=== PATIENT | female | born 1960 | race Caucasian/White ===

== ENCOUNTER → 2017-02-01 | Outpatient (CLI) | payer BC ==
[~2017-02-01] MED LIST: LEVO100T PO; OXYC-57 PO
--- NOTE | 2017-02-01 07:44 | DIAGNOSTIC IMAGING REPORT ---
ABDOMEN LIMITED (US) HISTORY: 56 years-old Female acute right upper quadrant abdominal pain COMPARISON: None available TECHNIQUE: Multiple real-time sonographic images of the abdominal right upper quadrant were obtained assessing grayscale appearance and color flow. FINDINGS: Image pancreas is unremarkable with majority of this structure could by bowel gas. There is mild intrahepatic biliary ductal dilation secondary to stones within the common bile duct, largest which measures up to 1.2 x 0.8 cm. Common bile duct is dilated just proximal to the stones measuring up to 11 mm transversely. Additionally, sludge and gall stones are seen within a distended gallbladder lumen with gallbladder stones measuring up to 2.7 cm. There is trace pericholecystic fluid without associated significant gallbladder wall thickening. Sonographic Lieberman sign was reported as negative. Incidentally, there is a small echogenic lesion of the right hepatic lobe measuring up to 0.5 cm which is nonspecific and may reflect a hemangioma without internal vascularity identified. The imaged right kidney is unremarkable without hydronephrosis. IMPRESSION: 1. Cholelithiasis with choledocholithiasis, intrahepatic and extrahepatic biliary ductal dilation with the common bile duct measuring up to 11 mm transversely. There is trace pericholecystic fluid with gallbladder distention, however no significant gallbladder wall thickening and the sonographic Lieberman sign was reported as negative. Correlate clinically to exclude developing acute cholecystitis. 2. 0.5 cm echogenic lesion of the right hepatic lobe incidentally noted which is nonspecific and may reflect a hemangioma. The above report was generated using voice recognition software. It may contain grammatical, syntax or spelling errors. Electronically signed by: Isidoro Curry M.D. 02/01/2017 7:43 AM Dictated Date/Time: 02/01/2017 7:31 AM
== END | disposition home or self-care (01) ==
LOC: C.ULTR 06:27
PROVIDERS: ATTEND Family Medicine
DX: R10.11 Right upper quadrant pain (principal)

== ENCOUNTER 2017-02-03 09:55 | Observation (INO) | payer BC ==
[2017-02-03] VITALS (9 sets, daily range): BP systolic 117–144; BP diastolic 64–84; PULSE 51–85; TEMP 34.6–36.5; O2SAT 96–100; Ht 157.5 cm; Wt 75.5 kg
[~2017-02-03] VITALS: Ht 157.5 cm; Wt 75.5 kg
[~2017-02-03 09:55] MED LIST changes: +LACTATED RINGER'S 1000ML 1,000 ML IV ONE; -OXYC-57 PO
[2017-02-03 11:33] LABS: BASO % 0.2 %; BASO ABS # 0.01 K/uL (0-0.2); EOS % 2.4 %; HEMATOCRIT 41.4 % (37-47); IG% 0.2 %; LYMPH % 29.7 %; LYMPH ABS # 1.64 K/uL (1.2-3.4); MEAN CELL VOLUME 90.8 fL (80-100); MEAN CORPUSCULAR HEMOGLOBIN 31.1 pg (25-34); MEAN PLATELET VOLUME 13.4 fL (7.4-10.4); MONO % 11.4 %; NEUT % 56.1 %; PLATELET COUNT 158 K/uL (130-400); RED BLOOD COUNT 4.56 M/uL (4.2-5.4); WHITE BLOOD COUNT 5.53 K/uL (4.8-10.8)
[2017-02-03 11:35] LABS: COMPLETE YES; MEAN CORPUSCULAR HGB CONC 34.3 g/dl (32-36)
[2017-02-03 11:44] LABS: PROTHROMBIN TIME (PATIENT) 10.7 SECONDS (9.0-12.0)
[2017-02-03 11:55] LABS: BUN/CREATININE RATIO 13.7 (10-20); CALCIUM 9.4 mg/dl (8.5-10.1); CREATININE 0.65 mg/dl (0.60-1.20); POTASSIUM 4.2 mmol/L (3.5-5.1)
--- NOTE | 2017-02-03 12:11 | History & Physical Bridge Note ---
H&P Re-Evaluation Bridge Note: I have examined the patient, reviewed the History & Physical and in the interval since the performance of the History & Physical I have noted the following changes of clinical significance: No changes noted
--- NOTE | 2017-02-03 12:44 | Endo History and Physical ---
History & Physical Date of Service: Feb 03, 2017. Chief Complaint: Abdominal pain Referring Physician: History of Present Illness Patient with intermittent right-sided abdominal pain over the past 4-6 weeks found to have choledocholithiasis on a recent ultrasound. This was associated with a significant Elavation of her liver associated enzymes. She presents today for ERCP to have gallstone extraction in addition to cholecystectomy. Past Surgical History Hx Abdominal Surgery: Yes (C-SECTIONS X2) Hx Post-Op Nausea and Vomiting: Yes Social History Smoking Status: Former Smoker Hx Substance Use: No Hx Alcohol Use: No Allergies Coded Allergies: Methimazole (Verified Allergy, Mild, RASH, 02/03/17) Metronidazole (Verified Allergy, Mild, FACIAL BURNING, 02/03/17) Current Medications Reported Home Medications Medications Dose Route/Sig Max Daily Dose Days Date Category Synthroid (Levothyroxine Sodium) 100 Mcg Tab 100 Mcg PO DAILY 05/03/16 Reported Vital Signs Weight (Kilograms): 75.50 Height (Feet): 5 Height (Inches): 2 Date Time Temp Pulse Resp B/P (MAP) Pulse Ox O2 Delivery O2 Flow Rate FiO2 02/03/17 11:17 36.5 67 18 117/64 (81) 97 Room Air 02/03/17 10:59 18 117/64 (81) 97 Room Air Physical Exam General Appearance: no apparent distress Respiratory/Chest: Auscultation: breath sounds normal Cardiovascular: Heart Auscultation: RRR Abdomen: Inspection & Palpation: soft, RUQ tenderness Assessment and Plan Patient to have ERCP and cholecystectomy this afternoon for complications of choledocholithiasis. We have discussed the risks and benefits of ERCP to include bleeding, infection, perforation, pancreatitis and potentially failed cannulation. Plan ERCP today Cholecystectomy with Dr. Barger
[2017-02-03] MEDS ORDERED: INDOMETHACIN 50 MG SUPP PR ONE ×2 (12:45→13:03)
[2017-02-03] MEDS ORDERED: PROPOFOL IV EMULSION 10 MG/ML 20 ML VIAL IV ONE (12:53)
[2017-02-03] MEDS ORDERED: ONDANSETRON INJ 2 MG/ML 2 ML VIAL ONE ×2 (12:53→17:17)
[2017-02-03] MEDS ORDERED: NEOSTIGMINE METHYLSULFATE 5 MG/5 ML SYR ONE (12:53)
[2017-02-03] MEDS ORDERED: LIDOCAINE HCL 2% 2 ML VIAL (20MG/ML) ONE (12:53)
[2017-02-03] MEDS ORDERED: SUCCINYLCHOLINE CHLORIDE 20 MG/ML 10 ML VIAL IV ONE (12:53)
[2017-02-03] MEDS ORDERED: DEXAMETHASONE SOD INJ 4 MG/ML VIAL ONE ×2 (12:53→12:54)
[2017-02-03] MEDS ORDERED: PHENYLEPHRINE HCL INJ 10 MG/ML VIAL ONE (12:53)
[2017-02-03] MEDS ORDERED: ROCURONIUM BROMIDE 10 MG/ML 5 ML VIAL IV ONE (12:53)
[2017-02-03] MEDS ORDERED: GLYCOPYRROLATE INJ 0.2 MG/ML VIAL ONE (12:53)
[2017-02-03] MEDS ORDERED: MIDAZOLAM HCL 1 MG/ML 2ML VIAL ONE (12:53)
[2017-02-03] MEDS ORDERED: EpHEDrine SULFATE INJ 50 MG/ML AMP ONE (12:53)
[2017-02-03] MEDS ORDERED: FENTANYL CITRATE INJ 50 MCG/1 ML 2 ML VIAL ONE ×4 (12:54→16:36)
[2017-02-03] MEDS ORDERED: CISATRACURIUM BESYLATE IV SOLN 2 MG/ML 10 ML VIAL ONE (12:55)
[2017-02-03] MEDS ORDERED: BUPIVACAINE 0.5 % 5 MG/1 ML MPF 30ML VIAL ONE (13:02)
[2017-02-03] MEDS ORDERED: SODIUM CHLORIDE 0.9% PF 50 ML VIAL ONE (13:02)
[2017-02-03] MEDS ORDERED: CEFOXITIN IV 2,000 MG in DEXTROSE 5% 50ML 50 ML IV SCH (13:45)
[2017-02-03] MEDS ORDERED: PROMETHAZINE HCL INJ 12.5 MG in SODIUM CHLORIDE 0.9% 50ML 50 ML IV PRN (14:45)
[2017-02-03] MEDS ORDERED: NALOXONE HCL 0.4 MG/1 ML VIAL/CARP IV PRN (14:45)
[2017-02-03] MEDS ORDERED: FENTANYL CITRATE INJ 50 MCG/1 ML 2 ML VIAL IV PRN (14:45)
[2017-02-03] MEDS ORDERED: FLUMAZENIL 0.1 MG/1 ML 10 ML VIAL IV PRN (14:45)
[2017-02-03] MEDS ORDERED: LABETALOL HCL IV 5 MG/ML 20ML IV PRN (14:45)
[2017-02-03] MEDS ORDERED: ONDANSETRON INJ 2 MG/ML 2 ML VIAL IV PRN ×2 (14:45→17:00)
[2017-02-03] MEDS ORDERED: ATROPINE SULFATE 0.1 MG/ML 5ML SYR IV PRN (14:45)
[2017-02-03] MEDS ORDERED: EpHEDrine SULFATE INJ 50 MG/ML AMP IV PRN (14:45)
--- NOTE | 2017-02-03 15:49 | DIAGNOSTIC IMAGING REPORT ---
ERCP BILIARY DUCTAL CLINICAL HISTORY: EXPLORE DUCTS COMPARISON STUDY: Right upper quadrant ultrasound February 01, 2017. FLUOROSCOPY TIME: 6 minutes and 24 seconds. FINDINGS: 27 fluoroscopic images of the right upper quadrant were obtained during ERCP. Initial images demonstrate cannulation of the common bile duct. Images demonstrate biliary ductal dilatation with a large filling defect consistent with a common bile duct calculus. Subsequent images demonstrate balloon sweep through the common bile duct. [address] are in place. IMPRESSION: Fluoroscopic images from ERCP demonstrating choledocholithiasis and placement of 2 common bile duct stents. Electronically signed by: Addi Gaspar M.D. 02/03/2017 3:47 PM Dictated Date/Time: 02/03/2017 3:45 PM
--- NOTE | 2017-02-03 16:59 | [facility] Post Operative Brief Note ---
Immediate Operative Summary Operative Date Feb 03, 2017. Pre-Operative Diagnosis Cholelithiasis and Choledocholithiasis Post-Operative Diagnosis same as pre-operative Procedure(s) Performed Endoscopic Retrograde Cholangiopancreatography and Laparoscopic Cholecystectomy Surgeon Dr. Guy Gonzales and Dr. Usman Barger Slps Surgeon(s) Matthew Lincoln PA-C for Laparoscopic Cholecystectomy Estimated Blood Loss 10ml for lap darrick Findings acute on chronic cholecystitis, dilated cystic duct, significant inflammation. Window of safety obtained, cystic duct stapled with 35mm endoscopic stapler with vascular load. cystic artery doubly clipped and divided. Gallbladder contracted with large stone. good hemostasis. Specimens A: Gallbladder and Contents Drains None Anesthesia GETA Complication(s) None Disposition Recovery Room / PACU
[2017-02-03] MEDS ORDERED: KETOROLAC TROMETHAMINE 30 MG/ML VIAL IV. PRN (17:00)
[2017-02-03] MEDS ORDERED: MoRPHine SULFATE 4 MG/ML 1 ML CARP\\VIAL IV PRN (17:00)
--- NOTE | 2017-02-03 17:06 | [facility] Operative Report ---
Operative Report Operative Date Feb 03, 2017. Pre-Operative Diagnosis Cholelithiasis and Choledocholithiasis Post-Operative Diagnosis Cholelithiasis with choledocholithiasis Procedure(s) Performed Acute on chronic cholecystitis with cholelithiasis and choledocholithiasis Surgeon Dr. Usman Barger Agricultural Sciences Professor Surgeon(s) Matthew Lincoln PA-C for Laparoscopic Cholecystectomy Estimated Blood Loss 10ml for lap darrick Findings ERCP performed by Gastroenterology. acute on chronic cholecystitis, dilated cystic duct, significant inflammation. Window of safety obtained, cystic duct stapled with 35mm endoscopic stapler with vascular load. cystic artery doubly clipped and divided. Gallbladder contracted with large stone. good hemostasis. Specimens A: Gallbladder and Contents Drains None Anesthesia GETA Complication(s) None Disposition Recovery Room / PACU Indications 56-year-old female with recent history of abdominal pain that had resolved but ultrasound and labs showed cholelithiasis with choledocholithiasis and mild cholecystitis. After discussion with Gastroenterology plan was made for an ERCP performed by Gastroenterology, followed by a laparoscopic cholecystectomy with possible intraoperative cholangiogram by myself. The risks of the procedure were discussed, all questions were answered, the patient agreed to proceed with surgery as planned. Description of Procedure The patient was properly identified, consented, and taken to the operating room where she was placed in the supine position. General endotracheal anesthesia was induced. SCDs and a safety belt were placed. Preoperative antibiotics were administered. An ERCP was performed by Dr. Gonzales of Gastroenterology, please see his report for further details. After completion of the ERCP, the patient's abdomen was prepped and draped in the standard sterile fashion. A surgical timeout was performed and all parties were in agreement that this was the correct patient and procedure to be performed and we continued as planned. A curvilinear, infraumbilical incision was made with electrocautery and deepened down to the fascia with blunt dissection. The base of the umbilicus was grasped with a Delon and elevated towards the ceiling. An incision was made in the midline fascia with a knife and entry into the peritoneum was confirmed. Stay suture of 0 Vicryl was placed and a Gregory trocar was inserted. The abdomen was insufflated with carbon dioxide which the patient tolerated without incident. The laparoscope was inserted and no damage from initial trocar placement was noted, no gross abnormalities were noted within the 4 quadrants of the abdomen. 5 mm ports were then placed in the subxiphoid position in the midline and 2 in the right subcostal position. The patient was placed in reverse Trendelenburg position and rotated towards the left. The dome of the gallbladder was retracted towards the left upper quadrant and the infundibulum was retracted toward the right lower quadrant revealing Calot' s triangle. Peritoneal attachments were taken down with electrocautery and blunt dissection. There is a significant amount of inflammation around the gallbladder. This was consistent with acute on chronic cholecystitis. The cystic duct was dilated. The cystic duct and artery were circumferentially dissected. A window of safety was obtained showing the cystic duct entering the gallbladder with no aberrant structures noted. Attempts were made to clip the cystic duct with 5 millimeter clip prior authorization nurse which were unsuccessful. We then upsized the subxiphoid port and attempted 11 millimeter clip prior authorization nurse which was also unsuccessful. We then used 35 millimeter endoscopic stapler with a vascular load to divide the cystic duct. The cystic artery was then doubly clipped and divided. The gallbladder was then lifted off the gallbladder fossa with blunt dissection and electrocautery. The gallbladder was very contracted and there was a very large firm stone within the gallbladder. The gallbladder was placed in an Endo Catch bag and removed through the umbilical port site. The right upper quadrant was irrigated and hemostasis was found to be good. 5 mm trochars were removed under direct visualization and the abdomen was allowed to collapse. The subxiphoid port fascia was closed with an 0 Vicryl suture. The umbilical port site fascia was closed with 0 Vicryl suture. The wound was irrigated, and the skin of all ports was closed with 4-0 Monocryl subcuticular sutures. Dermabond was placed over the wounds. The patient was extubated in the operating room and taken to the PACU where she recovered without apparent incident. All sponge, instrument and needle counts were correct at the conclusion of the procedure. The patient tolerated the procedure well. I attest to the content of the Intraoperative Record and any orders documented therein. Any exceptions are noted below.
[2017-02-03] MEDS ORDERED: KETOROLAC TROMETHAMINE 30 MG/ML VIAL ONE (17:17)
--- NOTE | 2017-02-03 18:35 | Anesthesiology Progress Note ---
Anesthesia Post Op Note Date & Time Feb 03, 2017 at 18:35 Vital Signs Pain Intensity: 0.0 Vital Signs Past 12 Hours Date Time Temp Pulse Resp B/P (MAP) Pulse Ox O2 Delivery O2 Flow Rate FiO2 02/03/17 18:17 36.4 57 20 142/83 97 Room Air 02/03/17 18:15 57 20 142/83 (102) 96 Room Air 02/03/17 18:05 71 17 100 02/03/17 18:05 71 17 02/03/17 18:01 134/67 02/03/17 18:00 64 9 02/03/17 18:00 63 9 98 02/03/17 17:56 132/66 02/03/17 17:55 65 10 98 02/03/17 17:55 65 10 02/03/17 17:51 130/66 02/03/17 17:50 66 8 02/03/17 17:50 66 8 97 02/03/17 17:46 128/71 02/03/17 17:45 68 12 97 02/03/17 17:45 68 12 02/03/17 17:44 36.9 02/03/17 17:41 130/60 02/03/17 17:40 53 14 99 02/03/17 17:40 54 14 02/03/17 17:36 128/64 02/03/17 17:35 60 17 02/03/17 17:35 58 17 100 02/03/17 17:31 140/65 02/03/17 17:30 Nasal Cannula 3 02/03/17 17:30 68 14 100 02/03/17 17:30 68 14 02/03/17 17:26 138/65 02/03/17 17:25 68 13 99 02/03/17 17:25 68 13 02/03/17 17:21 131/74 02/03/17 17:20 70 14 99 02/03/17 17:20 70 14 02/03/17 17:16 145/76 02/03/17 17:15 74 14 02/03/17 17:15 74 14 100 02/03/17 17:13 143/74 02/03/17 17:10 36.2 78 14 143/74 100 Mask 10 02/03/17 11:17 36.5 67 18 117/64 (81) 97 Room Air 02/03/17 10:59 18 117/64 (81) 97 Room Air Notes Mental Status: alert / awake / arousable, participated in evaluation Pt Amnestic to Procedure: Yes Nausea / Vomiting: adequately controlled Pain: adequately controlled Airway Patency, RR, SpO2: stable & adequate BP & HR: stable & adequate Hydration State: stable & adequate Anesthetic Complications: no major complications apparent
--- NOTE | 2017-02-03 18:38 | [facility] Post Operative Brief Note ---
Immediate Operative Summary Operative Date Feb 03, 2017. Pre-Operative Diagnosis Cholelithiasis and Choledocholithiasis Post-Operative Diagnosis same as pre-operative Procedure(s) Performed Endoscopic Retrograde Cholangiopancreatograpy Surgeon Dr.M Kelley Commercial Lending Assistant Surgeon(s) None Estimated Blood Loss 0 Findings dilated CBD papillary stenosis numerous cbd stones and a large amount of sludge Specimens None for ERCP Drains 2 biliary stents (internal) Anesthesia general Complication(s) None Disposition Recovery Room / PACU
[2017-02-03] MEDS: LACTATED RINGER'S 1000ML 1,000 ML IV SCH ×2 (20:44→23:47)
[2017-02-03] MEDS ORDERED: IV FLUIDS COMPLETED PRN (20:45)
--- NOTE | 2017-02-04 00:14 | GI REPORT ---
Procedure Date: 02/03/2017 1:04 PM Procedure: ERCP Indications: Abdominal pain of suspected biliary origin, Bile duct stone on Ultrasound, Abnormal liver function test Medicines: General Anesthesia, Indocin 100 mg MA Complications: No immediate complications. Estimated blood loss: Minimal. Estimated Blood Loss: Estimated blood loss was minimal. Procedure: Pre-Anesthesia Assessment: - Prior to the procedure, a History and Physical was performed, and patient medications, allergies and sensitivities were reviewed. The patient's tolerance of previous anesthesia was reviewed. - The risks and benefits of the procedure and the sedation options and risks were discussed with the patient. All questions were answered and informed consent was obtained. - Patient identification and proposed procedure were verified prior to the procedure by the physician, the nurse and the sheep rancher. The procedure was verified in the procedure room. - Pre-procedure physical examination revealed no contraindications to sedation. - ASA Grade Assessment: II - A patient with mild systemic disease. - After reviewing the risks and benefits, the patient was deemed in satisfactory condition to undergo the procedure. - The anesthesia plan was to use general anesthesia. - Immediately prior to administration of medications, the patient was re-assessed for adequacy to receive sedatives. - The heart rate, respiratory rate, oxygen saturations, blood pressure, adequacy of pulmonary ventilation, and response to care were monitored throughout the procedure. - The physical status of the patient was re-assessed after the procedure. After obtaining informed consent, the scope was passed under direct vision. Throughout the procedure, the patient's blood pressure, pulse, and oxygen saturations were monitored continuously. The Scope was introduced through the mouth, and advanced to the duodenum and used to inject contrast into the bile duct. The ERCP was accomplished without difficulty. The patient tolerated the procedure well. Findings: The quantitative research analyst film was normal. The esophagus was successfully intubated under direct vision without detailed examination of the pharynx, larynx, and associated structures, and upper GI tract. The upper GI tract was grossly normal. The major papilla was edematous. The bile duct was deeply cannulated with the short-nosed traction sphincterotome (Omni 35) and 0.035 in Acrobat guidewire during the second cannulation attempt. Contrast was injected. I personally interpreted the bile duct images. Contrast extended to the hepatic ducts. The biliary orifice was stenotic. This appeared benign. The main bile duct was diffusely dilated. The largest diameter was 13 mm. The main bile duct contained filling defect(s) thought to be a stone and sludge. Biliary sphincterotomy was made with a monofilament short-tip traction sphincterotome using ERBE electrocautery. There was no post-sphincterotomy bleeding. Common bile duct was successfully dilated with a 10 mm balloon dilator held inflated for 5 minutes. To discover objects, the biliary tree was swept with a 15 mm balloon starting at the middle third of the main bile duct. A large amount of sludge was swept from the duct. Many darkly pigmented and white pigmente stones were removed. Many stones remained. The lower third of the main bile duct was successfully dilated with a 12 mm balloon and a 13.5 mm balloon dilator. The biliary tree was swept with a 15 mm balloon starting at the bifurcation. Sludge was swept from the duct. Many stones were removed. A few stones remained, including a large stone in the middle CBD. One 7 Fr by 7 cm and a second 7Fr by 5 cm biliary stents with a full external pigtail and a full internal pigtail were placed into the common bile duct. Bile flowed through the stents. The stents were in good position. The total fluoroscopy exposure time was 6 minutes and 20 seconds. The endoscope was withdrawn from the patient. Impression: - The major papilla appeared edematous. - Biliary papillary stenosis, benign. - The entire main bile duct was dilated. - A sphincterotomy was performed. - Common bile duct was successfully dilated to 13.5 mm - Choledocholithiasis was found. Partial removal was accomplished with biliary sphincterotomy; a stent was inserted. Recommendation: - Avoid aspirin and nonsteroidal anti-inflammatory medicines today. - Clear liquid diet today. - Repeat ERCP in 4 to 6 weeks to remove stent and remaining stones. - Cholecystectomy as planned. Guy Gonzales D.O. Guy Gonzales, 02/03/2017 3:02:18 PM This report has been signed electronically. Note Initiated On: 02/03/2017 1:04 PM I attest to the content of the Intraoperative Record and orders documented therein, exceptions below
[2017-02-04 04:02] VITALS: BP 114/82; PULSE 64; TEMP 36.5; O2SAT 97
[2017-02-04] MEDS: LACTATED RINGER'S 1000ML 1,000 ML IV SCH ×2 (05:48→12:57)
[2017-02-04] MEDS ORDERED: LEVOTHYROXINE 100 MCG TAB PO SCH (06:00)
[2017-02-04 07:07] LABS: BASO % 0.1 %; BASO ABS # 0.01 K/uL (0-0.2); COMPLETE YES; EOS % 0.1 %; HEMATOCRIT 36.6 % (37-47); IG% 0.2 %; LYMPH % 9.6 %; MEAN CORPUSCULAR HEMOGLOBIN 30.4 pg (25-34); MEAN CORPUSCULAR HGB CONC 33.1 g/dl (32-36); MONO % 11.8 %; NEUT % 78.2 %; PLATELET COUNT 163 K/uL (130-400); RED BLOOD COUNT 3.98 M/uL (4.2-5.4); WHITE BLOOD COUNT 12.44 K/uL (4.8-10.8)
[2017-02-04 07:09] VITALS: BP 108/67; PULSE 62; TEMP 36.9; O2SAT 98
[2017-02-04 07:32] LABS: CALCIUM 8.9 mg/dl (8.5-10.1); CREATININE 0.69 mg/dl (0.60-1.20); POTASSIUM 4.4 mmol/L (3.5-5.1)
[2017-02-04 07:35] LABS: ALB/GLOB RATIO 0.9 (0.9-2)
--- NOTE | 2017-02-04 08:40 | Anesthesiology Progress Note ---
Anesthesia Post Op Note Date & Time Feb 04, 2017 at 08:39 Vital Signs Pain Intensity: 0.0 Vital Signs Past 12 Hours Date Time Temp Pulse Resp B/P (MAP) Pulse Ox O2 Delivery O2 Flow Rate FiO2 02/04/17 07:09 36.9 62 19 108/67 (81) 98 Room Air 02/04/17 04:02 36.5 64 16 114/82 (93) 97 Room Air 02/03/17 23:10 36.4 85 16 137/84 (101) 98 Room Air Notes Mental Status: alert / awake / arousable, participated in evaluation Pt Amnestic to Procedure: Yes Nausea / Vomiting: adequately controlled Pain: adequately controlled Airway Patency, RR, SpO2: stable & adequate BP & HR: stable & adequate Hydration State: stable & adequate Anesthetic Complications: no major complications apparent
[2017-02-04] MEDS ORDERED: OXYC-57 PO ×2 (09:24)
--- NOTE | 2017-02-04 09:27 | Discharge Instructions ---
Discharge Instructions Date of Service Feb 04, 2017. Visit Reason for Visit: Calculus Of Bile Duct Discharge Discharge Diagnosis / Problem: laparoscopic cholecystectomy, ERCP Discharge Goals Goal(s): Decrease discomfort Activity Recommendations Activity Limitations: as noted below Lifting Limitations: no more than 10 pounds Shower/Bathe: no limitations Driving or Machine Use: resume 3 days after discharge Anesthesia . Post Anesthesia Instructions: If you have had General Anesthesia or IV Sedation: * Do not drive today. * Resume driving when surgeon permits. * Do not make important decisions or sign legal documents today. * Call surgeon for: 1. Temperature elevations greater than 101 degrees F. 2. Uncontrollable pain. 3. Excessive bleeding. 4. Persistent nausea and vomiting. 5. Medication intolerance (nausea, vomiting or rash). * For nausea and vomiting use only clear liquids such as: tea, soda, bouillon until nausea subsides, then gradually increase diet as tolerated. * If you have any concerns or questions, call your surgeon's office. If physician is unavailable and it is an emergency, call 911 or go to the nearest emergency room. . Instructions / Follow-Up Instructions / Follow-Up Dr. Barger next week as planned, call [phone] Gonzales as instructed or call to schedule Diet Recommendations Recommended Home Diet: special diet (low fat diet for a few days) Procedures Procedures Performed: Endoscopic Retrograde Cholangiopancreatograpy Laparoscopic cholecystectomy Pending Studies Studies pending at discharge: yes List of pending studies: Pathology Medical Emergencies . Who to Call and When: Medical Emergencies: If at any time you feel your situation is an emergency, please call 911 immediately. . Non-Emergent Contact Non-Emergency issues call your: Surgeon Call Non-Emergent contact if: you have a fever, temperature is above 101.5, your pain is not controlled, wound has increased redness, you have any medication questions . . "Provider Documentation" section prepared by Matthew Lincoln. .
[2017-02-04] MEDS ORDERED: OXYCODONE/ACETAMINOPHEN 5-325 TAB PO PRN (09:30)
--- NOTE | 2017-02-04 09:40 | Surgery Progress Note ---
Surgery Progress Note Date of Service Feb 04, 2017. Subjective Post OP Day: 1 56 year old female POD#1 ERCP by GI and laparoscopic cholecystectomy for chronic cholecystitis and choledocholithiasis. Overall doing well, minimal pain , tolerated liquids. Ambulating, making urine. Objective Vital Signs: Date Time Temp Pulse Resp B/P (MAP) Pulse Ox O2 Delivery O2 Flow Rate FiO2 02/04/17 07:09 36.9 62 19 108/67 (81) 98 Room Air 02/04/17 04:02 36.5 64 16 114/82 (93) 97 Room Air 02/03/17 23:10 36.4 85 16 137/84 (101) 98 Room Air 02/03/17 20:30 Room Air 02/03/17 20:15 34.6 59 18 124/73 (90) 100 Room Air 02/03/17 19:15 34.7 53 16 132/80 (97) 96 Room Air 02/03/17 18:51 34.8 02/03/17 18:45 51 20 144/84 (104) 97 Room Air 02/03/17 18:17 36.4 57 20 142/83 97 Room Air 02/03/17 18:15 57 20 142/83 (102) 96 Room Air 02/03/17 18:05 71 17 100 02/03/17 18:05 71 17 02/03/17 18:01 134/67 02/03/17 18:00 64 9 02/03/17 18:00 63 9 98 02/03/17 17:56 132/66 02/03/17 17:55 65 10 98 02/03/17 17:55 65 10 02/03/17 17:51 130/66 02/03/17 17:50 66 8 02/03/17 17:50 66 8 97 02/03/17 17:46 128/71 02/03/17 17:45 68 12 97 02/03/17 17:45 68 12 02/03/17 17:44 36.9 02/03/17 17:41 130/60 02/03/17 17:40 53 14 99 02/03/17 17:40 54 14 02/03/17 17:36 128/64 02/03/17 17:35 60 17 02/03/17 17:35 58 17 100 02/03/17 17:31 140/65 02/03/17 17:30 Nasal Cannula 3 02/03/17 17:30 68 14 100 02/03/17 17:30 68 14 02/03/17 17:26 138/65 02/03/17 17:25 68 13 99 02/03/17 17:25 68 13 02/03/17 17:21 131/74 02/03/17 17:20 70 14 99 02/03/17 17:20 70 14 02/03/17 17:16 145/76 02/03/17 17:15 74 14 02/03/17 17:15 74 14 100 02/03/17 17:13 143/74 02/03/17 17:10 36.2 78 14 143/74 100 Mask 10 02/03/17 11:17 36.5 67 18 117/64 (81) 97 Room Air 02/03/17 10:59 18 117/64 (81) 97 Room Air General Appearance: WD/WN, no apparent distress Head: normocephalic, atraumatic Neck: supple, no adenopathy, thyroid normal, no JVD, no carotid bruits, trachea midline Respiratory/Chest: chest non-tender, lungs clear, normal breath sounds, no respiratory distress, no accessory muscle use Cardiovascular: regular rate, rhythm, no edema, no gallop, no JVD, no murmur Abdomen: normal bowel sounds, non tender, non distended, soft, no organomegaly , no pulsatile mass Incision(s): clean, dry, intact, no erythema, no drainage Extremities: normal range of motion, non-tender, normal inspection, no pedal edema, no calf tenderness, normal capillary refill, pelvis stable Laboratory Results: Results Past 24 Hours Test 02/03/17 11:06 02/04/17 06:39 Range/Units White Blood Count 5.53 12.44 4.8-10.8 K/uL Red Blood Count 4.56 3.98 4.2-5.4 M/uL Hemoglobin 14.2 12.1 12.0-16.0 g/dL Hematocrit 41.4 36.6 37-47 % Mean Corpuscular Volume 90.8 92.0 80-100 fL Mean Corpuscular Hemoglobin 31.1 30.4 25-34 pg Mean Corpuscular Hemoglobin Concent 34.3 33.1 32-36 g/dl Platelet Count 158 163 130-400 K/uL Mean Platelet Volume 13.4 14.0 7.4-10.4 fL Neutrophils (%) (Auto) 56.1 78.2 % Lymphocytes (%) (Auto) 29.7 9.6 % Monocytes (%) (Auto) 11.4 11.8 % Eosinophils (%) (Auto) 2.4 0.1 % Basophils (%) (Auto) 0.2 0.1 % Neutrophils # (Auto) 3.11 9.73 1.4-6.5 K/uL Lymphocytes # (Auto) 1.64 1.20 1.2-3.4 K/uL Monocytes # (Auto) 0.63 1.47 0.11-0.59 K/uL Eosinophils # (Auto) 0.13 0.01 0-0.5 K/uL Basophils # (Auto) 0.01 0.01 0-0.2 K/uL RDW Standard Deviation 48.0 48.4 36.4-46.3 fL RDW Coefficient of Variation 14.4 14.3 11.5-14.5 % Immature Granulocyte % (Auto) 0.2 0.2 % Immature Granulocyte # (Auto) 0.01 0.02 0.00-0.02 K/uL Prothrombin Time 10.7 9.0-12.0 SECONDS Prothromb Time International Ratio 1.0 0.9-1.1 Sodium Level 141 137 136-145 mmol/L Potassium Level 4.2 4.4 3.5-5.1 mmol/L Chloride Level 105 104 98-107 mmol/L Carbon Dioxide Level 26 24 21-32 mmol/L Anion Gap 10.0 9.0 3-11 mmol/L Blood Urea Nitrogen 9 8 7-18 mg/dl Creatinine 0.65 0.69 0.60-1.20 mg/dl Est Creatinine Clear Calc Drug Dose 90.9 85.6 ml/min Estimated GFR () 114.2 112.0 Estimated GFR (Non- 98.6 96.6 BUN/Creatinine Ratio 13.7 12.0 10-20 Random Glucose 72 93 70-99 mg/dl Calcium Level 9.4 8.9 8.5-10.1 mg/dl Total Bilirubin 0.6 0.5 0.2-1 mg/dl Aspartate Amino Transf (AST/SGOT) 82 79 15-37 U/L Alanine Aminotransferase (ALT/SGPT) 383 313 12-78 U/L Alkaline Phosphatase 230 189 45-117 U/L Total Protein 7.3 6.1 6.4-8.2 gm/dl Albumin 3.6 2.9 3.4-5.0 gm/dl Globulin 3.7 3.2 2.5-4.0 gm/dl Albumin/Globulin Ratio 1.0 0.9 0.9-2 Direct Bilirubin 0.2 0-0.2 mg/dl Lipase 320 73-393 U/L Assessment & Plan POD#1 ERCP and lap darrick, doing well, LFT's normalizing, tolerated liquids. P: advance to regular diet discharge if tolerates follow up in 1-2 weeks in clinic return precautions given wound care instructions and activity limitations reviewed percocet rx prn pain motrin and colace as needed Yayo Barger, DO
[2017-02-04 11:16] VITALS: BP 113/69; PULSE 62; TEMP 36.5; O2SAT 99
[2017-02-04 13:33] VITALS: BP 113/69; PULSE 62; TEMP 36.5; O2SAT 99
--- NOTE | 2017-02-07 11:53 | DISCHARGE SUMMARY ---
PRIMARY DISCHARGE DIAGNOSES: 1. Cholelithiasis. 2. Acute and chronic cholecystitis. 3. Choledocholithiasis. PROCEDURE PERFORMED: Laparoscopic cholecystectomy by Dr. Barger following ERCP with stenting by Dr. Gonzales. HOSPITAL COURSE: The patient is a 56-year-old female with several weeks of abdominal pain, found to have choledocholithiasis on an outpatient ultrasound. She was admitted through same day and taken to the operating room for ERCP followed by laparoscopic cholecystectomy. She had multiple common bile duct stones and a large amount of sludge. A stent was placed. The procedures were well tolerated. She was transferred to the surgical floor for overnight observation. On postoperative day 1, she was doing well. She was able to tolerate diet and oral analgesics. Her abdomen was soft. Incisions were clean and dry. Her LFTs were slightly improved and her lipase remained normal. She was stable for discharge. DISCHARGE INSTRUCTIONS: Discharge home. Follow up with Dr. Barger in 1 week. Should follow up with Dr. Gonzales for repeat ERCP and stent removal. DISCHARGE MEDICATIONS: Percocet 1-2 tablets every 4 hours as needed and resume Synthroid 100 mcg daily.
== END 2017-02-04 14:20 | disposition home or self-care (01) ==
LOC: C.ACU 09:55 → C.MSW 17:00 → ENRESERV 17:50
PROVIDERS: ADMIT Surgery; ATTEND Surgery
DX: K80.64 Calculus of gallbladder and bile duct with chronic cholecystitis without obstruction (principal); R10.11 Right upper quadrant pain; Z87.891 Personal history of nicotine dependence; E07.9 Disorder of thyroid, unspecified

== ENCOUNTER 2017-04-08 07:25 | Inpatient (IN) | payer BC ==
[~2017-04-08] VITALS: Ht 154.9 cm; Wt 69.4 kg
[2017-04-08] VITALS (10 sets, daily range): BP systolic 110–136; BP diastolic 62–93; PULSE 59–88; TEMP 36.6–37.7; O2SAT 95–100; Ht 154.9 cm; Wt 69.4 kg
[~2017-04-08 07:25] MED LIST changes: -LACTATED RINGER'S 1000ML 1,000 ML IV ONE; +LACTATED RINGER'S 1000ML 1,000 ML IV SCH; -LEVO100T PO
[2017-04-08] MEDS ORDERED: LACTATED RINGER'S 1000ML 1,000 ML IV SCH ×2 (08:15→09:15)
[2017-04-08] MEDS ORDERED: CIPROFLOXACIN 400MG / 200ML D5W ONE (08:43)
--- NOTE | 2017-04-08 08:54 | Endo History and Physical ---
History & Physical Date of Service: Apr 08, 2017. Chief Complaint: History of common bile duct stones presenting for stent removal Referring Physician: History of Present Illness The patient has a history of right-sided abdominal discomfort and was found to have gallstones within her gallbladder, bile duct. She underwent ERCP with cholecystectomy approximately 8 weeks ago without complication. She presents today for stent removal and repeat cholangiogram. Past Medical History Hysterectomy C section cholecystectomy Past Surgical History Hx Cardiac Surgery: No Hx Abdominal Surgery: Yes (C-SECTIONS X2; LAP CHOLEY WITH ERCP; HYSTERECTOMY) Hx Post-Op Nausea and Vomiting: Yes Hx Cancer Surgery: No Hx Thoracic Surgery: No Hx Orthopedic: No Hx Urinary Tract Surgery: No Social History Smoking Status: Former Smoker Hx Substance Use: No Hx Alcohol Use: No Allergies Coded Allergies: Methimazole (Verified Allergy, Mild, RASH, 04/08/17) Metronidazole (Verified Allergy, Mild, FACIAL BURNING, 04/08/17) Nickel (Verified Allergy, Unknown, CHEAP JEWELRY, RASH/HIVES, 04/08/17) Current Medications Reported Home Medications Medications Dose Route/Sig Max Daily Dose Days Date Category Imitrex (Sumatriptan Succinate) 25 Mg Tab 25 Mg PO PRN 04/08/17 Reported Synthroid (Levothyroxine Sodium) 100 Mcg Tab 100 Mcg PO QAM 05/03/16 Reported Vital Signs Weight (Kilograms): 69.40 Height (Feet): 5 Height (Inches): 1 Date Time Temp Pulse Resp B/P (MAP) Pulse Ox O2 Delivery O2 Flow Rate FiO2 04/08/17 07:52 36.7 64 18 112/64 (80) 97 Room Air Physical Exam General Appearance: no apparent distress Respiratory/Chest: Auscultation: breath sounds normal Cardiovascular: Heart Auscultation: RRR Abdomen: Inspection & Palpation: soft Assessment and Plan Patient with a history of common bile duct stones status post ERCP with stent placement. We are planning to do a repeat ERCP today for stent removal and repeat cholangiogram. We have discussed the risks to include bleeding, infection, perforation and pancreatitis.
[2017-04-08] MEDS ORDERED: MIDAZOLAM HCL 1 MG/ML 2ML VIAL ONE (08:57)
[2017-04-08] MEDS ORDERED: LIDOCAINE HCL 2% 2 ML VIAL (20MG/ML) ONE (08:57)
[2017-04-08] MEDS ORDERED: FENTANYL CITRATE INJ 50 MCG/1 ML 2 ML VIAL ONE (08:57)
[2017-04-08] MEDS ORDERED: DEXAMETHASONE SOD INJ 4 MG/ML VIAL ONE (09:00)
[2017-04-08] MEDS ORDERED: ONDANSETRON INJ 2 MG/ML 2 ML VIAL ONE (09:00)
[2017-04-08] MEDS ORDERED: INDOMETHACIN 50 MG SUPP PR SCH (09:00)
[2017-04-08] MEDS ORDERED: PROPOFOL IV EMULSION 10 MG/ML 20 ML VIAL IV ONE ×3 (09:00→10:34)
[2017-04-08] MEDS ORDERED: FENTANYL CITRATE INJ 50 MCG/1 ML 2 ML VIAL IV PRN (09:15)
[2017-04-08] MEDS ORDERED: ATROPINE SULFATE 0.1 MG/ML 5ML SYR IV PRN (09:15)
[2017-04-08] MEDS ORDERED: PROMETHAZINE HCL INJ 12.5 MG in SODIUM CHLORIDE 0.9% 50ML 50 ML IV PRN (09:15)
[2017-04-08] MEDS ORDERED: ONDANSETRON INJ 2 MG/ML 2 ML VIAL IV PRN ×3 (09:15→14:15)
[2017-04-08] MEDS ORDERED: KETOROLAC TROMETHAMINE 30 MG/ML VIAL IV. PRN (09:15)
[2017-04-08] MEDS ORDERED: LARYING-O-JET KIT (LTA) ONE ×2 (09:33)
--- NOTE | 2017-04-08 11:00 | DIAGNOSTIC IMAGING REPORT ---
ERCP BILIARY DUCTAL CLINICAL HISTORY: EXPLORE DUCTS. Gallstones. COMPARISON STUDY: ERCP 02/03/2017. FLUOROSCOPY TIME: 7 minutes and 28 seconds. 21 images submitted. FINDINGS: There is an endoscope at the second portion of the duodenum. There are 2 indwelling common bile duct stents. These were removed. A balloon sweep was performed for the choledocholithiasis. IMPRESSION: Fluoroscopic images for ERCP demonstrating choledocholithiasis and removal of the common bile duct stents. Electronically signed by: Flash Avila M.D. 04/08/2017 10:59 AM Dictated Date/Time: 04/08/2017 10:57 AM
--- NOTE | 2017-04-08 11:03 | [facility] Post Operative Brief Note ---
Immediate Operative Summary Operative Date Apr 08, 2017. Pre-Operative Diagnosis Gall Stones Post-Operative Diagnosis Gall Stones Procedure(s) Performed Endoscopic Retrograde Cholangiopancreatogram Surgeon Dr. April Gonzales Sweat Band Sewer Surgeon(s) none Estimated Blood Loss 5mL Findings Large common bile duct stone Specimens none per surgeon Drains None Anesthesia General Complication(s) None Disposition Recovery Room / PACU
--- NOTE | 2017-04-08 11:15 | GI REPORT ---
Procedure Date: 04/08/2017 9:08 AM Procedure: ERCP Indications: Suspected bile duct stone(s), Follow-up of bile duct stone(s), Stent removal Medicines: General Anesthesia, Cipro 400 mg IV, Indocin 100 mg OR Complications: No immediate complications. Estimated blood loss: Minimal. Estimated Blood Loss: Estimated blood loss was minimal. Procedure: Pre-Anesthesia Assessment: - Prior to the procedure, a History and Physical was performed, and patient medications, allergies and sensitivities were reviewed. The patient's tolerance of previous anesthesia was reviewed. - The risks and benefits of the procedure and the sedation options and risks were discussed with the patient. All questions were answered and informed consent was obtained. - Patient identification and proposed procedure were verified prior to the procedure by the physician, the nurse and the cooking teacher. The procedure was verified in the procedure room. - Pre-procedure physical examination revealed no contraindications to sedation. - ASA Grade Assessment: II - A patient with mild systemic disease. - After reviewing the risks and benefits, the patient was deemed in satisfactory condition to undergo the procedure. - The anesthesia plan was to use general anesthesia. - Immediately prior to administration of medications, the patient was re-assessed for adequacy to receive sedatives. - The heart rate, respiratory rate, oxygen saturations, blood pressure, adequacy of pulmonary ventilation, and response to care were monitored throughout the procedure. - The physical status of the patient was re-assessed after the procedure. After obtaining informed consent, the scope was passed under direct vision. Throughout the procedure, the patient's blood pressure, pulse, and oxygen saturations were monitored continuously. The Scope was introduced through the mouth, and advanced to the duodenum and used to inject contrast into the bile duct. The patient tolerated the procedure well. The ERCP was technically difficult and complex due to a large stone. Successful completion of the procedure was aided by performing the maneuvers documented (below) in this report. Findings: A legal archivist film of the abdomen was obtained. Surgical clips, consistent with previous cholecystectomy, were seen in the area of the right upper quadrant of the abdomen. Two stents ending in the main bile duct were seen. Two biliary stents originating in the biliary tree were emerging from the major papilla. The stents were visibly patent. A biliary sphincterotomy had been performed. The sphincterotomy appeared open. Two stents were removed from the biliary tree using a snare. The stents were found to be patent. The bile duct was deeply cannulated with the short-nosed traction sphincterotome (Omni 35) and 0.035 in Acrobat guidewire. Contrast was injected. I personally interpreted the bile duct images. Contrast extended to the hepatic ducts. The main bile duct was diffusely dilated. The largest diameter was 15 mm. The middle third of the main bile duct contained filling defect(s) thought to be a stone. The largest stone was size of the duct (15 mm). The lower third of the main bile duct was successfully dilated with 12-13.5-15 mm x 5.5 cm CRE balloon (to a maximum balloon size of 15 mm held inflated for 3 minutes) dilator. To discover objects, the biliary tree was swept with a 15 mm balloon starting at the distal duct and working up to the bifurcation over several sweeps. Many smal= pale pigmented stones were removed. One very large hard pale pigmented stone was removed after much difficulty. No stones remained on occlusion cholangiogram. The large gallstone was removed from the GI tract with a Jamison retrival net with the ERCP scope. The endoscope was withdrawn from the patient. Impression: - Two stents were removed from the biliary tree. - Prior biliary endoscopic sphincterotomy appeared open. - A filling defect consistent with a stone was seen on the cholangiogram. - The lower third of the main bile duct was successfully dilated to 15 mm. - Choledocholithiasis was found. Complete removal was accomplished by balloon extraction. Recommendation: - Avoid aspirin and nonsteroidal anti-inflammatory medicines for 1 week. - Discharge patient to home (ambulatory). - Clear liquid diet today. - Return to my office PRN. Guy Gonzales D.O. Guy Gonzales DO 04/08/2017 11:14:45 AM This report has been signed electronically. Note Initiated On: 04/08/2017 9:08 AM I attest to the content of the Intraoperative Record and orders documented therein, exceptions below
--- NOTE | 2017-04-08 11:16 | Discharge Instructions ---
Endoscopy Patient Instructions Date / Procedure(s) Performed Apr 08, 2017. ERCP Allergy Information Coded Allergies: Methimazole (Verified Allergy, Mild, RASH, 04/08/17) Metronidazole (Verified Allergy, Mild, FACIAL BURNING, 04/08/17) Nickel (Verified Allergy, Unknown, CHEAP JEWELRY, RASH/HIVES, 04/08/17) Discharge Date / Findings Apr 08, 2017. Dilated common bile duct Multiple large gallstones removed today Medication Instructions Reported Home Medications Medications Dose Route/Sig Max Daily Dose Days Date Category Imitrex (Sumatriptan Succinate) 25 Mg Tab 25 Mg PO PRN 04/08/17 Reported Synthroid (Levothyroxine Sodium) 100 Mcg Tab 100 Mcg PO QAM 05/03/16 Reported Provider Instructions Activity Restrictions - No exercising or heavy lifting for 24 hours. - Do not drink alcohol the day of the procedure. - Do not drive a car or operate machinery until the day after the procedure. - Do not make any important decisions or sign important papers in 24 hours after the procedure. Following Day: - Return to full activity which may include returning to work/school. Diet Clear liquid diet today Regular diet on 04/09/17 Treatment For Common After Affects For mild abdominal pain, bloating, or excessive gas: - Rest - Eat lightly - Lie on right side Follow-Up Information Follow-up with Dr. Gonzales as needed Anesthesia Information What You Should Know You have had a procedure that required some medicine to reduce anxiety and discomfort. This treatment is called moderate sedation. After receiving the treatment, you may be sleepy, but you will be able to breathe on your own. The effects of the treatment may last for several hours. Follow these instructions along with Activity/Diet recommendations noted above: * Do NOT do anything where dizziness or clumsiness would be dangerous. * Rest quietly at home today, then you can be up and about tomorrow. * Have a responsible person stay with you the rest of today. * You may have had an I.V. today. If so, you may take the dressing off later today. Recommendations Call your doctor if: * Trouble breathing * Continuous vomiting for more than 24 hours * Temperature above 101 degrees * Severe abdominal pain or bloating * Pain not relieved by pain medicine ordered * There is increased drainage or redness from any incision * A large amount of rectal bleeding greater than 2-3 tablespoons. (If you had a polyp/s removed or have hemorrhoids, a small amount of blood - from the rectum is to be expected.) * You have any unanswered questions or concerns. IN THE EVENT OF A SERIOUS EMERGENCY, GO TO THE NEAREST EMERGENCY ROOM Your discharge instructions were prepared by provider Guy Gonzales. Patient Instructions Signature Page Priyanka Bowen Patient (or Guardian) Signature/Date: I have read and understand the instructions given to me by my caregivers. Caregiver/RN/Doctor Signature/Date: The above-named patient and/or guardian has received patient instructions on this date. + Original Patient Signature Page (only) stays with chart. Please make copy for patient.
--- NOTE | 2017-04-08 11:38 | Anesthesiology Progress Note ---
Anesthesia Post Op Note Date & Time Apr 08, 2017 at 11:38 Vital Signs Pain Intensity: 0 Vital Signs Past 12 Hours Date Time Temp Pulse Resp B/P (MAP) Pulse Ox O2 Delivery O2 Flow Rate FiO2 04/08/17 11:30 91 16 149/83 100 Room Air 04/08/17 11:20 91 16 153/85 100 Oxymask 10 04/08/17 11:10 36.2 95 16 148/91 100 Oxymask 10 04/08/17 07:52 36.7 64 18 112/64 (80) 97 Room Air Notes Mental Status: alert / awake / arousable, participated in evaluation Pt Amnestic to Procedure: Yes Nausea / Vomiting: adequately controlled Pain: adequately controlled Airway Patency, RR, SpO2: stable & adequate BP & HR: stable & adequate Hydration State: stable & adequate Anesthetic Complications: no major complications apparent
[2017-04-08] MEDS ORDERED: NURSING VERBAL MED ORDER ONE ×2 (13:00→18:15)
[2017-04-08] MEDS ORDERED: FENTANYL CITRATE INJ 50 MCG/1 ML 2 ML VIAL IV ONE (13:00)
--- NOTE | 2017-04-08 13:03 | Progress Note ---
Progress Note Date of Service Apr 08, 2017. Progress Note The patient underwent ERCP today initially she noted feeling very well. Just prior to discharge she started having some discomfort radiating towards her back. She denies having any vomiting but does note having significant amount of nausea. Physical exam No distress Abdomen tender without peritoneal rebound tenderness Impression: Patient with post ERCP discomfort. Of note this was a difficult procedure as she had a very large stone within her common bile duct. Given this we will have the patient admitted overnight for observation and IV hydration. Plan Cipro 400 mg twice daily IV hydration with LR at 150 mL/h May have ice chips and sips of water Abdominal x-ray ordered for today.
--- NOTE | 2017-04-08 13:46 | DIAGNOSTIC IMAGING REPORT ---
[facility]UB CLINICAL HISTORY: Epigastric pain status post ERCP COMPARISON STUDY: No previous studies for comparison. FINDINGS: There is no pathologic bowel dilatation. There are surgical clips within the right upper quadrant consistent with a prior cholecystectomy. The study was performed in a supine fashion, and therefore cannot be utilized to exclude free intraperitoneal air. IMPRESSION: No evidence of pathologic bowel dilatation Electronically signed by: Sae Lopez M.D. 04/08/2017 1:45 PM Dictated Date/Time: 04/08/2017 1:44 PM
--- NOTE | 2017-04-08 14:11 | History and Physical ---
History & Physical Date & Time of Service: Apr 08, 2017 at 14:10 Chief Complaint: Bile Duct Stone Primary Care Physician: Catherine Ortiz C.R.NTariq History of Present Illness Source: patient Ms. Bowen is a 56 y/o female with PMHx of ITP, Hypothyroidism, and Migraines who is S/P ERCP with abdominal pain and emesis. Patient underwent ERCP with stent placement with following laparoscopic cholecystectomy in January without complication. She underwent ERCP today with stent removal and repeat cholangiogram. She was found to have retention stones and underwent removal. Patient initially felt fine but prior to discharge developed abdominal pain and emesis. Currently pain is down to 4/10 and nausea/vomiting has stopped. Past Medical/Surgical History PMH: Hypothyroidism ITP Migraine headaches PSH: Lap Serena x 2 Hysterectomy Family History Heart Disease Hypertension Social History Smoking Status: Former Smoker Smokeless Tobacco Use: No Alcohol Use: none Drug Use: none Occupational Status: employed Multi-Drug Resistant Organisms History of MDRO: No Allergies Coded Allergies: Methimazole (Verified Allergy, Mild, RASH, 04/08/17) Metronidazole (Verified Allergy, Mild, FACIAL BURNING, 04/08/17) Nickel (Verified Allergy, Unknown, CHEAP JEWELRY, RASH/HIVES, 04/08/17) Home Medications Scheduled Levothyroxine Sodium (Synthroid), 100 MCG PO QAM Sumatriptan Succinate (Imitrex), 25 MG PO PRN Review of Systems Constitutional: No fever, No chills ENT: No nasal symptoms, No sore throat, No trouble swallowing Respiratory: No cough, No shortness of breath Cardiovascular: No chest pain, No palpitations Abdomen: + pain (RUQ), No nausea, No vomiting, No diarrhea, No constipation, No GI bleeding Musculoskeletal: No swelling, No calf pain Genitourinary - Female: No dysuria Hematologic / Lymphatic: No abnormal bleeding/bruising, No clotting problems Integumentary: No rash Physical Exam Vital Signs Date Time Temp Pulse Resp B/P (MAP) Pulse Ox O2 Delivery O2 Flow Rate FiO2 04/08/17 11:45 36.2 78 16 146/82 100 Room Air 04/08/17 11:40 78 16 156/77 100 Room Air 04/08/17 11:30 91 16 149/83 100 Room Air 04/08/17 11:20 91 16 153/85 100 Oxymask 10 04/08/17 11:10 36.2 95 16 148/91 100 Oxymask 10 04/08/17 07:52 36.7 64 18 112/64 (80) 97 Room Air General Appearance: WD/WN, no apparent distress Head: normocephalic, atraumatic Eyes: sclerae normal ENT: hearing grossly normal Neck: supple, no JVD, trachea midline Respiratory/Chest: lungs clear, normal breath sounds, no respiratory distress, no accessory muscle use Cardiovascular: regular rate, rhythm, no gallop, no murmur Abdomen/GI: normal bowel sounds, soft, + tenderness (tenderness to palpation of RUQ; no tenderness of LUQ; no guarding or rigidity or signs of acute abdomen) Extremities/Musculoskelatal: no calf tenderness, no pedal edema Neurologic/Psych: alert, oriented x 3 Skin: normal color, warm/dry Diagnostics Diagnostic Radiology KUB FINDINGS: There is no pathologic bowel dilatation. There are surgical clips within the right upper quadrant consistent with a prior cholecystectomy. The study was performed in a supine fashion, and therefore cannot be utilized to exclude free intraperitoneal air. IMPRESSION: No evidence of pathologic bowel dilatation Impression Assessment and Plan Ms. Bowen is a 56 y/o female with PMHx of ITP, Hypothyroidism, and Migraines who is S/P ERCP with abdominal pain and emesis. Abdominal Pain S/P ERCP with Stent Removal and Stone Extraction: - Ciprofloxacin 400 mg IV BID - LR at 150 mL/hr - Clear liquid diet - Dilaudid PRN - GI following - discussed with Dr. Gonzales - to do above plan and will re- evaluate in AM Hypothyroidism: - Synthroid 100 mcg daily ITP: STABLE - Previously followed with Heme/Onc - no issues x multiple years - No petechiae/purpura DVT Prophylaxis: SCD/Ambulation Disposition: - Monitor patient overnight - if absence of abdominal pain and tolerating diet can be D/C'd home with outpatient follow-up. Level of Care Med/Surg Resuscitation Status FULL RESUSCITATION VTE Prophylaxis VTE Risk Assessment Done? Y/N: Yes Risk Level: Low Given or contraindicated: SCD's Social Service Consult None Apply Reviewed: Pt Seen/Exam by Me History Physician Assistant Professor Of Religion Supervision Note: I interviewed and examined the patient. Discussed with EFRAIN Suero and agree with findings and plan as documented in the note. Any exceptions or clarifications are listed here: Pt admitted for overnight observation for post-ERCP epigastric and RUQ abd pain. Had a very large gallstone removed from CBD as per my d/w Dr. Gonzales, the performing Endoscopist. Pt also with post-ERCP N/V. Vitals reviewed NAD, sitting in bed RRR no mgr CTAB no wcr Abd +BS, soft, +TTP epigastric region and RUQ area without guarding or rebound Ext no edema 56 yo female with h/o migraines, ITP, gallstones, here with post-ERCP abd pain, N/V. continue IVFs, clear liquids diet and adv as tolerated in the AM -pain meds prn, check CMP and CBC in AM -Cipro for proph DVT Proph-SCDs Documented By: Karen Mccann
[2017-04-08] MEDS ORDERED: IV FLUIDS COMPLETED PRN (14:15)
[2017-04-08] MEDS ORDERED: MAGNESIUM HYDROXIDE SUSP 30 ML UDC PO PRN (14:15)
[2017-04-08] MEDS ORDERED: ALUMINUM/MAGNESIUM/SIMETH (MAALOX MAX) 30 ML UDC PO PRN (14:15)
[2017-04-08] MEDS ORDERED: POLYETHYLENE (MIRALAX) 17 GM PACK PO PRN (14:15)
[2017-04-08] MEDS: LACTATED RINGER'S 1000ML 1,000 ML IV SCH ×3 (14:32→18:00)
[2017-04-08] MEDS: CIPROFLOXACIN / D5W 400 MG in PREMIXED IN D5W 200 ML IV SCH (20:52)
[2017-04-08] MEDS: HYDROmorphone INJ 1 MG/ML SYR IV PRN (22:31)
[2017-04-09] MEDS: LACTATED RINGER'S 1000ML 1,000 ML IV SCH ×4 (01:06→20:52)
[2017-04-09 03:39] VITALS: BP 115/77; PULSE 54; TEMP 36.9; O2SAT 95
[2017-04-09] MEDS ORDERED: CIPROFLOXACIN 400MG / 200ML D5W IV ONE (06:00)
[2017-04-09] MEDS: LEVOTHYROXINE 100 MCG TAB PO SCH (06:17)
[2017-04-09 07:54] LABS: BUN/CREATININE RATIO 6.8 (10-20); CALCIUM 8.7 mg/dl (8.5-10.1); CREATININE 0.63 mg/dl (0.60-1.20); POTASSIUM 3.8 mmol/L (3.5-5.1)
[2017-04-09 07:56] VITALS: BP 123/78; PULSE 65; TEMP 36.5; O2SAT 99
[2017-04-09] MEDS ORDERED: ACETAMINOPHEN 325 MG TAB PO PRN (08:30)
[2017-04-09 08:49] LABS: HEMATOCRIT 35.5 % (37-47); MEAN CORPUSCULAR HEMOGLOBIN 29.8 pg (25-34); MEAN CORPUSCULAR HGB CONC 32.4 g/dl (32-36); MEAN PLATELET VOLUME 14.4 fL (7.4-10.4); PLATELET COUNT 121 K/uL (130-400); RED BLOOD COUNT 3.86 M/uL (4.2-5.4)
[2017-04-09 08:50] LABS: BASO % 0.1 %; BASO ABS # 0.01 K/uL (0-0.2); COMPLETE YES; EOS % 0.4 %; IG% 0.2 %; LYMPH % 10.7 %; LYMPH ABS # 1.44 K/uL (1.2-3.4); MONO % 10.8 %; NEUT % 77.8 %; PLT ESTIMATE DECREASED
[2017-04-09] MEDS: CIPROFLOXACIN / D5W 400 MG in PREMIXED IN D5W 200 ML IV SCH (09:33)
--- NOTE | 2017-04-09 09:43 | Gastroenterology Progress Note ---
Progress Note Date of Service: Apr 09, 2017 Subjective Pt evaluation today including: conversation w/ patient, physical exam The patient notes that she had worsening pain beginning around 4 AM this morning. She notes having right-sided discomfort radiating towards her back. There is presently no nausea or vomiting or fevers noted overnight. She underwent an ERCP yesterday which was complicated due to the presence of a very large common bile duct stone. This was removed after much manipulation and the need for a significant dilation of her distal common bile duct to extract gallstone. Review of Systems Respiratory: No cough, No wheezing, No dyspnea at rest Cardiac: No chest pain, No edema, No palpitations Abdomen: + see HPI, No nausea, No diarrhea, No constipation Medications Current Inpatient Medications Medications (Trade) Dose Ordered Sig/Shawn Route Start Time Stop Time Status Last Admin Dose Admin Lactated Ringer's 1,000 ml @ 150 mls/hr Q6H40M IV 04/08/17 13:15 05/08/17 13:14 04/09/17 07:41 150 MLS/HR Hydromorphone HCl (Dilaudid Inj) 1 mg Q2HWA PRN IV 04/08/17 13:15 04/22/17 13:14 04/08/17 22:31 1 MG Ciprofloxacin/ Dextrose 400 mg/ Prmx 200 ml @ 100 mls/hr Q12 IV 04/08/17 21:00 04/09/17 20:59 04/09/17 09:33 100 MLS/HR Levothyroxine Sodium (Synthroid Tab) 100 mcg DAILYBB PO 04/09/17 06:00 05/09/17 05:59 04/09/17 06:17 100 MCG Miscellaneous Information (Order Awaiting Action) 1 ea QS N/A 04/08/17 16:00 05/08/17 15:59 Al Hydrox/Mg Hydrox/Simethicone (Maalox Max Susp) 15 ml Q4H PRN PO 04/08/17 14:15 05/08/17 14:14 Magnesium Hydroxide (Milk Of Magnesia Susp) 30 ml Q6H PRN PO 04/08/17 14:15 05/08/17 14:14 Polyethylene (Miralax Powder Packet) 17 gm DAILY PRN PO 04/08/17 14:15 05/08/17 14:14 Ondansetron HCl (Zofran Inj) 4 mg Q6H PRN IV 04/08/17 14:15 05/08/17 14:14 04/08/17 23:32 4 MG Miscellaneous (Iv Fluids Completed) 1 ea PRN PRN N/A 04/08/17 14:15 04/08/18 14:14 Acetaminophen (Tylenol Tab) 650 mg Q4H PRN PO 04/09/17 08:30 05/09/17 08:29 04/09/17 08:46 650 MG Ioversol (Optiray 320) 100 ml UD PRN IV 04/09/17 09:45 04/13/17 09:44 UNV Objective Vital Signs Date Time Temp Pulse Resp B/P (MAP) Pulse Ox O2 Delivery O2 Flow Rate FiO2 04/09/17 07:56 36.5 65 18 123/78 (93) 99 Room Air 04/09/17 07:50 Room Air 04/09/17 03:39 36.9 54 16 115/77 (90) 95 Room Air 04/08/17 23:20 Room Air 04/08/17 23:00 36.9 59 16 117/93 (101) 95 Room Air 04/08/17 19:37 36.9 62 16 126/76 (93) 97 Room Air 04/08/17 15:44 37.3 83 16 110/62 Room Air 82 04/08/17 15:07 37.3 82 16 110/62 (78) 97 Room Air 04/08/17 14:23 37.0 88 19 125/76 (92) 96 Room Air 04/08/17 13:50 36.6 83 16 128/72 99 Nasal Cannula 2 04/08/17 12:55 37.7 79 20 136/67 100 Room Air 04/08/17 12:25 84 20 129/79 100 Room Air 04/08/17 11:55 37.4 81 20 136/76 99 Room Air 04/08/17 11:45 36.2 78 16 146/82 100 Room Air 04/08/17 11:40 78 16 156/77 100 Room Air 04/08/17 11:30 91 16 149/83 100 Room Air 04/08/17 11:20 91 16 153/85 100 Oxymask 10 04/08/17 11:10 36.2 95 16 148/91 100 Oxymask 10 Physical Exam Eyes: PERRL Neck: supple Respiratory/Chest: lungs clear Cardiovascular: regular rate, rhythm Abdomen: + tenderness (mild tenderness worse in the right upper quadrant region ) Neurologic/Psych: oriented x 3 Skin: no jaundice Laboratory Results Last 24 Hours Test 04/09/17 06:43 04/09/17 09:24 White Blood Count 13.40 K/uL Red Blood Count 3.86 M/uL Hemoglobin 11.5 g/dL Hematocrit 35.5 % Mean Corpuscular Volume 92.0 fL Mean Corpuscular Hemoglobin 29.8 pg Mean Corpuscular Hemoglobin Concent 32.4 g/dl Platelet Count 121 K/uL Mean Platelet Volume 14.4 fL Neutrophils (%) (Auto) 77.8 % Lymphocytes (%) (Auto) 10.7 % Monocytes (%) (Auto) 10.8 % Eosinophils (%) (Auto) 0.4 % Basophils (%) (Auto) 0.1 % Neutrophils # (Auto) 10.41 K/uL Lymphocytes # (Auto) 1.44 K/uL Monocytes # (Auto) 1.45 K/uL Eosinophils # (Auto) 0.06 K/uL Basophils # (Auto) 0.01 K/uL RDW Standard Deviation 49.7 fL RDW Coefficient of Variation 14.8 % Immature Granulocyte % (Auto) 0.2 % Immature Granulocyte # (Auto) 0.03 K/uL Platelet Estimate DECREASED Sodium Level 141 mmol/L Potassium Level 3.8 mmol/L Chloride Level 106 mmol/L Carbon Dioxide Level 30 mmol/L Anion Gap 6.0 mmol/L Blood Urea Nitrogen 4 mg/dl Creatinine 0.63 mg/dl Est Creatinine Clear Calc Drug Dose 87.7 ml/min Estimated GFR () 115.4 Estimated GFR (Non- 99.6 BUN/Creatinine Ratio 6.8 Random Glucose 102 mg/dl Calcium Level 8.7 mg/dl Total Bilirubin 0.4 mg/dl Aspartate Amino Transf (AST/SGOT) 30 U/L Alanine Aminotransferase (ALT/SGPT) 40 U/L Alkaline Phosphatase 86 U/L Total Protein 5.9 gm/dl Albumin 2.9 gm/dl Globulin 3.0 gm/dl Albumin/Globulin Ratio 1.0 Hepatitis C Antibody Screen NEG Assessment and Plan Patient status post ERCP for removal of a very large common bile duct stone. Given her discomfort I would like to pursue further imaging with a CT of the abdomen and hiatus scan. I would like to evaluate for evidence of a retroperitoneal perforation and evidence of a bile leak. Recommendations CT of abdomen ordered HIDA Scan ordered Nothing by mouth Continue with ciprofloxacin Nothing by mouth Continue with LR at 150 mL per hour
[2017-04-09] MEDS ORDERED: OPTIRAY 320 IV PRN (09:45)
[2017-04-09 10:06] LABS: AMYLASE 13 U/L (25-115)
--- NOTE | 2017-04-09 10:21 | DIAGNOSTIC IMAGING REPORT ---
ABD WITH IV CONTRAST ONLY (CT) CLINICAL HISTORY: Post ERCP. Choledocholithiasis. Acute cholecystitis. TECHNIQUE: Transaxial acquisition with multi axial reformatted images COMPARISON STUDY: ERCP dated 04/08/2017 FINDINGS: Mild bibasilar atelectatic change. Minimal basilar pleural reactive change. Evidence for air within distended intrahepatic biliary ducts. Several surgical clips presumably from prior cholecystectomy. Distal common bile duct potentially contains a small amount of debris or blood. Definite calcifications within the biliary ductal system cannot be confirmed. There is suggestion potentially a trace amount of edematous change of the pancreatic head/uncinate process. Trace amount of peripancreatic infiltrative change may also be present. There is no significant dilatation of the pancreatic duct. Liver shows a high density nodule peripheral aspect right inferior hepatic lobe. This suggestive of a hemangioma. A peripheral hypodensity seen right hepatic lobe image 23 and potentially suggests a nonneoplastic cystic and or subhepatic capsular seroma. This measures approximate 5 x 10 mm. There is unremarkable vascular flow within the portal and hepatic venous structures. Spleen is uniform. Adrenal glands are normal. Kidneys negative for hydronephrosis. There is a small left renal cyst. There is no significant retroperitoneal or abdominal adenopathy. Bowel pattern overall is considered nonobstructive. IMPRESSION: 1. Prior cholecystectomy. 2. Small amount of edematous change in the gallbladder bed most likely postoperative. 3. Biliary ductal distention with biliary ductal air on a post procedural bases. 4. Potential debris within the distal common bile duct duct possibly secondary to residual sludge and/or debris from prior ERCP studies. 5. Clinical trace findings of early pancreatitis involving the pancreatic head and uncinate process. 6. Hepatic hemangioma with a potential very small subcapsular seroma. 7. Bibasilar atelectatic change The above report was generated using voice recognition software. It may contain grammatical, syntax or spelling errors. Electronically signed by: Brayan Ayala M.D. 04/09/2017 10:20 AM Dictated Date/Time: 04/09/2017 10:05 AM
--- NOTE | 2017-04-09 11:04 | Progress Note ---
Progress Note Date of Service Apr 09, 2017. Progress Note CT reviewed this morning. There appears to be a subcapsular hematoma in the region of the right hepatic lobe. This was most likely a result of an ERCP wire during the examination. There is a question about debris within the distal common bile duct. I wonder if the radiologist may be seen air as the patient did have a very large duct, a large sphincterotomy and require dilation of the distal duct. At this point it does not appear that she's acting obstructed. The patient and I did discuss the CT findings and plan as outlined below. Recommendations Continue with IV hydration Continue with antibiotic coverage Hida scan pending If hida scan is negative would then continue with conservative management for hepatic hematoma If hida scan shows evidence of a leak we would proceed with ERCP for stent placement
--- NOTE | 2017-04-09 12:39 | Hospitalist Progress Note ---
Hospitalist Progress Note Date of Service Apr 09, 2017. (Alvina Suero PA-C) Subjective Pt evaluation today including: conversation w/ patient, physical exam, chart review, lab review, review of studies, review of inpatient medication list Patient seen and evaluated. Continues to have RUQ abdominal pain and intermittent nausea without vomiting. She did not tolerate Dilaudid and feels that may have increased her nausea. Only requesting Tylenol at this time and will await to see its effects. CT revealed possible ductal air vs hepatic hemangioma. Constitutional: No fever, No chills Cardiovascular: No chest pain Abdomen: + pain (RUQ), + nausea, No vomiting, No diarrhea, No constipation Musculoskeletal: No swelling, No calf pain Female : No dysuria Heme: No abnormal bleeding/bruising (Alvina Suero PA-C) Medications Current Inpatient Medications Medications (Trade) Dose Ordered Sig/Shawn Route Start Time Stop Time Status Last Admin Dose Admin Lactated Ringer's 1,000 ml @ 150 mls/hr Q6H40M IV 04/08/17 13:15 05/08/17 13:14 04/09/17 07:41 150 MLS/HR Hydromorphone HCl (Dilaudid Inj) 1 mg Q2HWA PRN IV 04/08/17 13:15 04/22/17 13:14 04/08/17 22:31 1 MG Ciprofloxacin/ Dextrose 400 mg/ Prmx 200 ml @ 100 mls/hr Q12 IV 04/08/17 21:00 04/09/17 20:59 04/09/17 09:33 100 MLS/HR Levothyroxine Sodium (Synthroid Tab) 100 mcg DAILYBB PO 04/09/17 06:00 05/09/17 05:59 04/09/17 06:17 100 MCG Miscellaneous Information (Order Awaiting Action) 1 ea QS N/A 04/08/17 16:00 05/08/17 15:59 Al Hydrox/Mg Hydrox/Simethicone (Maalox Max Susp) 15 ml Q4H PRN PO 04/08/17 14:15 05/08/17 14:14 Magnesium Hydroxide (Milk Of Magnesia Susp) 30 ml Q6H PRN PO 04/08/17 14:15 05/08/17 14:14 Polyethylene (Miralax Powder Packet) 17 gm DAILY PRN PO 04/08/17 14:15 05/08/17 14:14 Ondansetron HCl (Zofran Inj) 4 mg Q6H PRN IV 04/08/17 14:15 05/08/17 14:14 04/08/17 23:32 4 MG Miscellaneous (Iv Fluids Completed) 1 ea PRN PRN N/A 04/08/17 14:15 04/08/18 14:14 Acetaminophen (Tylenol Tab) 650 mg Q4H PRN PO 04/09/17 08:30 05/09/17 08:29 04/09/17 08:46 650 MG Ioversol (Optiray 320) 100 ml UD PRN IV 04/09/17 09:45 04/13/17 09:44 (Alvina Suero, EFRAIN-C) Objective Vital Signs Date Time Temp Pulse Resp B/P (MAP) Pulse Ox O2 Delivery O2 Flow Rate FiO2 04/09/17 07:56 36.5 65 18 123/78 (93) 99 Room Air 04/09/17 07:50 Room Air 04/09/17 03:39 36.9 54 16 115/77 (90) 95 Room Air 04/08/17 23:20 Room Air 04/08/17 23:00 36.9 59 16 117/93 (101) 95 Room Air 04/08/17 19:37 36.9 62 16 126/76 (93) 97 Room Air 04/08/17 15:44 37.3 83 16 110/62 Room Air 82 04/08/17 15:07 37.3 82 16 110/62 (78) 97 Room Air 04/08/17 14:23 37.0 88 19 125/76 (92) 96 Room Air 04/08/17 13:50 36.6 83 16 128/72 99 Nasal Cannula 2 04/08/17 12:55 37.7 79 20 136/67 100 Room Air 04/08/17 12:25 84 20 129/79 100 Room Air (Alvina Suero PA-C) Physical Exam General Appearance: WD/WN, no apparent distress Eyes: sclerae normal ENT: hearing grossly normal Neck: supple, no JVD, trachea midline Respiratory/Chest: lungs clear, normal breath sounds, no respiratory distress, no accessory muscle use Cardiovascular: regular rate, rhythm, no gallop, no murmur Abdomen: normal bowel sounds, soft, + tenderness (RUQ with minimal palpation; no acute abdomen) Extremities: no pedal edema, no calf tenderness Neurologic/Psychiatric: alert, oriented x 3 (Alvina Suero PA-C) Laboratory Results Last 24 Hours Test 04/09/17 06:43 White Blood Count 13.40 K/uL Red Blood Count 3.86 M/uL Hemoglobin 11.5 g/dL Hematocrit 35.5 % Mean Corpuscular Volume 92.0 fL Mean Corpuscular Hemoglobin 29.8 pg Mean Corpuscular Hemoglobin Concent 32.4 g/dl Platelet Count 121 K/uL Mean Platelet Volume 14.4 fL Neutrophils (%) (Auto) 77.8 % Lymphocytes (%) (Auto) 10.7 % Monocytes (%) (Auto) 10.8 % Eosinophils (%) (Auto) 0.4 % Basophils (%) (Auto) 0.1 % Neutrophils # (Auto) 10.41 K/uL Lymphocytes # (Auto) 1.44 K/uL Monocytes # (Auto) 1.45 K/uL Eosinophils # (Auto) 0.06 K/uL Basophils # (Auto) 0.01 K/uL RDW Standard Deviation 49.7 fL RDW Coefficient of Variation 14.8 % Immature Granulocyte % (Auto) 0.2 % Immature Granulocyte # (Auto) 0.03 K/uL Platelet Estimate DECREASED Sodium Level 141 mmol/L Potassium Level 3.8 mmol/L Chloride Level 106 mmol/L Carbon Dioxide Level 30 mmol/L Anion Gap 6.0 mmol/L Blood Urea Nitrogen 4 mg/dl Creatinine 0.63 mg/dl Est Creatinine Clear Calc Drug Dose 87.7 ml/min Estimated GFR () 115.4 Estimated GFR (Non- 99.6 BUN/Creatinine Ratio 6.8 Random Glucose 102 mg/dl Calcium Level 8.7 mg/dl Total Bilirubin 0.4 mg/dl Aspartate Amino Transf (AST/SGOT) 30 U/L Alanine Aminotransferase (ALT/SGPT) 40 U/L Alkaline Phosphatase 86 U/L Total Protein 5.9 gm/dl Albumin 2.9 gm/dl Globulin 3.0 gm/dl Albumin/Globulin Ratio 1.0 Amylase Level 13 U/L Lipase 139 U/L Hepatitis C Antibody Screen NEG (Alvina Suero PA-C) Assessment and Plan Ms. Bowen is a 56 y/o female with PMHx of ITP, Hypothyroidism, and Migraines who is S/P ERCP with abdominal pain and emesis. Abdominal Pain S/P ERCP with Stent Removal and Stone Extraction: - CT reveals possible ductal air, debris, and possible hepatic hemangioma - Ciprofloxacin 400 mg IV BID - LR at 150 mL/hr - Clear liquid diet - Dilaudid PRN and Tylenol IV - patient would like to avoid narcotics - GI following - HIDA ordered to evaluate for leak Hypothyroidism: - Synthroid 100 mcg daily ITP: STABLE - Previously followed with Heme/Onc - no issues x multiple years - No petechiae/purpura DVT Prophylaxis: SCD/Ambulation Disposition: - Await clinical response and HIDA - no home needs anticipated Continued [facility] stay due to: inadequate po fluid intake, inadequate oral pain control Discharge planning: home (Alvina Suero PA-C) PA Physician Supervision Note: I interviewed and examined the patient. Discussed with Alvina Suero PAC and agree with findings and plan as documented in the note. Any exceptions or clarifications are listed here: None Patient is still with abdominal pain particularly epigastric right upper quadrant worsened with taking oral intake, gastroneurologist concern for bile leak and is scheduled a nuclear HIDA scan Vital signs are stable Abdomen she is normal active bowel sounds with is markedly tender in epigastrium right upper quadrant and there is no organomegaly or rebound tenderness Her labs are reviewed and do not support this being a bile leak Continue to follow gastroenterology's recommendations pain control and hydration given she is nothing by mouth Documented By: Mele Strange (Mele Strange M.D.)
[2017-04-09] MEDS: ACETAMINOPHEN IV 100 ML IV PRN ×2 (13:30→21:34)
[2017-04-09 15:25] VITALS: BP 123/73; PULSE 64; TEMP 36.7; O2SAT 94
--- NOTE | 2017-04-09 15:29 | DIAGNOSTIC IMAGING REPORT ---
HEPATOBILIARY HIDA IMAGING HISTORY: Postoperative pain eval for bile leak COMPARISON: None. TECHNIQUE: Immediately following the intravenous administration of 5.4 mCi Tc-99m Choletec, dynamic anterior abdominal imaging was performed. FINDINGS: Uniform hepatic tracer accumulation is shown. Trace amount of isotope extending to the region of the gallbladder fossa. Bulk of isotope passes to the small bowel. There is partial reflux of isotope to the stomach. IMPRESSION: 1. Trace amount of isotope passing inferior to the right hepatic lobe to the region of the gallbladder fossa. 2. This potentially represents a very minute bile leak. 3. The majority of the isotope passes from the common bile duct to the small bowel without obstructive change. The above report was generated using voice recognition software. It may contain grammatical, syntax or spelling errors. Electronically signed by: Brayan Ayala M.D. 04/09/2017 3:28 PM Dictated Date/Time: 04/09/2017 3:24 PM
[2017-04-10] VITALS (10 sets, daily range): BP systolic 104–140; BP diastolic 66–96; PULSE 58–74; TEMP 36.4–36.9; O2SAT 91–97
[2017-04-10] MEDS: LACTATED RINGER'S 1000ML 1,000 ML IV SCH ×4 (03:05→23:52)
[2017-04-10] MEDS: LEVOTHYROXINE 100 MCG TAB PO SCH (05:48)
[2017-04-10] MEDS ORDERED: NURSING VERBAL MED ORDER ONE (06:00)
[2017-04-10] MEDS: HYDROmorphone INJ 1 MG/ML SYR IV PRN (06:08)
[2017-04-10] MEDS ORDERED: HYDROmorphone INJ 0.5 MG/0.5 ML SYR IV PRN (06:15)
[2017-04-10 07:31] LABS: BUN/CREATININE RATIO 4.1 (10-20); CALCIUM 8.1 mg/dl (8.5-10.1); CREATININE 0.59 mg/dl (0.60-1.20); POTASSIUM 3.3 mmol/L (3.5-5.1)
[2017-04-10 07:34] LABS: ALB/GLOB RATIO 0.9 (0.9-2)
[2017-04-10 07:41] LABS: HEMATOCRIT 35.1 % (37-47); MEAN CELL VOLUME 92.6 fL (80-100); MEAN CORPUSCULAR HEMOGLOBIN 29.6 pg (25-34); MEAN CORPUSCULAR HGB CONC 31.9 g/dl (32-36); MEAN PLATELET VOLUME 13.9 fL (7.4-10.4); PLATELET COUNT 116 K/uL (130-400); PLT ESTIMATE DECREASED; RED BLOOD COUNT 3.79 M/uL (4.2-5.4); WHITE BLOOD COUNT 6.78 K/uL (4.8-10.8)
[2017-04-10] MEDS ORDERED: LIDOCAINE HCL 2% 2 ML VIAL (20MG/ML) ONE (08:33)
[2017-04-10] MEDS ORDERED: PROPOFOL IV EMULSION 10 MG/ML 20 ML VIAL IV ONE (08:33)
[2017-04-10] MEDS ORDERED: ONDANSETRON INJ 2 MG/ML 2 ML VIAL ONE (08:33)
[2017-04-10] MEDS ORDERED: FENTANYL CITRATE INJ 50 MCG/1 ML 2 ML VIAL ONE (08:34)
[2017-04-10] MEDS ORDERED: SUCCINYLCHOLINE CHLORIDE 20 MG/ML 10 ML VIAL IV ONE (08:38)
--- NOTE | 2017-04-10 08:46 | History & Physical Bridge Note ---
H&P Re-Evaluation Bridge Note: I have examined the patient, reviewed the History & Physical and in the interval since the performance of the History & Physical I have noted the following changes of clinical significance: No changes noted. The patient underwent a very difficult ERCP several days ago for removal of an exceptionally large common bile duct stone. After the procedure she did well but then began to have abdominal discomfort. Hida scan from yesterday seems to indicate a bile leak. I wonder if this represents a postcholecystectomy leak that was being treated with the stents that had been in place prior to her cholecystectomy. We are pursuing an ERCP today for stent insertion. We have discussed the risks to include bleeding, infection, perforation, pancreatitis, pain and need for follow-up studies.
[2017-04-10] MEDS ORDERED: INDOMETHACIN 50 MG SUPP PR ONE (09:00)
[2017-04-10] MEDS ORDERED: ROCURONIUM BROMIDE 10 MG/ML 5 ML VIAL IV ONE (09:31)
[2017-04-10] MEDS ORDERED: ATROPINE SULFATE 0.1 MG/ML 5ML SYR IV PRN (09:45)
[2017-04-10] MEDS ORDERED: ONDANSETRON INJ 2 MG/ML 2 ML VIAL IV PRN (09:45)
[2017-04-10] MEDS ORDERED: FENTANYL CITRATE INJ 50 MCG/1 ML 2 ML VIAL IV PRN (09:45)
[2017-04-10] MEDS ORDERED: EpHEDrine SULFATE INJ 50 MG/ML AMP IV PRN (09:45)
--- NOTE | 2017-04-10 09:47 | [facility] Post Operative Brief Note ---
Immediate Operative Summary Operative Date Apr 10, 2017. Pre-Operative Diagnosis Bile Leak Post-Operative Diagnosis Suspected bile leak Procedure(s) Performed Endoscopic Retrograde Cholangiopancreatography with Placement of Biliary Stents Surgeon Dr. Gonzales Job Coach/Job Developer Surgeon(s) None Estimated Blood Loss 0 ml Findings suspected bile leak dilated CBD Specimens None per Surgeon Drains 2 biliary stents placed Anesthesia general Complication(s) None Disposition Recovery Room / PACU
--- NOTE | 2017-04-10 09:52 | GI REPORT ---
Procedure Date: 04/10/2017 9:08 AM Procedure: ERCP Indications: Abdominal pain of suspected biliary origin, Suspected bile leak Medicines: General Anesthesia Complications: No immediate complications. Estimated blood loss: Minimal. Estimated Blood Loss: Estimated blood loss was minimal. Procedure: Pre-Anesthesia Assessment: - Prior to the procedure, a History and Physical was performed, and patient medications, allergies and sensitivities were reviewed. The patient's tolerance of previous anesthesia was reviewed. - The risks and benefits of the procedure and the sedation options and risks were discussed with the patient. All questions were answered and informed consent was obtained. - Patient identification and proposed procedure were verified prior to the procedure by the physician, the nurse and the network control supervisor. The procedure was verified in the procedure room. - Pre-procedure physical examination revealed no contraindications to sedation. - ASA Grade Assessment: II - A patient with mild systemic disease. - After reviewing the risks and benefits, the patient was deemed in satisfactory condition to undergo the procedure. - The anesthesia plan was to use general anesthesia. - Immediately prior to administration of medications, the patient was re-assessed for adequacy to receive sedatives. - The heart rate, respiratory rate, oxygen saturations, blood pressure, adequacy of pulmonary ventilation, and response to care were monitored throughout the procedure. - The physical status of the patient was re-assessed after the procedure. After obtaining informed consent, the scope was passed under direct vision. Throughout the procedure, the patient's blood pressure, pulse, and oxygen saturations were monitored continuously. The Scope was introduced through the mouth, and advanced to the duodenum and used to inject contrast into the bile duct. The ERCP was accomplished without difficulty. The patient tolerated the procedure well. Findings: A deliverer food film of the abdomen was obtained. Surgical clips, consistent with previous cholecystectomy, were seen in the area of the right upper quadrant of the abdomen. The esophagus was successfully intubated under direct vision without detailed examination of the pharynx, larynx, and associated structures, and upper GI tract. The upper GI tract was grossly normal. A biliary sphincterotomy had been performed. The sphincterotomy appeared open. The bile duct was deeply cannulated with the short-nosed traction sphincterotome (Omni 35) and 0.035 in Acrobat guidewire. Contrast was injected. I personally interpreted the bile duct images. Contrast extended to the entire biliary tree. The main bile duct was diffusely dilated. The largest diameter was 15 mm. A cholecystectomy had been performed, I was not able to demonstrate a bile leak on todays exam. To discover objects, the biliary tree was swept with a 15 mm balloon starting at the bifurcation. A small amount of sludge was swept from the duct. Due to the suspected bile leak on a recent HIDA, two 7 Fr by 7 cm biliary stents with a full external pigtail and a full internal pigtail were placed 6.5 cm into the common bile duct. Bile flowed through the stents. The stents were in good position. The total fluoroscopy exposure time was 57 seconds. The endoscope was withdrawn from the patient. Impression: - Prior biliary endoscopic sphincterotomy appeared open. - The entire main bile duct was dilated. - The patient has had a cholecystectomy. - The biliary tree was swept and sludge was found. - Two biliary stents were placed into the common bile duct for a suspected biliary leak. Recommendation: - Avoid aspirin and nonsteroidal anti-inflammatory medicines for 5 days. - Clear liquid diet today. - Observe patient's clinical course following today's ERCP with therapeutic intervention. - Return to endoscopist for stent removal at ERCP in 6 weeks. Guy Gonzales D.O. Guy Gonzales, 04/10/2017 9:52:31 AM This report has been signed electronically. Note Initiated On: 04/10/2017 9:08 AM I attest to the content of the Intraoperative Record and orders documented therein, exceptions below
--- NOTE | 2017-04-10 10:06 | DIAGNOSTIC IMAGING REPORT ---
ERCP BILIARY DUCTAL CLINICAL HISTORY: ERCPERCP COMPARISON STUDY: 1020 12/20/2016 FLUOROSCOPY TIME: 57 seconds. FINDINGS: Initial retrograde opacification of the biliary ductal system suggests a right hepatic duct which potentially demonstrates peripheral extravasation is seen image 5. This may explain the biliary scan findings suggesting extravasation of isotope inferior to the right hepatic lobe. This is followed by placement of a common bile duct stent. A second common bile duct stent was also position. There is no significant reflux to the pancreatic duct. There is additional accumulation of contrast in the subhepatic space on image 7. IMPRESSION: 1. Successful placement of 2 common bile duct stents. 2. Focal extravasation from a peripheral right hepatic lobe duct laterally with a small amount of contrast accumulation in the subhepatic and gallbladder fossa space. The above report was generated using voice recognition software. It may contain grammatical, syntax or spelling errors. Electronically signed by: Brayan Ayala M.D. 04/10/2017 10:05 AM Dictated Date/Time: 04/10/2017 10:02 AM
--- NOTE | 2017-04-10 10:29 | Anesthesiology Progress Note ---
Anesthesia Post Op Note Date & Time Apr 10, 2017 at 10:29 Vital Signs Pain Intensity: 0 Vital Signs Past 12 Hours Date Time Temp Pulse Resp B/P (MAP) Pulse Ox O2 Delivery O2 Flow Rate FiO2 04/10/17 10:15 36.9 66 12 125/86 96 Nasal Cannula 1 04/10/17 10:05 67 14 142/88 97 Room Air 04/10/17 09:55 76 14 145/98 100 Oxymask 10 04/10/17 09:47 36.8 92 16 141/97 100 Oxymask 10 04/10/17 07:35 36.9 68 16 135/84 (101) 93 Room Air 04/10/17 07:30 Room Air 04/10/17 00:13 36.9 64 16 104/66 (79) 91 Room Air 04/10/17 00:00 Room Air Notes Mental Status: alert / awake / arousable, participated in evaluation Pt Amnestic to Procedure: Yes Nausea / Vomiting: adequately controlled Pain: adequately controlled Airway Patency, RR, SpO2: stable & adequate BP & HR: stable & adequate Hydration State: stable & adequate Anesthetic Complications: no major complications apparent
--- NOTE | 2017-04-10 12:10 | Hospitalist Progress Note ---
Hospitalist Progress Note Date of Service Apr 10, 2017. (Alvina Suero PA-C) Subjective Pt evaluation today including: conversation w/ patient, physical exam, chart review, lab review, review of studies, review of inpatient medication list Patient seen and evaluated. ZACHARYA suggested minute bile leak and is S/P ERCP with stents x 2. Reporting abdominal pain is much improved. No nausea. Verbalizes no other complaints. Constitutional: No fever, No chills Respiratory: No shortness of breath Cardiovascular: No chest pain, No palpitations Abdomen: + pain (RUQ), No nausea, No vomiting, No diarrhea, No constipation Female : No dysuria Heme: No abnormal bleeding/bruising (Alvina Suero PA-C) Medications Current Inpatient Medications Medications (Trade) Dose Ordered Sig/Shawn Route Start Time Stop Time Status Last Admin Dose Admin Lactated Ringer's 1,000 ml @ 150 mls/hr Q6H40M IV 04/08/17 13:15 05/08/17 13:14 04/10/17 11:43 150 MLS/HR Hydromorphone HCl (Dilaudid Inj) 1 mg Q2HWA PRN IV 04/08/17 13:15 04/22/17 13:14 04/10/17 06:08 0.5 MG Levothyroxine Sodium (Synthroid Tab) 100 mcg DAILYBB PO 04/09/17 06:00 05/09/17 05:59 04/09/17 06:17 100 MCG Miscellaneous Information (Order Awaiting Action) 1 ea QS N/A 04/08/17 16:00 05/08/17 15:59 Al Hydrox/Mg Hydrox/Simethicone (Maalox Max Susp) 15 ml Q4H PRN PO 04/08/17 14:15 05/08/17 14:14 Magnesium Hydroxide (Milk Of Magnesia Susp) 30 ml Q6H PRN PO 04/08/17 14:15 05/08/17 14:14 Polyethylene (Miralax Powder Packet) 17 gm DAILY PRN PO 04/08/17 14:15 05/08/17 14:14 Ondansetron HCl (Zofran Inj) 4 mg Q6H PRN IV 04/08/17 14:15 05/08/17 14:14 04/08/17 23:32 4 MG Miscellaneous (Iv Fluids Completed) 1 ea PRN PRN N/A 04/08/17 14:15 04/08/18 14:14 Acetaminophen (Tylenol Tab) 650 mg Q4H PRN PO 04/09/17 08:30 05/09/17 08:29 04/09/17 08:46 650 MG Ioversol (Optiray 320) 100 ml UD PRN IV 04/09/17 09:45 04/13/17 09:44 Acetaminophen 100 ml @ 400 mls/hr Q8H PRN IV 04/09/17 12:30 05/09/17 12:29 04/09/17 21:34 400 MLS/HR Hydromorphone HCl (Dilaudid Inj) 0.5 mg Q2H PRN IV 04/10/17 06:15 04/24/17 06:14 Fentanyl Citrate (Fentanyl Inj) 50 mcg Q5M PRN IV 04/10/17 09:45 04/10/17 14:45 Ondansetron HCl (Zofran Inj) 4 mg ONE PRN IV 04/10/17 09:45 04/10/17 14:45 Ephedrine Sulfate (EpHEDrine SULFATE INJ) 5 mg Q5M PRN IV 04/10/17 09:45 04/10/17 14:45 Atropine Sulfate (Atropine Sulfate 0.1MG/Ml Inj) 0.5 mg Q1M PRN IV 04/10/17 09:45 04/10/17 14:45 (Alvina Suero, IZABELA) Objective Vital Signs Date Time Temp Pulse Resp B/P (MAP) Pulse Ox O2 Delivery O2 Flow Rate FiO2 04/10/17 11:15 36.4 59 16 117/83 (94) 96 Nasal Cannula 2.0 04/10/17 10:43 36.8 64 18 140/83 (102) 95 Nasal Cannula 2.0 04/10/17 10:25 61 15 134/77 97 Nasal Cannula 1 04/10/17 10:15 36.9 66 12 125/86 96 Nasal Cannula 1 04/10/17 10:05 67 14 142/88 97 Room Air 04/10/17 09:55 76 14 145/98 100 Oxymask 10 04/10/17 09:47 36.8 92 16 141/97 100 Oxymask 10 04/10/17 07:35 36.9 68 16 135/84 (101) 93 Room Air 04/10/17 07:30 Room Air 04/10/17 00:13 36.9 64 16 104/66 (79) 91 Room Air 04/10/17 00:00 Room Air 04/09/17 16:00 Room Air 04/09/17 15:25 36.7 64 18 123/73 (90) 94 (Alvina Suero PA-C) Physical Exam General Appearance: WD/WN, no apparent distress Respiratory/Chest: lungs clear, normal breath sounds, no respiratory distress, no accessory muscle use Cardiovascular: regular rate, rhythm, no gallop, no murmur Abdomen: normal bowel sounds, soft, + tenderness (mild tenderness in RUQ) Neurologic/Psychiatric: alert Skin: normal color, warm/dry, no rash (Alvina Suero PA-C) Laboratory Results Last 24 Hours Test 04/10/17 06:45 White Blood Count 6.78 K/uL Red Blood Count 3.79 M/uL Hemoglobin 11.2 g/dL Hematocrit 35.1 % Mean Corpuscular Volume 92.6 fL Mean Corpuscular Hemoglobin 29.6 pg Mean Corpuscular Hemoglobin Concent 31.9 g/dl RDW Standard Deviation 50.7 fL RDW Coefficient of Variation 14.9 % Platelet Count 116 K/uL Mean Platelet Volume 13.9 fL Platelet Estimate DECREASED Sodium Level 146 mmol/L Potassium Level 3.3 mmol/L Chloride Level 110 mmol/L Carbon Dioxide Level 29 mmol/L Anion Gap 7.0 mmol/L Blood Urea Nitrogen 2 mg/dl Creatinine 0.59 mg/dl Est Creatinine Clear Calc Drug Dose 93.7 ml/min Estimated GFR () 117.9 Estimated GFR (Non- 101.7 BUN/Creatinine Ratio 4.1 Random Glucose 90 mg/dl Calcium Level 8.1 mg/dl Total Bilirubin 0.4 mg/dl Aspartate Amino Transf (AST/SGOT) 31 U/L Alanine Aminotransferase (ALT/SGPT) 46 U/L Alkaline Phosphatase 77 U/L Total Protein 5.4 gm/dl Albumin 2.6 gm/dl Globulin 2.8 gm/dl Albumin/Globulin Ratio 0.9 (Alvina Suero PA-C) Assessment and Plan Ms. Bowen is a 56 y/o female with PMHx of ITP, Hypothyroidism, and Migraines who is S/P ERCP with abdominal pain and emesis. Post-Procedure Bile Leak S/P Stent x 2 on 04/10: - Patient admitted initially after ERCP with stent removal and stone extraction and sustained minute bile leak and had repeat ERCP with stent placement x 2 - LR at 150 mL/hr - Clear liquid diet - Dilaudid PRN and Tylenol IV PRN - CMP in AM - GI following - appreciate further intervention Hypothyroidism: - Synthroid 100 mcg daily ITP: STABLE - Previously followed with Heme/Onc - no issues x multiple years - No petechiae/purpura - repeat CBC in AM - platelets remain low but stable DVT Prophylaxis: SCD/Ambulation Disposition: - Pending diet tolerance and pain control - D/C in AM Continued [facility] stay due to: multiple IV medications needed Discharge planning: home (Alvina Suero, PA-C) PA Physician Supervision Note: I interviewed and examined the patient. Discussed with Alvina Suero PAC and agree with findings and plan as documented in the note. Any exceptions or clarifications are listed here: None Patient feels improved after going to endoscopy and having 2, bile duct stents placed. There was some suggestion HIDA scan of possibly a very small bile duct leak. Patient stable her diet will be advanced per GI medicine recommendations. Vital signs are stable, her abdomen is soft is mildly uncomfortable much less so than yesterday Patient with small bowel likely after ERCP removal of stenting with restenting plan we'll be conservative care therapy supportive care and if tolerating advancing diet without laboratory or clinical decompensation may anticipate the patient be discharged in next few days Documented By: Mele Strange (Mele Strange M.D.)
[2017-04-10] MEDS: ACETAMINOPHEN IV 100 ML IV PRN (23:52)
[2017-04-11] MEDS: LEVOTHYROXINE 100 MCG TAB PO SCH (06:00)
[2017-04-11 06:51] LABS: BUN/CREATININE RATIO 4.3 (10-20); CALCIUM 8.7 mg/dl (8.5-10.1); CREATININE 0.53 mg/dl (0.60-1.20); POTASSIUM 3.4 mmol/L (3.5-5.1)
[2017-04-11 06:53] LABS: ALB/GLOB RATIO 0.8 (0.9-2)
[2017-04-11 06:55] VITALS: BP 126/85; PULSE 69; TEMP 36.4; O2SAT 96
[2017-04-11 06:56] LABS: HEMATOCRIT 32.7 % (37-47); MEAN CELL VOLUME 92.9 fL (80-100); MEAN CORPUSCULAR HEMOGLOBIN 30.4 pg (25-34); MEAN CORPUSCULAR HGB CONC 32.7 g/dl (32-36); MEAN PLATELET VOLUME 14.6 fL (7.4-10.4); PLATELET COUNT 103 K/uL (130-400); RED BLOOD COUNT 3.52 M/uL (4.2-5.4)
[2017-04-11 06:57] LABS: PLT ESTIMATE DECREASED
--- NOTE | 2017-04-11 07:40 | Anesthesiology Progress Note ---
Anesthesia Post Op Note Date & Time Apr 11, 2017 at 07:38 Vital Signs Pain Intensity: 6.0 Vital Signs Past 12 Hours Date Time Temp Pulse Resp B/P (MAP) Pulse Ox O2 Delivery O2 Flow Rate FiO2 04/11/17 06:55 36.4 69 16 126/85 (99) 96 Room Air 04/10/17 23:59 Room Air 04/10/17 22:54 36.6 70 16 118/79 (92) 93 Room Air 04/10/17 19:59 Room Air Notes Mental Status: alert / awake / arousable, participated in evaluation Pt Amnestic to Procedure: Yes Nausea / Vomiting: adequately controlled Pain: adequately controlled Airway Patency, RR, SpO2: stable & adequate BP & HR: stable & adequate Hydration State: stable & adequate Anesthetic Complications: no major complications apparent
[2017-04-11] MEDS ORDERED: POTASSIUM CHLORIDE 20 MEQ TABCR PO SCH (09:00)
--- NOTE | 2017-04-11 09:31 | Gastroenterology Progress Note ---
Progress Note Date of Service: Apr 11, 2017 Subjective Pt evaluation today including: conversation w/ patient, physical exam, chart review, lab review Pt seen and evaluated, chart reviewed. Pt had outpatient ERCP on Tuesday with large CBD stone, pt developed post procedure discomfort, HIDA with evidence of bile leak. Pt had repeat ERCP yesterday, with placement of two stents. Pt tells me this morning, she is still having some right sided discomfort, but notes that it is improved from yesterday. No nausea or vomiting. Had clears this AM. Had a BM yesterday, no black/bloody stools. No fever, chills, CP, SOB. Review of Systems Constitutional: No fever, No chills Respiratory: No cough Cardiac: No chest pain Abdomen: + pain (RUQ, constant, dull), No nausea, No vomiting, No diarrhea, No constipation Medications Current Inpatient Medications Medications (Trade) Dose Ordered Sig/Shawn Route Start Time Stop Time Status Last Admin Dose Admin Lactated Ringer's 1,000 ml @ 150 mls/hr Q6H40M IV 04/08/17 13:15 05/08/17 13:14 04/10/17 23:52 150 MLS/HR Hydromorphone HCl (Dilaudid Inj) 1 mg Q2HWA PRN IV 04/08/17 13:15 04/22/17 13:14 04/10/17 06:08 0.5 MG Levothyroxine Sodium (Synthroid Tab) 100 mcg DAILYBB PO 04/09/17 06:00 05/09/17 05:59 04/11/17 06:00 100 MCG Miscellaneous Information (Order Awaiting Action) 1 ea QS N/A 04/08/17 16:00 05/08/17 15:59 Al Hydrox/Mg Hydrox/Simethicone (Maalox Max Susp) 15 ml Q4H PRN PO 04/08/17 14:15 05/08/17 14:14 Magnesium Hydroxide (Milk Of Magnesia Susp) 30 ml Q6H PRN PO 04/08/17 14:15 05/08/17 14:14 Polyethylene (Miralax Powder Packet) 17 gm DAILY PRN PO 04/08/17 14:15 05/08/17 14:14 Ondansetron HCl (Zofran Inj) 4 mg Q6H PRN IV 04/08/17 14:15 05/08/17 14:14 04/08/17 23:32 4 MG Miscellaneous (Iv Fluids Completed) 1 ea PRN PRN N/A 04/08/17 14:15 04/08/18 14:14 Acetaminophen (Tylenol Tab) 650 mg Q4H PRN PO 04/09/17 08:30 05/09/17 08:29 04/09/17 08:46 650 MG Ioversol (Optiray 320) 100 ml UD PRN IV 04/09/17 09:45 04/13/17 09:44 Acetaminophen 100 ml @ 400 mls/hr Q8H PRN IV 04/09/17 12:30 05/09/17 12:29 04/10/17 23:52 400 MLS/HR Hydromorphone HCl (Dilaudid Inj) 0.5 mg Q2H PRN IV 04/10/17 06:15 04/24/17 06:14 Potassium Chloride (Klor-Con Tab) 20 meq BID PO 04/11/17 09:00 04/12/17 09:01 04/11/17 08:26 20 MEQ Objective Vital Signs Date Time Temp Pulse Resp B/P (MAP) Pulse Ox O2 Delivery O2 Flow Rate FiO2 04/11/17 07:30 Room Air 04/11/17 06:55 36.4 69 16 126/85 (99) 96 Room Air 04/10/17 23:59 Room Air 04/10/17 22:54 36.6 70 16 118/79 (92) 93 Room Air 04/10/17 19:59 Room Air 04/10/17 18:59 36.7 69 18 131/81 (98) 96 Room Air 04/10/17 15:37 36.4 67 18 119/96 (104) 95 Room Air 04/10/17 13:44 36.7 74 16 130/72 (91) 96 Room Air 04/10/17 12:45 36.4 65 16 111/73 (86) 97 Nasal Cannula 2.0 04/10/17 12:00 58 20 123/79 (94) 94 04/10/17 11:15 36.4 59 16 117/83 (94) 96 Nasal Cannula 2.0 04/10/17 10:43 36.8 64 18 140/83 (102) 95 Nasal Cannula 2.0 04/10/17 10:25 61 15 134/77 97 Nasal Cannula 1 04/10/17 10:15 36.9 66 12 125/86 96 Nasal Cannula 1 04/10/17 10:05 67 14 142/88 97 Room Air 04/10/17 09:55 76 14 145/98 100 Oxymask 10 04/10/17 09:47 36.8 92 16 141/97 100 Oxymask 10 Physical Exam General Appearance: no apparent distress Eyes: PERRL ENT: hearing grossly normal Neck: supple Respiratory/Chest: lungs clear, normal breath sounds Cardiovascular: regular rate, rhythm, no edema Abdomen: normal bowel sounds, soft, no organomegaly, + tenderness (RUQ with palpation) Neurologic/Psych: alert, normal mood/affect, oriented x 3 Skin: normal color Laboratory Results Last 24 Hours Test 04/11/17 05:47 White Blood Count 4.90 K/uL Red Blood Count 3.52 M/uL Hemoglobin 10.7 g/dL Hematocrit 32.7 % Mean Corpuscular Volume 92.9 fL Mean Corpuscular Hemoglobin 30.4 pg Mean Corpuscular Hemoglobin Concent 32.7 g/dl RDW Standard Deviation 50.7 fL RDW Coefficient of Variation 14.9 % Platelet Count 103 K/uL Mean Platelet Volume 14.6 fL Platelet Estimate DECREASED Sodium Level 146 mmol/L Potassium Level 3.4 mmol/L Chloride Level 110 mmol/L Carbon Dioxide Level 31 mmol/L Anion Gap 5.0 mmol/L Blood Urea Nitrogen 2 mg/dl Creatinine 0.53 mg/dl Est Creatinine Clear Calc Drug Dose 104.3 ml/min Estimated GFR () 122.2 Estimated GFR (Non- 105.4 BUN/Creatinine Ratio 4.3 Random Glucose 84 mg/dl Calcium Level 8.7 mg/dl Total Bilirubin 0.3 mg/dl Aspartate Amino Transf (AST/SGOT) 35 U/L Alanine Aminotransferase (ALT/SGPT) 54 U/L Alkaline Phosphatase 81 U/L Total Protein 5.0 gm/dl Albumin 2.3 gm/dl Globulin 2.7 gm/dl Albumin/Globulin Ratio 0.8 Assessment and Plan Ms. Barbosa is a 56 year old female with laparoscopic cholecystectomy/ERCP in January who had a repeat ERCP on Tuesday for a CBD stone, pt developed abdominal pain post procedure, HIDA scan with a bile leak, ERCP yesterday with placement of two stents. Pt still reports RUQ pain, slightly relieved but present and constant. No N/V. HIDA scan No NSAIDs x 5 days Outpatient ERCP for stent removal in 6 weeks GI to follow, further recommendations pending results of HIDA I performed a history and physical examination of the patient, including specifically on physical exam - soft nontender abdomen, and my impression and plan are as below I have discussed the patient's management with Lorena. Please refer to the physician diagnostic assistant's note for the documented findings and plan of care. Her pain is not typical biliary pain and seem like musculoskeletal. Doubt biliary leak and anyway she is stented. Will get HIDA scan to confirm as previously planned and if negative she can follow up for repeat ERCP with stent removal in 6 weeks.
[2017-04-11] MEDS: LACTATED RINGER'S 1000ML 1,000 ML IV SCH ×2 (09:32→12:40)
[2017-04-11 12:12] VITALS: BP 138/89; PULSE 70; TEMP 36.5; O2SAT 95
--- NOTE | 2017-04-11 14:15 | Hospitalist Progress Note ---
Hospitalist Progress Note Date of Service Apr 11, 2017. (Alvina Suero, NIKOC) Subjective Pt evaluation today including: conversation w/ patient, physical exam, chart review, lab review, review of studies, review of inpatient medication list Patient seen and evaluated. No acute events overnight. Continues to have RUQ tenderness but states much improved from prior to ERCP. She states when she stays still she does not have pain but does have pain with movement or deep inspiration. Tolerating diet without N/V. Due for another HIDA today. States she had a BM yesterday and continues to pass gas. Constitutional: No fever, No chills Cardiovascular: No chest pain, No palpitations Abdomen: + pain (RUQ), No nausea, No vomiting, No diarrhea, No constipation , No GI bleeding Female : No dysuria Heme: No abnormal bleeding/bruising (Alvina Suero, NIKOC) Medications Current Inpatient Medications Medications (Trade) Dose Ordered Sig/Shawn Route Start Time Stop Time Status Last Admin Dose Admin Lactated Ringer's 1,000 ml @ 150 mls/hr Q6H40M IV 04/08/17 13:15 05/08/17 13:14 04/11/17 09:32 150 MLS/HR Hydromorphone HCl (Dilaudid Inj) 1 mg Q2HWA PRN IV 04/08/17 13:15 04/22/17 13:14 04/10/17 06:08 0.5 MG Levothyroxine Sodium (Synthroid Tab) 100 mcg DAILYBB PO 04/09/17 06:00 05/09/17 05:59 04/11/17 06:00 100 MCG Miscellaneous Information (Order Awaiting Action) 1 ea QS N/A 04/08/17 16:00 05/08/17 15:59 Al Hydrox/Mg Hydrox/Simethicone (Maalox Max Susp) 15 ml Q4H PRN PO 04/08/17 14:15 05/08/17 14:14 Magnesium Hydroxide (Milk Of Magnesia Susp) 30 ml Q6H PRN PO 04/08/17 14:15 05/08/17 14:14 Polyethylene (Miralax Powder Packet) 17 gm DAILY PRN PO 04/08/17 14:15 05/08/17 14:14 Ondansetron HCl (Zofran Inj) 4 mg Q6H PRN IV 04/08/17 14:15 05/08/17 14:14 04/08/17 23:32 4 MG Miscellaneous (Iv Fluids Completed) 1 ea PRN PRN N/A 04/08/17 14:15 04/08/18 14:14 Acetaminophen (Tylenol Tab) 650 mg Q4H PRN PO 04/09/17 08:30 05/09/17 08:29 04/09/17 08:46 650 MG Ioversol (Optiray 320) 100 ml UD PRN IV 04/09/17 09:45 04/13/17 09:44 Acetaminophen 100 ml @ 400 mls/hr Q8H PRN IV 04/09/17 12:30 05/09/17 12:29 04/10/17 23:52 400 MLS/HR Hydromorphone HCl (Dilaudid Inj) 0.5 mg Q2H PRN IV 04/10/17 06:15 04/24/17 06:14 Potassium Chloride (Klor-Con Tab) 20 meq BID PO 04/11/17 09:00 04/12/17 09:01 04/11/17 08:26 20 MEQ (Alvina Suero PA-C) Objective Vital Signs Date Time Temp Pulse Resp B/P (MAP) Pulse Ox O2 Delivery O2 Flow Rate FiO2 04/11/17 12:12 36.5 70 16 138/89 (105) 95 Room Air 04/11/17 07:30 Room Air 04/11/17 06:55 36.4 69 16 126/85 (99) 96 Room Air 04/10/17 23:59 Room Air 04/10/17 22:54 36.6 70 16 118/79 (92) 93 Room Air 04/10/17 19:59 Room Air 04/10/17 18:59 36.7 69 18 131/81 (98) 96 Room Air 04/10/17 15:37 36.4 67 18 119/96 (104) 95 Room Air (Alvina Suero PA-C) Physical Exam General Appearance: WD/WN, no apparent distress Eyes: sclerae normal Respiratory/Chest: lungs clear, normal breath sounds, no respiratory distress, no accessory muscle use Cardiovascular: regular rate, rhythm, no gallop, no murmur Abdomen: normal bowel sounds, soft, + tenderness (tenderness with intermediate to deep palpation; no acute abdomen, no rigidity, no guarding) Extremities: no pedal edema Skin: normal color, warm/dry, no rash (Alvina Suero, IZABELA) Laboratory Results Last 24 Hours Test 04/11/17 05:47 White Blood Count 4.90 K/uL Red Blood Count 3.52 M/uL Hemoglobin 10.7 g/dL Hematocrit 32.7 % Mean Corpuscular Volume 92.9 fL Mean Corpuscular Hemoglobin 30.4 pg Mean Corpuscular Hemoglobin Concent 32.7 g/dl RDW Standard Deviation 50.7 fL RDW Coefficient of Variation 14.9 % Platelet Count 103 K/uL Mean Platelet Volume 14.6 fL Platelet Estimate DECREASED Sodium Level 146 mmol/L Potassium Level 3.4 mmol/L Chloride Level 110 mmol/L Carbon Dioxide Level 31 mmol/L Anion Gap 5.0 mmol/L Blood Urea Nitrogen 2 mg/dl Creatinine 0.53 mg/dl Est Creatinine Clear Calc Drug Dose 104.3 ml/min Estimated GFR () 122.2 Estimated GFR (Non- 105.4 BUN/Creatinine Ratio 4.3 Random Glucose 84 mg/dl Calcium Level 8.7 mg/dl Total Bilirubin 0.3 mg/dl Aspartate Amino Transf (AST/SGOT) 35 U/L Alanine Aminotransferase (ALT/SGPT) 54 U/L Alkaline Phosphatase 81 U/L Total Protein 5.0 gm/dl Albumin 2.3 gm/dl Globulin 2.7 gm/dl Albumin/Globulin Ratio 0.8 (Alvina Suero PA-C) Assessment and Plan Ms. Bowen is a 56 y/o female with PMHx of ITP, Hypothyroidism, and Migraines who is S/P ERCP with abdominal pain and emesis. Post-Procedure Bile Leak S/P Stent x 2 on 04/10: - Patient admitted initially after ERCP with stent removal and stone extraction and sustained minute bile leak and had repeat ERCP with stent placement x 2 - LR at 150 mL/hr - Clear liquid diet - Dilaudid PRN and Tylenol IV PRN - CMP in AM - GI following - plan for repeat HIDA today Hypothyroidism: - Synthroid 100 mcg daily ITP: STABLE - Previously followed with Heme/Onc - no issues x multiple years - No petechiae/purpura - repeat CBC in AM - platelets remain low but stable DVT Prophylaxis: SCD/Ambulation Disposition: - Await HIDA scan - would like to advance diet to regular after and monitor tolerance - D/C later today vs next day or so pending above Continued [facility] stay due to: multiple IV medications needed Discharge planning: home (Alvina Suero, PALoC) Reviewed: Pt Seen/Exam by Me (Karen Mccann MD) History See Discharge Summary on same date of service (Karen Mccann MD)
--- NOTE | 2017-04-11 14:34 | Discharge Instructions ---
Discharge Instructions Date of Service Apr 11, 2017. Admission Reason for Admission: Bile Duct Stone Discharge Discharge Diagnosis / Problem: Bile Duct Stone with Small Bile Leak Discharge Goals Goal(s): Decrease discomfort, Improve function, Increase independence Activity Recommendations Activity Limitations: as noted below Lifting Limitations: gradually increase as tolerated Exercise/Sports Limitations: gradually increase as tolerated . Instructions / Follow-Up Instructions / Follow-Up Bile Leak after ERCP with Repeat ERCP and Stent Placement on 04/10: - You may consume a regular diet as tolerated. - A prescription was sent to [facility] for an antibiotic to finish over the next 7 days. Take as prescribed. - You may use Tylenol as needed for pain. Follow the dosing recommendations on the bottle - No NSAIDS (Ibuprofen, Advil, Motrin, Aspirin) for 5 days - Follow-up with GI -- Plan for repeat ERCP in 6 weeks for stent removal Reasons to Return: - Please come to the hospital if you develop worsening chest pain or unable to hold food/fluid down. - Please return if you develop a fever or chills. Current Hospital Diet Patient's current hospital diet: Full Liquid Diet Discharge Diet Recommended Diet: Regular Diet Procedures Procedures Performed: Endoscopic Retrograde Cholangiopancreatography with Placement of Biliary Stents Pending Studies Studies pending at discharge: no Medical Emergencies . Who to Call and When: Medical Emergencies: If at any time you feel your situation is an emergency, please call 911 immediately. . Non-Emergent Contact Non-Emergency issues call your: Primary Care Provider Call Non-Emergent contact if: you have a fever, your pain is concerning you, you have any medication questions . . "Provider Documentation" section prepared by Alvina Suero. . VTE Core Measure Inpt VTE Proph given/why not?: SCD's
[2017-04-11 14:52] VITALS: BP 163/94; PULSE 77; TEMP 36.9; O2SAT 97
[2017-04-11 14:54] VITALS: BP 146/88
--- NOTE | 2017-04-11 16:15 | DIAGNOSTIC IMAGING REPORT ---
HEPATOBILIARY HIDA IMAGING HISTORY: Mildly bile leak s/p ERCP w/ abd pain COMPARISON: ERCP 04/10/2017. Biliary scan 04/09/2017. TECHNIQUE: Immediately following the intravenous administration of 9.6 mCi Tc-99m Choletec, dynamic anterior abdominal imaging was performed. FINDINGS: Uniform hepatic tracer accumulation is shown. Prompt intrahepatic biliary excretion is seen. The common bile duct, and small bowel are all visualized by 10 minutes. This appearance represents the normal sequence of biliary excretion. Partial reflux noted to the stomach IMPRESSION: No evidence for acetabular extravasation on the current study. No evidence for obstruction. Partial isotope reflux to the stomach. The above report was generated using voice recognition software. It may contain grammatical, syntax or spelling errors. Electronically signed by: Brayan Ayala M.D. 04/11/2017 4:14 PM Dictated Date/Time: 04/11/2017 4:11 PM
[2017-04-11] MEDS ORDERED: CPR500 PO (16:19)
[2017-04-11 16:59] VITALS: BP 146/88; PULSE 77; TEMP 36.9; O2SAT 97
--- NOTE | 2017-04-12 12:50 | Discharge Summary ---
Discharge Summary Date of Service Apr 12, 2017. (Alvina Suero PA-C) Discharge Summary Admission Date: Apr 09, 2017 at 14:52 Discharge Date: Apr 11, 2017 Discharge Disposition: Home Principal Diagnosis: Post-ERCP Bile Leak Problems/Secondary Diagnoses: PMH: Hypothyroidism ITP Migraine Headaches PSH: Lap Serena x 2 Hysterectomy Procedures: ERCP - Two stents were removed from the biliary tree. - Prior biliary endoscopic sphincterotomy appeared open. - A filling defect consistent with a stone was seen on the cholangiogram. - The lower third of the main bile duct was successfully dilated to 15 mm. - Choledocholithiasis was found. Complete removal was accomplished by balloon extraction. HEPATOBILIARY HIDA IMAGING FINDINGS: Uniform hepatic tracer accumulation is shown. Trace amount of isotope extending to the region of the gallbladder fossa. Bulk of isotope passes to the small bowel. There is partial reflux of isotope to the stomach. IMPRESSION: 1. Trace amount of isotope passing inferior to the right hepatic lobe to the region of the gallbladder fossa. 2. This potentially represents a very minute bile leak. 3. The majority of the isotope passes from the common bile duct to the small bowel without obstructive change. ABD WITH IV CONTRAST ONLY (CT) FINDINGS: Mild bibasilar atelectatic change. Minimal basilar pleural reactive change. Evidence for air within distended intrahepatic biliary ducts. Several surgical clips presumably from prior cholecystectomy. Distal common bile duct potentially contains a small amount of debris or blood. Definite calcifications within the biliary ductal system cannot be confirmed. There is suggestion potentially a trace amount of edematous change of the pancreatic head/uncinate process. Trace amount of peripancreatic infiltrative change may also be present. There is no significant dilatation of the pancreatic duct. Liver shows a high density nodule peripheral aspect right inferior hepatic lobe. This suggestive of a hemangioma. A peripheral hypodensity seen right hepatic lobe image 23 and potentially suggests a nonneoplastic cystic and or subhepatic capsular seroma. This measures approximate 5 x 10 mm. There is unremarkable vascular flow within the portal and hepatic venous structures. Spleen is uniform. Adrenal glands are normal. Kidneys negative for hydronephrosis. There is a small left renal cyst. There is no significant retroperitoneal or abdominal adenopathy. Bowel pattern overall is considered nonobstructive. IMPRESSION: 1. Prior cholecystectomy. 2. Small amount of edematous change in the gallbladder bed most likely postoperative. 3. Biliary ductal distention with biliary ductal air on a post procedural bases. 4. Potential debris within the distal common bile duct duct possibly secondary to residual sludge and/or debris from prior ERCP studies. 5. Clinical trace findings of early pancreatitis involving the pancreatic head and uncinate process. 6. Hepatic hemangioma with a potential very small subcapsular seroma. 7. Bibasilar atelectatic change ERCP - Prior biliary endoscopic sphincterotomy appeared open. - The entire main bile duct was dilated. - The patient has had a cholecystectomy. - The biliary tree was swept and sludge was found. - Two biliary stents were placed into the common bile duct for a suspected biliary leak. HEPATOBILIARY HIDA IMAGING FINDINGS: Uniform hepatic tracer accumulation is shown. Prompt intrahepatic biliary excretion is seen. The common bile duct, and small bowel are all visualized by 10 minutes. This appearance represents the normal sequence of biliary excretion. Partial reflux noted to the stomach IMPRESSION: No evidence for acetabular extravasation on the current study. No evidence for obstruction. Partial isotope reflux to the stomach. Consultations: 1. Gastroenterology (Alvina Suero PA-C) Medication Reconciliation New Medications: Ciprofloxacin (Ciprofloxacin HCl) 500 Mg Tab 500 MG PO BID for 7 Days, #14 TABS Continued Medications: Levothyroxine Sodium (Synthroid) 100 Mcg Tab 100 MCG PO QAM, TAB Sumatriptan Succinate (Imitrex) 25 Mg Tab 25 MG PO PRN, TAB Discharge Exam Review of Systems: Constitutional: No fever, No chills Respiratory: No shortness of breath Cardiovascular: No chest pain Abdomen: + pain (with movement), No nausea, No vomiting, No diarrhea, No constipation, No GI bleeding Musculoskeletal: No swelling, No calf pain Genitourinary - Female: No dysuria Hematologic / Lymphatic: No abnormal bleeding/bruising Physical Exam: General Appearance: WD/WN, no apparent distress ENT: hearing grossly normal Neck: supple, no JVD, trachea midline Respiratory/Chest: lungs clear, normal breath sounds, no respiratory distress, no accessory muscle use Cardiovascular: regular rate, rhythm, no gallop, no murmur Abdomen / GI: normal bowel sounds, non tender, soft Extremities: no calf tenderness, no pedal edema Neurologic/Psychiatric: alert, oriented x 3 Skin: normal color, warm/dry (Alvina Suero PA-C) Hospital Course ADMISSION: Ms. Bowen is a 56 y/o female with PMHx of ITP, Hypothyroidism, and Migraines who is S/P ERCP with abdominal pain and emesis. Patient underwent ERCP with stent placement with following laparoscopic cholecystectomy in January without complication. She underwent ERCP today with stent removal and repeat cholangiogram. She was found to have retention stones and underwent removal. Patient initially felt fine but prior to discharge developed abdominal pain and emesis. Currently pain is down to 4/10 and nausea/vomiting has stopped. HOSPITAL COURSE: Ms. Bowen was admitted due to abdominal pain and vomiting after ERCP with HIDA scan revealing a post-procedural bile leak. On initial ERCP she had the original stents removed and bile duct stone extraction. She underwent repeat ERCP with stents x 2 placed. Abdominal pain improved and she is tolerating a regular diet. She was discharged with Ciprofloxacin 500 mg BID x 7 days. She was instructed to follow-up with GI in 6 weeks for repeat ERCP and stent removal. Total Time Spent: Greater than 30 minutes This includes examination of the patient, discharge planning, medication reconciliation, and communication with other providers. (Alvina Suero, IZABELA) Discharge Instructions Please refer to the electronic Patient Visit Report (Discharge Instructions) for additional information. (Alvina Suero PA-C) Additional Copies To Catherine Ortiz, C.R.N.P. Reviewed: Pt Seen/Exam by Me (Karen Mccann MD) History Physician Site Project Manager Supervision Note: I interviewed and examined the patient. Discussed with EFRAIN Suero and agree with findings and plan as documented in the note. Any exceptions or clarifications are listed here: Pt admitted for post-ERCP epigastric and RUQ abd pain, N/V. Had a very large gallstone removed from CBD the day of admission. SHe ended up having bile leak and had stents placed. Had resolution of symptoms, repoeat HIDA scan was negative, and discharged to home on Cipro bid x 7 days. Vitals reviewed NAD, sitting in bed RRR no mgr CTAB no wcr Abd +BS, soft, no TTP Ext no edema 56 yo female with h/o migraines, ITP, gallstones, here with post-ERCP abd pain, N/V, found to have bile leak requiring stent placement -CIpro bid x 7 days\f/u GI for stent removal as directed Documented By: Karen Mccann (Karen Mccann MD)
[2017-04-14] MEDS ORDERED: LEVO100T PO (07:34)
[2017-04-14] MEDS ORDERED: SUMA25TA12 PO (07:51)
[2017-04-16] MEDS ORDERED: LSN5 PO (07:03)
[2017-04-16] MEDS ORDERED: ASPEC81 PO (07:03)
[2017-04-16] MEDS ORDERED: LPR25 PO (07:03)
[2017-04-16] MEDS ORDERED: LPT40 PO (07:03)
== END 2017-04-11 17:43 | disposition home or self-care (01) | DRG 394 ==
LOC: C.ACU 07:25 → INTOOBSV 14:16 → C.MSN 14:16 → OBSVTOIN 04-09 14:52
PROVIDERS: ADMIT Internal Medicine Gastroenterology; ATTEND Family Medicine
PROC: 0FC98ZZ Extirpation of Matter from Common Bile Duct, Via Natural or Artificial Opening Endoscopic (ICD-10-PCS; 2017-04-08)
PROC: 0FPB8DZ Removal of Intraluminal Device from Hepatobiliary Duct, Via Natural or Artificial Opening Endoscopic (ICD-10-PCS; 2017-04-08)
PROC: BF11YZZ Fluoroscopy of Biliary and Pancreatic Ducts using Other Contrast (ICD-10-PCS; 2017-04-08)
PROC: 0FHB8DZ Insertion of Intraluminal Device into Hepatobiliary Duct, Via Natural or Artificial Opening Endoscopic (ICD-10-PCS; principal; 2017-04-10 07:30)
DX: K91.89 Other postprocedural complications and disorders of digestive system (principal); D69.3 Immune thrombocytopenic purpura; K80.50 Calculus of bile duct without cholangitis or cholecystitis without obstruction; E03.9 Hypothyroidism, unspecified; Z87.891 Personal history of nicotine dependence; R11.2 Nausea with vomiting, unspecified; G43.909 Migraine, unspecified, not intractable, without status migrainosus

== ENCOUNTER 2017-04-28 11:17 | Inpatient (IN) | payer BC ==
[~2017-04-28] VITALS: Ht 154.9 cm; Wt 73.9 kg
[~2017-04-28 11:17] MED LIST changes: +ASPEC81 PO; +CPR500 PO; -LACTATED RINGER'S 1000ML 1,000 ML IV SCH; +LEVO100T PO; +LPR25 PO; +LPT40 PO; +LSN5 PO; +SUMA25TA12 PO
[2017-04-28] MEDS ORDERED: MoRPHine SULFATE 10 MG/ML CARP/VIAL IV STA ×2 (12:04→12:57)
[2017-04-28] MEDS ORDERED: ONDANSETRON INJ 2 MG/ML 2 ML VIAL IV STA (12:04)
[2017-04-28] MEDS ORDERED: MoRPHine SULFATE 2 MG/ML CARP ONE ×2 (12:08→13:28)
[2017-04-28] MEDS ORDERED: MoRPHine SULFATE 4 MG/ML 1 ML CARP\\VIAL ONE ×2 (12:08→13:28)
[2017-04-28 12:12] LABS: BASO % 0.2 %; BASO ABS # 0.03 K/uL (0-0.2); COMPLETE YES; EOS % 0.7 %; HEMATOCRIT 46.3 % (37-47); IG% 0.3 %; LYMPH % 9.2 %; LYMPH ABS # 1.32 K/uL (1.2-3.4); MEAN CELL VOLUME 92.2 fL (80-100); MEAN CORPUSCULAR HEMOGLOBIN 29.9 pg (25-34); MEAN CORPUSCULAR HGB CONC 32.4 g/dl (32-36); MEAN PLATELET VOLUME 14.6 fL (7.4-10.4); MONO % 6.9 %; NEUT % 82.7 %; PLATELET COUNT 214 K/uL (130-400); RED BLOOD COUNT 5.02 M/uL (4.2-5.4); WHITE BLOOD COUNT 14.41 K/uL (4.8-10.8)
[2017-04-28] MEDS ORDERED: LACTATED RINGER'S 1000ML 1,000 ML IV ONE (12:15)
[2017-04-28 12:22] LABS: BUN/CREATININE RATIO 24.6 (10-20); CALCIUM 9.4 mg/dl (8.5-10.1); CREATININE 0.85 mg/dl (0.60-1.20); POTASSIUM 3.6 mmol/L (3.5-5.1)
[2017-04-28 12:24] LABS: MANUAL MICROSCOPIC REQUIRED? NO; REVIEW REQ? NO; URINE APPEARANCE CLEAR (CLEAR); URINE BILIRUBIN NEG (NEG); URINE COLOR YELLOW; URINE NITRITE NEG (NEG); URINE SPECIFIC GRAVITY 1.019 (1.000-1.030); UROBILINOGEN NEG (NEG); ZZUR CULT IF INDIC CLEAN CATCH NO
[2017-04-28] MEDS ORDERED: PIPERACILLIN/TAZOBACTAM 4.5 GM/100ML D5W IV STA (13:19)
--- NOTE | 2017-04-28 13:38 | DIAGNOSTIC IMAGING REPORT ---
BILIARY ULTRASOUND CLINICAL HISTORY: History of ERCP and stent placement. Epigastric pain. COMPARISON STUDY: February 07, 2017 FINDINGS: The gallbladder surgically absent. The common bile duct measures 11 mm. There is a stent within the common bile duct. No focal hepatic masses are visualized. There is suspected pneumobilia. The visualized portions of the pancreas appear normal. There is no right-sided hydronephrosis. IMPRESSION: 1. Pneumobilia 2. Surgically absent gallbladder 3. 11 mm common bile duct. A biliary stent was visualized. Electronically signed by: Sae Lopez M.D. 04/28/2017 1:37 PM Dictated Date/Time: 04/28/2017 1:28 PM
[2017-04-28] MEDS ORDERED: ATOR-24 PO (13:50)
--- NOTE | 2017-04-28 14:01 | History and Physical ---
History & Physical Date & Time of Service: Apr 28, 2017 at 13:58 Chief Complaint: Epigastric Pain, V, Sent By Dr. Gonzales-Gi Primary Care Physician: No Doctor, Assigned History of Present Illness Ms. Bowen presents today for abdominal pain and vomiting starting at 2030 last night while at work. Up until that point she had felt well, able to eat without difficulty. In March she had an ERCP with stent which resulted in a bile leak and on 04/15 she had and episode of Takotsubo's. She currently complains of epigastric pain that is tolerable following multiple doses of morphine. She denies every having chest pain or shortness of breath since symptoms started yesterday. Hx hypothyroidism, ITP, Takotsubo, cholecystectomy, bile leak following ERCP and stent, and migraines. Family History Heart Disease Hypertension Social History Smoking Status: Former Smoker (quit 27 years ago) Smokeless Tobacco Use: No Alcohol Use: none Drug Use: none Marital Status: single Housing status: lives alone Occupational Status: employed Multi-Drug Resistant Organisms History of MDRO: No Allergies Coded Allergies: Methimazole (Verified Allergy, Mild, RASH, 04/28/17) Metronidazole (Verified Allergy, Mild, FACIAL BURNING, 04/28/17) Nickel (Verified Allergy, Unknown, CHEAP JEWELRY, RASH/HIVES, 04/28/17) Home Medications Scheduled Aspirin (Aspirin EC Low Dose), 81 MG PO QAM Atorvastatin (Lipitor), 40 MG PO QPM Levothyroxine Sodium (Synthroid), 100 MCG PO QAM Lisinopril (Lisinopril), 5 MG PO QAM Metoprolol Tartrate (Lopressor), 12.5 MG PO BID Scheduled PRN Sumatriptan Succinate (Imitrex), 25 MG PO UD PRN for Migraine Review of Systems Constitutional: No fever, No chills Respiratory: No shortness of breath Cardiovascular: No chest pain Abdomen: + pain, + nausea, + vomiting, No diarrhea, No constipation Genitourinary - Female: No dysuria Physical Exam Vital Signs Date Time Temp Pulse Resp B/P (MAP) Pulse Ox O2 Delivery O2 Flow Rate FiO2 04/28/17 13:37 62 16 125/70 94 Room Air 04/28/17 11:21 36.5 69 16 151/84 99 Room Air General: no distress Eyes: normal inspection, PERLL Respiratory: chest non tender, clear to auscultation, normal breath sounds, no respiratory distress, no accessory muscle use Cardiac: regular rate and rhythm, no rub or gallop, no murmur, no edema, no jvd GI/: active bowel sounds, very tender epigastric area, soft, non distended Extremities: normal range of motion, normal strength, non tender Neuro/Psych: alert and oriented x 3, normal mood and affect Skin: normal color, dry Diagnostics Laboratory Results Results Past 24 Hours Test 04/28/17 11:31 04/28/17 12:12 Range/Units White Blood Count 14.41 4.8-10.8 K/uL Red Blood Count 5.02 4.2-5.4 M/uL Hemoglobin 15.0 12.0-16.0 g/dL Hematocrit 46.3 37-47 % Mean Corpuscular Volume 92.2 80-100 fL Mean Corpuscular Hemoglobin 29.9 25-34 pg Mean Corpuscular Hemoglobin Concent 32.4 32-36 g/dl Platelet Count 214 130-400 K/uL Mean Platelet Volume 14.6 7.4-10.4 fL Neutrophils (%) (Auto) 82.7 % Lymphocytes (%) (Auto) 9.2 % Monocytes (%) (Auto) 6.9 % Eosinophils (%) (Auto) 0.7 % Basophils (%) (Auto) 0.2 % Neutrophils # (Auto) 11.92 1.4-6.5 K/uL Lymphocytes # (Auto) 1.32 1.2-3.4 K/uL Monocytes # (Auto) 1.00 0.11-0.59 K/uL Eosinophils # (Auto) 0.10 0-0.5 K/uL Basophils # (Auto) 0.03 0-0.2 K/uL RDW Standard Deviation 49.5 36.4-46.3 fL RDW Coefficient of Variation 14.8 11.5-14.5 % Immature Granulocyte % (Auto) 0.3 % Immature Granulocyte # (Auto) 0.04 0.00-0.02 K/uL Sodium Level 138 136-145 mmol/L Potassium Level 3.6 3.5-5.1 mmol/L Chloride Level 104 98-107 mmol/L Carbon Dioxide Level 24 21-32 mmol/L Anion Gap 10.0 3-11 mmol/L Blood Urea Nitrogen 21 7-18 mg/dl Creatinine 0.85 0.60-1.20 mg/dl Est Creatinine Clear Calc Drug Dose 65.5 ml/min Estimated GFR () 88.2 Estimated GFR (Non- 76.1 BUN/Creatinine Ratio 24.6 10-20 Random Glucose 137 70-99 mg/dl Calcium Level 9.4 8.5-10.1 mg/dl Total Bilirubin 0.6 0.2-1 mg/dl Aspartate Amino Transf (AST/SGOT) 16 15-37 U/L Alanine Aminotransferase (ALT/SGPT) 26 12-78 U/L Alkaline Phosphatase 120 45-117 U/L Troponin I < 0.015 0-0.045 ng/ml Total Protein 8.1 6.4-8.2 gm/dl Albumin 4.0 3.4-5.0 gm/dl Globulin 4.1 2.5-4.0 gm/dl Albumin/Globulin Ratio 1.0 0.9-2 Amylase Level 901 25-115 U/L Lipase 55584 73-393 U/L Urine Color YELLOW Urine Appearance CLEAR CLEAR Urine pH 5.0 4.5-7.5 Urine Specific [place] 1.019 1.000-1.030 Urine Protein NEG NEG Urine Glucose (UA) NEG NEG Urine Ketones TRACE NEG Urine Occult Blood NEG NEG Urine Nitrite NEG NEG Urine Bilirubin NEG NEG Urine Urobilinogen NEG NEG Urine Leukocyte Esterase NEG NEG Diagnostic Radiology BILIARY ULTRASOUND CLINICAL HISTORY: History of ERCP and stent placement. Epigastric pain. COMPARISON STUDY: February 07, 2017 FINDINGS: The gallbladder surgically absent. The common bile duct measures 11 mm. There is a stent within the common bile duct. No focal hepatic masses are visualized. There is suspected pneumobilia. The visualized portions of the pancreas appear normal. There is no right-sided hydronephrosis. IMPRESSION: 1. Pneumobilia 2. Surgically absent gallbladder 3. 11 mm common bile duct. A biliary stent was visualized Impression Assessment and Plan Ms. Bowen presents today for abdominal pain and vomiting starting at 2030 last night while at work. Up until that point she had felt well, able to eat without difficulty. In March she had an ERCP with stent which resulted in a bile leak and on 04/15 she had and episode of Takotsubo's. She currently complains of epigastric pain that is tolerable following multiple doses of morphine. She denies every having chest pain or shortness of breath since symptoms started yesterday. Hx hypothyroidism, ITP, Takotsubo, cholecystectomy, bile leak following ERCP and stent, and migraines. 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 Discussed with Zamzam Conley NP and agree with findings and plan as documented in the note. 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 Despite her recent cardiac event she's had no decrease in her systolic function to be concern for volume overload however we'll watch her closely. Further evaluation of her biliary stent will be based upon GI medicine's recommendation Documented By: Mele Strange Advanced Directives Existing Advance Directive: No Existing Living Will: No Existing Power of Paving Bed Maker: No Existing Health Care Proxy: No Resuscitation Status FULL RESUSCITATION VTE Prophylaxis VTE Risk Assessment Done? Y/N: Yes Risk Level: Moderate
--- NOTE | 2017-04-28 14:16 | EMERGENCY ROOM VISIT NOTE ---
ED Visit Note First contact with patient: 11:57 Chief Complaint: I'm having epigastric pain. History of Present Illness: Ms. Bowen is a 56 year-old white female who ambulates into the ED complaining of epigastric abdominal pain. Historically patient reports March 2017 ERCP with a large stone removed and then a bile leak requiring stent placement. Scheduled have stents removed in 2 days. Patient reports a acute onset of epigastric abdominal pain that started approximately 4 hours ago. Since that time the pain has been constant. The pain is currently described as sharp. She rates the discomfort 9/10 The pain is radiating into the thoracic back. The pain worsens with palpation and deep inspiration and is improved by sitting to reclined. She has not taken any medications for her discomfort prior to arrival at the hospital. Associated with the pain there has been nauseated with one episode of vomiting. Patient denies fevers, chills, sweats, skin eruptions, skin color changes, upper respiratory tract symptoms, shortness of breath, chest pain, diarrhea, constipation, rectal bleeding, black/tarry stools, urinary symptoms, hematuria, vaginal bleeding, vaginal discharge, back pain. Review of Systems: As noted above in history of present illness. All body systems were reviewed and found to be negative as noted above. Past Medical History: As previously noted and Graves' disease, cardiomegaly, non -ST elevated [place], ITP, gestational diabetes, status post section 2, hysterectomy, tonsillectomy, adenoidectomy and left breast lumpectomy. Current Medications: Medications Dose Route/Sig Max Daily Dose Days Date Category Lipitor (Atorvastatin Calcium) 40 Mg Tab 40 Mg PO QPM 04/28/17 Reported Aspirin EC Low Dose (Aspirin) 81 Mg Ectab 81 Mg PO QAM 04/16/17 Rx Lopressor (Metoprolol Tartrate) 25 Mg Tab 12.5 Mg PO BID 04/16/17 Rx Lisinopril 5 Mg Tab 5 Mg PO QAM 04/16/17 Rx Imitrex (Sumatriptan Succinate) 25 Mg Tab 25 Mg PO UD PRN 04/08/17 Reported Synthroid (Levothyroxine Sodium) 100 Mcg Tab 100 Mcg PO QAM 05/03/16 Reported Allergies to Medications: Methimazole, metronidazole. Social History: Patient is currently employed; she feels safe in her home environment; Physical Examination: Vital Signs: Date Time Temp Pulse Resp B/P (MAP) Pulse Ox O2 Delivery O2 Flow Rate FiO2 04/28/17 13:37 62 16 125/70 94 Room Air 04/28/17 11:21 36.5 69 16 151/84 99 Room Air GENERAL: 56-year-old female in moderate distress due to pain, nontoxic-appearing , afebrile and hemodynamically stable. NEUROLOGICAL: Awake, alert and oriented to person, place and time. Answering questions appropriately and following commands. Normal gait. Good hand eye coordination. SKIN: Warm, dry and pink. No soft tissue eruptions or trauma noted. HEENT: Atraumatic and normocephalic. PERRLA. Sclera white and conjunctiva pink. Oral cavity moist and pink. Pharynx is nonerythematous or edematous. Speech normal. No lymphadenopathy. Trachea midline. No jugular venous distention. BACK: No tenderness over the bony spine. No CVA tenderness. THORAX: Lungs sounds are clear to auscultation and equal bilaterally with symmetrical chest wall. No wheezing, rales or rhonchi. No crepitus, tenderness , subcutaneous air or deformities noted. HEART: Regular rate and rhythm. No gallops, rubs or murmurs are appreciated. ABDOMEN: Mild distention of the epigastric area, soft with moderate to severe tenderness in the epigastrium with guarding. Positive bowel sounds in all quadrants. No guarding, rigidity or organomegaly. EXTREMITIES: Moves all extremities well on command and with purpose. All distal neurovascular statuses are intact and equal bilaterally. ED Course: Patient is assessed as noted above. Laboratory Testing: Test 04/28/17 11:31 04/28/17 12:12 Range/Units White Blood Count 14.41 4.8-10.8 K/uL Red Blood Count 5.02 4.2-5.4 M/uL Hemoglobin 15.0 12.0-16.0 g/dL Hematocrit 46.3 37-47 % Mean Corpuscular Volume 92.2 80-100 fL Mean Corpuscular Hemoglobin 29.9 25-34 pg Mean Corpuscular Hemoglobin Concent 32.4 32-36 g/dl Platelet Count 214 130-400 K/uL Mean Platelet Volume 14.6 7.4-10.4 fL Neutrophils (%) (Auto) 82.7 % Lymphocytes (%) (Auto) 9.2 % Monocytes (%) (Auto) 6.9 % Eosinophils (%) (Auto) 0.7 % Basophils (%) (Auto) 0.2 % Neutrophils # (Auto) 11.92 1.4-6.5 K/uL Lymphocytes # (Auto) 1.32 1.2-3.4 K/uL Monocytes # (Auto) 1.00 0.11-0.59 K/uL Eosinophils # (Auto) 0.10 0-0.5 K/uL Basophils # (Auto) 0.03 0-0.2 K/uL RDW Standard Deviation 49.5 36.4-46.3 fL RDW Coefficient of Variation 14.8 11.5-14.5 % Immature Granulocyte % (Auto) 0.3 % Immature Granulocyte # (Auto) 0.04 0.00-0.02 K/uL Sodium Level 138 136-145 mmol/L Potassium Level 3.6 3.5-5.1 mmol/L Chloride Level 104 98-107 mmol/L Carbon Dioxide Level 24 21-32 mmol/L Anion Gap 10.0 3-11 mmol/L Blood Urea Nitrogen 21 7-18 mg/dl Creatinine 0.85 0.60-1.20 mg/dl Est Creatinine Clear Calc Drug Dose 65.5 ml/min Estimated GFR () 88.2 Estimated GFR (Non- 76.1 BUN/Creatinine Ratio 24.6 10-20 Random Glucose 137 70-99 mg/dl Calcium Level 9.4 8.5-10.1 mg/dl Total Bilirubin 0.6 0.2-1 mg/dl Aspartate Amino Transf (AST/SGOT) 16 15-37 U/L Alanine Aminotransferase (ALT/SGPT) 26 12-78 U/L Alkaline Phosphatase 120 45-117 U/L Troponin I < 0.015 0-0.045 ng/ml Total Protein 8.1 6.4-8.2 gm/dl Albumin 4.0 3.4-5.0 gm/dl Globulin 4.1 2.5-4.0 gm/dl Albumin/Globulin Ratio 1.0 0.9-2 Amylase Level 901 25-115 U/L Lipase 78673 73-393 U/L Urine Color YELLOW Urine Appearance CLEAR CLEAR Urine pH 5.0 4.5-7.5 Urine Specific [place] 1.019 1.000-1.030 Urine Protein NEG NEG Urine Glucose (UA) NEG NEG Urine Ketones TRACE NEG Urine Occult Blood NEG NEG Urine Nitrite NEG NEG Urine Bilirubin NEG NEG Urine Urobilinogen NEG NEG Urine Leukocyte Esterase NEG NEG Gallbladder Ultrasound: Was reviewed by myself and read by the radiologist and shows FINDINGS: The gallbladder surgically absent. The common bile duct measures 11 mm. There is a stent within the common bile duct. No focal hepatic masses are visualized. There is suspected pneumobilia. The visualized portions of the pancreas appear normal. There is no right-sided hydronephrosis. IMPRESSION: 1. Pneumobilia 2. Surgically absent gallbladder 3. 11 mm common bile duct. A biliary stent was visualized. Patient was hydrated with lactated Ringer and received a total of 12 mg of morphine IV for pain and 4 mg of Zofran IV. Patient was given 4.5 g of Zosyn IV for antibiotic coverage. Patient was reassessed multiple times during her stay in the emergency department. Patient's case was reviewed with Dr. Orozco; we agreed on diagnostic approach, treatment, disposition and plan. Patient's case was consulted with [facility], case management and Dr. Strange, hospitalist. Patient was educated about today's findings. Clinical Impression: Acute pancreatitis Decision-Making: Initially in my differential diagnosis I considered hepatitis, pancreatitis, postsurgical infection/abscess, GERD, bowel obstruction, acute coronary syndrome and other causes. Disposition and Plan: Patient be brought in the hospital for observation/ admission by the [facility] hospitalist; please see their note for final disposition and plan,
[2017-04-28] MEDS ORDERED: MoRPHine SULFATE 2 MG/ML CARP IV PRN (14:45)
[2017-04-28] MEDS ORDERED: SUMATRIPTAN SUCCINATE 25 MG TAB PO PRN (14:45)
--- NOTE | 2017-04-28 14:51 | Gastrointestinal Consultation ---
Gastrointestinal Consultation Date of Consultation: Apr 28, 2017 Consulting Physician: Dr. Delmar Corbett Reason for Consultation: Pancreatitis History of Present Illness Patient is a 56 year old female with a hx of cholecystectomy and subsequent ERCP for retained stones this past March, followed by a bile leak and subsequent biliary stenting. She was scheduled to have a repeat ERCP with stent removal tomorrow, but recently had a NSTEMI, so the procedure was moved to 05/20. She presents to the ED today after sudden onset LUQ/epigastric pain starting at 8:30am this morning, radiating to the back, with associated n/v. Labs show a mildly elevated WBC of 14,000 and a lipase over 54,000. RUQ ultrasound shows a CBD of 11mm with stent in place and a normal visualized pancreas. She does not drink ETOH. Triglycerides tested earlier this month were normal at 126. She has recently been started on Atorvastatin and Lisinopril. Past Medical/Surgical History Medical Problems: (1) Vertigo Status: Acute Past Medical History: Grave's disease, ITP, NSTEMI Family History Heart Disease Hypertension Social History Smoking Status: Former Smoker (quit 27 years ago) Alcohol Use: none Drug Use: none Marital Status: single Housing Status: lives with family Occupation Status: employed Allergies Coded Allergies: Methimazole (Verified Allergy, Mild, RASH, 04/28/17) Metronidazole (Verified Allergy, Mild, FACIAL BURNING, 04/28/17) Nickel (Verified Allergy, Unknown, CHEAP JEWELRY, RASH/HIVES, 04/28/17) Current Medications Home Meds and Scripts Medications Dose Route/Sig Max Daily Dose Days Date Category Lipitor (Atorvastatin Calcium) 40 Mg Tab 40 Mg PO QPM 04/28/17 Reported Aspirin EC Low Dose (Aspirin) 81 Mg Ectab 81 Mg PO QAM 04/16/17 Rx Lopressor (Metoprolol Tartrate) 25 Mg Tab 12.5 Mg PO BID 04/16/17 Rx Lisinopril 5 Mg Tab 5 Mg PO QAM 04/16/17 Rx Imitrex (Sumatriptan Succinate) 25 Mg Tab 25 Mg PO UD PRN 04/08/17 Reported Synthroid (Levothyroxine Sodium) 100 Mcg Tab 100 Mcg PO QAM 05/03/16 Reported Review of Systems Constitutional: No fever, No chills, No weight loss Eyes: No worsening of vision, No eye pain ENT: No hearing loss Respiratory: No cough, No wheezing, No shortness of breath Cardiac: No chest pain Abdomen: + see HPI Musculoskeletal: No joint pain Female : No dysuria Neuro: No problem reported Psych: No problem reported Heme: No problem reported Endo: No excessive thirst, No excessive urination Skin: No rash, No itch, No new/changing skin lesions Physical Exam Date Time Temp Pulse Resp B/P (MAP) Pulse Ox O2 Delivery O2 Flow Rate FiO2 04/28/17 13:37 62 16 125/70 94 Room Air 04/28/17 11:21 36.5 69 16 151/84 99 Room Air General Appearance: no apparent distress Eyes: normal inspection ENT: hearing grossly normal Neck: supple Respiratory/Chest: lungs clear, normal breath sounds, no respiratory distress, no accessory muscle use Cardiovascular: regular rate, rhythm, no edema Abdomen: normal bowel sounds, soft, no organomegaly, + tenderness (epigastric/ LUQ) Extremities: no pedal edema Neurologic/Psych: alert, normal mood/affect Skin: normal color, no jaundice, warm/dry, no rash Laboratory Results Last 24 Hours Test 04/28/17 11:31 04/28/17 12:12 White Blood Count 14.41 K/uL Red Blood Count 5.02 M/uL Hemoglobin 15.0 g/dL Hematocrit 46.3 % Mean Corpuscular Volume 92.2 fL Mean Corpuscular Hemoglobin 29.9 pg Mean Corpuscular Hemoglobin Concent 32.4 g/dl Platelet Count 214 K/uL Mean Platelet Volume 14.6 fL Neutrophils (%) (Auto) 82.7 % Lymphocytes (%) (Auto) 9.2 % Monocytes (%) (Auto) 6.9 % Eosinophils (%) (Auto) 0.7 % Basophils (%) (Auto) 0.2 % Neutrophils # (Auto) 11.92 K/uL Lymphocytes # (Auto) 1.32 K/uL Monocytes # (Auto) 1.00 K/uL Eosinophils # (Auto) 0.10 K/uL Basophils # (Auto) 0.03 K/uL RDW Standard Deviation 49.5 fL RDW Coefficient of Variation 14.8 % Immature Granulocyte % (Auto) 0.3 % Immature Granulocyte # (Auto) 0.04 K/uL Sodium Level 138 mmol/L Potassium Level 3.6 mmol/L Chloride Level 104 mmol/L Carbon Dioxide Level 24 mmol/L Anion Gap 10.0 mmol/L Blood Urea Nitrogen 21 mg/dl Creatinine 0.85 mg/dl Est Creatinine Clear Calc Drug Dose 65.5 ml/min Estimated GFR () 88.2 Estimated GFR (Non- 76.1 BUN/Creatinine Ratio 24.6 Random Glucose 137 mg/dl Calcium Level 9.4 mg/dl Total Bilirubin 0.6 mg/dl Aspartate Amino Transf (AST/SGOT) 16 U/L Alanine Aminotransferase (ALT/SGPT) 26 U/L Alkaline Phosphatase 120 U/L Troponin I < 0.015 ng/ml Total Protein 8.1 gm/dl Albumin 4.0 gm/dl Globulin 4.1 gm/dl Albumin/Globulin Ratio 1.0 Amylase Level 901 U/L Lipase 24497 U/L Urine Color YELLOW Urine Appearance CLEAR Urine pH 5.0 Urine Specific [place] 1.019 Urine Protein NEG Urine Glucose (UA) NEG Urine Ketones TRACE Urine Occult Blood NEG Urine Nitrite NEG Urine Bilirubin NEG Urine Urobilinogen NEG Urine Leukocyte Esterase NEG RUQ US IMPRESSION: 1. Pneumobilia 2. Surgically absent gallbladder 3. 11 mm common bile duct. A biliary stent was visualized. Impression Patient is a 56 year old female admitted with abdominal pain and labs concerning for pancreatitis. Plan She has a hx of choledocholithiasis and a bile leak and is s/p ERCP with biliary stent placement - to have stent removed soon. Recent NSTEMI with subsequent addition of new medications including Lisinopril and Atorvastatin, which both may be implicated in pancreatitis. Recommend changing these meds as appropriate. Would recommend aggressive IV hydration with LR bolus followed by 1L at 250cc/hr then further at discretion of hospitalist team. NPO. Will obtain a CT scan a/p for further evaluation of the pancreas. Follow labs/vitals. I performed a history and physical examination of the patient. I have discussed the patient's case, impression and plan with Danica Fernandes PA-C on . Her note reflects my findings and plan. Patient with acute pancreatitis, possibly from medications. NPO and aggressive hydration with LR. Follow electrolytes closely. Delmar Corbett MD
[2017-04-28] MEDS ORDERED: LORAZEPAM 0.5 MG TAB PO PRN (15:00)
[2017-04-28] MEDS ORDERED: PIPERACILL/TAZOBAC CONSULT ACTIVE PRN (15:15)
[2017-04-28] MEDS: ONDANSETRON INJ 2 MG/ML 2 ML VIAL IV PRN ×2 (16:17→22:23)
[2017-04-28 16:34] LABS: INR 1.1 (0.9-1.1); PROTHROMBIN TIME (PATIENT) 11.3 SECONDS (9.0-12.0)
[2017-04-28 16:52] VITALS: BP 116/74; PULSE 64; TEMP 36.4; O2SAT 95; Ht 154.9 cm; Wt 73.9 kg
[2017-04-28] MEDS: LACTATED RINGER'S 1000ML 1,000 ML IV SCH (17:06)
[2017-04-28] MEDS ORDERED: OPTIRAY 320 IV PRN (17:45)
--- NOTE | 2017-04-28 18:28 | DIAGNOSTIC IMAGING REPORT ---
ABDOMEN AND PELVIS CT WITH IV AND ORAL CONTRAST CT DOSE: 364.75 mGy.cm HISTORY: Acute generalized abdominal pain. abdominal pain with elevated Lipase TECHNIQUE: Multiaxial CT images of the abdomen and pelvis were performed following the use of intravenous and oral contrast. A dose lowering technique was utilized adhering to the principles of ALARA. COMPARISON STUDY: Ultrasound of the right upper quadrant same day, CT 04/09/2017. FINDINGS: Mild dependent bibasilar atelectasis. No pneumoperitoneum or pneumatosis identified. Imaged inferior cardiac chambers are unremarkable. The previously noted peripheral hyperattenuation of the right hepatic lobe is not appreciated on today's study and may have reflected transient hepatic attenuation difference. Moderate intrahepatic biliary ductal dilation is redemonstrated with associated pneumobilia. This appears unchanged from comparison study. Prior cholecystectomy. Mild stranding within the gallbladder fossa is likely postoperative without focal collection identified. Mild dilation of the common bile duct is again seen measuring up to 1.2 cm transversely. There is a stent within the distal common bile duct and duodenum which is new from comparison CT 04/09/2017. Moderate interstitial and peripancreatic edema has progressed from comparison CT. Mild free fluid is seen within the lesser sac extending into the mid mesentery and tracking along the pericolic gutters. Trace perihepatic and perisplenic ascites also noted. No focal peripancreatic fluid collections or evidence of pancreatic necrosis. Splenic vein is patent. Spleen, and adrenal glands are unremarkable. Probable cyst of the inferior pole left kidney measures 10 mm. Kidneys and ureters are unremarkable otherwise. Urinary bladder is within normal limits. Prior hysterectomy. There is an ovoid circumscribed fluid attenuating structure involving the vaginal cuff measuring 1.6 x 2.2 cm on image 351 of series 3. The abdominal aorta is normal in course and caliber with mild atherosclerotic plaquing. No bulky adenopathy identified. There is no bowel obstruction. Mild wall thickening of the duodenum, likely reactive from pancreatitis. Mild to moderate diverticulosis of the left hemicolon. There is wall thickening with nondistention involving the ascending, transverse and descending colon. The appendix appears normal. Soft tissues are unremarkable. The bones appear intact. Degenerative changes of the spine are noted. IMPRESSION: 1. Findings compatible with worsening acute uncomplicated pancreatitis with progressive interstitial, peripancreatic and mid mesenteric edema with small volume intra-abdominal and intrapelvic ascites. No focal peripancreatic collections or evidence of pancreatic necrosis. 2. Stent of the distal common bile duct and duodenum is present with persistent generally unchanged moderate intrahepatic and extrahepatic biliary ductal dilation. Associated pneumobilia is also unchanged suggesting prior sphincterotomy. Prior cholecystectomy. 3. Wall thickening involving the majority of the colon may be secondary to nondistention or mild colitis. 4. Mild to moderate colonic diverticulosis without diverticulitis. 5. Normal appendix. 6. The previously noted peripheral hyperattenuation of the right hepatic lobe is not appreciated on today's study and may have been secondary to transient hepatic attenuation difference. Electronically signed by: Isidoro Curry M.D. 04/28/2017 6:27 PM Dictated Date/Time: 04/28/2017 6:13 PM
[2017-04-28] MEDS: PIPERACILL/TAZOBAC IV 3.375 GM in DEXTROSE 5% 100ML 100 ML IV SCH (19:12)
[2017-04-28 19:44] VITALS: BP 148/86; PULSE 64; TEMP 36.2; O2SAT 100
[2017-04-28 20:00] VITALS: O2SAT 99
[2017-04-28] MEDS: MoRPHine SULFATE 4 MG/ML 1 ML CARP\\VIAL IV PRN (20:18)
[2017-04-28] MEDS: METOPROLOL TARTRATE 25 MG TAB PO SCH (20:19)
[2017-04-28] MEDS: ENOXAPARIN 40 MG/0.4 ML SYR SC SCH (20:20)
[2017-04-28 23:47] VITALS: BP 157/81; PULSE 62; TEMP 36.5; O2SAT 98
[2017-04-29] VITALS (12 sets, daily range): BP systolic 104–156; BP diastolic 66–84; PULSE 69–117; TEMP 36.3–38.1; O2SAT 90–99
[2017-04-29] MEDS: HYDROmorphone INJ 0.5 MG/0.5 ML SYR IV PRN ×3 (00:57→19:53)
[2017-04-29] MEDS: LACTATED RINGER'S 1000ML 1,000 ML IV SCH ×4 (00:57→18:02)
[2017-04-29] MEDS: PIPERACILL/TAZOBAC IV 3.375 GM in DEXTROSE 5% 100ML 100 ML IV SCH ×3 (02:25→18:12)
[2017-04-29] MEDS ORDERED: PROMETHAZINE HCL INJ 12.5 MG in SODIUM CHLORIDE 0.9% 50ML 50 ML IV PRN (02:30)
[2017-04-29] MEDS: NITROGLYCERIN 0.4 MG SL PER TAB CHARGE SL PRN ×2 (04:00→04:20)
[2017-04-29] MEDS ORDERED: NITROGLYCERIN 0.4 MG SL PER TAB CHARGE ONE (04:04)
[2017-04-29] MEDS: MoRPHine SULFATE 4 MG/ML 1 ML CARP\\VIAL IV PRN ×2 (04:31→11:52)
[2017-04-29 04:44] LABS: BASO % 0.1 %; BASO ABS # 0.01 K/uL (0-0.2); COMPLETE YES; HEMATOCRIT 39.9 % (37-47); IG% 0.1 %; LYMPH % 6.2 %; LYMPH ABS # 0.84 K/uL (1.2-3.4); MEAN CELL VOLUME 91.9 fL (80-100); MEAN CORPUSCULAR HEMOGLOBIN 30.6 pg (25-34); MEAN CORPUSCULAR HGB CONC 33.3 g/dl (32-36); MONO % 11.1 %; NEUT % 82.5 %; PLATELET COUNT 175 K/uL (130-400); RED BLOOD COUNT 4.34 M/uL (4.2-5.4); WHITE BLOOD COUNT 13.54 K/uL (4.8-10.8)
[2017-04-29 05:03] LABS: ALKALINE PHOSPHATASE 84 U/L (45-117); ALT/SGPT 19 U/L (12-78); AST/SGOT 11 U/L (15-37); BLOOD UREA NITROGEN 11 mg/dl (7-18); BUN/CREATININE RATIO 18.3 (10-20); CALCIUM 8.6 mg/dl (8.5-10.1); CARBON DIOXIDE 26 mmol/L (21-32); CHLORIDE 105 mmol/L (98-107); CREATININE 0.61 mg/dl (0.60-1.20); GLUCOSE 134 mg/dl (70-99); POTASSIUM 3.9 mmol/L (3.5-5.1); SODIUM 139 mmol/L (136-145)
[2017-04-29] MEDS ORDERED: GI COCKTAIL PO STA (05:08)
[2017-04-29] MEDS ORDERED: ALUMINUM/MAGNESIUM SUSP 18 ML, LIDOCAINE HCL 2% VISCOUS SOLN 6 ML, BARCODE IDENTIFIER 1 EA PO STA ×2 (05:16)
[2017-04-29] MEDS: LEVOTHYROXINE 100 MCG TAB PO SCH (06:00)
[2017-04-29] MEDS: FAMOTIDINE IV INJ 20 MG in SYRINGE 3 ML IV SCH ×2 (08:33→19:52)
[2017-04-29] MEDS ORDERED: LISINOPRIL 5 MG TAB PO SCH (09:00)
[2017-04-29] MEDS ORDERED: FAMOTIDINE IV INJ 20 MG in DEXTROSE 5% 100ML 100 ML IV SCH (09:00)
[2017-04-29] MEDS: METOPROLOL TARTRATE 25 MG TAB PO SCH ×2 (09:00→19:52)
[2017-04-29] MEDS: ASPIRIN 81 MG ECTAB PO SCH (09:00)
--- NOTE | 2017-04-29 10:20 | Clinical Documentation Query ---
ERICA Bryant : CLINICAL DOCUMENTATION QUERY Patient is a 56 year old female admitted for evaluation and treatment of acute pancreatitis. GI urban design consultant notes patient to have "recently had a NSTEMI", in the context of delayed biliary stent removal. Review of EMR demonstrates this NSTEMI to have occurred on an admission from April 15-2016. As appropriate, please explicitly document the associated date of the NSTEMI as this is necessary to capture the severity of illness and associated risk of mortality associated with this diagnosis. In your clinical opinion, did your patient experience: ( x ) NSTEMI, April 15 2017 ( ) Not Agree ( ) Other explanation of clinical findings (Please Explain) ( ) Unable to determine (Please Define) ( ) Need to Discuss The medical record reflects the following clinical findings, treatment, and risk factors. Clinical Indicators: As above Treatment: Treated at that time, ongoing Lopressor, Lisinopril, ASA, statin Risk Factors: Age, CAD Please clarify and document your clinical opinion in the progress notes and discharge summary. Terms such as "probable", "suspected", "likely", "questionable", "possible", or "still to be ruled out" are acceptable. IF IN AGREEMENT, YOU MUST DOCUMENT ABOVE DIAGNOSTIC STATEMENT IN DAILY PROGRESS NOTES AND DISCHARGE SUMMARY. This document is not part of the patient's record. Thank You, Joseph Bajwa RN [phone]
--- NOTE | 2017-04-29 11:19 | Gastroenterology Progress Note ---
Progress Note Date of Service: Apr 29, 2017 Subjective Pt evaluation today including: conversation w/ patient, physical exam, chart review, lab review, review of studies, review of inpatient medication list 56 year old female admitted with pancreatitis. She states that she had a very rough night last night with abdominal pain, n/v. She rates her pain right now at a 6/10. Labs today show a decreasing lipase and normal LFTs. CT scan yesterday showed: IMPRESSION: 1. Findings compatible with worsening acute uncomplicated pancreatitis with progressive interstitial, peripancreatic and mid mesenteric edema with small volume intra-abdominal and intrapelvic ascites. No focal peripancreatic collections or evidence of pancreatic necrosis. 2. Stent of the distal common bile duct and duodenum is present with persistent generally unchanged moderate intrahepatic and extrahepatic biliary ductal dilation. Associated pneumobilia is also unchanged suggesting prior sphincterotomy. Prior cholecystectomy. 3. Wall thickening involving the majority of the colon may be secondary to nondistention or mild colitis. 4. Mild to moderate colonic diverticulosis without diverticulitis. 5. Normal appendix. 6. The previously noted peripheral hyperattenuation of the right hepatic lobe is not appreciated on today's study and may have been secondary to transient hepatic attenuation difference. Review of Systems Constitutional: No fever, No chills Eyes: No worsening of vision, No eye pain ENT: No hearing loss Respiratory: No cough, No wheezing, No shortness of breath Cardiac: No chest pain Abdomen: + see HPI Musculoskeletal: No joint pain, No muscle pain Female : No dysuria, No urinary frequency, No hematuria Neuro: No problem reported Psych: No problem reported Heme: No abnormal bleeding/bruising Endo: No excessive thirst, No excessive urination Skin: No rash, No itch, No new/changing skin lesions Medications Current Inpatient Medications Medications (Trade) Dose Ordered Sig/Shawn Route Start Time Stop Time Status Last Admin Dose Admin Enoxaparin Sodium (Lovenox Inj) 40 mg QPM SC 04/28/17 21:00 05/28/17 20:59 04/28/17 20:20 40 MG Acetaminophen (Tylenol Tab) 650 mg Q4H PRN PO 04/28/17 14:45 05/28/17 14:44 Ondansetron HCl (Zofran Inj) 4 mg Q6H PRN IV 04/28/17 14:45 05/28/17 14:44 04/28/17 22:23 4 MG Aspirin (Ecotrin Tab) 81 mg QAM PO 04/29/17 09:00 05/29/17 08:59 Levothyroxine Sodium (Synthroid Tab) 100 mcg DAILYBB PO 04/29/17 06:00 05/29/17 06:59 Lisinopril (Zestril Tab) 5 mg QAM PO 04/29/17 09:00 05/29/17 08:59 Metoprolol Tartrate (Lopressor Tab) 12.5 mg BID PO 04/28/17 21:00 05/28/17 20:59 04/28/17 20:19 12.5 MG Sumatriptan Succinate (Imitrex Tab) 25 mg DAILY PRN PO 04/28/17 14:45 05/28/17 14:44 Hydromorphone HCl (Dilaudid Inj) 0.5 mg Q4H PRN IV 04/28/17 14:45 05/12/17 14:44 04/29/17 07:32 0.5 MG Morphine Sulfate (MoRPHine SULFATE INJ) 2 mg Q4H PRN IV 04/28/17 14:45 05/12/17 14:44 04/28/17 16:18 2 MG Morphine Sulfate (MoRPHine SULFATE INJ) 4 mg Q4H PRN IV 04/28/17 14:45 05/12/17 14:44 04/29/17 04:31 4 MG Lorazepam (Ativan Tab) 0.5 mg Q4H PRN PO 04/28/17 15:00 05/28/17 14:59 Piperacillin Sod/ Tazobactam Sod 3.375 gm/Dextrose 115 ml @ 28.75 mls/ hr Q8H IV 04/28/17 18:00 05/08/17 17:59 04/29/17 10:10 28.75 MLS/HR Piperacillin Sod/ Tazobactam Sod (Consult) 1 ea UD PRN N/A 04/28/17 15:15 05/28/17 15:14 Lactated Ringer's 1,000 ml @ 100 mls/hr Q10H IV 04/29/17 08:00 05/29/17 07:59 04/29/17 07:35 100 MLS/HR Ioversol (Optiray 320) 100 ml UD PRN IV 04/28/17 17:45 05/02/17 17:44 Promethazine HCl 12.5 mg/Sodium Chloride 50.5 ml @ 204 mls/hr Q6H PRN IV 04/29/17 02:30 05/29/17 02:29 04/29/17 03:07 204 MLS/HR Nitroglycerin (Nitrostat Tab) 0.4 mg PRN PRN SL 04/29/17 04:15 05/29/17 04:14 04/29/17 04:20 0.4 MG Famotidine 20 mg/ Syringe 5 ml @ 2.5 mls/min Q12H IV 04/29/17 08:00 05/29/17 07:59 04/29/17 08:33 2.5 MLS/MIN Objective Vital Signs Date Time Temp Pulse Resp B/P (MAP) Pulse Ox O2 Delivery O2 Flow Rate FiO2 04/29/17 08:00 Nasal Cannula 2.0 04/29/17 07:59 36.6 69 16 156/83 (107) 94 Room Air 04/29/17 05:01 82 16 134/73 (93) 96 Nasal Cannula 2.0 04/29/17 04:30 82 147/74 (98) 97 Nasal Cannula 2.0 04/29/17 04:00 98 Nasal Cannula 2.0 04/29/17 04:00 83 136/74 (94) 98 Nasal Cannula 2.0 04/29/17 03:40 36.8 79 18 143/80 (101) 96 Room Air 04/29/17 00:01 99 Room Air 04/28/17 23:47 36.5 62 32 157/81 (106) 98 Room Air 04/28/17 20:00 99 Room Air 04/28/17 19:44 36.2 64 18 148/86 (106) 100 Room Air 04/28/17 16:52 36.4 64 22 116/74 95 Room Air 04/28/17 16:21 75 16 134/76 94 Room Air 04/28/17 13:37 62 16 125/70 94 Room Air 04/28/17 11:21 36.5 69 16 151/84 99 Room Air Physical Exam General Appearance: no apparent distress Eyes: normal inspection ENT: hearing grossly normal Neck: supple Respiratory/Chest: lungs clear, normal breath sounds, no respiratory distress, no accessory muscle use Cardiovascular: regular rate, rhythm, no edema Abdomen: soft, + abnormal bowel sounds (decreased), + tenderness (LUQ/ epigastric) Extremities: no pedal edema Neurologic/Psych: alert, normal mood/affect Skin: normal color, no jaundice, warm/dry, no rash Laboratory Results Last 24 Hours Test 04/28/17 11:31 04/28/17 12:12 04/28/17 16:07 04/29/17 04:25 White Blood Count 14.41 K/uL 13.54 K/uL Red Blood Count 5.02 M/uL 4.34 M/uL Hemoglobin 15.0 g/dL 13.3 g/dL Hematocrit 46.3 % 39.9 % Mean Corpuscular Volume 92.2 fL 91.9 fL Mean Corpuscular Hemoglobin 29.9 pg 30.6 pg Mean Corpuscular Hemoglobin Concent 32.4 g/dl 33.3 g/dl Platelet Count 214 K/uL 175 K/uL Mean Platelet Volume 14.6 fL Neutrophils (%) (Auto) 82.7 % 82.5 % Lymphocytes (%) (Auto) 9.2 % 6.2 % Monocytes (%) (Auto) 6.9 % 11.1 % Eosinophils (%) (Auto) 0.7 % 0.0 % Basophils (%) (Auto) 0.2 % 0.1 % Neutrophils # (Auto) 11.92 K/uL 11.17 K/uL Lymphocytes # (Auto) 1.32 K/uL 0.84 K/uL Monocytes # (Auto) 1.00 K/uL 1.50 K/uL Eosinophils # (Auto) 0.10 K/uL 0.00 K/uL Basophils # (Auto) 0.03 K/uL 0.01 K/uL RDW Standard Deviation 49.5 fL RDW Coefficient of Variation 14.8 % Immature Granulocyte % (Auto) 0.3 % 0.1 % Immature Granulocyte # (Auto) 0.04 K/uL 0.02 K/uL Sodium Level 138 mmol/L 139 mmol/L Potassium Level 3.6 mmol/L 3.9 mmol/L Chloride Level 104 mmol/L 105 mmol/L Carbon Dioxide Level 24 mmol/L 26 mmol/L Anion Gap 10.0 mmol/L 8.0 mmol/L Blood Urea Nitrogen 21 mg/dl 11 mg/dl Creatinine 0.85 mg/dl 0.61 mg/dl Est Creatinine Clear Calc Drug Dose 65.5 ml/min 90.1 ml/min Estimated GFR () 88.2 116.6 Estimated GFR (Non- 76.1 100.6 BUN/Creatinine Ratio 24.6 18.3 Random Glucose 137 mg/dl 134 mg/dl Calcium Level 9.4 mg/dl 8.6 mg/dl Total Bilirubin 0.6 mg/dl 0.5 mg/dl Aspartate Amino Transf (AST/SGOT) 16 U/L 11 U/L Alanine Aminotransferase (ALT/SGPT) 26 U/L 19 U/L Alkaline Phosphatase 120 U/L 84 U/L Troponin I < 0.015 ng/ml < 0.015 ng/ml Total Protein 8.1 gm/dl 6.4 gm/dl Albumin 4.0 gm/dl 3.2 gm/dl Globulin 4.1 gm/dl 3.2 gm/dl Albumin/Globulin Ratio 1.0 1.0 Amylase Level 901 U/L Lipase 13886 U/L 64369 U/L Urine Color YELLOW Urine Appearance CLEAR Urine pH 5.0 Urine Specific [place] 1.019 Urine Protein NEG Urine Glucose (UA) NEG Urine Ketones TRACE Urine Occult Blood NEG Urine Nitrite NEG Urine Bilirubin NEG Urine Urobilinogen NEG Urine Leukocyte Esterase NEG Prothrombin Time 11.3 SECONDS Prothromb Time International Ratio 1.1 Activated Partial Thromboplast Time 26.1 SECONDS Partial Thromboplastin Ratio 1.0 Assessment and Plan 56 year old female admitted with pancreatitis, likely secondary to medication ( lisinopril/atorvastatin) Keep NPO. Continue aggressive IV hydration, anti-emetics and pain control. LFTs are normal. Continue with plan for ERCP with stent removal in May as planned. I performed a history and physical examination of the patient. I have discussed the patient's case, impression and plan with Danica Fernandes PA-C. Her note reflects my findings and plan. Patient doing better but appears dry on physical exam. I and Os reviewed and we recommend another liter Ringers run wide open than back to maintenance. Patient can have sips with medications only. I would stop the Atorvastatin and lisinopril which have been linked to some cases of acute pancreatitis. Delmar Corbett MD
[2017-04-29] MEDS: ONDANSETRON INJ 2 MG/ML 2 ML VIAL IV PRN ×2 (11:51→19:52)
[2017-04-29] MEDS ORDERED: LACTATED RINGER'S 1000ML 1,000 ML IV SCH (12:45)
[2017-04-29] MEDS: ACETAMINOPHEN 325 MG TAB PO PRN (19:53)
[2017-04-29] MEDS: ENOXAPARIN 40 MG/0.4 ML SYR SC SCH (19:53)
--- NOTE | 2017-04-29 21:32 | Progress Note ---
Subjective Date of Service: Apr 29, 2017. Subjective Pt evaluation today including: conversation w/ patient, physical exam, lab review, conversation w/ database reporting consultant, review of inpatient medication list Pain: still with epigastric pain, not as severe PO Intake: NPO Voiding: no voiding problems patient with no appetite, still with nausea and pain, no flatus or BM reviewed labs, lipase down to 17k, LFT normal appreciate GI note, recommend stopping Lipitor and Lisinopril Problem List Medical Problems: (1) Vertigo Status: Acute Review of Systems Constitutional: + weakness, + fatigue, No see HPI, No fever, No chills, No sweats, No weight loss, No problem reported Abdomen: + pain, + nausea, + constipation, + problem reported (no appetite) All Other Systems: Reviewed and Negative Medications Current Inpatient Medications Medications (Trade) Dose Ordered Sig/Shawn Route Start Time Stop Time Status Last Admin Dose Admin Enoxaparin Sodium (Lovenox Inj) 40 mg QPM SC 04/28/17 21:00 05/28/17 20:59 04/29/17 19:53 40 MG Acetaminophen (Tylenol Tab) 650 mg Q4H PRN PO 04/28/17 14:45 05/28/17 14:44 04/29/17 19:53 650 MG Ondansetron HCl (Zofran Inj) 4 mg Q6H PRN IV 04/28/17 14:45 05/28/17 14:44 04/29/17 19:52 4 MG Aspirin (Ecotrin Tab) 81 mg QAM PO 04/29/17 09:00 05/29/17 08:59 Levothyroxine Sodium (Synthroid Tab) 100 mcg DAILYBB PO 04/29/17 06:00 05/29/17 06:59 Lisinopril (Zestril Tab) 5 mg QAM PO 04/29/17 09:00 05/29/17 08:59 Metoprolol Tartrate (Lopressor Tab) 12.5 mg BID PO 04/28/17 21:00 05/28/17 20:59 04/29/17 19:52 12.5 MG Sumatriptan Succinate (Imitrex Tab) 25 mg DAILY PRN PO 04/28/17 14:45 05/28/17 14:44 Hydromorphone HCl (Dilaudid Inj) 0.5 mg Q4H PRN IV 04/28/17 14:45 05/12/17 14:44 04/29/17 19:53 0.5 MG Morphine Sulfate (MoRPHine SULFATE INJ) 2 mg Q4H PRN IV 04/28/17 14:45 05/12/17 14:44 04/28/17 16:18 2 MG Morphine Sulfate (MoRPHine SULFATE INJ) 4 mg Q4H PRN IV 04/28/17 14:45 05/12/17 14:44 04/29/17 11:52 4 MG Lorazepam (Ativan Tab) 0.5 mg Q4H PRN PO 04/28/17 15:00 05/28/17 14:59 Piperacillin Sod/ Tazobactam Sod 3.375 gm/Dextrose 115 ml @ 28.75 mls/ hr Q8H IV 04/28/17 18:00 05/08/17 17:59 04/29/17 18:12 28.75 MLS/HR Piperacillin Sod/ Tazobactam Sod (Consult) 1 ea UD PRN N/A 04/28/17 15:15 05/28/17 15:14 Lactated Ringer's 1,000 ml @ 100 mls/hr Q10H IV 04/29/17 08:00 05/29/17 07:59 04/29/17 18:02 100 MLS/HR Ioversol (Optiray 320) 100 ml UD PRN IV 04/28/17 17:45 05/02/17 17:44 Promethazine HCl 12.5 mg/Sodium Chloride 50.5 ml @ 204 mls/hr Q6H PRN IV 04/29/17 02:30 05/29/17 02:29 04/29/17 03:07 204 MLS/HR Nitroglycerin (Nitrostat Tab) 0.4 mg PRN PRN SL 04/29/17 04:15 05/29/17 04:14 04/29/17 04:20 0.4 MG Famotidine 20 mg/ Syringe 5 ml @ 2.5 mls/min Q12H IV 04/29/17 08:00 05/29/17 07:59 04/29/17 19:52 2.5 MLS/MIN Objective Vital Signs Date Time Temp Pulse Resp B/P (MAP) Pulse Ox O2 Delivery O2 Flow Rate FiO2 04/29/17 19:38 38.1 117 18 149/74 (99) 90 Room Air 04/29/17 16:00 Nasal Cannula 2.0 04/29/17 15:39 37.0 87 16 143/84 (103) 91 Room Air 04/29/17 12:00 Room Air 04/29/17 11:53 36.6 78 16 144/84 (104) 97 Nasal Cannula 2.0 04/29/17 08:00 Nasal Cannula 2.0 04/29/17 07:59 36.6 69 16 156/83 (107) 94 Room Air 04/29/17 05:01 82 16 134/73 (93) 96 Nasal Cannula 2.0 04/29/17 04:30 82 147/74 (98) 97 Nasal Cannula 2.0 04/29/17 04:00 98 Nasal Cannula 2.0 04/29/17 04:00 83 136/74 (94) 98 Nasal Cannula 2.0 04/29/17 03:40 36.8 79 18 143/80 (101) 96 Room Air 04/29/17 00:01 99 Room Air 04/28/17 23:47 36.5 62 32 157/81 (106) 98 Room Air Physical Exam General Appearance: WD/WN, no apparent distress Eyes: normal inspection, EOMI, sclerae normal ENT: normal ENT inspection, hearing grossly normal, pharynx normal Neck: supple, no adenopathy, no JVD, trachea midline Respiratory/Chest: chest non-tender, lungs clear, normal breath sounds, no respiratory distress, no accessory muscle use Cardiovascular: regular rate, rhythm, no edema, no gallop, no JVD, no murmur Abdomen: normal bowel sounds, soft, no organomegaly, + tenderness (epigastric, no rebound) Extremities: normal range of motion, non-tender, normal inspection, no pedal edema, no calf tenderness, pelvis stable Neurologic/Psychiatric: material assembler II-XII nml as tested, no motor/sensory deficits, alert, normal mood/affect, oriented x 3 Skin: normal color, warm/dry, no rash Laboratory Results Last 24 Hours Test 04/29/17 04:25 White Blood Count 13.54 K/uL Red Blood Count 4.34 M/uL Hemoglobin 13.3 g/dL Hematocrit 39.9 % Mean Corpuscular Volume 91.9 fL Mean Corpuscular Hemoglobin 30.6 pg Mean Corpuscular Hemoglobin Concent 33.3 g/dl Platelet Count 175 K/uL Neutrophils (%) (Auto) 82.5 % Lymphocytes (%) (Auto) 6.2 % Monocytes (%) (Auto) 11.1 % Eosinophils (%) (Auto) 0.0 % Basophils (%) (Auto) 0.1 % Neutrophils # (Auto) 11.17 K/uL Lymphocytes # (Auto) 0.84 K/uL Monocytes # (Auto) 1.50 K/uL Eosinophils # (Auto) 0.00 K/uL Basophils # (Auto) 0.01 K/uL Immature Granulocyte % (Auto) 0.1 % Immature Granulocyte # (Auto) 0.02 K/uL Sodium Level 139 mmol/L Potassium Level 3.9 mmol/L Chloride Level 105 mmol/L Carbon Dioxide Level 26 mmol/L Anion Gap 8.0 mmol/L Blood Urea Nitrogen 11 mg/dl Creatinine 0.61 mg/dl Est Creatinine Clear Calc Drug Dose 90.1 ml/min Estimated GFR () 116.6 Estimated GFR (Non- 100.6 BUN/Creatinine Ratio 18.3 Random Glucose 134 mg/dl Calcium Level 8.6 mg/dl Total Bilirubin 0.5 mg/dl Aspartate Amino Transf (AST/SGOT) 11 U/L Alanine Aminotransferase (ALT/SGPT) 19 U/L Alkaline Phosphatase 84 U/L Troponin I < 0.015 ng/ml Total Protein 6.4 gm/dl Albumin 3.2 gm/dl Globulin 3.2 gm/dl Albumin/Globulin Ratio 1.0 Lipase 05449 U/L Assessment and Plan Ms. Bowen presents today for abdominal pain and vomiting starting at 2030 last night while at work. Up until that point she had felt well, able to eat without difficulty. In March she had an ERCP with stent which resulted in a bile leak and on 04/15 she had and episode of Takotsubo's. She currently complains of epigastric pain that is tolerable following multiple doses of morphine. She denies every having chest pain or shortness of breath since symptoms started yesterday. Hx hypothyroidism, ITP, Takotsubo, cholecystectomy, bile leak following ERCP and stent, and migraines. Acute Pancreatitis - patient still with pain and nausea but less intense, no appetite - lipase trending down to 17k - low UO, so given a bolus of LR and then continue at 250cc/hr - keep NPO until she has an appetite - stop Zosyn, no indication currently for antibiotics - stop Lipitor and Lisinopril as these could be etiology of pancreatitis Recent bile leak s/p cholecystectomy and ERCP - continue to plan to remove stent in May Recent NSTEMI on April 15 2017 - no chest pain, no EKG changes - will stop Lipitor due to pancreatitis, and patient did not have severe coronary disease on heart cath Hx Takotsubo - continue, metoprolol - hold lisinopril since it could be etiology of pancreatitis Hypothyroid - continue levothyroxine Hx Migraine - prn sumatriptan DVT prophylaxis - SCDs, enoxaparin Full code keep on tele, repeat labs tomorrow, advance diet once she develops and appetite and pain is decreased
[2017-04-30] VITALS (9 sets, daily range): BP systolic 121–149; BP diastolic 73–85; PULSE 76–100; TEMP 36.9–37.9; O2SAT 90–97
[2017-04-30 06:01] LABS: MEAN CORPUSCULAR HGB CONC 32.6 g/dl (32-36)
[2017-04-30] MEDS: LACTATED RINGER'S 1000ML 1,000 ML IV SCH ×2 (06:18→14:44)
[2017-04-30] MEDS: LEVOTHYROXINE 100 MCG TAB PO SCH (06:18)
[2017-04-30] MEDS: HYDROmorphone INJ 0.5 MG/0.5 ML SYR IV PRN ×2 (06:20→16:09)
[2017-04-30 06:58] LABS: BUN/CREATININE RATIO 11.4 (10-20); CALCIUM 8.5 mg/dl (8.5-10.1); CREATININE 0.53 mg/dl (0.60-1.20); MAGNESIUM 1.6 mg/dl (1.8-2.4); POTASSIUM 3.6 mmol/L (3.5-5.1)
[2017-04-30 07:03] LABS: HEMATOCRIT 38.6 % (37-47); MEAN CELL VOLUME 91.9 fL (80-100); WHITE BLOOD COUNT 16.74 K/uL (4.8-10.8)
[2017-04-30 07:47] LABS: BASO % 0.2 %; BASO ABS # 0.03 K/uL (0-0.2); COMPLETE YES; EOS % 0.1 %; IG% 0.5 %; LYMPH % 6.3 %; LYMPH ABS # 1.05 K/uL (1.2-3.4); MONO % 11.8 %; NEUT % 81.1 %; PLATELET COUNT 148 K/uL (130-400); PLT ESTIMATE NORMAL
[2017-04-30] MEDS: ASPIRIN 81 MG ECTAB PO SCH (09:17)
[2017-04-30] MEDS: FAMOTIDINE IV INJ 20 MG in SYRINGE 3 ML IV SCH ×2 (09:26→19:26)
[2017-04-30] MEDS: MAGNESIUM SULFATE 1GM / D5W 1 GM in PREMIXED IN D5W 100 ML IV SCH ×2 (09:28→10:42)
[2017-04-30] MEDS: METOPROLOL TARTRATE 25 MG TAB PO SCH ×2 (09:31→19:26)
--- NOTE | 2017-04-30 10:39 | Gastroenterology Progress Note ---
Progress Note Date of Service: Apr 30, 2017 Subjective Pt evaluation today including: conversation w/ patient, physical exam, chart review, lab review, review of studies, review of inpatient medication list Pain is better today but still present. Nausea even wiht sip of water with her meds. No vomiting. Pain medication helping more than yesterday. No fevers. WBC remains elevated. Lipase down to 4700 today. Review of Systems 12 systems reviewed and negative except as noted Medications Current Inpatient Medications Medications (Trade) Dose Ordered Sig/Shawn Route Start Time Stop Time Status Last Admin Dose Admin Enoxaparin Sodium (Lovenox Inj) 40 mg QPM SC 04/28/17 21:00 05/28/17 20:59 04/29/17 19:53 40 MG Acetaminophen (Tylenol Tab) 650 mg Q4H PRN PO 04/28/17 14:45 05/28/17 14:44 04/29/17 19:53 650 MG Ondansetron HCl (Zofran Inj) 4 mg Q6H PRN IV 04/28/17 14:45 05/28/17 14:44 04/29/17 19:52 4 MG Aspirin (Ecotrin Tab) 81 mg QAM PO 04/29/17 09:00 05/29/17 08:59 04/30/17 09:17 81 MG Levothyroxine Sodium (Synthroid Tab) 100 mcg DAILYBB PO 04/29/17 06:00 05/29/17 06:59 04/30/17 06:18 100 MCG Metoprolol Tartrate (Lopressor Tab) 12.5 mg BID PO 04/28/17 21:00 05/28/17 20:59 04/30/17 09:31 12.5 MG Sumatriptan Succinate (Imitrex Tab) 25 mg DAILY PRN PO 04/28/17 14:45 05/28/17 14:44 Hydromorphone HCl (Dilaudid Inj) 0.5 mg Q4H PRN IV 04/28/17 14:45 05/12/17 14:44 04/30/17 06:20 0.5 MG Morphine Sulfate (MoRPHine SULFATE INJ) 2 mg Q4H PRN IV 04/28/17 14:45 05/12/17 14:44 04/28/17 16:18 2 MG Morphine Sulfate (MoRPHine SULFATE INJ) 4 mg Q4H PRN IV 04/28/17 14:45 05/12/17 14:44 04/29/17 11:52 4 MG Lorazepam (Ativan Tab) 0.5 mg Q4H PRN PO 04/28/17 15:00 05/28/17 14:59 Lactated Ringer's 1,000 ml @ 100 mls/hr Q10H IV 04/29/17 08:00 05/29/17 07:59 04/30/17 06:18 100 MLS/HR Ioversol (Optiray 320) 100 ml UD PRN IV 04/28/17 17:45 05/02/17 17:44 Promethazine HCl 12.5 mg/Sodium Chloride 50.5 ml @ 204 mls/hr Q6H PRN IV 04/29/17 02:30 05/29/17 02:29 04/29/17 03:07 204 MLS/HR Nitroglycerin (Nitrostat Tab) 0.4 mg PRN PRN SL 04/29/17 04:15 05/29/17 04:14 04/29/17 04:20 0.4 MG Famotidine 20 mg/ Syringe 5 ml @ 2.5 mls/min Q12H IV 04/29/17 08:00 05/29/17 07:59 04/30/17 09:26 2.5 MLS/MIN Magnesium Sulfate 1 gm/Prmx 100 ml @ 100 mls/hr TODAY@0930,1030 IV 04/30/17 09:30 04/30/17 11:29 04/30/17 09:28 100 MLS/HR Objective Vital Signs Date Time Temp Pulse Resp B/P (MAP) Pulse Ox O2 Delivery O2 Flow Rate FiO2 04/30/17 07:59 37.2 100 18 121/73 (89) 90 Room Air 04/30/17 04:05 91 Room Air 04/30/17 03:45 37.1 87 16 130/80 (97) 91 Room Air 04/30/17 00:10 94 Room Air 04/29/17 23:00 36.5 79 16 104/66 (79) 94 Room Air 04/29/17 20:00 90 Room Air 04/29/17 19:38 38.1 117 18 149/74 (99) 90 Room Air 11/17/17 16:00 Nasal Cannula 2.0 04/29/17 15:39 37.0 87 16 143/84 (103) 91 Room Air 04/29/17 12:00 Room Air 04/29/17 11:53 36.6 78 16 144/84 (104) 97 Nasal Cannula 2.0 Physical Exam General Appearance: WD/WN, no apparent distress Eyes: normal inspection, PERRL ENT: normal ENT inspection, hearing grossly normal, pharynx normal Neck: supple, no adenopathy, no JVD Respiratory/Chest: chest non-tender, lungs clear, normal breath sounds, no respiratory distress Cardiovascular: regular rate, rhythm, no murmur Abdomen: normal bowel sounds, soft, + tenderness (mild tenderness on palpation) Extremities: normal range of motion, non-tender, no pedal edema 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, no motor/sensory deficits, alert, normal mood/affect, oriented x 3 Skin: normal color, no jaundice, warm/dry, no rash Laboratory Results Last 24 Hours Test 04/30/17 05:36 White Blood Count 16.74 K/uL Red Blood Count 4.20 M/uL Hemoglobin 12.6 g/dL Hematocrit 38.6 % Mean Corpuscular Volume 91.9 fL Mean Corpuscular Hemoglobin 30.0 pg Mean Corpuscular Hemoglobin Concent 32.6 g/dl Platelet Count 148 K/uL Neutrophils (%) (Auto) 81.1 % Lymphocytes (%) (Auto) 6.3 % Monocytes (%) (Auto) 11.8 % Eosinophils (%) (Auto) 0.1 % Basophils (%) (Auto) 0.2 % Neutrophils # (Auto) 13.59 K/uL Lymphocytes # (Auto) 1.05 K/uL Monocytes # (Auto) 1.97 K/uL Eosinophils # (Auto) 0.02 K/uL Basophils # (Auto) 0.03 K/uL RDW Standard Deviation 50.9 fL RDW Coefficient of Variation 15.1 % Immature Granulocyte % (Auto) 0.5 % Immature Granulocyte # (Auto) 0.08 K/uL Platelet Estimate NORMAL Red Blood Cell Morphology Unremarkable Sodium Level 139 mmol/L Potassium Level 3.6 mmol/L Chloride Level 103 mmol/L Carbon Dioxide Level 28 mmol/L Anion Gap 8.0 mmol/L Blood Urea Nitrogen 6 mg/dl Creatinine 0.53 mg/dl Est Creatinine Clear Calc Drug Dose 104.9 ml/min Estimated GFR () 122.2 Estimated GFR (Non- 105.4 BUN/Creatinine Ratio 11.4 Random Glucose 80 mg/dl Calcium Level 8.5 mg/dl Magnesium Level 1.6 mg/dl Total Bilirubin 0.9 mg/dl Direct Bilirubin 0.2 mg/dl Aspartate Amino Transf (AST/SGOT) 12 U/L Alanine Aminotransferase (ALT/SGPT) 13 U/L Alkaline Phosphatase 73 U/L Total Protein 5.9 gm/dl Albumin 2.6 gm/dl Lipase 4702 U/L Assessment and Plan 56 yo female with acute pancreatitis thought to be related to medications (Abimael- I vs statin) slowly improving with supportive measures. She had an ERCP 04/[address] Due to be removed 05/20. - Continue with aggressive IVF hydration. - Please replete magnesium. - PRN analgesia, antiemetics. - NPO again today. - Follow daily LFTs and lipase, CBC - If WBC continues to increase, would repeat CT of the abd/pelvis tomorrow.
--- NOTE | 2017-04-30 15:11 | Progress Note ---
Subjective Date of Service: Apr 30, 2017. Subjective Pt evaluation today including: conversation w/ patient, physical exam, lab review, conversation w/ information security consultant, review of inpatient medication list Pain: less pain today PO Intake: NPO Voiding: no voiding problems patient feeling a little better, no nausea today tried sips of water with her medication and caused pain reviewed labs, lipase going down, BUN down to 6 which is good prognostic sign WBC up to 16 from [address] Chacon keep NPO today Problem List Medical Problems: (1) Vertigo Status: Acute Review of Systems Constitutional: + weakness, + fatigue Abdomen: + pain All Other Systems: Reviewed and Negative Medications Current Inpatient Medications Medications (Trade) Dose Ordered Sig/Shawn Route Start Time Stop Time Status Last Admin Dose Admin Enoxaparin Sodium (Lovenox Inj) 40 mg QPM SC 04/28/17 21:00 05/28/17 20:59 04/29/17 19:53 40 MG Acetaminophen (Tylenol Tab) 650 mg Q4H PRN PO 04/28/17 14:45 05/28/17 14:44 04/29/17 19:53 650 MG Ondansetron HCl (Zofran Inj) 4 mg Q6H PRN IV 04/28/17 14:45 05/28/17 14:44 04/29/17 19:52 4 MG Aspirin (Ecotrin Tab) 81 mg QAM PO 04/29/17 09:00 05/29/17 08:59 04/30/17 09:17 81 MG Levothyroxine Sodium (Synthroid Tab) 100 mcg DAILYBB PO 04/29/17 06:00 05/29/17 06:59 04/30/17 06:18 100 MCG Metoprolol Tartrate (Lopressor Tab) 12.5 mg BID PO 04/28/17 21:00 05/28/17 20:59 04/30/17 09:31 12.5 MG Sumatriptan Succinate (Imitrex Tab) 25 mg DAILY PRN PO 04/28/17 14:45 05/28/17 14:44 Hydromorphone HCl (Dilaudid Inj) 0.5 mg Q4H PRN IV 04/28/17 14:45 05/12/17 14:44 04/30/17 06:20 0.5 MG Morphine Sulfate (MoRPHine SULFATE INJ) 2 mg Q4H PRN IV 04/28/17 14:45 05/12/17 14:44 04/28/17 16:18 2 MG Morphine Sulfate (MoRPHine SULFATE INJ) 4 mg Q4H PRN IV 04/28/17 14:45 05/12/17 14:44 04/29/17 11:52 4 MG Lorazepam (Ativan Tab) 0.5 mg Q4H PRN PO 04/28/17 15:00 05/28/17 14:59 Lactated Ringer's 1,000 ml @ 100 mls/hr Q10H IV 04/29/17 08:00 05/29/17 07:59 04/30/17 14:44 100 MLS/HR Ioversol (Optiray 320) 100 ml UD PRN IV 04/28/17 17:45 05/02/17 17:44 Promethazine HCl 12.5 mg/Sodium Chloride 50.5 ml @ 204 mls/hr Q6H PRN IV 04/29/17 02:30 05/29/17 02:29 04/29/17 03:07 204 MLS/HR Nitroglycerin (Nitrostat Tab) 0.4 mg PRN PRN SL 04/29/17 04:15 05/29/17 04:14 04/29/17 04:20 0.4 MG Famotidine 20 mg/ Syringe 5 ml @ 2.5 mls/min Q12H IV 04/29/17 08:00 05/29/17 07:59 04/30/17 09:26 2.5 MLS/MIN Objective Vital Signs Date Time Temp Pulse Resp B/P (MAP) Pulse Ox O2 Delivery O2 Flow Rate FiO2 04/30/17 12:00 Room Air 04/30/17 11:33 37.1 87 18 129/78 (95) 91 Room Air 04/30/17 08:00 Room Air 04/30/17 07:59 37.2 100 18 121/73 (89) 90 Room Air 04/30/17 04:05 91 Room Air 04/30/17 03:45 37.1 87 16 130/80 (97) 91 Room Air 04/30/17 00:10 94 Room Air 04/29/17 23:00 36.5 79 16 104/66 (79) 94 Room Air 11/17/17 20:00 90 Room Air 04/29/17 19:38 38.1 117 18 149/74 (99) 90 Room Air 04/29/17 16:00 Nasal Cannula 2.0 04/29/17 15:39 37.0 87 16 143/84 (103) 91 Room Air Physical Exam General Appearance: WD/WN, no apparent distress Eyes: normal inspection, EOMI, sclerae normal ENT: normal ENT inspection, hearing grossly normal, pharynx normal Neck: supple, no adenopathy, no JVD, trachea midline Respiratory/Chest: chest non-tender, lungs clear, normal breath sounds, no respiratory distress, no accessory muscle use Cardiovascular: regular rate, rhythm, no edema, no gallop, no JVD, no murmur Abdomen: normal bowel sounds, soft, no organomegaly, + tenderness (epigastric) Extremities: normal range of motion, non-tender, normal inspection, no pedal edema, no calf tenderness, pelvis stable Neurologic/Psychiatric: 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, no motor/sensory deficits, alert, normal mood/affect, oriented x 3 Laboratory Results Last 24 Hours Test 04/30/17 05:36 White Blood Count 16.74 K/uL Red Blood Count 4.20 M/uL Hemoglobin 12.6 g/dL Hematocrit 38.6 % Mean Corpuscular Volume 91.9 fL Mean Corpuscular Hemoglobin 30.0 pg Mean Corpuscular Hemoglobin Concent 32.6 g/dl Platelet Count 148 K/uL Neutrophils (%) (Auto) 81.1 % Lymphocytes (%) (Auto) 6.3 % Monocytes (%) (Auto) 11.8 % Eosinophils (%) (Auto) 0.1 % Basophils (%) (Auto) 0.2 % Neutrophils # (Auto) 13.59 K/uL Lymphocytes # (Auto) 1.05 K/uL Monocytes # (Auto) 1.97 K/uL Eosinophils # (Auto) 0.02 K/uL Basophils # (Auto) 0.03 K/uL RDW Standard Deviation 50.9 fL RDW Coefficient of Variation 15.1 % Immature Granulocyte % (Auto) 0.5 % Immature Granulocyte # (Auto) 0.08 K/uL Platelet Estimate NORMAL Red Blood Cell Morphology Unremarkable Sodium Level 139 mmol/L Potassium Level 3.6 mmol/L Chloride Level 103 mmol/L Carbon Dioxide Level 28 mmol/L Anion Gap 8.0 mmol/L Blood Urea Nitrogen 6 mg/dl Creatinine 0.53 mg/dl Est Creatinine Clear Calc Drug Dose 104.9 ml/min Estimated GFR () 122.2 Estimated GFR (Non- 105.4 BUN/Creatinine Ratio 11.4 Random Glucose 80 mg/dl Calcium Level 8.5 mg/dl Magnesium Level 1.6 mg/dl Total Bilirubin 0.9 mg/dl Direct Bilirubin 0.2 mg/dl Aspartate Amino Transf (AST/SGOT) 12 U/L Alanine Aminotransferase (ALT/SGPT) 13 U/L Alkaline Phosphatase 73 U/L Total Protein 5.9 gm/dl Albumin 2.6 gm/dl Lipase 4702 U/L Assessment and Plan Ms. Bowen presents today for abdominal pain and vomiting starting at 2030 last night while at work. Up until that point she had felt well, able to eat without difficulty. In March she had an ERCP with stent which resulted in a bile leak and on 04/15 she had and episode of Takotsubo's. She currently complains of epigastric pain that is tolerable following multiple doses of morphine. She denies every having chest pain or shortness of breath since symptoms started yesterday. Hx hypothyroidism, ITP, Takotsubo, cholecystectomy, bile leak following ERCP and stent, and migraines. Acute Pancreatitis - minimal pain today, no nausea, still no appetite - lipase trending down to 4K - continue fluids at 100cc/hr - keep NPO until she has an appetite - stop Zosyn, no indication currently for antibiotics - BUN trending down which is good prognosis at 48 hours - WBC going up to 16k, GI recommends CT abdomen/pelvis tomorrow if WBC continues to go up - holding Lipitor and Lisinopril as potential cause of pancreatitis Recent bile leak s/p cholecystectomy and ERCP - continue to plan to remove stent in May Recent NSTEMI on April 15 2017 - no chest pain, no EKG changes - will stop Lipitor due to pancreatitis, and patient did not have severe coronary disease on heart cath Hx Takotsubo - continue, metoprolol - hold lisinopril since it could be etiology of pancreatitis - lungs clear and breathing well on fluids, continue to monitor Hypothyroid - continue levothyroxine Hx Migraine - prn sumatriptan DVT prophylaxis - SCDs, enoxaparin Full code keep on tele, repeat labs tomorrow, advance diet once she develops and appetite and pain is decreased
[2017-04-30] MEDS: ACETAMINOPHEN 325 MG TAB PO PRN (19:23)
[2017-04-30] MEDS: ENOXAPARIN 40 MG/0.4 ML SYR SC SCH (19:27)
[2017-05-01] VITALS (8 sets, daily range): BP systolic 115–135; BP diastolic 71–80; PULSE 78–90; TEMP 36.8–37.8; O2SAT 92–98
[2017-05-01] MEDS: LACTATED RINGER'S 1000ML 1,000 ML IV SCH ×2 (02:08→10:24)
[2017-05-01] MEDS: HYDROmorphone INJ 0.5 MG/0.5 ML SYR IV PRN ×5 (02:08→23:33)
[2017-05-01] MEDS: LEVOTHYROXINE 100 MCG TAB PO SCH (05:32)
[2017-05-01 06:19] LABS: MEAN CORPUSCULAR HGB CONC 32.7 g/dl (32-36)
[2017-05-01 06:28] LABS: HEMATOCRIT 34.6 % (37-47); MEAN CELL VOLUME 92.8 fL (80-100); MEAN CORPUSCULAR HEMOGLOBIN 30.3 pg (25-34); RED BLOOD COUNT 3.73 M/uL (4.2-5.4); WHITE BLOOD COUNT 15.35 K/uL (4.8-10.8)
[2017-05-01 07:01] LABS: BUN/CREATININE RATIO 15.3 (10-20); CREATININE 0.41 mg/dl (0.60-1.20); POTASSIUM 3.7 mmol/L (3.5-5.1)
[2017-05-01] MEDS: METOPROLOL TARTRATE 25 MG TAB PO SCH ×2 (07:20→20:18)
[2017-05-01] MEDS: ASPIRIN 81 MG ECTAB PO SCH (07:20)
[2017-05-01] MEDS: FAMOTIDINE IV INJ 20 MG in SYRINGE 3 ML IV SCH ×2 (07:22→20:16)
[2017-05-01 07:26] LABS: BASO % 0.1 %; BASO ABS # 0.01 K/uL (0-0.2); COMPLETE YES; IG% 0.4 %; LYMPH % 8.3 %; LYMPH ABS # 1.28 K/uL (1.2-3.4); MONO % 10.2 %; PLATELET COUNT 116 K/uL (130-400); PLT ESTIMATE DECREASED
[2017-05-01] MEDS ORDERED: GLUCOSE 40% GEL 15 GM TUBE ONE (10:20)
[2017-05-01] MEDS ORDERED: OPTIRAY 320 IV PRN (10:30)
--- NOTE | 2017-05-01 10:34 | Progress Note ---
Subjective Date of Service: May 01, 2017. Subjective Pt evaluation today including: conversation w/ patient, physical exam, lab review, conversation w/ design consultant, review of inpatient medication list Pain: more epigastric pain today PO Intake: NPO Voiding: no voiding problems more pain today despite lipase trending down temperatures have been running high less nauseated today sugars low, was given glucose PO per protocol and more pain reviewed labs, WBC 15k, lipase 700's, BUN 6 patient reports orange, concentrated urine fluid sequestration is documented as [address] A/P with patient due to low grade temp, increased pain add dextrose to fluids Problem List Medical Problems: (1) Vertigo Status: Acute Review of Systems Constitutional: + fever, + sweats, + weakness, + fatigue Abdomen: + pain, + nausea, + problem reported (obstipation and constipation) All Other Systems: Reviewed and Negative Medications Current Inpatient Medications Medications (Trade) Dose Ordered Sig/Shawn Route Start Time Stop Time Status Last Admin Dose Admin Enoxaparin Sodium (Lovenox Inj) 40 mg QPM SC 04/28/17 21:00 05/28/17 20:59 04/30/17 19:27 40 MG Acetaminophen (Tylenol Tab) 650 mg Q4H PRN PO 04/28/17 14:45 05/28/17 14:44 04/30/17 19:23 650 MG Ondansetron HCl (Zofran Inj) 4 mg Q6H PRN IV 04/28/17 14:45 05/28/17 14:44 04/29/17 19:52 4 MG Aspirin (Ecotrin Tab) 81 mg QAM PO 04/29/17 09:00 05/29/17 08:59 05/01/17 07:20 81 MG Levothyroxine Sodium (Synthroid Tab) 100 mcg DAILYBB PO 04/29/17 06:00 05/29/17 06:59 05/01/17 05:32 100 MCG Metoprolol Tartrate (Lopressor Tab) 12.5 mg BID PO 04/28/17 21:00 05/28/17 20:59 05/01/17 07:20 12.5 MG Sumatriptan Succinate (Imitrex Tab) 25 mg DAILY PRN PO 04/28/17 14:45 05/28/17 14:44 Hydromorphone HCl (Dilaudid Inj) 0.5 mg Q4H PRN IV 04/28/17 14:45 05/12/17 14:44 05/01/17 07:19 0.5 MG Morphine Sulfate (MoRPHine SULFATE INJ) 2 mg Q4H PRN IV 04/28/17 14:45 05/12/17 14:44 04/28/17 16:18 2 MG Morphine Sulfate (MoRPHine SULFATE INJ) 4 mg Q4H PRN IV 04/28/17 14:45 05/12/17 14:44 04/29/17 11:52 4 MG Lorazepam (Ativan Tab) 0.5 mg Q4H PRN PO 04/28/17 15:00 05/28/17 14:59 Lactated Ringer's 1,000 ml @ 100 mls/hr Q10H IV 04/29/17 08:00 05/29/17 07:59 05/01/17 10:24 100 MLS/HR Ioversol (Optiray 320) 100 ml UD PRN IV 04/28/17 17:45 05/02/17 17:44 Promethazine HCl 12.5 mg/Sodium Chloride 50.5 ml @ 204 mls/hr Q6H PRN IV 04/29/17 02:30 05/29/17 02:29 04/29/17 03:07 204 MLS/HR Nitroglycerin (Nitrostat Tab) 0.4 mg PRN PRN SL 04/29/17 04:15 05/29/17 04:14 04/29/17 04:20 0.4 MG Famotidine 20 mg/ Syringe 5 ml @ 2.5 mls/min Q12H IV 04/29/17 08:00 05/29/17 07:59 05/01/17 07:22 2.5 MLS/MIN Objective Vital Signs Date Time Temp Pulse Resp B/P (MAP) Pulse Ox O2 Delivery O2 Flow Rate FiO2 05/01/17 08:09 37.1 87 18 115/73 (87) 93 Nasal Cannula 2.0 05/01/17 04:00 Room Air 05/01/17 03:37 37.4 82 20 118/72 (87) 97 Nasal Cannula 2.0 05/01/17 00:01 Room Air 04/30/17 23:25 36.9 76 21 129/76 (93) 97 Room Air 04/30/17 20:00 Room Air 04/30/17 19:17 37.9 95 18 149/85 (106) 95 Nasal Cannula 2.0 04/30/17 16:10 37.6 96 18 125/74 (91) 92 Nasal Cannula 2.0 04/30/17 16:00 92 Room Air 04/30/17 12:00 Room Air 04/30/17 11:33 37.1 87 18 129/78 (95) 91 Room Air Physical Exam General Appearance: WD/WN, no apparent distress Neck: supple, no adenopathy, no JVD, trachea midline Respiratory/Chest: chest non-tender, lungs clear, normal breath sounds, no respiratory distress, no accessory muscle use Cardiovascular: regular rate, rhythm, no edema, no gallop, no JVD, no murmur Abdomen: soft, no organomegaly, + abnormal bowel sounds (hypoactive), + tenderness (epigastric, no rigidity) Extremities: normal range of motion, non-tender, normal inspection, no pedal edema, no calf tenderness, pelvis stable 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, no motor/sensory deficits, alert, normal mood/affect, oriented x 3 Skin: normal color, warm/dry, no rash Laboratory Results Last 24 Hours Test 05/01/17 05:33 White Blood Count 15.35 K/uL Red Blood Count 3.73 M/uL Hemoglobin 11.3 g/dL Hematocrit 34.6 % Mean Corpuscular Volume 92.8 fL Mean Corpuscular Hemoglobin 30.3 pg Mean Corpuscular Hemoglobin Concent 32.7 g/dl Platelet Count 116 K/uL Neutrophils (%) (Auto) 80.0 % Lymphocytes (%) (Auto) 8.3 % Monocytes (%) (Auto) 10.2 % Eosinophils (%) (Auto) 1.0 % Basophils (%) (Auto) 0.1 % Neutrophils # (Auto) 12.27 K/uL Lymphocytes # (Auto) 1.28 K/uL Monocytes # (Auto) 1.57 K/uL Eosinophils # (Auto) 0.16 K/uL Basophils # (Auto) 0.01 K/uL RDW Standard Deviation 52.0 fL RDW Coefficient of Variation 15.3 % Immature Granulocyte % (Auto) 0.4 % Immature Granulocyte # (Auto) 0.06 K/uL Platelet Estimate DECREASED Sodium Level 138 mmol/L Potassium Level 3.7 mmol/L Chloride Level 103 mmol/L Carbon Dioxide Level 30 mmol/L Anion Gap 5.0 mmol/L Blood Urea Nitrogen 6 mg/dl Creatinine 0.41 mg/dl Est Creatinine Clear Calc Drug Dose 138.1 ml/min Estimated GFR () 132.9 Estimated GFR (Non- 114.7 BUN/Creatinine Ratio 15.3 Random Glucose 60 mg/dl Calcium Level 8.0 mg/dl Magnesium Level 2.0 mg/dl Total Bilirubin 0.8 mg/dl Direct Bilirubin 0.2 mg/dl Aspartate Amino Transf (AST/SGOT) 12 U/L Alanine Aminotransferase (ALT/SGPT) 12 U/L Alkaline Phosphatase 71 U/L Total Protein 5.6 gm/dl Albumin 2.2 gm/dl Lipase 719 U/L Assessment and Plan Ms. Bowen presents for abdominal pain and vomiting starting at 2030 last night while at work. Up until that point she had felt well, able to eat without difficulty. In March she had an ERCP with stent which resulted in a bile leak and on 04/15 she had and episode of Takotsubo's. She currently complains of epigastric pain that is tolerable following multiple doses of morphine. She denies every having chest pain or shortness of breath since symptoms started yesterday. Hx hypothyroidism, ITP, Takotsubo, cholecystectomy, bile leak following ERCP and stent, and migraines. Acute Pancreatitis - increased pain today, epigastric and LUQ, WBC still high at 15k, low grade temperatures will check CT abd/pelvis with IV contrast to assess pain was initially on Zosyn but stopped since there was no clear bacterial infection - lipase trending down to 700's - increased fluids to 150cc/hr, urine is orange and concentrated - continue NPO today, add dextrose to fluids - holding Lipitor and Lisinopril as potential cause of pancreatitis Hypoglycemia: due to no PO intake add D5 to fluids and monitor Recent bile leak s/p cholecystectomy and ERCP - continue to plan to remove stent in May Recent NSTEMI on April 15 2017 - no chest pain, no EKG changes - will stop Lipitor due to pancreatitis, and patient did not have severe coronary disease on heart cath Hx Takotsubo - continue, metoprolol - hold lisinopril since it could be etiology of pancreatitis - lungs clear and breathing well on fluids, continue to monitor Hypothyroid - continue levothyroxine Hx Migraine - prn sumatriptan DVT prophylaxis - SCDs, enoxaparin Full code urgent CT abd/pelvis, will follow up results and need to discuss the case with GI
[2017-05-01] MEDS ORDERED: DEXTROSE 50% 50 ML SYR ONE (10:42)
[2017-05-01] MEDS: D5NSS + 20MEQ KCL 1,000 ML IV SCH ×3 (11:42→23:33)
--- NOTE | 2017-05-01 11:44 | DIAGNOSTIC IMAGING REPORT ---
CT ABD/PELVIS IV CONTRAST ONLY CLINICAL HISTORY: Pancreatitis. Worsening abdominal pain. COMPARISON STUDY: 04/28/2017 TECHNIQUE: Following the IV administration of 94 mL of Optiray-320, CT scan of the abdomen and pelvis was performed from the lung bases to the proximal femurs. Images are reviewed in the axial, sagittal, and coronal planes. IV contrast was administered without complication. A dose lowering technique was utilized adhering to the principles of ALARA. CT DOSE: 459.61 mGy.cm FINDINGS: Lower chest: Since the prior study, the patient has developed bilateral pleural effusions with bilateral dependent airspace opacities likely atelectatic. Liver: No focal hepatic masses are visualized. There is pneumobilia. There is an indwelling double-pigtail biliary enteric stent. Gallbladder: Surgically absent Spleen: Normal in size and attenuation. Pancreas: There is increasing diffuse pancreatic edema consistent with pancreatitis. There is no evidence of pancreatic necrosis. There is mild peripancreatic fluid. Adrenal glands: Unremarkable. Kidneys: There is a stable 12 mm left renal cyst. Bowel: There are no transition zones indicate bowel obstruction. There is borderline sigmoid wall thickening. The appendix appears normal. There is no acute diverticulitis. Peritoneum: There is increasing low volume ascites. Vasculature: The abdominal aorta is normal in course and caliber. Adenopathy: None. Pelvic viscera: The uterus appears surgically absent Skeletal structures: No destructive osseous lesions are seen. IMPRESSION: 1. Increasing diffuse pancreatic edema consistent with progressive acute pancreatitis 2. Pneumobilia and indwelling biliary enteric stent 3. Interval development of bilateral pleural effusions and bibasal airspace opacities likely atelectatic 4. Increasing low volume ascites Electronically signed by: Sae Lopez M.D. 05/01/2017 11:43 AM Dictated Date/Time: 05/01/2017 11:38 AM
[2017-05-01 13:21] LABS: URINE APPEARANCE CLEAR (CLEAR); URINE BILIRUBIN NEG (NEG); URINE COLOR YELLOW; URINE NITRITE NEG (NEG); URINE PH 8.5 (4.5-7.5); URINE SPECIFIC GRAVITY > 1.045 (1.000-1.030); UROBILINOGEN NEG (NEG)
[2017-05-01 13:22] LABS: MANUAL MICROSCOPIC REQUIRED? NO; REVIEW REQ? NO; SULFASALICYLIC ACID NEG (NEG)
--- NOTE | 2017-05-01 15:27 | Gastroenterology Progress Note ---
Progress Note Date of Service: May 01, 2017 Subjective Pt evaluation today including: conversation w/ patient, physical exam, chart review, lab review, review of studies, review of inpatient medication list More epigastric and generalized abd pain. remains NPO. No nausea or vomiting. No BM. Low grade fever. persistent elevation of WBC. CT repeated this Am and showed progression of acute pancreatitis but no evidence of necrosis. Review of Systems 12 systems reviewed and negative except as noted Medications Current Inpatient Medications Medications (Trade) Dose Ordered Sig/Shawn Route Start Time Stop Time Status Last Admin Dose Admin Enoxaparin Sodium (Lovenox Inj) 40 mg QPM SC 04/28/17 21:00 05/28/17 20:59 04/30/17 19:27 40 MG Acetaminophen (Tylenol Tab) 650 mg Q4H PRN PO 04/28/17 14:45 05/28/17 14:44 04/30/17 19:23 650 MG Ondansetron HCl (Zofran Inj) 4 mg Q6H PRN IV 04/28/17 14:45 05/28/17 14:44 04/29/17 19:52 4 MG Aspirin (Ecotrin Tab) 81 mg QAM PO 04/29/17 09:00 05/29/17 08:59 05/01/17 07:20 81 MG Levothyroxine Sodium (Synthroid Tab) 100 mcg DAILYBB PO 04/29/17 06:00 05/29/17 06:59 05/01/17 05:32 100 MCG Metoprolol Tartrate (Lopressor Tab) 12.5 mg BID PO 04/28/17 21:00 05/28/17 20:59 05/01/17 07:20 12.5 MG Sumatriptan Succinate (Imitrex Tab) 25 mg DAILY PRN PO 04/28/17 14:45 05/28/17 14:44 Hydromorphone HCl (Dilaudid Inj) 0.5 mg Q4H PRN IV 04/28/17 14:45 05/12/17 14:44 05/01/17 13:41 0.5 MG Morphine Sulfate (MoRPHine SULFATE INJ) 2 mg Q4H PRN IV 04/28/17 14:45 05/12/17 14:44 04/28/17 16:18 2 MG Morphine Sulfate (MoRPHine SULFATE INJ) 4 mg Q4H PRN IV 04/28/17 14:45 05/12/17 14:44 04/29/17 11:52 4 MG Lorazepam (Ativan Tab) 0.5 mg Q4H PRN PO 04/28/17 15:00 05/28/17 14:59 Ioversol (Optiray 320) 100 ml UD PRN IV 04/28/17 17:45 05/02/17 17:44 Promethazine HCl 12.5 mg/Sodium Chloride 50.5 ml @ 204 mls/hr Q6H PRN IV 04/29/17 02:30 05/29/17 02:29 04/29/17 03:07 204 MLS/HR Nitroglycerin (Nitrostat Tab) 0.4 mg PRN PRN SL 04/29/17 04:15 05/29/17 04:14 04/29/17 04:20 0.4 MG Famotidine 20 mg/ Syringe 5 ml @ 2.5 mls/min Q12H IV 04/29/17 08:00 05/29/17 07:59 05/01/17 07:22 2.5 MLS/MIN Potassium Chloride/Dextrose/ Sod Cl 1,000 ml @ 150 mls/hr Q6H40M IV 05/01/17 10:30 05/31/17 10:29 05/01/17 11:42 150 MLS/HR Ioversol (Optiray 320) 125 ml UD PRN IV 05/01/17 10:30 05/05/17 10:29 Objective Vital Signs Date Time Temp Pulse Resp B/P (MAP) Pulse Ox O2 Delivery O2 Flow Rate FiO2 05/01/17 12:00 Room Air 05/01/17 11:18 37.0 82 16 126/78 (94) 98 Nasal Cannula 2.0 05/01/17 08:09 37.1 87 18 115/73 (87) 93 Nasal Cannula 2.0 05/01/17 08:00 Room Air 05/01/17 04:00 Room Air 05/01/17 03:37 37.4 82 20 118/72 (87) 97 Nasal Cannula 2.0 05/01/17 00:01 Room Air 04/30/17 23:25 36.9 76 21 129/76 (93) 97 Room Air 04/30/17 20:00 Room Air 04/30/17 19:17 37.9 95 18 149/85 (106) 95 Nasal Cannula 2.0 04/30/17 16:10 37.6 96 18 125/74 (91) 92 Nasal Cannula 2.0 04/30/17 16:00 92 Room Air Physical Exam General Appearance: WD/WN, no apparent distress Eyes: normal inspection, PERRL ENT: normal ENT inspection, hearing grossly normal, pharynx normal Neck: supple, no adenopathy, no JVD Respiratory/Chest: lungs clear, normal breath sounds, no respiratory distress Cardiovascular: regular rate, rhythm, no murmur Abdomen: normal bowel sounds, soft, + tenderness (mild) Extremities: normal range of motion, non-tender, no pedal edema Neurologic/Psych: repairer pump II-XII nml as tested, no motor/sensory deficits, alert, normal mood/affect, oriented x 3 Skin: normal color, no jaundice, warm/dry, no rash Laboratory Results Last 24 Hours Test 05/01/17 05:33 05/01/17 11:59 05/01/17 12:55 White Blood Count 15.35 K/uL Red Blood Count 3.73 M/uL Hemoglobin 11.3 g/dL Hematocrit 34.6 % Mean Corpuscular Volume 92.8 fL Mean Corpuscular Hemoglobin 30.3 pg Mean Corpuscular Hemoglobin Concent 32.7 g/dl Platelet Count 116 K/uL Neutrophils (%) (Auto) 80.0 % Lymphocytes (%) (Auto) 8.3 % Monocytes (%) (Auto) 10.2 % Eosinophils (%) (Auto) 1.0 % Basophils (%) (Auto) 0.1 % Neutrophils # (Auto) 12.27 K/uL Lymphocytes # (Auto) 1.28 K/uL Monocytes # (Auto) 1.57 K/uL Eosinophils # (Auto) 0.16 K/uL Basophils # (Auto) 0.01 K/uL RDW Standard Deviation 52.0 fL RDW Coefficient of Variation 15.3 % Immature Granulocyte % (Auto) 0.4 % Immature Granulocyte # (Auto) 0.06 K/uL Platelet Estimate DECREASED Sodium Level 138 mmol/L Potassium Level 3.7 mmol/L Chloride Level 103 mmol/L Carbon Dioxide Level 30 mmol/L Anion Gap 5.0 mmol/L Blood Urea Nitrogen 6 mg/dl Creatinine 0.41 mg/dl Est Creatinine Clear Calc Drug Dose 138.1 ml/min Estimated GFR () 132.9 Estimated GFR (Non- 114.7 BUN/Creatinine Ratio 15.3 Random Glucose 60 mg/dl Calcium Level 8.0 mg/dl Magnesium Level 2.0 mg/dl Total Bilirubin 0.8 mg/dl Direct Bilirubin 0.2 mg/dl Aspartate Amino Transf (AST/SGOT) 12 U/L Alanine Aminotransferase (ALT/SGPT) 12 U/L Alkaline Phosphatase 71 U/L Total Protein 5.6 gm/dl Albumin 2.2 gm/dl Lipase 719 U/L Bedside Glucose 113 mg/dl Urine Color YELLOW Urine Appearance CLEAR Urine pH 8.5 Urine Specific [place] > 1.045 Urine Protein NEG Urine Glucose (UA) TRACE Urine Ketones 2+ Urine Occult Blood NEG Urine Nitrite NEG Urine Bilirubin NEG Urine Urobilinogen NEG Urine Leukocyte Esterase NEG Urine WBC (Auto) 1-5 /hpf Urine RBC (Auto) 0-4 /hpf Urine Hyaline Casts (Auto) 0 /lpf Urine Epithelial Cells (Auto) 5-10 /lpf Urine Bacteria (Auto) NEG Assessment and Plan 56 yo female with acute pancreatitis thought to be related to medications (Abimael- I vs statin). Low grade fever last evening, more pain this AM. Urine spec gravity high, persistent leukocytosis. IVF increased this AM. CT repeated and without evidence of necrosis. She had darrick and bile leak and subsequent ERCP 04/[address] Due to be removed 05/20. - Continue with aggressive IVF hydration. Increase to 200ml/hr - Maintain NPO. - PRN analgesia, antiemetics. - Follow daily LFTs and lipase, CBC
[2017-05-01] MEDS: ENOXAPARIN 40 MG/0.4 ML SYR SC SCH (20:17)
[2017-05-02 04:10] VITALS: BP 126/63; PULSE 78; TEMP 36.6; O2SAT 97
[2017-05-02] MEDS: HYDROmorphone INJ 0.5 MG/0.5 ML SYR IV PRN ×5 (04:13→22:04)
[2017-05-02] MEDS: D5NSS + 20MEQ KCL 1,000 ML IV SCH ×3 (06:18→20:54)
[2017-05-02] MEDS: LEVOTHYROXINE 100 MCG TAB PO SCH (06:18)
[2017-05-02 08:00] VITALS: O2SAT 97
[2017-05-02 08:31] VITALS: BP 129/80; PULSE 87; TEMP 37; O2SAT 99
[2017-05-02] MEDS: METOPROLOL TARTRATE 25 MG TAB PO SCH ×2 (08:49→20:55)
[2017-05-02] MEDS: ASPIRIN 81 MG ECTAB PO SCH (08:49)
[2017-05-02] MEDS: FAMOTIDINE IV INJ 20 MG in SYRINGE 3 ML IV SCH ×2 (08:49→20:54)
--- NOTE | 2017-05-02 09:49 | Gastroenterology Progress Note ---
Progress Note Date of Service: May 02, 2017 Subjective Pt evaluation today including: conversation w/ patient, physical exam, chart review, lab review, review of studies, review of inpatient medication list Ms. Bowen is 56 yr old female with Grave's Disease S/P radiation on thyroid replacement who experienced cholecystitis, Lap cholecystectomy ERCP 3 (large stone, then bile leak). A CBD stent remains in place with plans for ERCP for removal on 05/20. Next, she experienced a NonSTEMI on Apr 14 and was started on lisinipril and atorvastatin. She was admitted on the for upper abd pain. CT and elevated lipase consistent with acute pancreatitis, though 2nd to new meds. Over the weekend, only sips of water po. Still upper abdomen pain, worse at night. CT yesterday with "worsened" peripancreatic fluid/edema but no cysts or evidence of necrosis. This morning she is awake, alert, oriented, sitting up in bed. She reports a level 10 pain on arrival and now a level 7-8 and is worse at night. She has a constant ache with intermittent sharp pains radiating up to her left shoulder. Labs yesterday with normal Cr, WBC 15, lipase improved to 719 (down from 54k). LFTs have been normal. No nausea/vomiting since last Tuesday. Review of Systems Constitutional: + fever (to 37.8) Eyes: No see HPI, No worsening of vision, No eye pain, No redness, No discharge , No diplopia, No problem reported ENT: No see HPI, No hearing loss, No unusual epistaxis, No nasal symptoms, No sore throat, No tinnitus, No dental problems, No trouble swallowing, No pain on swallowing, No problem reported Cardiac: + chest pain ( quick sharp left chest/shoulder pains) Abdomen: + pain, + problem reported (passed one diarrhea stool yesterday), No nausea, No vomiting, No diarrhea, No constipation Female : No dysuria Neuro: No memory loss Psych: No depression symptoms Heme: No abnormal bleeding/bruising Endo: No fatigue Skin: No rash Medications Current Inpatient Medications Medications (Trade) Dose Ordered Sig/Shawn Route Start Time Stop Time Status Last Admin Dose Admin Enoxaparin Sodium (Lovenox Inj) 40 mg QPM SC 04/28/17 21:00 05/28/17 20:59 05/01/17 20:17 40 MG Acetaminophen (Tylenol Tab) 650 mg Q4H PRN PO 04/28/17 14:45 05/28/17 14:44 04/30/17 19:23 650 MG Ondansetron HCl (Zofran Inj) 4 mg Q6H PRN IV 04/28/17 14:45 05/28/17 14:44 04/29/17 19:52 4 MG Aspirin (Ecotrin Tab) 81 mg QAM PO 04/29/17 09:00 05/29/17 08:59 05/02/17 08:49 81 MG Levothyroxine Sodium (Synthroid Tab) 100 mcg DAILYBB PO 04/29/17 06:00 05/29/17 06:59 05/02/17 06:18 100 MCG Metoprolol Tartrate (Lopressor Tab) 12.5 mg BID PO 04/28/17 21:00 05/28/17 20:59 05/02/17 08:49 12.5 MG Sumatriptan Succinate (Imitrex Tab) 25 mg DAILY PRN PO 04/28/17 14:45 05/28/17 14:44 Hydromorphone HCl (Dilaudid Inj) 0.5 mg Q4H PRN IV 04/28/17 14:45 05/12/17 14:44 05/02/17 08:49 0.5 MG Morphine Sulfate (MoRPHine SULFATE INJ) 2 mg Q4H PRN IV 04/28/17 14:45 05/12/17 14:44 04/28/17 16:18 2 MG Morphine Sulfate (MoRPHine SULFATE INJ) 4 mg Q4H PRN IV 04/28/17 14:45 05/12/17 14:44 04/29/17 11:52 4 MG Lorazepam (Ativan Tab) 0.5 mg Q4H PRN PO 04/28/17 15:00 05/28/17 14:59 Ioversol (Optiray 320) 100 ml UD PRN IV 04/28/17 17:45 05/02/17 17:44 Promethazine HCl 12.5 mg/Sodium Chloride 50.5 ml @ 204 mls/hr Q6H PRN IV 04/29/17 02:30 05/29/17 02:29 04/29/17 03:07 204 MLS/HR Nitroglycerin (Nitrostat Tab) 0.4 mg PRN PRN SL 04/29/17 04:15 05/29/17 04:14 04/29/17 04:20 0.4 MG Famotidine 20 mg/ Syringe 5 ml @ 2.5 mls/min Q12H IV 04/29/17 08:00 05/29/17 07:59 05/02/17 08:49 2.5 MLS/MIN Potassium Chloride/Dextrose/ Sod Cl 1,000 ml @ 150 mls/hr Q6H40M IV 05/01/17 10:30 05/31/17 10:29 05/02/17 06:18 150 MLS/HR Ioversol (Optiray 320) 125 ml UD PRN IV 05/01/17 10:30 05/05/17 10:29 Objective Vital Signs Date Time Temp Pulse Resp B/P (MAP) Pulse Ox O2 Delivery O2 Flow Rate FiO2 05/02/17 04:10 36.6 78 18 126/63 (84) 97 Nasal Cannula 2.0 05/02/17 04:00 Room Air 05/01/17 23:59 Room Air 05/01/17 23:00 36.8 78 18 135/80 (98) 97 Room Air 05/01/17 20:16 37.8 88 18 117/71 (86) 92 05/01/17 20:00 93 Room Air 05/01/17 16:00 93 Room Air 05/01/17 15:33 37.6 90 18 132/78 (96) 93 Nasal Cannula 3.0 05/01/17 12:00 Room Air 05/01/17 11:18 37.0 82 16 126/78 (94) 98 Nasal Cannula 2.0 Physical Exam General Appearance: no apparent distress Neck: no JVD Respiratory/Chest: lungs clear Cardiovascular: regular rate, rhythm, no murmur Abdomen: soft, + pertinent finding (moderate tenderness across the upper abdomen, soft, BS present) Extremities: non-tender, no pedal edema Neurologic/Psych: alert, normal mood/affect, oriented x 3 Skin: no jaundice Laboratory Results Last 24 Hours Test 05/01/17 10:40 05/01/17 11:59 05/01/17 12:55 05/01/17 18:46 Bedside Glucose 61 mg/dl 113 mg/dl 131 mg/dl Urine Color YELLOW Urine Appearance CLEAR Urine pH 8.5 Urine Specific [place] > 1.045 Urine Protein NEG Urine Glucose (UA) TRACE Urine Ketones 2+ Urine Occult Blood NEG Urine Nitrite NEG Urine Bilirubin NEG Urine Urobilinogen NEG Urine Leukocyte Esterase NEG Urine WBC (Auto) 1-5 /hpf Urine RBC (Auto) 0-4 /hpf Urine Hyaline Casts (Auto) 0 /lpf Urine Epithelial Cells (Auto) 5-10 /lpf Urine Bacteria (Auto) NEG Test 05/01/17 23:51 05/02/17 06:00 Bedside Glucose 132 mg/dl 140 mg/dl Assessment and Plan Ms. Bowen is a 56 yr old with an initial episode of acute pancreatitis, possibly secondary to new start of an TYLOR inhibitor. Though CT states the pancreatitis was worse on 05/01 vs. 04/28, she appears well, kidney function is normal and WBC is moderately elevated but stable Plan: 1. Consider beginning clear liquids po. 2. Enc ambulation and deep breathing to prevent pneumonia. 3. Recommend checking labs again tomorrow morning with CBC, CMP, lipase. 4. No indication for antibiotics. 5. Will continue to follow I performed a history and physical examination of the patient. I have discussed the patient's case, impression and plan with KAMLESH South on 05/02/2017. Her note reflects my findings and plan. Doing well. Had abdominal pain episode from oral glucose load but no complaints today. Delmar Corbett MD
[2017-05-02 12:16] VITALS: BP 124/69; PULSE 88; TEMP 36.8; O2SAT 98
--- NOTE | 2017-05-02 13:00 | Progress Note ---
Subjective Date of Service: May 02, 2017. Subjective Pt evaluation today including: conversation w/ patient, physical exam, chart review, lab review, review of studies, conversation w/ business sales consultant, review of inpatient medication list Report generally feeling better, however still required pain medicine's for the control of abdominal pain,, deny nausea vomiting, denied fever and chill Problem List Medical Problems: (1) Vertigo Status: Acute Review of Systems Constitutional: No fever, No chills, No sweats, No weight loss, No weakness, No fatigue, No problem reported Eyes: No worsening of vision, No eye pain, No redness, No discharge, No diplopia ENT: No hearing loss, No unusual epistaxis, No nasal symptoms, No sore throat, No tinnitus, No dental problems, No trouble swallowing Respiratory: No cough, No sputum, No wheezing, No shortness of breath, No dyspnea on exertion, No dyspnea at rest, No hemoptysis Cardiac: No chest pain, No orthopnea, No PND, No edema, No claudication, No palpitations Abdomen: + see HPI, No nausea, No vomiting, No diarrhea, No constipation Musculoskeletal: No joint pain, No muscle pain, No swelling, No calf pain Female : No dysuria, No urinary frequency, No hematuria, No incontinence, No abnormal vaginal bleeding, No vaginal discharge Neurologic: No memory loss, No paralysis, No weakness, No numbness/tingling, No vertigo, No balance problems Psychiatric: No depression symptoms, No anhedonism, No anxiety, No insomnia, No substance abuse Heme: No abnormal bleeding/bruising, No clotting problems, No swollen lymph nodes, No night sweats Endo: No fatigue, No excessive thirst, No excessive urination Skin: No rash, No itch, No new/changing skin lesions, No color change, No bleeding Objective Vital Signs Date Time Temp Pulse Resp B/P (MAP) Pulse Ox O2 Delivery O2 Flow Rate FiO2 05/02/17 12:16 36.8 88 18 124/69 (87) 98 05/02/17 08:31 37.0 87 20 129/80 (96) 99 Nasal Cannula 2.0 05/02/17 08:00 97 Nasal Cannula 2.0 05/02/17 04:10 36.6 78 18 126/63 (84) 97 Nasal Cannula 2.0 05/02/17 04:00 Room Air 05/01/17 23:59 Room Air 05/01/17 23:00 36.8 78 18 135/80 (98) 97 Room Air 05/01/17 20:16 37.8 88 18 117/71 (86) 92 05/01/17 20:00 93 Room Air 05/01/17 16:00 93 Room Air 05/01/17 15:33 37.6 90 18 132/78 (96) 93 Nasal Cannula 3.0 Physical Exam General Appearance: WD/WN, no apparent distress Eyes: normal inspection, PERRL, EOMI, sclerae normal ENT: normal ENT inspection, hearing grossly normal, pharynx normal, + pertinent finding (lips is dry) Neck: supple, no adenopathy, thyroid normal, no JVD, no carotid bruits, trachea midline Respiratory/Chest: chest non-tender, lungs clear, normal breath sounds, no respiratory distress, no accessory muscle use Cardiovascular: regular rate, rhythm, no edema, no gallop, no JVD, no murmur Abdomen: normal bowel sounds, soft, no organomegaly, no pulsatile mass, + pertinent finding (mild tenderness, no rebound) Extremities: normal range of motion, non-tender, normal inspection, no pedal edema, no calf tenderness, normal capillary refill, pelvis stable Neurologic/Psychiatric: director of labor relations II-XII nml as tested, no motor/sensory deficits, alert, normal mood/affect, oriented x 3 Skin: normal color, warm/dry, no rash Lymphatic: no adenopathy Laboratory Results Last 24 Hours Test 05/01/17 12:55 05/01/17 18:46 05/01/17 23:51 05/02/17 06:00 Urine Color YELLOW Urine Appearance CLEAR Urine pH 8.5 Urine Specific [place] > 1.045 Urine Protein NEG Urine Glucose (UA) TRACE Urine Ketones 2+ Urine Occult Blood NEG Urine Nitrite NEG Urine Bilirubin NEG Urine Urobilinogen NEG Urine Leukocyte Esterase NEG Urine WBC (Auto) 1-5 /hpf Urine RBC (Auto) 0-4 /hpf Urine Hyaline Casts (Auto) 0 /lpf Urine Epithelial Cells (Auto) 5-10 /lpf Urine Bacteria (Auto) NEG Bedside Glucose 131 mg/dl 132 mg/dl 140 mg/dl Test 05/02/17 11:49 Bedside Glucose 147 mg/dl Assessment and Plan 56-year-old white female admitted on 04/28/2017 because of severe pancreatitis possible from recent medicine related Per report, prior to the admission she developed abdominal pain and vomiting She has history of ERCP with stent which resulted in a bile leak in March 2017 and on 04/15 she had and episode of Takotsubo, And started TYLOR inhibitor and statin afternoon his medical condition Acute Pancreatitis: stable and improving Lipase continue trends down, GI okay to start clear liquid diet, continue to hold Lipitor and Lisinopril as potential cause of pancreatitis Recent bile leak s/p cholecystectomy and ERCP, continue to plan to remove stent in May with GI Recent NSTEMI on April 15 2017, stable, stop Lipitor due to pancreatitis, and patient did not have severe coronary disease on heart cath continue, metoprolol, hold lisinopril since it could be etiology of pancreatitis Hypothyroid Hx Migraine The above condition stable PNA quit diet, transfer to med/surg, increase activity, discussed with GI about the discharge plan DVT prophylaxis - SCDs, enoxaparin Full code Continued [facility] stay due to: multiple IV medications needed Discharge planning: home
[2017-05-02 14:19] VITALS: BP 124/69; PULSE 88; TEMP 36.8; O2SAT 98
[2017-05-02 14:30] VITALS: BP 121/76; PULSE 83; TEMP 36.7; O2SAT 96
[2017-05-02] MEDS: ENOXAPARIN 40 MG/0.4 ML SYR SC SCH (20:56)
[2017-05-03 00:22] VITALS: BP 108/69; PULSE 84; TEMP 37.1; O2SAT 94
[2017-05-03] MEDS: HYDROmorphone INJ 0.5 MG/0.5 ML SYR IV PRN ×2 (02:48→08:38)
[2017-05-03] MEDS: D5NSS + 20MEQ KCL 1,000 ML IV SCH ×3 (03:13→18:36)
[2017-05-03] MEDS: LEVOTHYROXINE 100 MCG TAB PO SCH (06:04)
[2017-05-03 07:04] VITALS: BP 122/79; PULSE 80; TEMP 36.4; O2SAT 97
[2017-05-03] MEDS: ASPIRIN 81 MG ECTAB PO SCH (07:54)
[2017-05-03] MEDS: FAMOTIDINE IV INJ 20 MG in SYRINGE 3 ML IV SCH ×2 (07:54→21:21)
[2017-05-03] MEDS: METOPROLOL TARTRATE 25 MG TAB PO SCH ×2 (07:54→21:17)
[2017-05-03 08:00] VITALS: O2SAT 97
[2017-05-03 08:38] LABS: BUN/CREATININE RATIO 3.3 (10-20); CREATININE 0.48 mg/dl (0.60-1.20); POTASSIUM 3.8 mmol/L (3.5-5.1)
--- NOTE | 2017-05-03 11:44 | Gastroenterology Progress Note ---
Progress Note Date of Service: May 03, 2017 Subjective Pt evaluation today including: conversation w/ patient, physical exam, chart review, lab review, review of studies, review of inpatient medication list 56 year old female admitted with pancreatitis. She is feeling somewhat better today but does continue with mild upper abdominal pain and nausea. Continues on clear liquids, but unable to take much po without pain medications. Labs continue to show improvement - Lipase now normalized. Review of Systems Constitutional: No fever, No chills Eyes: No worsening of vision, No eye pain ENT: No hearing loss Respiratory: No cough, No shortness of breath Cardiac: No chest pain Abdomen: + see HPI Musculoskeletal: No joint pain Female : No dysuria, No urinary frequency Neuro: No problem reported Psych: No problem reported Heme: No abnormal bleeding/bruising Endo: No excessive thirst, No excessive urination Skin: No rash, No itch, No new/changing skin lesions Medications Current Inpatient Medications Medications (Trade) Dose Ordered Sig/Shawn Route Start Time Stop Time Status Last Admin Dose Admin Enoxaparin Sodium (Lovenox Inj) 40 mg QPM SC 04/28/17 21:00 05/28/17 20:59 05/02/17 20:56 40 MG Acetaminophen (Tylenol Tab) 650 mg Q4H PRN PO 04/28/17 14:45 05/28/17 14:44 04/30/17 19:23 650 MG Ondansetron HCl (Zofran Inj) 4 mg Q6H PRN IV 04/28/17 14:45 05/28/17 14:44 04/29/17 19:52 4 MG Aspirin (Ecotrin Tab) 81 mg QAM PO 04/29/17 09:00 05/29/17 08:59 05/03/17 07:54 81 MG Levothyroxine Sodium (Synthroid Tab) 100 mcg DAILYBB PO 04/29/17 06:00 05/29/17 06:59 05/03/17 06:04 100 MCG Metoprolol Tartrate (Lopressor Tab) 12.5 mg BID PO 04/28/17 21:00 05/28/17 20:59 05/03/17 07:54 12.5 MG Sumatriptan Succinate (Imitrex Tab) 25 mg DAILY PRN PO 04/28/17 14:45 05/28/17 14:44 Hydromorphone HCl (Dilaudid Inj) 0.5 mg Q4H PRN IV 04/28/17 14:45 05/12/17 14:44 05/03/17 08:38 0.5 MG Morphine Sulfate (MoRPHine SULFATE INJ) 2 mg Q4H PRN IV 04/28/17 14:45 05/12/17 14:44 04/28/17 16:18 2 MG Morphine Sulfate (MoRPHine SULFATE INJ) 4 mg Q4H PRN IV 04/28/17 14:45 05/12/17 14:44 04/29/17 11:52 4 MG Lorazepam (Ativan Tab) 0.5 mg Q4H PRN PO 04/28/17 15:00 05/28/17 14:59 Promethazine HCl 12.5 mg/Sodium Chloride 50.5 ml @ 204 mls/hr Q6H PRN IV 04/29/17 02:30 05/29/17 02:29 04/29/17 03:07 204 MLS/HR Nitroglycerin (Nitrostat Tab) 0.4 mg PRN PRN SL 04/29/17 04:15 05/29/17 04:14 04/29/17 04:20 0.4 MG Famotidine 20 mg/ Syringe 5 ml @ 2.5 mls/min Q12H IV 04/29/17 08:00 05/29/17 07:59 05/03/17 07:54 2.5 MLS/MIN Potassium Chloride/Dextrose/ Sod Cl 1,000 ml @ 150 mls/hr Q6H40M IV 05/01/17 10:30 05/31/17 10:29 05/03/17 09:09 150 MLS/HR Ioversol (Optiray 320) 125 ml UD PRN IV 05/01/17 10:30 05/05/17 10:29 Objective Vital Signs Date Time Temp Pulse Resp B/P (MAP) Pulse Ox O2 Delivery O2 Flow Rate FiO2 05/03/17 08:00 97 Room Air 05/03/17 07:04 36.4 80 18 122/79 (93) 97 05/03/17 00:22 37.1 84 18 108/69 (82) 94 Room Air 05/03/17 00:00 Room Air 05/02/17 16:00 Room Air 05/02/17 14:30 36.7 83 18 121/76 (91) 96 Room Air 05/02/17 14:19 36.8 88 18 98 05/02/17 12:16 36.8 88 18 124/69 (87) 98 05/02/17 12:00 Room Air Physical Exam General Appearance: no apparent distress Eyes: normal inspection ENT: hearing grossly normal Neck: supple Respiratory/Chest: lungs clear, normal breath sounds, no respiratory distress, no accessory muscle use Cardiovascular: regular rate, rhythm, no edema Abdomen: normal bowel sounds, soft, no organomegaly, + tenderness (mild upper abdominal tenderness) Extremities: no pedal edema Neurologic/Psych: alert Skin: normal color, no jaundice, warm/dry, no rash Laboratory Results Last 24 Hours Test 05/02/17 11:49 05/02/17 16:32 05/03/17 00:19 05/03/17 06:05 Bedside Glucose 147 mg/dl 153 mg/dl 143 mg/dl 137 mg/dl Test 05/03/17 07:40 Sodium Level 138 mmol/L Potassium Level 3.8 mmol/L Chloride Level 106 mmol/L Carbon Dioxide Level 25 mmol/L Anion Gap 7.0 mmol/L Blood Urea Nitrogen 2 mg/dl Creatinine 0.48 mg/dl Est Creatinine Clear Calc Drug Dose 118.9 ml/min Estimated GFR () 126.2 Estimated GFR (Non- 108.9 BUN/Creatinine Ratio 3.3 Random Glucose 130 mg/dl Calcium Level 8.0 mg/dl Magnesium Level 2.0 mg/dl Total Bilirubin 0.5 mg/dl Direct Bilirubin 0.1 mg/dl Aspartate Amino Transf (AST/SGOT) 30 U/L Alanine Aminotransferase (ALT/SGPT) 29 U/L Alkaline Phosphatase 80 U/L Total Protein 5.4 gm/dl Albumin 2.0 gm/dl Lipase 303 U/L Assessment and Plan 56 year old female admitted with pancreatitis, likely secondary to medication ( lisinopril/atorvastatin) Continue clear liquids for today as she continues to have significant pain with po intake. Lipase has normalized and she does seem to be clinically improving. Consider trying low fat/low residue diet tomorrow. ERCP with stent removal planned in early May. I performed a history and physical examination of the patient. I have discussed the patient's case, impression and plan with Danica Clinard, PA-C. Her note reflects my findings and plan. Patient has post prandial pain with regular diet. Unclear if this is from chronic symptoms or related to this bout of pancreatitis. Keep on liquids until symptoms improve. Delmar Corbett MD
--- NOTE | 2017-05-03 14:16 | Progress Note ---
Subjective Date of Service: May 03, 2017. Subjective Pt evaluation today including: conversation w/ patient, physical exam, chart review, lab review, review of studies, review of inpatient medication list Tolerating clear liquid, but sometimes feeling more pain after eating, which required IV Dilaudid, otherwise doing okay, Problem List Medical Problems: (1) Vertigo Status: Acute Review of Systems Constitutional: No fever, No chills, No sweats, No weight loss, No weakness, No fatigue, No problem reported Eyes: No worsening of vision, No eye pain, No redness, No discharge, No diplopia ENT: No hearing loss, No unusual epistaxis, No nasal symptoms, No sore throat, No tinnitus, No dental problems, No trouble swallowing Respiratory: No cough, No sputum, No wheezing, No shortness of breath, No dyspnea on exertion, No dyspnea at rest, No hemoptysis Cardiac: No chest pain, No orthopnea, No PND, No edema, No claudication, No palpitations Abdomen: + pain, No nausea, No vomiting, No diarrhea, No constipation Musculoskeletal: No joint pain, No muscle pain, No swelling, No calf pain Female : No dysuria, No urinary frequency, No hematuria, No incontinence, No abnormal vaginal bleeding, No vaginal discharge Neurologic: No memory loss, No paralysis, No weakness, No numbness/tingling, No vertigo, No balance problems Psychiatric: No depression symptoms, No anhedonism, No anxiety, No insomnia, No substance abuse Heme: No abnormal bleeding/bruising, No clotting problems, No swollen lymph nodes, No night sweats Endo: No fatigue, No excessive thirst, No excessive urination Skin: No rash, No itch, No new/changing skin lesions, No color change, No bleeding Objective Vital Signs Date Time Temp Pulse Resp B/P (MAP) Pulse Ox O2 Delivery O2 Flow Rate FiO2 05/03/17 08:00 97 Room Air 05/03/17 07:04 36.4 80 18 122/79 (93) 97 05/03/17 00:22 37.1 84 18 108/69 (82) 94 Room Air 05/03/17 00:00 Room Air 05/02/17 16:00 Room Air 05/02/17 14:30 36.7 83 18 121/76 (91) 96 Room Air 05/02/17 14:19 36.8 88 18 98 Physical Exam General Appearance: WD/WN, no apparent distress Eyes: normal inspection, PERRL, EOMI, sclerae normal ENT: normal ENT inspection, hearing grossly normal, pharynx normal Neck: supple, no adenopathy, thyroid normal, no JVD, no carotid bruits, trachea midline Respiratory/Chest: chest non-tender, normal breath sounds, no respiratory distress, no accessory muscle use, + decreased breath sounds Cardiovascular: regular rate, rhythm, no edema, no gallop, no JVD, no murmur Abdomen: normal bowel sounds, soft, no organomegaly, no pulsatile mass, + tenderness (mild) Extremities: normal range of motion, non-tender, normal inspection, no pedal edema, no calf tenderness, normal capillary refill, pelvis stable Neurologic/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, no motor/sensory deficits, alert, normal mood/affect, oriented x 3 Skin: normal color, warm/dry, no rash Lymphatic: no adenopathy Laboratory Results Last 24 Hours Test 05/02/17 16:32 05/03/17 00:19 05/03/17 06:05 05/03/17 07:40 Bedside Glucose 153 mg/dl 143 mg/dl 137 mg/dl Sodium Level 138 mmol/L Potassium Level 3.8 mmol/L Chloride Level 106 mmol/L Carbon Dioxide Level 25 mmol/L Anion Gap 7.0 mmol/L Blood Urea Nitrogen 2 mg/dl Creatinine 0.48 mg/dl Est Creatinine Clear Calc Drug Dose 118.9 ml/min Estimated GFR () 126.2 Estimated GFR (Non- 108.9 BUN/Creatinine Ratio 3.3 Random Glucose 130 mg/dl Calcium Level 8.0 mg/dl Magnesium Level 2.0 mg/dl Total Bilirubin 0.5 mg/dl Direct Bilirubin 0.1 mg/dl Aspartate Amino Transf (AST/SGOT) 30 U/L Alanine Aminotransferase (ALT/SGPT) 29 U/L Alkaline Phosphatase 80 U/L Total Protein 5.4 gm/dl Albumin 2.0 gm/dl Lipase 303 U/L Test 05/03/17 11:28 Bedside Glucose 124 mg/dl Assessment and Plan 56-year-old white female admitted on 04/28/2017 because of severe pancreatitis possible from recent medicine related Per report, prior to the admission she developed abdominal pain and vomiting She has history of ERCP with stent which resulted in a bile leak in March 2017 and on 04/15 she had and episode of Takotsubo, And started TYLOR inhibitor and statin afternoon his medical condition Acute Pancreatitis: stable and continue improving Lipase normalized, continue clear liquid diet, med advised to low-fat diet if continue improving continue to hold Lipitor and Lisinopril as potential cause of pancreatitis Discuss with patient about pain management, she agreed to switch Dilaudid IV to oral, and preparing to go home Recent bile leak s/p cholecystectomy and ERCP, continue to plan to remove stent in May with GI Recent NSTEMI on April 15 2017, stable, stop Lipitor due to pancreatitis, and patient did not have severe coronary disease on heart cath continue, metoprolol, hold lisinopril since it could be etiology of pancreatitis Hypothyroid Hx Migraine The above condition stable Possible discharge in day 1 or 2 DVT prophylaxis - SCDs, enoxaparin Full code Continued [facility] stay due to: multiple IV medications needed Discharge planning: home
[2017-05-03] MEDS: HYDROmorphone HCL 2 MG TAB PO PRN ×2 (14:24→22:49)
[2017-05-03 14:47] VITALS: BP 146/79; PULSE 84; TEMP 36.4; O2SAT 95
[2017-05-03 21:14] VITALS: BP 143/82; PULSE 83
[2017-05-03] MEDS: ENOXAPARIN 40 MG/0.4 ML SYR SC SCH (21:18)
[2017-05-03 23:54] VITALS: BP 129/80; PULSE 84; TEMP 36.7; O2SAT 96
[2017-05-04] MEDS: D5NSS + 20MEQ KCL 1,000 ML IV SCH (05:26)
[2017-05-04] MEDS: LEVOTHYROXINE 100 MCG TAB PO SCH (05:26)
[2017-05-04 05:50] LABS: HEMATOCRIT 32.2 % (37-47); MEAN CELL VOLUME 92.5 fL (80-100); MEAN CORPUSCULAR HEMOGLOBIN 29.6 pg (25-34); MEAN PLATELET VOLUME 13.9 fL (7.4-10.4); PLATELET COUNT 156 K/uL (130-400); RED BLOOD COUNT 3.48 M/uL (4.2-5.4); WHITE BLOOD COUNT 11.39 K/uL (4.8-10.8)
[2017-05-04 06:25] LABS: CREATININE 0.56 mg/dl (0.60-1.20); MAGNESIUM 1.9 mg/dl (1.8-2.4)
[2017-05-04 07:44] VITALS: BP 146/80; PULSE 77; TEMP 36.4; O2SAT 98
[2017-05-04 08:00] VITALS: O2SAT 98
[2017-05-04] MEDS ORDERED: FAMOTIDINE 20 MG TAB PO SCH (08:00)
[2017-05-04] MEDS: ASPIRIN 81 MG ECTAB PO SCH (08:37)
[2017-05-04] MEDS: METOPROLOL TARTRATE 25 MG TAB PO SCH ×2 (08:37→20:03)
--- NOTE | 2017-05-04 09:58 | Progress Note ---
Subjective Date of Service: May 04, 2017. Subjective Pt evaluation today including: conversation w/ patient, physical exam, chart review, lab review, review of studies, conversation w/ air quality consultant, review of inpatient medication list Report has left abdomen pain radiation to left shoulder occasionally, it Happened 2-3 time a day, sometimes and nighttime , lasting about an most 10 second, denied chest pain Has been tolerate clear liquid diet, has been trying to use pain medicine as less as possible Problem List Medical Problems: (1) Vertigo Status: Acute Review of Systems Constitutional: No fever, No chills, No sweats, No weight loss, No weakness, No fatigue, No problem reported Eyes: No worsening of vision, No eye pain, No redness, No discharge, No diplopia ENT: No hearing loss, No unusual epistaxis, No nasal symptoms, No sore throat, No tinnitus, No dental problems, No trouble swallowing Respiratory: No cough, No sputum, No wheezing, No shortness of breath, No dyspnea on exertion, No dyspnea at rest, No hemoptysis Cardiac: No chest pain, No orthopnea, No PND, No edema, No claudication, No palpitations Abdomen: + pain, No nausea, No vomiting, No diarrhea, No constipation Musculoskeletal: No joint pain, No muscle pain, No swelling, No calf pain Female : No dysuria, No urinary frequency, No hematuria, No incontinence, No abnormal vaginal bleeding, No vaginal discharge Neurologic: No memory loss, No paralysis, No weakness, No numbness/tingling, No vertigo, No balance problems Psychiatric: No depression symptoms, No anhedonism, No anxiety, No insomnia, No substance abuse Heme: No abnormal bleeding/bruising, No clotting problems, No swollen lymph nodes, No night sweats Endo: No fatigue, No excessive thirst, No excessive urination Skin: No rash, No itch, No new/changing skin lesions, No color change, No bleeding Objective Vital Signs Date Time Temp Pulse Resp B/P (MAP) Pulse Ox O2 Delivery O2 Flow Rate FiO2 05/04/17 08:00 98 Room Air 05/04/17 07:44 36.4 77 18 146/80 (102) 98 Room Air 05/04/17 02:30 Room Air 05/03/17 23:54 36.7 84 18 129/80 (96) 96 Room Air 05/03/17 21:14 83 143/82 (102) 05/03/17 16:00 Room Air 05/03/17 14:47 36.4 84 18 146/79 (101) 95 Room Air Physical Exam General Appearance: WD/WN, no apparent distress Eyes: normal inspection, PERRL, EOMI, sclerae normal ENT: normal ENT inspection, hearing grossly normal, pharynx normal Neck: supple, no adenopathy, thyroid normal, no JVD, no carotid bruits, trachea midline Respiratory/Chest: chest non-tender, normal breath sounds, no respiratory distress, no accessory muscle use, + decreased breath sounds Cardiovascular: regular rate, rhythm, no edema, no gallop, no JVD, no murmur Abdomen: normal bowel sounds, soft, no organomegaly, no pulsatile mass, + tenderness (mild deep tender) Extremities: normal range of motion, non-tender, normal inspection, no pedal edema, no calf tenderness, normal capillary refill, pelvis stable 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, no motor/sensory deficits, alert, normal mood/affect, oriented x 3 Skin: normal color, warm/dry, no rash Lymphatic: no adenopathy Laboratory Results Last 24 Hours Test 05/03/17 11:28 05/04/17 05:23 Bedside Glucose 124 mg/dl White Blood Count 11.39 K/uL Red Blood Count 3.48 M/uL Hemoglobin 10.3 g/dL Hematocrit 32.2 % Mean Corpuscular Volume 92.5 fL Mean Corpuscular Hemoglobin 29.6 pg Mean Corpuscular Hemoglobin Concent 32.0 g/dl RDW Standard Deviation 51.4 fL RDW Coefficient of Variation 15.1 % Platelet Count 156 K/uL Mean Platelet Volume 13.9 fL Sodium Level 140 mmol/L Potassium Level 4.0 mmol/L Chloride Level 107 mmol/L Carbon Dioxide Level 24 mmol/L Anion Gap 9.0 mmol/L Blood Urea Nitrogen 2 mg/dl Creatinine 0.56 mg/dl Est Creatinine Clear Calc Drug Dose 101.9 ml/min Estimated GFR () 120.0 Estimated GFR (Non- 103.5 BUN/Creatinine Ratio 3.0 Random Glucose 147 mg/dl Calcium Level 8.0 mg/dl Magnesium Level 1.9 mg/dl Total Bilirubin 0.4 mg/dl Direct Bilirubin 0.1 mg/dl Aspartate Amino Transf (AST/SGOT) 35 U/L Alanine Aminotransferase (ALT/SGPT) 47 U/L Alkaline Phosphatase 89 U/L Total Protein 5.7 gm/dl Albumin 2.0 gm/dl Assessment and Plan 56-year-old white female admitted on 04/28/2017 because of severe pancreatitis possible from recent medicine related Per report, prior to the admission she developed abdominal pain and vomiting She has history of ERCP with stent which resulted in a bile leak in March 2017 and on 04/15 she had and episode of Takotsubo, And started TYLOR inhibitor and statin afternoon his medical condition Acute Pancreatitis: Significant improving Lipase normalized, continue clear liquid diet, will advised to low-fat diet if continue improving Recommend plenty fluid intake, discontinue IV fluid continue to hold Lipitor and Lisinopril as potential cause of pancreatitis Discuss with patient about pain management, she agreed to switch Dilaudid IV to oral, and preparing to go home Recent bile leak s/p cholecystectomy and ERCP, continue to plan to remove stent in May with GI Left abdominal pain radiation to left shoulder, Lasting 10 seconds I do not believe it is cardiac pain However , has recent NSTEMI on April 15 2017, I advised her to report to MD or billing customer service representative if has more persistent or severe pain, and advised to follow up with cardiology about this Hypothyroid Hx Migraine The above condition stable Increase activity, plenty oral intake, advance diet, planning discharge tomorrow DVT prophylaxis - SCDs, enoxaparin Full code Continued [facility] stay due to: home environment unsafe for pt Discharge planning: home
--- NOTE | 2017-05-04 10:06 | Gastroenterology Progress Note ---
Progress Note Date of Service: May 04, 2017 Subjective Pt evaluation today including: conversation w/ patient, physical exam, chart review, lab review, review of studies, review of inpatient medication list 56 year old female admitted with pancreatitis. She continues to slowly improve, however she reports an ongoing burning epigastric pain and an episode of very sharp LUQ abdominal pain, radiating up into the shoulder overnight, with sweats. The pain has been intermittent since then, lasting only a few seconds to a minute at a time. She denies any significant nausea and has had no emesis. She is tolerating clears. Review of Systems Constitutional: No fever, No chills Eyes: No worsening of vision, No eye pain ENT: No hearing loss Respiratory: No cough, No shortness of breath Cardiac: No chest pain Abdomen: + see HPI Musculoskeletal: No joint pain Female : No dysuria, No urinary frequency Neuro: No problem reported Psych: No problem reported Heme: No abnormal bleeding/bruising Endo: No excessive thirst, No excessive urination Skin: No rash, No itch Medications Current Inpatient Medications Medications (Trade) Dose Ordered Sig/Shawn Route Start Time Stop Time Status Last Admin Dose Admin Enoxaparin Sodium (Lovenox Inj) 40 mg QPM SC 04/28/17 21:00 05/28/17 20:59 05/03/17 21:18 40 MG Acetaminophen (Tylenol Tab) 650 mg Q4H PRN PO 04/28/17 14:45 05/28/17 14:44 04/30/17 19:23 650 MG Ondansetron HCl (Zofran Inj) 4 mg Q6H PRN IV 04/28/17 14:45 05/28/17 14:44 04/29/17 19:52 4 MG Aspirin (Ecotrin Tab) 81 mg QAM PO 04/29/17 09:00 05/29/17 08:59 05/04/17 08:37 81 MG Levothyroxine Sodium (Synthroid Tab) 100 mcg DAILYBB PO 04/29/17 06:00 05/29/17 06:59 05/04/17 05:26 100 MCG Metoprolol Tartrate (Lopressor Tab) 12.5 mg BID PO 04/28/17 21:00 05/28/17 20:59 05/04/17 08:37 12.5 MG Sumatriptan Succinate (Imitrex Tab) 25 mg DAILY PRN PO 04/28/17 14:45 05/28/17 14:44 Morphine Sulfate (MoRPHine SULFATE INJ) 2 mg Q4H PRN IV 04/28/17 14:45 05/12/17 14:44 04/28/17 16:18 2 MG Morphine Sulfate (MoRPHine SULFATE INJ) 4 mg Q4H PRN IV 04/28/17 14:45 05/12/17 14:44 04/29/17 11:52 4 MG Lorazepam (Ativan Tab) 0.5 mg Q4H PRN PO 04/28/17 15:00 05/28/17 14:59 Promethazine HCl 12.5 mg/Sodium Chloride 50.5 ml @ 204 mls/hr Q6H PRN IV 04/29/17 02:30 05/29/17 02:29 04/29/17 03:07 204 MLS/HR Nitroglycerin (Nitrostat Tab) 0.4 mg PRN PRN SL 04/29/17 04:15 05/29/17 04:14 04/29/17 04:20 0.4 MG Ioversol (Optiray 320) 125 ml UD PRN IV 05/01/17 10:30 05/05/17 10:29 Hydromorphone HCl (Dilaudid Tab) 2 mg Q4 PRN PO 05/03/17 14:15 05/17/17 14:14 05/03/17 22:49 2 MG Famotidine (Pepcid Tab) 20 mg BID PO 05/04/17 08:00 06/03/17 07:59 05/04/17 08:37 20 MG Objective Vital Signs Date Time Temp Pulse Resp B/P (MAP) Pulse Ox O2 Delivery O2 Flow Rate FiO2 05/04/17 08:00 98 Room Air 05/04/17 07:44 36.4 77 18 146/80 (102) 98 Room Air 05/04/17 02:30 Room Air 05/03/17 23:54 36.7 84 18 129/80 (96) 96 Room Air 05/03/17 21:14 83 143/82 (102) 05/03/17 16:00 Room Air 05/03/17 14:47 36.4 84 18 146/79 (101) 95 Room Air Physical Exam General Appearance: no apparent distress Eyes: normal inspection ENT: hearing grossly normal Neck: supple Respiratory/Chest: lungs clear, normal breath sounds, no respiratory distress Cardiovascular: regular rate, rhythm, no edema Abdomen: normal bowel sounds, + tenderness (LUQ) Extremities: no pedal edema Neurologic/Psych: alert Skin: normal color, no jaundice, warm/dry Laboratory Results Last 24 Hours Test 05/03/17 11:28 05/04/17 05:23 Bedside Glucose 124 mg/dl White Blood Count 11.39 K/uL Red Blood Count 3.48 M/uL Hemoglobin 10.3 g/dL Hematocrit 32.2 % Mean Corpuscular Volume 92.5 fL Mean Corpuscular Hemoglobin 29.6 pg Mean Corpuscular Hemoglobin Concent 32.0 g/dl RDW Standard Deviation 51.4 fL RDW Coefficient of Variation 15.1 % Platelet Count 156 K/uL Mean Platelet Volume 13.9 fL Sodium Level 140 mmol/L Potassium Level 4.0 mmol/L Chloride Level 107 mmol/L Carbon Dioxide Level 24 mmol/L Anion Gap 9.0 mmol/L Blood Urea Nitrogen 2 mg/dl Creatinine 0.56 mg/dl Est Creatinine Clear Calc Drug Dose 101.9 ml/min Estimated GFR () 120.0 Estimated GFR (Non- 103.5 BUN/Creatinine Ratio 3.0 Random Glucose 147 mg/dl Calcium Level 8.0 mg/dl Magnesium Level 1.9 mg/dl Total Bilirubin 0.4 mg/dl Direct Bilirubin 0.1 mg/dl Aspartate Amino Transf (AST/SGOT) 35 U/L Alanine Aminotransferase (ALT/SGPT) 47 U/L Alkaline Phosphatase 89 U/L Total Protein 5.7 gm/dl Albumin 2.0 gm/dl Assessment and Plan 56 year old female admitted with pancreatitis, likely secondary to medication ( lisinopril/atorvastatin) OK to advance to low fat/full liquid diet and further to low fat/low residue diet as tolerated. ERCP with stent removal planned in early May. I performed a history and physical examination of the patient. I have discussed the patient's case, impression and plan with Danica Fernandes PA-C. Her note reflects my findings and plan. Symptoms better today on soft diet. Using less analgesia. Delmar Corbett MD
[2017-05-04] MEDS ORDERED: NURSING VERBAL MED ORDER ONE ×2 (10:30→14:15)
[2017-05-04] MEDS: CALCIUM CARBONATE 500 MG CHEWABLE PO PRN ×3 (11:02→19:38)
[2017-05-04 15:51] VITALS: BP 124/82; PULSE 75; TEMP 36.5; O2SAT 96
[2017-05-04] MEDS ORDERED: ALUMINUM/MAGNESIUM/SIMETH (MAALOX MAX) 30 ML UDC PO PRN (20:00)
[2017-05-04] MEDS: PANTOprazole SOD 40 MG TAB PO SCH (20:03)
[2017-05-04] MEDS: ENOXAPARIN 40 MG/0.4 ML SYR SC SCH (20:03)
[2017-05-05 00:31] VITALS: BP 145/83; PULSE 73; TEMP 36.7; O2SAT 94
[2017-05-05] MEDS: LEVOTHYROXINE 100 MCG TAB PO SCH (06:22)
[2017-05-05 07:22] VITALS: BP 134/79; PULSE 73; TEMP 36.7; O2SAT 95
[2017-05-05] MEDS: ASPIRIN 81 MG ECTAB PO SCH (07:36)
[2017-05-05] MEDS: PANTOprazole SOD 40 MG TAB PO SCH (07:37)
[2017-05-05] MEDS: METOPROLOL TARTRATE 25 MG TAB PO SCH (07:37)
[2017-05-05 15:07] VITALS: BP 127/80; PULSE 76; TEMP 36.5; O2SAT 98
[2017-05-05] MEDS: ACETAMINOPHEN 325 MG TAB PO PRN (15:33)
[2017-05-05] MEDS ORDERED: PRT40 PO (18:05)
--- NOTE | 2017-05-05 18:11 | Discharge Instructions ---
Discharge Instructions Date of Service May 05, 2017. Admission Reason for Admission: Pancreatitis Discharge Discharge Diagnosis / Problem: Acute pancreatitis Discharge Goals Goal(s): Improve disease control, Diagnostic testing, Therapeutic intervention Activity Recommendations Activity Limitations: resume your previous activity Lifting Limitations: none Exercise/Sports Limitations: gradually increase as tolerated Shower/Bathe: no limitations Driving or Machine Use: no limitations . Instructions / Follow-Up Instructions / Follow-Up You were admitted with abdominal pain and found to have acute pancreatitis. You were treated with pain meds, IV fluids, nothing to eat by mouth. This may have been caused by either your atorvastatin or lisinopril (new meds for your heart) , so you should not take these medications in the future. Your symptoms improved and you were tolerating a low fat meal at the time of discharge. You should keep your appointment with GI as planned to remove your stent in the bile duct in May. Please also follow up with your family doctor within 1-2 weeks. Current Hospital Diet Patient's current hospital diet: Low Fat Diet Discharge Diet Recommended Diet: Low Fat Diet Procedures Procedures Performed: Gallbladder ultrasound CT abdomen/pelvis x 2 Pending Studies Studies pending at discharge: no Laboratory Results Hemoglobin A1c Test 04/16/17 05:58 Range/Units Estimated Average Glucose 103 mg/dl Hemoglobin A1c 5.2 4.5-5.6 % Lipid Panel Test 04/15/17 02:50 Range/Units Triglycerides Level 126 0-150 mg/dl Cholesterol Level 106 0-200 mg/dl HDL Cholesterol 26 mg/dl Cholesterol/HDL Ratio 4.1 LDL Cholesterol, Calculated 55 mg/dl Medical Emergencies . Who to Call and When: Medical Emergencies: If at any time you feel your situation is an emergency, please call 911 immediately. . Non-Emergent Contact Non-Emergency issues call your: Primary Care Provider, Career Services Coordinator Call Non-Emergent contact if: you have a fever, temperature is above 100.5, your pain is not controlled, your pain is worsening, your pain is unusual for you, your pain is concerning you, you have any medication questions . . "Provider Documentation" section prepared by Karen Mccann. . VTE Core Measure Inpt VTE Proph given/why not?: Enoxaparin (Lovenox)SQ
[2017-05-05 18:55] VITALS: BP 127/80; PULSE 76; TEMP 36.5; O2SAT 98
--- NOTE | 2017-05-06 07:23 | Discharge Summary ---
Discharge Summary Date of Service May 05, 2017. Discharge Summary Admission Date: Apr 28, 2017 at 14:44 Discharge Date: May 05, 2017 Discharge Disposition: Home Principal Diagnosis: Acute pancreatitis Problems/Secondary Diagnoses: History of ERCP for choledocholithiasis with stent placement which resulted in a bile leak in March 2017 H/o Takotsubo cardiomyopathy H/o cholecystectomy Left shoulder pain-noncardiac Hypothyroidism H/o Migraine H/O ITP Procedures: CT Abd/pel x 2 Gallbladder US Consultations: Gastroenterology Medication Reconciliation New Medications: Pantoprazole (Pantoprazole Sodium) 40 Mg Tab 40 MG PO BID for 30 Days, #60 TAB Continued Medications: Aspirin (Aspirin EC Low Dose) 81 Mg Ectab 81 MG PO QAM, #30 TABS 3 Refills Levothyroxine Sodium (Synthroid) 100 Mcg Tab 100 MCG PO QAM, TAB Metoprolol Tartrate (Lopressor) 25 Mg Tab 12.5 MG PO BID, #30 TAB 3 Refills Sumatriptan Succinate (Imitrex) 25 Mg Tab 25 MG PO UD PRN for Migraine, TAB Discontinued Medications: Atorvastatin (Lipitor) 40 Mg Tab 40 MG PO QPM, TAB Lisinopril (Lisinopril) 5 Mg Tab 5 MG PO QAM, #30 TAB 3 Refills Discharge Exam On day of discharge, pt had an episode of left shoulder pain that worsened with deep inspiration that came on after eating half of a sandwich. She reported that it felt similar to when she had her chest pain resulting in her Takotsubo' s CM. It went away on its own. ECG performed at the time of pain showed no evidence of ischemia, and serial cardiac markers x 2 performed and were both negative. It was deemed to be a noncardiac type of pain and did not return prior to discharge. Otherwise, she denied any abdominal pain at all, no N/V. Was doing well and tolerating low fat diet. Review of Systems: Constitutional: No fever, No chills Eyes: No problem reported ENT: No problem reported Respiratory: No shortness of breath Cardiovascular: + problem reported (left shoulder pain as per HPI), No chest pain Abdomen: No pain, No nausea, No vomiting Musculoskeletal: No problem reported Genitourinary - Female: No problem reported Neurologic: No problem reported Psychiatric: No problem reported Endocrine: No problem reported Hematologic / Lymphatic: No problem reported Integumentary: No problem reported Physical Exam: General Appearance: WD/WN, no apparent distress Eyes: normal inspection, sclerae normal ENT: hearing grossly normal Neck: trachea midline Respiratory/Chest: lungs clear, normal breath sounds, no respiratory distress, no accessory muscle use Cardiovascular: regular rate, rhythm, no edema, no gallop, no JVD, no murmur , normal peripheral pulses Abdomen / GI: normal bowel sounds, non tender, soft, no organomegaly, no pulsatile mass Extremities: normal inspection, no calf tenderness, normal capillary refill , no pedal edema, + pertinent finding (no ttp over left shoulder at site of pain ) Neurologic/Psychiatric: alert, normal mood/affect, oriented x 3 Skin: normal color, warm/dry, no rash Hospital Course Ms. Bowen presented on admission with abdominal pain and vomiting that started the night prior.Up until that point she had felt well, and was able to eat without difficulty. In March she had an ERCP with stent which resulted in a bile leak and on 04/15 she had and episode of Takotsubo's/Stress-induced cardiomyopathy. She complained of epigastric pain that is tolerable following multiple doses of morphine. [place] [id number] and evidence of acute pancreatitis on CT abd/pel. She was admitted for acute pancreatitis and treated in the usual fashion with NPO status with slow advancement as tolerated to low fat diet. She was given IVFs, pain medicine, and started on Protonix bid. She was seen by GI who felt that this may have been triggered by either her ACEI or her statin drugs, both of which were new in the past few weeks. Both of those medications were stopped. Her lipase returned to normal. Gallbladder US showed no evidence of obstruction; LFTs remained normal throughout. As per above, she had an episode of left shoulder pain the day of discharge that felt similar to her presentation of her Takotsubo's, but cardiac biomarkers were serially negative and ECG was normal. SHe was stable for discharge to home in good condition. She has f/u planned with GI for stent removal in 2 weeks, and was also advised to f/u with her PCP within 1-2 weeks. Total Time Spent: Greater than 30 minutes This includes examination of the patient, discharge planning, medication reconciliation, and communication with other providers. Discharge Instructions Please refer to the electronic Patient Visit Report (Discharge Instructions) for additional information. Follow-Up PCP within 1 week GI for ERCP and stent removal as planned in 2 weeks Cardiology as planned within 2 weeks Additional Copies To Guy Gonzales DO
== END 2017-05-05 19:25 | disposition home or self-care (01) | DRG 438 ==
LOC: C.EDB 11:19 → C.2T 14:44 → ENRESERV 15:14 → C.4E 05-02 14:28
PROVIDERS: ADMIT Internal Medicine; ATTEND Family Medicine
DX: K85.90 Acute pancreatitis without necrosis or infection, unspecified (principal); I21.4 Non-ST elevation (NSTEMI) myocardial infarction; E05.00 Thyrotoxicosis with diffuse goiter without thyrotoxic crisis or storm; I25.2 Old myocardial infarction; Z90.710 Acquired absence of both cervix and uterus; Z87.891 Personal history of nicotine dependence

== ENCOUNTER 2017-05-20 08:18 | Day surgery (SDC) | payer BC ==
[2017-05-10 08:24] VITALS: Ht 154.9 cm; Wt 67.3 kg
[~2017-05-20] VITALS: Ht 154.9 cm; Wt 67.3 kg
[~2017-05-20 08:18] MED LIST changes: -CPR500 PO; -LPT40 PO; -LSN5 PO; +PRT40 PO
[2017-05-20] MEDS ORDERED: EpHEDrine SULFATE INJ 50 MG/ML AMP IV PRN (08:45)
[2017-05-20] MEDS ORDERED: ONDANSETRON INJ 2 MG/ML 2 ML VIAL IV PRN (08:45)
[2017-05-20] MEDS ORDERED: ATROPINE SULFATE 0.1 MG/ML 5ML SYR IV PRN (08:45)
[2017-05-20] MEDS ORDERED: FENTANYL CITRATE INJ 50 MCG/1 ML 2 ML VIAL IV PRN (08:45)
--- NOTE | 2017-05-20 09:10 | Endo History and Physical ---
History & Physical Date of Service: May 20, 2017. Chief Complaint: Biliary stent removal Referring Physician: History of Present Illness Patient with a history of choledocholithiasis status post ERCP for gallstone extraction. She presents today for biliary stent removal. Past Surgical History Hx Cardiac Surgery: No (HEART CATH, NO STENT) Hx Abdominal Surgery: Yes (ADRIENNE; LAP CHOLEY, C-SECTIONS) Hx Post-Op Nausea and Vomiting: Yes Hx Cancer Surgery: No Hx Thoracic Surgery: No Hx Orthopedic: No Hx Urinary Tract Surgery: No Social History Smoking Status: Former Smoker Hx Substance Use: No Hx Alcohol Use: No Allergies Coded Allergies: Methimazole (Verified Allergy, Mild, RASH, 05/20/17) Metronidazole (Verified Allergy, Mild, FACIAL BURNING, 05/20/17) Nickel (Verified Allergy, Unknown, CHEAP JEWELRY, RASH/HIVES, 05/20/17) Current Medications Reported Home Medications Medications Dose Route/Sig Max Daily Dose Days Date Category Pantoprazole Sodium (Pantoprazole) 40 Mg Tab 40 Mg PO BID 30 05/05/17 Rx Aspirin EC Low Dose (Aspirin) 81 Mg Ectab 81 Mg PO QAM 04/16/17 Rx Lopressor (Metoprolol Tartrate) 25 Mg Tab 12.5 Mg PO BID 04/16/17 Rx Imitrex (Sumatriptan Succinate) 25 Mg Tab 25 Mg PO UD PRN 04/08/17 Reported Synthroid (Levothyroxine Sodium) 100 Mcg Tab 100 Mcg PO QAM 05/03/16 Reported Vital Signs Weight (Kilograms): 67.27 Height (Feet): 5 Height (Inches): 1 Physical Exam General Appearance: no apparent distress Respiratory/Chest: Auscultation: breath sounds normal Cardiovascular: Heart Auscultation: RRR Abdomen: Inspection & Palpation: soft Assessment and Plan Patient presents today for ERCP for stent removal and repeat cholangiogram to remove any retained common bile duct stones. We have discussed the risks to include bleeding, infection, perforation, pancreatitis and hematoma.
[2017-05-20] MEDS ORDERED: INDOMETHACIN 50 MG SUPP PR SCH (09:30)
[2017-05-20 09:33] VITALS: BP 116/57; PULSE 56; TEMP 37.2; O2SAT 97
[2017-05-20] MEDS ORDERED: LIDOCAINE HCL 2% 2 ML VIAL (20MG/ML) ONE (09:54)
[2017-05-20] MEDS ORDERED: DEXAMETHASONE SOD INJ 4 MG/ML VIAL ONE (09:54)
[2017-05-20] MEDS ORDERED: FENTANYL CITRATE INJ 50 MCG/1 ML 2 ML VIAL ONE (09:54)
[2017-05-20] MEDS ORDERED: PROPOFOL IV EMULSION 10 MG/ML 20 ML VIAL IV ONE (09:54)
[2017-05-20] MEDS ORDERED: ONDANSETRON INJ 2 MG/ML 2 ML VIAL ONE (09:54)
[2017-05-20] MEDS ORDERED: MIDAZOLAM HCL 1 MG/ML 2ML VIAL ONE (09:54)
[2017-05-20] MEDS ORDERED: EpHEDrine SULFATE 50MG/5ML SYR ONE (11:17)
[2017-05-20] MEDS ORDERED: CIPROFLOXACIN 400MG / 200ML D5W IV SCH (12:00)
--- NOTE | 2017-05-20 12:01 | GI REPORT ---
Procedure Date: 05/20/2017 10:38 AM Procedure: ERCP Indications: Abdominal pain of suspected biliary origin Medicines: General Anesthesia, Indocin 100 mg ID Complications: No immediate complications. Estimated blood loss: Minimal. Estimated Blood Loss: Estimated blood loss was minimal. Procedure: Pre-Anesthesia Assessment: - Prior to the procedure, a History and Physical was performed, and patient medications, allergies and sensitivities were reviewed. The patient's tolerance of previous anesthesia was reviewed. - The risks and benefits of the procedure and the sedation options and risks were discussed with the patient. All questions were answered and informed consent was obtained. - Patient identification and proposed procedure were verified prior to the procedure by the physician, the nurse and the collections clerk. The procedure was verified in the procedure room. - Pre-procedure physical examination revealed no contraindications to sedation. - ASA Grade Assessment: III - A patient with severe systemic disease. - After reviewing the risks and benefits, the patient was deemed in satisfactory condition to undergo the procedure. - The anesthesia plan was to use general anesthesia. - Immediately prior to administration of medications, the patient was re-assessed for adequacy to receive sedatives. - The heart rate, respiratory rate, oxygen saturations, blood pressure, adequacy of pulmonary ventilation, and response to care were monitored throughout the procedure. - The physical status of the patient was re-assessed after the procedure. After obtaining informed consent, the scope was passed under direct vision. Throughout the procedure, the patient's blood pressure, pulse, and oxygen saturations were monitored continuously.The ERCP was accomplished without difficulty. The patient tolerated the procedure well. The scope was introduced through the mouth, and advanced to the duodenum and used to cannulate the bile duct. Findings: A mental health nurse film of the abdomen was obtained. Surgical clips, consistent with previous cholecystectomy, were seen in the area of the right upper quadrant of the abdomen. Two stents ending in the main bile duct were seen. Two stents were removed from the biliary tree using a Raptor grasping device. A biliary sphincterotomy had been performed. The sphincterotomy appeared open. The bile duct was deeply cannulated with the short-nosed traction sphincterotome (Omni 35) and 0.035 Met2 guidewire. Contrast was injected. I personally interpreted the bile duct images. Contrast extended to the entire biliary tree. A cholecystectomy had been performed. The main bile duct was severely dilated. The largest diameter was 18 mm. The lower third of the main bile duct and middle third of the main bile duct contained multiple stones, the largest of which was 15 mm in diameter. The lower third of the main bile duct was successfully dilated with a 12-13.5-15 mm x 5.5 cm CRE balloon (to a maximum balloon size of 15 mm) dilator held inflated for 3 minutes. The biliary tree was swept with an 15 mm balloon, 18 mm balloon and 20 mm balloon starting at the bifurcation multiple times (from below injectiona). Three pale pigmented stones were removed. No stones remained on occlusion cholangiogram (somewhat limited due to the size of the duct). The endoscope was withdrawn from the patient. Impression: - Two stents were removed from the biliary tree. - Prior biliary endoscopic sphincterotomy appeared open. - The patient has had a cholecystectomy. - The entire main bile duct was severely dilated. - The lower third of the main bile duct was successfully dilated to 15 mm. - Choledocholithiasis was found. Complete removal was accomplished by balloon extraction. Recommendation: - Avoid aspirin and nonsteroidal anti-inflammatory medicines for 1 week. - Cipro (ciprofloxacin) 500 mg PO BID for 3 days. - Observe patient's clinical course following today's ERCP with therapeutic intervention. Guy Gonzales D.O. Guy Gonzales, 05/20/2017 12:01:07 PM This report has been signed electronically. Note Initiated On: 05/20/2017 10:38 AM I attest to the content of the Intraoperative Record and orders documented therein, exceptions below
--- NOTE | 2017-05-20 12:02 | [facility] Post Operative Brief Note ---
Immediate Operative Summary Operative Date May 20, 2017. Pre-Operative Diagnosis history of choledocholithiasis status post ERCP for gallstone extraction Post-Operative Diagnosis Dilated common bile duct Several large gallstones in the bile duct Procedure(s) Performed Endoscopic Retrograde Cholangiopancreatography, gallstone extraction Surgeon Dr. April Gonzales Electronic Test Technician Surgeon(s) none Estimated Blood Loss 0 ml Findings Dilated common bile duct Several large gallstones removed today Specimens 1 large calcified gallstone Drains None Anesthesia General Complication(s) None Disposition Recovery Room / PACU
--- NOTE | 2017-05-20 12:03 | Discharge Instructions ---
Endoscopy Patient Instructions Date / Procedure(s) Performed May 20, 2017. ERCP Allergy Information Coded Allergies: Methimazole (Verified Allergy, Mild, RASH, 05/20/17) Metronidazole (Verified Allergy, Mild, FACIAL BURNING, 05/20/17) Nickel (Verified Allergy, Unknown, CHEAP JEWELRY, RASH/HIVES, 05/20/17) Discharge Date / Findings May 20, 2017. Several large gallstones removed Biliary stents removed Medication Instructions Reported Home Medications Medications Dose Route/Sig Max Daily Dose Days Date Category Pantoprazole Sodium (Pantoprazole) 40 Mg Tab 40 Mg PO BID 30 05/05/17 Rx Aspirin EC Low Dose (Aspirin) 81 Mg Ectab 81 Mg PO QAM 04/16/17 Rx Lopressor (Metoprolol Tartrate) 25 Mg Tab 12.5 Mg PO BID 04/16/17 Rx Imitrex (Sumatriptan Succinate) 25 Mg Tab 25 Mg PO UD PRN 04/08/17 Reported Synthroid (Levothyroxine Sodium) 100 Mcg Tab 100 Mcg PO QAM 05/03/16 Reported Provider Instructions Activity Restrictions - No exercising or heavy lifting for 24 hours. - Do not drink alcohol the day of the procedure. - Do not drive a car or operate machinery until the day after the procedure. - Do not make any important decisions or sign important papers in 24 hours after the procedure. Following Day: - Return to full activity which may include returning to work/school. Diet Clear liquid diet today Treatment For Common After Affects For mild abdominal pain, bloating, or excessive gas: - Rest - Eat lightly - Lie on right side Follow-Up Information Follow-up with Dr. Gonzales as needed Cipro 500 mg twice daily for 3 days Liquid diet today. Anesthesia Information What You Should Know You have had a procedure that required some medicine to reduce anxiety and discomfort. This treatment is called moderate sedation. After receiving the treatment, you may be sleepy, but you will be able to breathe on your own. The effects of the treatment may last for several hours. Follow these instructions along with Activity/Diet recommendations noted above: * Do NOT do anything where dizziness or clumsiness would be dangerous. * Rest quietly at home today, then you can be up and about tomorrow. * Have a responsible person stay with you the rest of today. * You may have had an I.V. today. If so, you may take the dressing off later today. Recommendations Call your doctor if: * Trouble breathing * Continuous vomiting for more than 24 hours * Temperature above 101 degrees * Severe abdominal pain or bloating * Pain not relieved by pain medicine ordered * There is increased drainage or redness from any incision * A large amount of rectal bleeding greater than 2-3 tablespoons. (If you had a polyp/s removed or have hemorrhoids, a small amount of blood - from the rectum is to be expected.) * You have any unanswered questions or concerns. IN THE EVENT OF A SERIOUS EMERGENCY, GO TO THE NEAREST EMERGENCY ROOM Your discharge instructions were prepared by provider Guy Gonzales. Patient Instructions Signature Page Priyanka Bowen Patient (or Guardian) Signature/Date: I have read and understand the instructions given to me by my caregivers. Caregiver/RN/Doctor Signature/Date: The above-named patient and/or guardian has received patient instructions on this date. + Original Patient Signature Page (only) stays with chart. Please make copy for patient.
--- NOTE | 2017-05-20 12:04 | DIAGNOSTIC IMAGING REPORT ---
ERCP BILIARY DUCTAL CLINICAL HISTORY: ERCP IN OR 05/20/17 COMPARISON STUDY: CT scan dated 05/01/2017 FLUOROSCOPY TIME: 195 seconds. NUMBER OF FLUOROSCOPIC IMAGES: 9 FINDINGS: Fluoroscopic spot images from an ERCP are provided for interpretation. The common bile duct was cannulated and contrast was instilled. Initial images reveal a filling defect within the common bile duct. It is unclear whether this represents an air bubble. A balloon catheter was inflated and swept through the duct. There are surgical clips within the right upper quadrant consistent with a prior cholecystectomy. IMPRESSION: Fluoroscopic spot images obtained during ERCP as described above Electronically signed by: Sae Lopez M.D. 05/20/2017 12:03 PM Dictated Date/Time: 05/20/2017 12:01 PM
--- NOTE | 2017-05-20 12:31 | Anesthesiology Progress Note ---
Anesthesia Post Op Note Date & Time May 20, 2017 at 12:31 Vital Signs Pain Intensity: 0 Vital Signs Past 12 Hours Date Time Temp Pulse Resp B/P (MAP) Pulse Ox O2 Delivery O2 Flow Rate FiO2 05/20/17 11:46 36.1 68 16 120/69 100 Oxymask 7 05/20/17 09:33 37.2 56 18 116/57 (76) 97 Room Air Notes Mental Status: alert / awake / arousable, participated in evaluation Pt Amnestic to Procedure: Yes Nausea / Vomiting: adequately controlled Pain: adequately controlled Airway Patency, RR, SpO2: stable & adequate BP & HR: stable & adequate Hydration State: stable & adequate Anesthetic Complications: no major complications apparent
[2017-05-20 12:45] VITALS: BP 109/57; PULSE 53; TEMP 36.4; O2SAT 98
[2017-05-20 13:15] VITALS: BP 123/58; PULSE 53; TEMP 36.3; O2SAT 98
[2017-05-20 13:44] VITALS: BP 127/62; PULSE 55; O2SAT 98
== END 2017-05-20 15:16 | disposition home or self-care (01) ==
LOC: C.ACU 08:18
PROVIDERS: ATTEND Internal Medicine Gastroenterology
DX: K80.50 Calculus of bile duct without cholangitis or cholecystitis without obstruction (principal); Z90.49 Acquired absence of other specified parts of digestive tract; Z87.891 Personal history of nicotine dependence; Z90.710 Acquired absence of both cervix and uterus; Z90.89 Acquired absence of other organs; Z98.890 Other specified postprocedural states; Z79.899 Other long term (current) drug therapy

== ENCOUNTER → 2017-09-16 | Outpatient (CLI) | payer BC ==
[~2017-09-16] MED LIST changes: -ASPEC81 PO; +ASPI-320 PO
--- NOTE | 2017-09-16 08:03 | DIAGNOSTIC IMAGING REPORT ---
ABDOMINAL ULTRASOUND, RIGHT UPPER QUADRANT HISTORY: Upper abdominal pain. Evaluate for common bile duct stone. COMPARISON: Right upper quadrant ultrasound April 28, [address] of the abdomen and pelvis May 01, 2017. FINDINGS: Liver morphology is normal and no hepatic lesions are identified. There is possible pneumobilia, as shown on CT of May 01, 2017. The common bile duct is obscured on this examination. Pancreatic body is normal. Head and tail are obscured. There is no right hydronephrosis. IMPRESSION: 1. Obscured common bile duct due to overlying bowel gas. 2. Possible pneumobilia as shown on CT of May 01, 2017. 3. Partially obscured pancreas. Electronically signed by: Addi Gaspar M.D. 09/16/2017 8:01 AM Dictated Date/Time: 09/16/2017 7:58 AM
[2017-09-16 09:47] LABS: ALBUMIN 3.6 gm/dl (3.4-5.0); ALT/SGPT 32 U/L (12-78); AST/SGOT 17 U/L (15-37); BLOOD UREA NITROGEN 15 mg/dl (7-18); CALCIUM 9.3 mg/dl (8.5-10.1); CARBON DIOXIDE 29 mmol/L (21-32); CREATININE 0.73 mg/dl (0.60-1.20); GLUCOSE 78 mg/dl (70-99); SODIUM 141 mmol/L (136-145)
[2017-09-16 09:49] LABS: ALKALINE PHOSPHATASE 98 U/L (45-117); TOTAL PROTEIN 7.4 gm/dl (6.4-8.2)
== END | disposition home or self-care (01) ==
LOC: C.ULTR 06:33
PROVIDERS: ATTEND Internal Medicine Gastroenterology
DX: R10.10 Upper abdominal pain, unspecified (principal)

== ENCOUNTER 2022-11-23 17:58 | Inpatient (IN) ==
[2022-11-23] MEDS ORDERED: MoRPHine SULFATE 10 MG/ML CARP/VIAL IV STA (18:46)
[2022-11-23] MEDS ORDERED: SODIUM CHLORIDE 0.9% 1000ML 1,000 ML IV ONE (18:46)
[2022-11-23] MEDS ORDERED: ONDANSETRON INJ 2 MG/ML 2 ML VIAL IV STA (18:46)
--- NOTE | 2022-11-23 18:47 | Emergency Department Note ---
Impression & Plan Abdominal pain, Leukocytosis, Elevated bilirubin ED Provider Note NAME: CINDI ZAVALA AGE: 61 SEX: F : 1960 ARRIVES VIA: Walk-In INFORMANT: Patient ED PROVIDER(S): Trent Duarte DO CHIEF COMPLAINT: abdominal pain and vomiting HPI: Patient is a 61-year-old female who presents ER for epigastric abdominal pain with a past medical history of pancreatitis and choledocholithiasis. She notes this feels exactly like her previous bouts of pancreatitis. Pain is in the mid abdomen and goes through to the back. Associated with nausea and unable to eat anything. Has not vomited since Tuesday. No dysuria, urgency, or frequency. The pain has been getting worse. She called her GI doctor after being evaluated here and eventually came back in as symptoms have been getting worse. She notes that she had inflammation around the head of her pancreas following the CT scan performed yesterday. PAST MEDICAL HISTORY:See Below PAST SURGICAL HISTORY:See Below FAMILY HISTORY:See Below SOCIAL HISTORY:See Below HOME MEDICATIONS:See Below ALLERGIES:See Below VITALS:See Below PHYSICAL EXAMINATION: GENERAL: Sitting up in bed, alert, well appearing, well nourished, no distress, non-toxic EYE EXAM: normal conjunctiva. OROPHARYNX: mucous membranes are moist LUNGS: Clear to auscultation. Normal chest wall mechanics HEART: no murmurs, S1 normal and S2 normal ABDOMEN: abdomen soft, tender palpation in the mid abdomen, normo-active bowel sounds, no masses, no rebound or guarding. UPPER EXTREMITIES: upper extremities are grossly normal. LOWER EXTREMITIES: No pitting edema. NEURO EXAM: Normal sensorium, cranial nerves II-XII grossly intact, normal speech, no gross weakness of arms, no gross weakness of legs. MEDICAL DECISION MAKING: Patient is a 61-year-old female who presents ER for above-stated complaint. IV was established blood work was obtained. External records reviewed. Labs show leukocytosis of 13,000. No significant anemia. BMP along with LFTs was unremarkable. T. bili slightly elevated at 1.8 up from 0.6 yesterday. Lipase was normal. UA was contaminated with multiple epithelial cells. COVID was negative. CT was reviewed from yesterday which showed inflammation and dilation of the hepatic and CBD tracking down to some narrowing at the head of the pancreas. This was discussed with Dr. Castro who recommended transfer as we have no biliary GI present in house this week. I consulted Dr. Currie at [facility] from gastroenterology who agrees that the patient should be transferred to them. Following this I discussed with Dr. Willis from the hospital service at [facility] who accepted the patient. Transfer center noted that this will be about 24 hours. With this I discussed the case with Dr. Adams for admission to our hospital service. Patient was given IV fluids, morphine as well as Zosyn. Updated bedside. Triage Nursing notes reviewed. Limited review of prior medical records performed Vital Signs: reviewed and remarkable for HTN and tachy Differential diagnosis: Differential diagnoses includes but is not limited to gastritis, peptic ulcer disease, GERD, gallbladder disease, pancreatitis, small bowel obstruction, appendicitis, diverticulitis, hernia, urinary tract infection, torsion, perforation, trauma, infectious. ER treatment provided: See below Diagnostics interpreted by me include EKG and cardiac monitoring as listed below: -Cardiac Monitoring: An order was placed for continuous cardiac monitoring. The monitor shows a rate of 90 with sinus rhythm. -ECG: none -Laboratory studies:Interpreted by me as stated above in MDM and shown below. Imaging studies: Xrays: As interpreted by me:none CTs show: none US GALLBLADDER: Ultrasound gallbladder was negative Consultation(s): As described in MDM discussed with Dr. Castro from our GI service, Dr. Currie from [facility] GI as well as Dr. Araujo and Dr. 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 Styles in [place] Surgical History History of cardiac cath 2017 > no stents History of section x2 History of cholecystectomy History of ERCP MULTIPLE History of hysterectomy History of tonsillectomy and adenoidectomy History of tooth extraction Nausea and vomiting after administration of anesthetic agent Family History Mother Hypertension Aortic aneurysm Hyperlipidemia Father Heart disease Myocardial infarction Grandmother (Paternal) Leukemia Brother Cancer Social History Smoking Status: Former smoker Second Hand Exposure: Yes (IN THE PAST); Do You Dip or Chew Tobacco: No; Hx Alcohol Use: Yes Alcohol Intake Frequency Comment: Rare Preferred Language: Yi Communication Ability: Effective Service Car Operator Required: No Beliefs That Will Affect Care: None Current Living Situation: Alone Feels Safe at Home: Yes Assistive Devices: Glasses Allergies Allergies Allergy/AdvReac Type Severity Reaction Status Date / Time methimazole Allergy Mild RASH Verified 11/23/22 18:29 metronidazole Allergy Mild FACIAL Verified 11/23/22 18:29 BURNING nickel Allergy Mild CHEAP Verified 11/23/22 18:29 JEWELRY, RASH/HIVES Home Meds Home Medications Medication Instructions Recorded Confirmed sumatriptan succinate 50 mg tablet See Rx Instructions PO .COMPLEX 10/17/20 11/23/22 PRN Migraine Headache metoprolol succinate 25 mg 12.5 mg PO DAILY PRN pvc 10/29/20 11/23/22 tablet,extended release 24 hr levothyroxine 88 mcg capsule 88 mcg PO QAM 05/24/22 11/23/22 prednisolone acetate 1 % eye 1 drp ophthalmic (eye) QID 11/23/22 11/23/22 drops,suspension tirzepatide 2.5 mg/0.5 mL 2.5 mg subcut .EVERY 7 DAYS 11/23/22 11/23/22 subcutaneous pen injector (Jose) valacyclovir 1 gram tablet 1,000 mg PO TID 11/23/22 11/23/22 Results & Data (ED) Vital Signs Vital Signs - 24 hr 11/23/22 18:02 11/23/22 18:35 11/23/22 18:36 Temperature 36.5 C Temperature Source Temporal Artery Scan Pulse Rate 102 H Pulse Rate [Apical] 97 H Pulse Rhythm Regular Pulse Rhythm [Apical] Regular Respiratory Rate 20 18 Respiratory Effort / Characteristics Non-Labored Spontaneous Non-Labored Respiratory Depth Normal Normal Respiratory Pattern Regular Blood Pressure 155/84 H Blood Pressure [Left Arm] 169/74 H Blood Pressure Mean 107 Blood Pressure Mean [Left Arm] 105 Pulse Oximetry 95 99 99 Oxygen Delivery Method Room Air Room Air Room Air Sepsis Recent Fever Within 48 Hours No Sepsis New/Unexplained Change in Mental Status No Sepsis Action Taken by Nursing No Action Required 11/23/22 18:42 11/23/22 21:19 Temperature Temperature Source Pulse Rate 102 H Pulse Rate [Apical] 97 H Pulse Rhythm Pulse Rhythm [Apical] Respiratory Rate 18 Respiratory Effort / Characteristics Respiratory Depth Respiratory Pattern Blood Pressure Blood Pressure [Left Arm] 163/78 H Blood Pressure Mean Blood Pressure Mean [Left Arm] 106 Pulse Oximetry 98 Oxygen Delivery Method Room Air Sepsis Recent Fever Within 48 Hours Sepsis New/Unexplained Change in Mental Status Sepsis Action Taken by Nursing Laboratory Data 11/23/22 18:37 11/23/22 18:37 Lab Results 11/23/22 11/23/22 11/23/22 Range/Units 18:37 18:37 21:18 WBC 13.13 H (4.8-10.8) K/ul RBC 4.68 (4.20-5.40) M/uL Hgb 14.4 (12.0-16.0) g/dl Hct 41.4 (37.0-47.0) % MCV 88.5 (80.0-100.0) fL MCH 30.8 (25.0-34.0) pg MCHC 34.8 (32.0-36.0) g/dL RDW Std Deviation 47.9 H (36.4-46.3) fL RDW Coeff of Dedrick 15.1 H (11.5-14.5) % Plt Count 143 (130-400) K/uL MPV 12.8 H (9.4-12.4) fL Immature Gran % (Auto) 0.5 % Neut % (Auto) 84.3 % Lymph % (Auto) 4.6 % [place] % (Auto) 10.3 % Eos % (Auto) 0.1 % Baso % (Auto) 0.2 % Neut # (Auto) 11.08 H (1.40-6.50) K/uL Lymph # (Auto) 0.60 L (1.2-3.4) K/uL [place] # (Auto) 1.35 H (0.11-0.59) K/uL Eos # (Auto) 0.01 (0-0.50) K/uL Baso # (Auto) 0.03 (0-0.2) K/uL Immature Gran # (Auto) 0.06 (0.01-0.20) K/uL Sodium 132 L (136-145) mmol/L Potassium 3.9 (3.5-5.1) mmol/L Chloride 98 (98-107) mmol/L Carbon Dioxide 23 (21-32) mmol/L Anion Gap 11 (3-11) BUN 11 (6-23) mg/dl Creatinine 0.83 (0.6-1.2) mg/dl Est Cr Clr Drug Dosing 73.8 ml/min Est GFR ( Amer) 87.6 ml/min Est GFR (Non-Af Amer) 75.6 ml/min BUN/Creatinine Ratio 13.3 (10-20) Glucose 105 H (70-99(Fasting)) mg/dl Lactate 1.2 (0.4-2.0) mmol/L Calcium 9.4 (8.6-10.3) mg/dl Total Bilirubin 1.8 H D (0.2-1.0) mg/dl AST 33 (13-39) U/L ALT 35 (7-52) U/L Alkaline Phosphatase 112 H (34-104) U/L Total Protein 7.5 (6.0-8.3) gm/dl Albumin 4.0 (3.4-5.0) gm/dl Globulin 3.5 (2.5-4.0) gm/dl Albumin/Globulin Ratio 1.1 (0.9-2) Lipase 14 (11-82) U/L Urine Color Urine Appearance (Clear) Urine pH (4.5-7.5) Ur Specific [place] (1.000-1.030) Urine Protein (Negative) Urine Glucose (UA) (Negative) Urine Ketones (Negative) Urine Blood (Negative) Urine Nitrite (Negative) Urine Bilirubin (Negative) Urine Urobilinogen (Negative) Ur Leukocyte Esterase (Negative) Urine WBC (Auto) (0-5) /hpf Urine RBC (Auto) (0-4) /hpf U Hyaline Cast (Auto) (0-5) /lpf U Epithel Cells (Auto) (0-5) /lpf Urine Bacteria (Auto) (Negative) Ur Renal Epithelial Cell SARS-CoV-2, RNA, NAAT (NEGATIVE) 11/23/22 11/23/22 Range/Units 21:20 21:20 WBC (4.8-10.8) K/ul RBC (4.20-5.40) M/uL Hgb (12.0-16.0) g/dl Hct (37.0-47.0) % MCV (80.0-100.0) fL MCH (25.0-34.0) pg MCHC (32.0-36.0) g/dL RDW Std Deviation (36.4-46.3) fL RDW Coeff of Dedrick (11.5-14.5) % Plt Count (130-400) K/uL MPV (9.4-12.4) fL Immature Gran % (Auto) % Neut % (Auto) % Lymph % (Auto) % [place] % (Auto) % Eos % (Auto) % Baso % (Auto) % Neut # (Auto) (1.40-6.50) K/uL Lymph # (Auto) (1.2-3.4) K/uL [place] # (Auto) (0.11-0.59) K/uL Eos # (Auto) (0-0.50) K/uL Baso # (Auto) (0-0.2) K/uL Immature Gran # (Auto) (0.01-0.20) K/uL Sodium (136-145) mmol/L Potassium (3.5-5.1) mmol/L Chloride (98-107) mmol/L Carbon Dioxide (21-32) mmol/L Anion Gap (3-11) BUN (6-23) mg/dl Creatinine (0.6-1.2) mg/dl Est Cr Clr Drug Dosing ml/min Est GFR ( Amer) ml/min Est GFR (Non-Af Amer) ml/min BUN/Creatinine Ratio (10-20) Glucose (70-99(Fasting)) mg/dl Lactate (0.4-2.0) mmol/L Calcium (8.6-10.3) mg/dl Total Bilirubin (0.2-1.0) mg/dl AST (13-39) U/L ALT (7-52) U/L Alkaline Phosphatase (34-104) U/L Total Protein (6.0-8.3) gm/dl Albumin (3.4-5.0) gm/dl Globulin (2.5-4.0) gm/dl Albumin/Globulin Ratio (0.9-2) Lipase (11-82) U/L Urine Color Dark Yellow Urine Appearance Clear (Clear) Urine pH 5.5 (4.5-7.5) Ur Specific [place] 1.041 H (1.000-1.030) Urine Protein 1+ H (Negative) Urine Glucose (UA) Negative (Negative) Urine Ketones 4+ H (Negative) Urine Blood Trace H (Negative) Urine Nitrite Negative (Negative) Urine Bilirubin Negative (Negative) Urine Urobilinogen Negative (Negative) Ur Leukocyte Esterase 2+ H (Negative) Urine WBC (Auto) >30 H (0-5) /hpf Urine RBC (Auto) 0-4 (0-4) /hpf U Hyaline Cast (Auto) 10-30 H (0-5) /lpf U Epithel Cells (Auto) >30 H (0-5) /lpf Urine Bacteria (Auto) Negative (Negative) Ur Renal Epithelial Cell Not Reportable SARS-CoV-2, RNA, NAAT NEGATIVE (NEGATIVE) Administered Medications Discontinued Medications Sodium Chloride (Nss 1000ml) 1,000 mls @ 999 mls/hr IV .Q1H1M ONE Stop: 11/23/22 19:46 Last Infusion: 11/23/22 20:48 Dose: 0 mls/hr Documented By: Admin: 11/23/22 19:34 Dose: 999 mls/hr Documented By: ERICH Piperacillin Sod/Tazobactam Sod (Zosyn) 4.5 gm in 120 mls @ 240 mls/hr IV NOW ONE Stop: 11/23/22 20:57 Last Infusion: 11/23/22 21:43 Dose: 0 mls/hr Documented By: Admin: 11/23/22 21:11 Dose: 240 mls/hr Documented By: ERICH Lactated Ringer's (Lr) 1,000 mls @ 999 mls/hr IV .Q1H1M ONE Stop: 11/23/22 21:46 Last Admin: 11/23/22 21:23 Dose: 999 mls/hr Documented By: ERICH Morphine Sulfate (Morphine Sulfate 10 Mg/Ml Carp/Vial) 6 mg IV NOW STA Stop: 11/23/22 18:47 Last Admin: 11/23/22 19:34 Dose: 6 mg Documented By: ERICH Norepinephrine Bitartrate (Norepinephrine/D5w 4 Mg/250 Ml) Confirm Administered Dose 4 mg IV .STK-MED ONE Stop: 11/23/22 20:29 Last Admin: 11/23/22 20:40 Dose: Not Given Documented By: ERICH Ondansetron HCl (Ondansetron Inj 2 Mg/Ml 2 Ml Vial) 4 mg IV NOW STA Stop: 11/23/22 18:47 Last Admin: 11/23/22 19:34 Dose: 4 mg Documented By: ERICH Sodium Bicarbonate (Sodium Bicarb 8.4% Inj 50 Meq/50 Ml Syr) Confirm Administered Dose 100 meq IV .STK-MED ONE Stop: 11/23/22 20:29 Last Admin: 11/23/22 20:40 Dose: Not Given Documented By: ERICH Imaging Data Radiologist's Impression: Gallbladder Ultrasound 11/23/22 18:47 Exam(s): US GALLBLADDER EXAM: US Abdomen Limited, Gallbladder CLINICAL HISTORY: Reason for exam: epigastric abd pain. TECHNIQUE: Real-time ultrasound of the right upper quadrant with image documentation. COMPARISON: No relevant prior studies available. FINDINGS: Liver: Hepatic steatosis. Gallbladder: Cholecystectomy. Common bile duct: Dilated common bile duct measures 1 cm. Pneumobilia. No stones. Pancreas: Unremarkable as visualized. IMPRESSION: 1. Hepatic steatosis. 2. Cholecystectomy. 3. Pneumobilia. Electronically signed by: Kadeem Khan MD 11/23/22 21:10 PM Discharge Plan Visit Data Chief Complaint: Illness Stated Complaint: ABDOMINAL PAIN,NAUSEA,FATGUE,WEAKNESS,NOT EATING ED Provider: Trent Duarte Discharge Problem: Abdominal pain, Leukocytosis, Elevated bilirubin Forms Stand Alone Forms: My [facility] Prescriptions Prescriptions: No Action metoprolol succinate 25 mg tablet extended release 24 hr 12.5 mg PO DAILY PRN (Reason: pvc) sumatriptan succinate 50 mg tablet See Rx Instructions PO .COMPLEX PRN (Reason: Migraine Headache) Rx Instructions: take 1 tab at onset of headache; if no relief may repeat 1 tab after at least 2 hrs; max = 4 tabs/24 hr PO levothyroxine 88 mcg Capsule 88 mcg PO QAM Mounjaro 2.5 mg/0.5 mL pen injector 2.5 mg SUBCUT .EVERY 7 DAYS valacyclovir 1 gram tablet 1,000 mg PO TID prednisolone acetate 1 % drops,suspension 1 drp ophthalmic (eye) QID Referrals Referrals: Catherine Ortiz CRNP [Primary Care Provider] -
[2022-11-23 18:59] LABS: Basophils # (auto) 0.03 K/uL (0-0.2); Basophils % (auto) 0.2 %; Eosinophils # (auto) 0.01 K/uL (0-0.50); Eosinophils % (auto) 0.1 %; Hematocrit (blood only) 41.4 % (37.0-47.0); Hemoglobin 14.4 g/dl (12.0-16.0); Immature Granulocytes # (auto) 0.06 K/uL (0.01-0.20); Immature Granulocytes % (auto) 0.5 %; Lymphocytes % (auto) 4.6 %; Mean Corpuscular Hemoglobin 30.8 pg (25.0-34.0); Mean Corpuscular Hgb Conc 34.8 g/dL (32.0-36.0); Mean Corpuscular Volume 88.5 fL (80.0-100.0); Mean Platelet Volume 12.8 fL (9.4-12.4); Monocytes # (auto) 1.35 K/uL (0.11-0.59); Monocytes % (auto) 10.3 %; Neutrophils # (auto) 11.08 K/uL (1.40-6.50); Neutrophils % (auto) 84.3 %; Platelet Count 143 K/uL (130-400); RDW Coefficient of Variation 15.1 % (11.5-14.5); RDW Standard Deviation 47.9 fL (36.4-46.3); Red Blood Count 4.68 M/uL (4.20-5.40); White Blood Count 13.13 K/ul (4.8-10.8)
[2022-11-23 19:16] LABS: Albumin Globulin Ratio 1.1 (0.9-2); BUN Creatinine Ratio 13.3 (10-20); Bilirubin,Total 1.8 mg/dl (0.2-1.0); Calcium 9.4 mg/dl (8.6-10.3); Creatinine Clr Calc Pharmacy 73.8 ml/min; Est GFR (African American) 87.6 ml/min; Est GFR (Non-African American) 75.6 ml/min; Globulin 3.5 gm/dl (2.5-4.0); Potassium 3.9 mmol/L (3.5-5.1); Total Protein 7.5 gm/dl (6.0-8.3)
[2022-11-23] MEDS ORDERED: PIPERACILLIN/TAZOBACTAM 4.5 GM/120 ML BAG IV ONE (20:28)
[2022-11-23] MEDS ORDERED: NOREPINEPHRINE/D5W 4 MG/250 ML IV ONE (20:28)
[2022-11-23] MEDS ORDERED: SODIUM BICARB 8.4% INJ 50 MEQ/50 ML SYR IV ONE (20:28)
--- NOTE | 2022-11-23 20:30 | History & Physical Report ---
Date of Service November 23, 2022 Assessment & Plan (1) Abdominal pain, acute, right upper quadrant: Plan: -Admit to PCU on tele -Currently stable, symptoms resolved after morphine and zofran -Presented to the ED on 11/21 with abd pain and nausea. CT of the abd/pelvis w/ con at that time showed "distention of the common hepatic duct and intrahepatic biliary system with abrupt narrowing at the level of the pancreatic head and sphincter of Oddi with mild enhancement of the wall, cannot exclude inflammatory process versus stricture versus mass.". The patient had normal LFT's and her symptoms improved with IV fluids and antiemetics so she was discharged home. -Presented again today with continued symptoms including poor oral intake -T-bili today at 1.8 from 0.6 on 11/21, accepted to [facility] for MRCP/ERCP but will not have a bed for 24 hours -S/P 1L NSS and a dose of Zosyn in the ED -Will continue with Zosyn for now -Will give 1L LR bolus on admission then continue with maintenance LR while NPO -Continue NPO until transfer -Gallbladder US ordered by the ED, will follow-up -Will obtain lactate on admission -GI consult placed, will have them follow until transfer -BL SCD's for DVT PPX , hold chemical PPX for now due to MRCP/ERCP in the near future -AM CBC, CMP, Mag, PT/INR (2) Hyponatremia: Plan: -Noted to be 132 today -Likely due to poor oral intake since Tuesday -Patient examines dry today -Continue with IV hydration overnight -Monitor AM renal function and electrolytes (3) Herpes zoster ophthalmicus of right eye: Plan: -Diagnosed approximately 2 weeks ago -Has been on a tapering dose of PO Valtrex and Prednisolone eye drops in the right eye -This is the last day for TID Valtrex and QID Prednisolone eye drops -Tomorrow will decrease frequency of Valtrex to BID tomorrow -Continue QID prednisolone drops in the right eye (4) Hypothyroidism: Plan: -Continue levothyroxine (5) Broken heart syndrome: Plan: -Previous diagnosis -Underwent TTE and heart cath prior to diagnosis per patient -Continue to monitor on tele Plan The patient was discussed with Dr. Nash at the time of the admission History of Present Illness Chief Complaint: abd pain and nausea Primary Care Provider: KAMLESH Clark Priyanka is a 61 year old female with a PMH significant for previous choledocholithiasis causing gallstone pancreatitis S/P ERCP and cholecystectomy in 2021, hypothyroidism, broken heart syndrome, and recent diagnosis of herpes zoster ophthalmicus who presented to the [facility] ED on 11/23/22 for ongoing abd pain, nausea, and poor oral intake. Per chart review, the patient was seen in the [facility] ED on 11/21 for the same complaints. LFT's were stable at that time and CT of the abd/pelvis w/IV con was obtained and read as "1. There is distention of the common hepatic duct and intrahepatic biliary system with abrupt narrowing at the level of the pancreatic head and sphincter of Oddi with mild enhancement of the wall, cannot exclude inflammatory process versus stricture versus mass. Recommend follow-up with MRCP or ERCP if clinically indicated. Nonspecific associated pneumobilia with status post cholecystectomy. 2. Left upper renal pole simple cysts with no further imaging recommended for follow-up. 3. Mild hiatal hernia. 4. Diverticulosis with no signs of diverticulitis. No acute appendicitis. 5. Decompressed transverse and descending colon, difficult to exclude colitis in the appropriate clinical context. Clinical correlation recommended.". The patient was given IV fluids and antiemetics and was discharged home. Today, the patient was noted to be tachycardic with HR in the low 100's but otherwise vitals were stable. Labs were significant for a leukocytosis of 13 with left shift of 11, sodium of 132, total bili of 1.8 (up from 0.6 as of 11/21), alk phos of 112, and lipase of 11. The ED staff spoke with GI who does not have anyone on for the next 48 hours who could perform an ERCP so transfer was recommended. The ED staff called [facility] who accepted the patient for transfer. Unfortunately the patient will not have a bed for approximately 24 hours, we were asked to admit the patient for medical management until she can be transferred. Prior to admission the patient was given 6 mg IV morphine, 1L NSS, 4 mg IV Zofran and a dose of Zosyn. At the time of the exam the patient was lying in bed in no acute distress. She confirms symptoms started on Tuesday and have continued with RUQ abd pain, exacerbated with eating, nausea, and non-bloody emesis. She has not been able to eat or drink consistently since her symptoms started. She denies recent fever, chills, changes in vision, hearing, taste, and smell, chest pain, SOB, cough, coffee ground emesis, dysuria, hematuria, melena, diarrhea, LE swelling and re cent trauma. Her symptoms are currently controlled after morphine and zofran. She explains that she has been on a Valacyclovir and Prednisolone eye drop taper for right eye infection. It was diagnosed outpatient and initially treated as pink eye. Since starting treatment for Herpes Zoster Ophthalmicus her symptoms have significantly improved. She confirms that the opacity on her right cornea if from a previous injury and is not new. She understands that she is being admitted here until she is transferred to [facility] and is in agreement with the plan. She is a full code. Please refer to Dr. Nash's attestation for any changes to the treatment plan Allergies Allergy/AdvReac Type Severity Reaction Status Date / Time methimazole Allergy Mild RASH Verified 11/23/22 18:29 metronidazole Allergy Mild FACIAL Verified 11/23/22 18:29 BURNING nickel Allergy Mild CHEAP Verified 11/23/22 18:29 JEWELRY, RASH/HIVES Home Medications Medication Instructions Recorded Confirmed Type sumatriptan succinate 50 mg tablet See Rx Instructions PO .COMPLEX 10/17/20 11/23/22 History PRN Migraine Headache metoprolol succinate 25 mg 12.5 mg PO DAILY PRN pvc 10/29/20 11/23/22 History tablet,extended release 24 hr levothyroxine 88 mcg capsule 88 mcg PO QAM 05/24/22 11/23/22 History prednisolone acetate 1 % eye 1 drp ophthalmic (eye) QID 11/23/22 11/23/22 History drops,suspension tirzepatide 2.5 mg/0.5 mL 2.5 mg subcut .EVERY 7 DAYS 11/23/22 11/23/22 History subcutaneous pen injector (Mounjaro) valacyclovir 1 gram tablet 1,000 mg PO TID 11/23/22 11/23/22 History Past Med/Surg History Medical History Breast fibroadenoma Left > 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 Styles in [place] Surgical History History of cardiac cath 2017 > no stents History of section x2 History of cholecystectomy History of ERCP MULTIPLE History of hysterectomy History of tonsillectomy and adenoidectomy History of tooth extraction Nausea and vomiting after administration of anesthetic agent Family History Mother Hypertension Aortic aneurysm Hyperlipidemia Father Heart disease Myocardial infarction Grandmother (Paternal) Leukemia Brother Cancer Social History Smoking Status: Former smoker Second Hand Exposure: Yes (IN THE PAST); Do You Dip or Chew Tobacco: No; Hx Alcohol Use: Yes Alcohol Intake Frequency Comment: Rare Preferred Language: [place] Islander Communication Ability: Effective Apprentice Cook Required: No Beliefs That Will Affect Care: None Current Living Situation: Alone Feels Safe at Home: Yes Assistive Devices: Glasses Physical Exam Physical Exam: Physical Exam: General: In no acute distress, stated age, well-nourished, non-toxic appearing HEENT: Normocephalic, atraumatic, no scleral icterus, pupils around round, symmetrical, and reactive to light, corneal opacity of the right eye, moist mucus membranes, trachea midline, no thyromegaly Chest/Pulm: No respiratory distress, symmetrical chest expansion, clear breath sounds throughout Cardiac: RRR, no murmurs noted Abdomen: Negative for ascites and bruising, normoactive bowel sounds, soft, tender to palpation in the RUQ with + Lieberman's sign Musculoskeletal: Symmetrical and without signs of acute trauma, upper and lower extremities with full ROM, no atrophy, spasticity, or flaccidity Extremities: Radial, dorsalis pedis, and posterior tibial pulses are intact and symmetrical, no edema noted in the BL LE's Skin: Warm, dry, no rashes , lesions, or scars noted Neuro: Alert and oriented to person, place, month, year, and president, no focal defects, CN II-XII tested and intact, no tremors noted Psych: No acute distress, calm and cooperative during the exam Results & Data Results & Data Vital Signs (Past 12 Hours) Vital Signs Temp Pulse Pulse Resp BP BP Pulse Ox 11/23/22 18:42 102 H 11/23/22 18:36 97 H 18 169/74 H 99 11/23/22 18:35 99 11/23/22 18:02 36.5 C 102 H 20 155/84 H 95 O2 Del Method 11/23/22 18:42 11/23/22 18:36 Room Air 11/23/22 18:35 Room Air 11/23/22 18:02 Room Air Laboratory Results Abnormal lab results 11/23/22 11/23/22 Range/Units 18:37 18:37 WBC 13.13 H (4.8-10.8) K/ul RDW Std Deviation 47.9 H (36.4-46.3) fL RDW Coeff of [place] 15.1 H (11.5-14.5) % MPV 12.8 H (9.4-12.4) fL Neut # (Auto) 11.08 H (1.40-6.50) K/uL Lymph # (Auto) 0.60 L (1.2-3.4) K/uL [place] # (Auto) 1.35 H (0.11-0.59) K/uL Sodium 132 L (136-145) mmol/L Glucose 105 H (70-99(Fasting)) mg/dl Total Bilirubin 1.8 H D (0.2-1.0) mg/dl Alkaline Phosphatase 112 H (34-104) U/L Diagnostic Findings Exam(s): CT ABDOMEN + PELVIS With Contrast IV Amt: 89 ML OPTIRAY 320 EXAM: CT Abdomen and Pelvis With Intravenous Contrast CLINICAL HISTORY: Reason for exam: ruq abd pain. TECHNIQUE: Axial computed tomography images of the abdomen and pelvis with intravenous contrast. Automated exposure control was utilized for the study. A dose lowering technique was utilized adhering to the principles of ALARA. CONTRAST: Patient received 89 ML OPTIRAY 320 of IV contrast COMPARISON: 05/01/2017. FINDINGS: Lung bases: Mild bilateral lower lobe atelectasis. Heart: Unremarkable. No significant pericardial effusion. Normal cardiac size. Mediastinum: Minimal hiatal hernia. ABDOMEN: Liver: Unremarkable. No mass. Gallbladder and bile ducts: The common hepatic duct measures approximately 1.7 cm near the hilum. There is unusual thickening of the wall of the distal common bile duct near the sphincter of Oddi, cannot exclude inflammatory process or stricture versus mass. Status post cholecystectomy with mild biliary distention, more so along the left hepatic lobe along with pneumobilia. Pancreas: Unremarkable. No mass. No ductal dilation. Spleen: Unremarkable. No splenomegaly. Adrenals: Unremarkable. No mass. Kidneys and ureters: Left lower renal pole simple cyst measuring 2 cm. Otherwise normal left kidney. Normal right kidney. No hydronephrosis. Stomach and bowel: The transverse and descending colon are decompressed and therefore difficult to assess. Cannot exclude mild colitis. Diverticulosis throughout the colon with no signs of diverticulitis. No obstruction. PELVIS: Appendix: Normal appendix. Bladder: Unremarkable. No mass. Reproductive: Nonvisualized uterus suggestive of previous hysterectomy. ABDOMEN and PELVIS: Intraperitoneal space: Unremarkable. No free air. No significant fluid collection. Bones/joints: Multilevel degenerative disease of the spine. Minimal retrolisthesis of L4 in relation to L5 in length 3 otherwise no pars defect. No acute fracture. No dislocation. Soft tissues: Unremarkable. Vasculature: Atherosclerotic disease of aorta with no dissection or aneurysm. Lymph nodes: Unremarkable. No enlarged lymph nodes. IMPRESSION: 1. There is distention of the common hepatic duct and intrahepatic biliary system with abrupt narrowing at the level of the pancreatic head and sphincter of Oddi with mild enhancement of the wall, cannot exclude inflammatory process versus stricture versus mass. Recommend follow-up with MRCP or ERCP if clinically indicated. Nonspecific associated pneumobilia with status post cholecystectomy. 2. Left upper renal pole simple cysts with no further imaging recommended for follow-up. 3. Mild hiatal hernia. 4. Diverticulosis with no signs of diverticulitis. No acute appendicitis. 5. Decompressed transverse and descending colon, difficult to exclude colitis in the appropriate clinical context. Clinical correlation recommended. Code Status & VTE Plan Code Status Full code VTE Prophylaxis Plan VTE Prophylaxis will be ordered: Yes Supervising Physician Co-Signing Physician Notes PA Supervision Note: I personally saw and examined the patient. I verified all chase points and agree with EFRAIN Wall with the following exceptions and/or additions: Subjective: 61-year-old female past medical history significant for choledocholithiasis s/p cholecystectomy, Takotsubo cardiomyopathy, Graves' disease, CAD, melanoma presented for several days of nausea and vomiting. She has been told in the recent past that she needs a repeat ERCP as she has a history of choledocholithiasis even after cholecystectomy, and has had recent increase in her N/V symptoms. Noted to be hemodynamically stable in the ER. Lab work notable for an elevated WBC count of 13.13 with a left shift, sodium of 132, significant elevation in T. bili to 1.8 compared to last check on 11/21 of 0.6, also with elevated Alk Phos to 112 but this is relatively stable from labs two days ago. Physical exam: Vitals reviewed Gen: Alert and oriented, NAD HEENT: anicteric sclerae, EOMI CV: RRR no mgr nl S1S2 Pulm: CTAB no wcr Abd: +BS soft NT ND no masses Ext: no edema, 2+ DP pulses Skin: no rashes, warm/dry Neuro: No focal neurologic deficits Labs, Rads, and ECG reviewed Assessment and Plan: Suspected choledocholithiasis: Is accepted for transfer to [facility], as we do not have Gastroenterology with ERCP capabilities in house at this time. RUQ US with pneumobilia and 1cm CBD. Admission for IV fluids, NPO except meds, Zosyn to continue until discharge, which per transfer facility is anticipated to be about 24 hours. GI will follow while admitted. Herpes zoster ophthalmicus: Recent diagnosis, completing steroid drops and Valtrex taper, will continue this. No evidence of rash on face at this time and symptoms have largely resolved. CBC and CMP in the morning, supportive care, IV fluids, and antibiotics until ultimate transfer. Plan otherwise as dictated above. PG Care Time/CCT Total # of Minutes Spent Total Time Spent with Patient: Total time spent is greater than 50% in coordination of care (as documented) at patient's floor/unit and/or counseling patient: Coding Level of Care Code 88352 INT INP/OBS CARE 3/75MIN Medical Decision Making High Complexity Diagnoses Abdominal pain, acute, right upper quadrant R10.11 Hyponatremia E87.1 Herpes zoster ophthalmicus of right eye B02.30 Hypothyroidism E03.9 Broken heart syndrome I51.81
[2022-11-23] MEDS ORDERED: LACTATED RINGER'S 1,000 ML IV ONE (20:46)
[2022-11-23] MEDS ORDERED: MoRPHine SULFATE 2 MG/ML CARP IV PRN (20:47)
--- NOTE | 2022-11-23 21:11 | Ultrasound Report ---
Exam(s): US GALLBLADDER EXAM: US Abdomen Limited, Gallbladder CLINICAL HISTORY: Reason for exam: epigastric abd pain. TECHNIQUE: Real-time ultrasound of the right upper quadrant with image documentation. COMPARISON: No relevant prior studies available. FINDINGS: Liver: Hepatic steatosis. Gallbladder: Cholecystectomy. Common bile duct: Dilated common bile duct measures 1 cm. Pneumobilia. No stones. Pancreas: Unremarkable as visualized. IMPRESSION: 1. Hepatic steatosis. 2. Cholecystectomy. 3. Pneumobilia. Electronically signed by: Kadeem Khan MD 11/23/22 21:10 PM
[2022-11-23 21:38] LABS: Appearance Urine Clear (Clear); Bacteria Urine Automated Negative (Negative); Bilirubin Urine Negative (Negative); Blood Urine Trace (Negative); Color Urine Dark Yellow; Epithelial Cell Urine Auto >30 /lpf (0-5); Glucose Urine UA Negative (Negative); Ketones Urine 4+ (Negative); Leukocyte Esterase Urine 2+ (Negative); Nitrite Urine Negative (Negative); Protein Urine 1+ (Negative); RBC Urine Automated 0-4 /hpf (0-4); Specific Gravity Urine 1.041 (1.000-1.030); Urobilinogen Urine Negative (Negative); WBC Urine Automated >30 /hpf (0-5); pH Urine 5.5 (4.5-7.5)
[2022-11-23] MEDS: LACTATED RINGER'S 1,000 ML IV SCH (23:42)
[2022-11-24] MEDS: ACETAMINOPHEN 1,000 MG/100 ML VIAL IV PRN ×2 (02:46→14:15)
[2022-11-24] MEDS: PIPERACILLIN/TAZOBACTAM 4.5 GM in DEXTROSE 5% 100 ML IV SCH ×2 (04:13→12:22)
[2022-11-24 06:17] LABS: Basophils # (auto) 0.02 K/uL (0-0.2); Basophils % (auto) 0.1 %; Hematocrit (blood only) 35.7 % (37.0-47.0); Immature Granulocytes # (auto) 0.08 K/uL (0.01-0.20); Immature Granulocytes % (auto) 0.6 %; Lymphocytes # (auto) 0.78 K/uL (1.2-3.4); Lymphocytes % (auto) 5.6 %; Mean Corpuscular Hemoglobin 30.3 pg (25.0-34.0); Mean Corpuscular Hgb Conc 33.6 g/dL (32.0-36.0); Mean Corpuscular Volume 90.2 fL (80.0-100.0); Mean Platelet Volume 12.9 fL (9.4-12.4); Monocytes # (auto) 2.31 K/uL (0.11-0.59); Monocytes % (auto) 16.5 %; Neutrophils # (auto) 10.81 K/uL (1.40-6.50); Neutrophils % (auto) 77.2 %; Platelet Count 109 K/uL (130-400); RDW Coefficient of Variation 15.1 % (11.5-14.5); RDW Standard Deviation 49.3 fL (36.4-46.3); Red Blood Count 3.96 M/uL (4.20-5.40)
[2022-11-24 06:30] LABS: Albumin Globulin Ratio 1.1 (0.9-2); Albumin Level 3.2 gm/dl (3.4-5.0); Bilirubin,Total 1.3 mg/dl (0.2-1.0); Calcium 8.5 mg/dl (8.6-10.3); Creatinine Clr Calc Pharmacy 74.7 ml/min; Est GFR (African American) 88.9 ml/min; Est GFR (Non-African American) 76.7 ml/min; Globulin 2.8 gm/dl (2.5-4.0); Magnesium 1.6 mg/dl (1.7-2.4); Potassium 3.6 mmol/L (3.5-5.1)
[2022-11-24 06:45] LABS: INR 1.1 (0.9-1.1); Prothrombin Time 12.1 Seconds (9.0-12.0)
--- NOTE | 2022-11-24 08:31 | Hospitalist Progress Note ---
Date of Service November 24, 2022 Assessment & Plan (1) Abdominal pain, acute, right upper quadrant: Plan: Presented to ER 11/21 w/ abdominal pain and nausea CTAP at that time w/ distention of the common hepatic duct and intrahepatic biliary system with abrupt narrowing at the level of the pancreatic head and sphincter of Oddi with mild enhancement of the wall, cannot exclude inflammatory process versus stricture versus mass. In a patient w/ prior choledocholithiasis/stenting in the past, most recent stent removal last fall Given normal LFTs/symptoms improved with IV fluids and antiemetic and discharged home. 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 Noting dilated CBD to 1cm. GI on consult -- rec transfer for intervention WBC elevation to 14k. LFTs on admission w/ elevated TB to 1.8 from 0.6 and discussed w/ [facility] who accepted in transfer for MRCP/ERCP given no providers inpatient to perform, Dr Araujo. Updated Dr Potter this morning on status/labs/imaging and fever to 39.4C UA not appearing infected, lung exam stable. Suspect from above Remains on Zosyn, NPO (except sips/chips) Continue IVF maintenance as well. IV mag for mag 1.6 Pain control/antiemetics prn Monitor labs /clinical status on repeat Awaiting transfer when bed available (2) Hyponatremia: Plan: 132 on admission, likely from poor PO intake since Tuesday reported IVF as above Repeat improved to 134 and remains on IVF Monitor on repeat if inpatient/no bed, checking TSH if remains low given prior stones/stricture (3) Herpes zoster ophthalmicus of right eye: Plan: Diagnosed approximately 2 weeks ago Has been on a tapering dose of PO Valtrex and Prednisolone eye drops in the right eye Last day for TID Valtrex and QID Prednisolone eye drops --> decreased valtrex to BID for today and remains on prednisolone drops to right eye (4) Hypothyroidism: Plan: Continue levothyroxine when taking PO -- will resume for AM 88mcg daily will repeat TSH w/ AM labs/adjustment as needed (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 The chart was reviewed. Case discussed with EFRAIN Sewell. Agree with assessment and plan Subjective Evaluated this morning. Spoke w/ [facility], Dr Potter -- updated on patient and bed availability - no beds as of yet this Am but waiting for discharges. <Multiple issues w/ stones, stents in the past. Not her first episode. Patient noted fever/chills overnight, woke up in a sweat. Given tylenol, no further fevers. Abdominal pain almost resolved but still not eating much. She notes she went to her [facility] appointment on Tuesday and was given Cipro/Flagyl by oncology (seeing for her melanoma) but she hadn't picked them up yet. No further nausea/vomiting, but did have vomiting, bilious prior to admission. She works at [employer] and was given dose Toradol which did provide some relief but that she had issues w/ nausea/PO intake. Her pain was prior in the right side, currently sipping water without issue/need for pain control. No urinary symptoms, chest pain, shortness of breath, cough. Questions/concerns addressed at this time. Physical Exam Physical Exam: General: WN/WD obese female sitting up in bed, NAD HEENT: head normocephalic, atraumatic, mmm, trachea midline, corneal opacity RIGHT eye Resp: CTA, no w/c/r, on room air CV: RRR, no significant m/r/g, no pitting edema/calf tenderness, pulses palpable GI: +BS, tenderness to palpation RUQ/R flank, soft, no guarding/rigidity : no renteria MSK/Neuro: no focal deficits, no slurred speech Psych: AOx3, cooperative with examination Results & Data Results & Data Vital Signs (Past 12 Hours) Vital Signs Temp Pulse Pulse Pulse Resp BP Pulse Ox 11/24/22 08:16 36.5 C 76 20 103/69 94 11/24/22 07:21 85 11/23/22 23:00 108 H 11/24/22 02:59 39.4 C H 115 H 20 148/69 H 97 11/24/22 00:01 36.6 C 105 H 160/83 H 98 11/23/22 21:19 97 H 18 163/78 H 98 O2 Del Method 11/24/22 08:16 Room Air 11/24/22 07:21 11/23/22 23:00 11/24/22 02:59 Room Air 11/24/22 00:01 Room Air 11/23/22 21:19 Room Air Laboratory Results 11/24/22 11/24/22 11/24/22 Range/Units 05:42 05:42 05:42 WBC 14.00 H (4.8-10.8) K/ul RBC 3.96 L (4.20-5.40) M/uL Hgb 12.0 (12.0-16.0) g/dl Hct 35.7 L (37.0-47.0) % MCV 90.2 (80.0-100.0) fL MCH 30.3 (25.0-34.0) pg MCHC 33.6 (32.0-36.0) g/dL RDW Std Deviation 49.3 H (36.4-46.3) fL RDW Coeff of Dedrick 15.1 H (11.5-14.5) % Plt Count 109 L (130-400) K/uL MPV 12.9 H (9.4-12.4) fL Immature Gran % (Auto) 0.6 % Neut % (Auto) 77.2 % Lymph % (Auto) 5.6 % [place] % (Auto) 16.5 % Eos % (Auto) 0.0 % Baso % (Auto) 0.1 % Neut # (Auto) 10.81 H (1.40-6.50) K/uL Lymph # (Auto) 0.78 L (1.2-3.4) K/uL [place] # (Auto) 2.31 H (0.11-0.59) K/uL Eos # (Auto) 0.00 (0-0.50) K/uL Baso # (Auto) 0.02 (0-0.2) K/uL Immature Gran # (Auto) 0.08 (0.01-0.20) K/uL PT 12.1 H (9.0-12.0) Seconds INR 1.1 (0.9-1.1) Sodium 134 L (136-145) mmol/L Potassium 3.6 (3.5-5.1) mmol/L Chloride 103 (98-107) mmol/L Carbon Dioxide 21 (21-32) mmol/L Anion Gap 10 (3-11) BUN 9 (6-23) mg/dl Creatinine 0.82 (0.6-1.2) mg/dl Est Cr Clr Drug Dosing 74.7 ml/min Est GFR ( Amer) 88.9 ml/min Est GFR (Non-Af Amer) 76.7 ml/min BUN/Creatinine Ratio 11.0 (10-20) Glucose 123 H (70-99(Fasting)) mg/dl Lactate (0.4-2.0) mmol/L Calcium 8.5 L (8.6-10.3) mg/dl Magnesium 1.6 L (1.7-2.4) mg/dl Total Bilirubin 1.3 H (0.2-1.0) mg/dl AST 25 (13-39) U/L ALT 27 (7-52) U/L Alkaline Phosphatase 97 (34-104) U/L Total Protein 6.0 (6.0-8.3) gm/dl Albumin 3.2 L (3.4-5.0) gm/dl Globulin 2.8 (2.5-4.0) gm/dl Albumin/Globulin Ratio 1.1 (0.9-2) Lipase (11-82) U/L Urine Color Urine Appearance (Clear) Urine pH (4.5-7.5) Ur Specific [place] (1.000-1.030) Urine Protein (Negative) Urine Glucose (UA) (Negative) Urine Ketones (Negative) Urine Blood (Negative) Urine Nitrite (Negative) Urine Bilirubin (Negative) Urine Urobilinogen (Negative) Ur Leukocyte Esterase (Negative) Urine WBC (Auto) (0-5) /hpf Urine RBC (Auto) (0-4) /hpf U Hyaline Cast (Auto) (0-5) /lpf U Epithel Cells (Auto) (0-5) /lpf Urine Bacteria (Auto) (Negative) Ur Renal Epithelial Cell SARS-CoV-2, RNA, NAAT (NEGATIVE) 11/23/22 11/23/22 11/23/22 Range/Units 21:20 21:20 21:18 WBC (4.8-10.8) K/ul RBC (4.20-5.40) M/uL Hgb (12.0-16.0) g/dl Hct (37.0-47.0) % MCV (80.0-100.0) fL MCH (25.0-34.0) pg MCHC (32.0-36.0) g/dL RDW Std Deviation (36.4-46.3) fL RDW Coeff of Dedrick (11.5-14.5) % Plt Count (130-400) K/uL MPV (9.4-12.4) fL Immature Gran % (Auto) % Neut % (Auto) % Lymph % (Auto) % [place] % (Auto) % Eos % (Auto) % Baso % (Auto) % Neut # (Auto) (1.40-6.50) K/uL Lymph # (Auto) (1.2-3.4) K/uL [place] # (Auto) (0.11-0.59) K/uL Eos # (Auto) (0-0.50) K/uL Baso # (Auto) (0-0.2) K/uL Immature Gran # (Auto) (0.01-0.20) K/uL PT (9.0-12.0) Seconds INR (0.9-1.1) Sodium (136-145) mmol/L Potassium (3.5-5.1) mmol/L Chloride (98-107) mmol/L Carbon Dioxide (21-32) mmol/L Anion Gap (3-11) BUN (6-23) mg/dl Creatinine (0.6-1.2) mg/dl Est Cr Clr Drug Dosing ml/min Est GFR ( Amer) ml/min Est GFR (Non-Af Amer) ml/min BUN/Creatinine Ratio (10-20) Glucose (70-99(Fasting)) mg/dl Lactate 1.2 (0.4-2.0) mmol/L Calcium (8.6-10.3) mg/dl Magnesium (1.7-2.4) mg/dl Total Bilirubin (0.2-1.0) mg/dl AST (13-39) U/L ALT (7-52) U/L Alkaline Phosphatase (34-104) U/L Total Protein (6.0-8.3) gm/dl Albumin (3.4-5.0) gm/dl Globulin (2.5-4.0) gm/dl Albumin/Globulin Ratio (0.9-2) Lipase (11-82) U/L Urine Color Dark Yellow Urine Appearance Clear (Clear) Urine pH 5.5 (4.5-7.5) Ur Specific [place] 1.041 H (1.000-1.030) Urine Protein 1+ H (Negative) Urine Glucose (UA) Negative (Negative) Urine Ketones 4+ H (Negative) Urine Blood Trace H (Negative) Urine Nitrite Negative (Negative) Urine Bilirubin Negative (Negative) Urine Urobilinogen Negative (Negative) Ur Leukocyte Esterase 2+ H (Negative) Urine WBC (Auto) >30 H (0-5) /hpf Urine RBC (Auto) 0-4 (0-4) /hpf U Hyaline Cast (Auto) 10-30 H (0-5) /lpf U Epithel Cells (Auto) >30 H (0-5) /lpf Urine Bacteria (Auto) Negative (Negative) Ur Renal Epithelial Cell Not Reportable SARS-CoV-2, RNA, NAAT NEGATIVE (NEGATIVE) 11/23/22 11/23/22 Range/Units 18:37 18:37 WBC 13.13 H (4.8-10.8) K/ul RBC 4.68 (4.20-5.40) M/uL Hgb 14.4 (12.0-16.0) g/dl Hct 41.4 (37.0-47.0) % MCV 88.5 (80.0-100.0) fL MCH 30.8 (25.0-34.0) pg MCHC 34.8 (32.0-36.0) g/dL RDW Std Deviation 47.9 H (36.4-46.3) fL RDW Coeff of Dedrick 15.1 H (11.5-14.5) % Plt Count 143 (130-400) K/uL MPV 12.8 H (9.4-12.4) fL Immature Gran % (Auto) 0.5 % Neut % (Auto) 84.3 % Lymph % (Auto) 4.6 % [place] % (Auto) 10.3 % Eos % (Auto) 0.1 % Baso % (Auto) 0.2 % Neut # (Auto) 11.08 H (1.40-6.50) K/uL Lymph # (Auto) 0.60 L (1.2-3.4) K/uL [place] # (Auto) 1.35 H (0.11-0.59) K/uL Eos # (Auto) 0.01 (0-0.50) K/uL Baso # (Auto) 0.03 (0-0.2) K/uL Immature Gran # (Auto) 0.06 (0.01-0.20) K/uL PT (9.0-12.0) Seconds INR (0.9-1.1) Sodium 132 L (136-145) mmol/L Potassium 3.9 (3.5-5.1) mmol/L Chloride 98 (98-107) mmol/L Carbon Dioxide 23 (21-32) mmol/L Anion Gap 11 (3-11) BUN 11 (6-23) mg/dl Creatinine 0.83 (0.6-1.2) mg/dl Est Cr Clr Drug Dosing 73.8 ml/min Est GFR ( Amer) 87.6 ml/min Est GFR (Non-Af Amer) 75.6 ml/min BUN/Creatinine Ratio 13.3 (10-20) Glucose 105 H (70-99(Fasting)) mg/dl Lactate (0.4-2.0) mmol/L Calcium 9.4 (8.6-10.3) mg/dl Magnesium (1.7-2.4) mg/dl Total Bilirubin 1.8 H D (0.2-1.0) mg/dl AST 33 (13-39) U/L ALT 35 (7-52) U/L Alkaline Phosphatase 112 H (34-104) U/L Total Protein 7.5 (6.0-8.3) gm/dl Albumin 4.0 (3.4-5.0) gm/dl Globulin 3.5 (2.5-4.0) gm/dl Albumin/Globulin Ratio 1.1 (0.9-2) Lipase 14 (11-82) U/L Urine Color Urine Appearance (Clear) Urine pH (4.5-7.5) Ur Specific [place] (1.000-1.030) Urine Protein (Negative) Urine Glucose (UA) (Negative) Urine Ketones (Negative) Urine Blood (Negative) Urine Nitrite (Negative) Urine Bilirubin (Negative) Urine Urobilinogen (Negative) Ur Leukocyte Esterase (Negative) Urine WBC (Auto) (0-5) /hpf Urine RBC (Auto) (0-4) /hpf U Hyaline Cast (Auto) (0-5) /lpf U Epithel Cells (Auto) (0-5) /lpf Urine Bacteria (Auto) (Negative) Ur Renal Epithelial Cell SARS-CoV-2, RNA, NAAT (NEGATIVE) Diagnostic Findings Gallbladder Ultrasound 11/23/22 18:47 Exam(s): US GALLBLADDER EXAM: US Abdomen Limited, Gallbladder CLINICAL HISTORY: Reason for exam: epigastric abd pain. TECHNIQUE: Real-time ultrasound of the right upper quadrant with image documentation. COMPARISON: No relevant prior studies available. FINDINGS: Liver: Hepatic steatosis. Gallbladder: Cholecystectomy. Common bile duct: Dilated common bile duct measures 1 cm. Pneumobilia. No stones. Pancreas: Unremarkable as visualized. IMPRESSION: 1. Hepatic steatosis. 2. Cholecystectomy. 3. Pneumobilia. Electronically signed by: Kadeem Khan MD 11/23/22 21:10 PM PG Care Time/CCT Total # of Minutes Spent Total Time Spent with Patient: Total time spent is greater than 50% in coordination of care (as documented) at patient's floor/unit and/or counseling patient: Coding Level of Care Code 67672 SUB INP/OBS CARE 3/50MIN Diagnoses Abdominal pain, acute, right upper quadrant R10.11 Hyponatremia E87.1 Herpes zoster ophthalmicus of right eye B02.30 Hypothyroidism E03.9 Broken heart syndrome I51.81
[2022-11-24] MEDS ORDERED: valACYclovir HCL 500 MG TABLET PO SCH (09:00)
[2022-11-24] MEDS: MAGNESIUM SULFATE / D5W 1 GM/100 ML BAG IV SCH ×2 (09:01→10:50)
[2022-11-24] MEDS: prednisoLONE acetate 1% OP SUSP 5 ML BTL OP SCH ×3 (09:01→16:29)
[2022-11-24] MEDS: LACTATED RINGER'S 1,000 ML IV SCH (09:03)
--- NOTE | 2022-11-24 09:38 | Gastrointestinal Consultation ---
Date of Consultation November 24, 2022 Assessment & Plan (1) Abdominal pain: 61 year old female with history of choledocholithiasis, gallstone pancreatitis S/P ERCP and cholecystectomy in 2021, hypothyroidism admitted through the ED with abd pain, nausea, poor oral intake and fevers - imaging showing CBD dilati on, distention of the common hepatic duct and intrahepatic biliary system with abrupt narrowing at the level of the pancreatic head and sphincter of Oddi with mild enhancement of the wall. She has had leukocytosis and change in Tbili from 0.6 --> 1.8 She was accepted to [facility] [place] for biliary intervention. While inhouse, would keep NPO. IV fluids maintenance. analgesia PRN. antiemetics PRN. Continue IV ABX as doing w/ biliary coverage. Recall as needed while in house. Thank you for allowing us to participate in the care of this patient. Please call with any acute changes, questions or concerns. Please see addendum below with additional recommendation from my supervising physician. Supervising Physician Co-Signing Physician Notes Attending attestation I have seen, examined this patient, and agree with the findings and above by our mid-level provider KAMLESH Blanchard, with the following additions: - adm with mildly elevated LFT's and fevers, increased WBC ct, and ruq pain. Does have pneumobilia which is reassuring. Case discussed last evening and has been accepted for biliary evaluation - Agree with abx, consider MRCP if not transferred - Supportive care History of Present Illness Reason for Consultation: ?ercp Requesting Physician: Fabiola Attending Physician: Carlos Hicks MD History of Present Illness 61 year old female with history of choledocholithiasis, gallstone pancreatitis S/P ERCP and cholecystectomy in 2021, hypothyroidism admitted through the ED with abd pain, nausea, and poor oral intake. GI was asked to evaluate. She notes her pain was identical to previous episodes where she had recurrent choledocholithiasis. Right sided. Sharp, raditated to back/ Some nausea. No vomiting but no appetite. She did have some chills at home, fever last evening. ABD US 2022: . Hepatic steatosis.Cholecystectomy. Pneumobilia. CTAP 2022: There is distention of the common hepatic duct and intrahepatic biliary system with abrupt narrowing at the level of the pancreatic head and sphincter of Oddi with mild enhancement of the wall, cannot exclude inflammatory process versus stricture versus mass. Recommend follow-up with MRCP or ERCP if clinically indicated. Nonspecific associated pneumobilia with status post cholecystectomy. Left upper renal pole simple cysts with no further imaging recommended for follow-up. Mild hiatal hernia. Diverticulosis with no signs of diverticulitis. No acute appendicitis. Decompressed transverse and descending colon, difficult to exclude colitis in the appropriate clinical context. Clinical correlation ERCP 2021: - Prior biliary sphincterotomy appeared open. - Two visibly patent stents from the biliary tree were seen in the major papilla. - The entire main bile duct was severely dilated, acquired. - Choledocholithiasis was found. Complete removal was accomplished by balloon extraction. - Two stents were removed from the biliary tree. - The biliary tree was swept. - Indomethacin given to decrease risk of post-ERCP pancreatitis. Allergies Allergy/AdvReac Type Severity Reaction Status Date / Time methimazole Allergy Mild RASH Verified 11/23/22 18:29 metronidazole Allergy Mild FACIAL Verified 11/23/22 18:29 BURNING nickel Allergy Mild CHEAP Verified 11/23/22 18:29 JEWELRY, RASH/HIVES Home Medications Medication Instructions Recorded Confirmed Type sumatriptan succinate 50 mg tablet See Rx Instructions PO .COMPLEX 10/17/20 11/23/22 History PRN Migraine Headache metoprolol succinate 25 mg 12.5 mg PO DAILY PRN pvc 10/29/20 11/23/22 History tablet,extended release 24 hr levothyroxine 88 mcg capsule 88 mcg PO QAM 05/24/22 11/23/22 History prednisolone acetate 1 % eye 1 drp ophthalmic (eye) QID 11/23/22 11/23/22 History drops,suspension tirzepatide 2.5 mg/0.5 mL 2.5 mg subcut .EVERY 7 DAYS 11/23/22 11/23/22 History subcutaneous pen injector (Mounjaro) valacyclovir 1 gram tablet 1,000 mg PO TID 11/23/22 11/23/22 History Patient History Medical History Breast fibroadenoma Left > 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 Styles > no current issues Melanoma right leg > with removal NSTEMI (non-ST elevated myocardial infarction) 2017 >"broken heart syndrome" not actual nstemi per pt > echo/cath, no further issues Osteoarthritis Pancreatitis 2017 PVCs (premature ventricular contractions) metoprolol for this > follows with PCP Status post gamma knife treatment 2017 > Meningioma > Opdivo treatment>LAST DOSE NOVEMBER 2021 > follows Dr. Styles in [place] Surgical History History of cardiac cath 2017 > no stents History of section x2 History of cholecystectomy History of ERCP MULTIPLE History of hysterectomy History of tonsillectomy and adenoidectomy History of tooth extraction Nausea and vomiting after administration of anesthetic agent Family History Mother Hypertension Aortic aneurysm Hyperlipidemia Father Heart disease Myocardial infarction Grandmother (Paternal) Leukemia Brother Cancer Social History Smoking Status: Former smoker Smoking End Date: 30 years ago; Second Hand Exposure: Yes; Do You Dip or Chew Tobacco: No; Hx Alcohol Use: Yes Alcohol Intake Frequency Comment: Rare Hx Substance Use: No Preferred Language: Moroccan Communication Ability: Effective Dry Lumber Grader Required: No Beliefs That Will Affect Care: None Current Living Situation: Alone Other Information That Helps Us Care for You: No Feels Safe at Home: Yes Safety Concerns: Feels Safe At This Time Assistive Devices: Glasses Review of Systems Review of Systems: All systems reviewed & are unremarkable except as noted in HPI & below Physical Exam Constitutional: WD/WN, vitals as above Respiratory: normal respiratory effort, lungs clear to auscultation Cardiovascular: Rate/Rhythm: regular rate and regular rhythm Gastrointestinal (Abdomen): Inspection/Auscultation: normal bowel sounds Percussion/Palpation: + abdomen tender and abdomen soft; no guarding and abdomen not rigid Skin: no rashes, warm and dry Results & Data Vital Signs (Past 12 Hours) Vital Signs Temp Pulse Pulse Resp BP Pulse Ox O2 Del Method 11/24/22 08:16 36.5 C 76 20 103/69 94 Room Air 11/24/22 07:21 85 11/23/22 23:00 108 H 11/24/22 02:59 39.4 C H 115 H 20 148/69 H 97 Room Air 11/24/22 00:01 36.6 C 105 H 160/83 H 98 Room Air Laboratory Results 11/24/22 11/24/22 11/24/22 Range/Units 05:42 05:42 05:42 WBC 14.00 H (4.8-10.8) K/ul RBC 3.96 L (4.20-5.40) M/uL Hgb 12.0 (12.0-16.0) g/dl Hct 35.7 L (37.0-47.0) % MCV 90.2 (80.0-100.0) fL MCH 30.3 (25.0-34.0) pg MCHC 33.6 (32.0-36.0) g/dL RDW Std Deviation 49.3 H (36.4-46.3) fL RDW Coeff of Dedrick 15.1 H (11.5-14.5) % Plt Count 109 L (130-400) K/uL MPV 12.9 H (9.4-12.4) fL Immature Gran % (Auto) 0.6 % Neut % (Auto) 77.2 % Lymph % (Auto) 5.6 % Clarke % (Auto) 16.5 % Eos % (Auto) 0.0 % Baso % (Auto) 0.1 % Neut # (Auto) 10.81 H (1.40-6.50) K/uL Lymph # (Auto) 0.78 L (1.2-3.4) K/uL Clarke # (Auto) 2.31 H (0.11-0.59) K/uL Eos # (Auto) 0.00 (0-0.50) K/uL Baso # (Auto) 0.02 (0-0.2) K/uL Immature Gran # (Auto) 0.08 (0.01-0.20) K/uL PT 12.1 H (9.0-12.0) Seconds INR 1.1 (0.9-1.1) Sodium 134 L (136-145) mmol/L Potassium 3.6 (3.5-5.1) mmol/L Chloride 103 (98-107) mmol/L Carbon Dioxide 21 (21-32) mmol/L Anion Gap 10 (3-11) BUN 9 (6-23) mg/dl Creatinine 0.82 (0.6-1.2) mg/dl Est Cr Clr Drug Dosing 74.7 ml/min Est GFR ( Amer) 88.9 ml/min Est GFR (Non-Af Amer) 76.7 ml/min BUN/Creatinine Ratio 11.0 (10-20) Glucose 123 H (70-99(Fasting)) mg/dl Lactate (0.4-2.0) mmol/L Calcium 8.5 L (8.6-10.3) mg/dl Magnesium 1.6 L (1.7-2.4) mg/dl Total Bilirubin 1.3 H (0.2-1.0) mg/dl AST 25 (13-39) U/L ALT 27 (7-52) U/L Alkaline Phosphatase 97 (34-104) U/L Total Protein 6.0 (6.0-8.3) gm/dl Albumin 3.2 L (3.4-5.0) gm/dl Globulin 2.8 (2.5-4.0) gm/dl Albumin/Globulin Ratio 1.1 (0.9-2) Lipase (11-82) U/L Urine Color Urine Appearance (Clear) Urine pH (4.5-7.5) Ur Specific [place] (1.000-1.030) Urine Protein (Negative) Urine Glucose (UA) (Negative) Urine Ketones (Negative) Urine Blood (Negative) Urine Nitrite (Negative) Urine Bilirubin (Negative) Urine Urobilinogen (Negative) Ur Leukocyte Esterase (Negative) Urine WBC (Auto) (0-5) /hpf Urine RBC (Auto) (0-4) /hpf U Hyaline Cast (Auto) (0-5) /lpf U Epithel Cells (Auto) (0-5) /lpf Urine Bacteria (Auto) (Negative) Ur Renal Epithelial Cell SARS-CoV-2, RNA, NAAT (NEGATIVE) 11/23/22 11/23/22 11/23/22 Range/Units 21:20 21:20 21:18 WBC (4.8-10.8) K/ul RBC (4.20-5.40) M/uL Hgb (12.0-16.0) g/dl Hct (37.0-47.0) % MCV (80.0-100.0) fL MCH (25.0-34.0) pg MCHC (32.0-36.0) g/dL RDW Std Deviation (36.4-46.3) fL RDW Coeff of Dedrick (11.5-14.5) % Plt Count (130-400) K/uL MPV (9.4-12.4) fL Immature Gran % (Auto) % Neut % (Auto) % Lymph % (Auto) % Clarke % (Auto) % Eos % (Auto) % Baso % (Auto) % Neut # (Auto) (1.40-6.50) K/uL Lymph # (Auto) (1.2-3.4) K/uL Clarke # (Auto) (0.11-0.59) K/uL Eos # (Auto) (0-0.50) K/uL Baso # (Auto) (0-0.2) K/uL Immature Gran # (Auto) (0.01-0.20) K/uL PT (9.0-12.0) Seconds INR (0.9-1.1) Sodium (136-145) mmol/L Potassium (3.5-5.1) mmol/L Chloride (98-107) mmol/L Carbon Dioxide (21-32) mmol/L Anion Gap (3-11) BUN (6-23) mg/dl Creatinine (0.6-1.2) mg/dl Est Cr Clr Drug Dosing ml/min Est GFR ( Amer) ml/min Est GFR (Non-Af Amer) ml/min BUN/Creatinine Ratio (10-20) Glucose (70-99(Fasting)) mg/dl Lactate 1.2 (0.4-2.0) mmol/L Calcium (8.6-10.3) mg/dl Magnesium (1.7-2.4) mg/dl Total Bilirubin (0.2-1.0) mg/dl AST (13-39) U/L ALT (7-52) U/L Alkaline Phosphatase (34-104) U/L Total Protein (6.0-8.3) gm/dl Albumin (3.4-5.0) gm/dl Globulin (2.5-4.0) gm/dl Albumin/Globulin Ratio (0.9-2) Lipase (11-82) U/L Urine Color Dark Yellow Urine Appearance Clear (Clear) Urine pH 5.5 (4.5-7.5) Ur Specific [place] 1.041 H (1.000-1.030) Urine Protein 1+ H (Negative) Urine Glucose (UA) Negative (Negative) Urine Ketones 4+ H (Negative) Urine Blood Trace H (Negative) Urine Nitrite Negative (Negative) Urine Bilirubin Negative (Negative) Urine Urobilinogen Negative (Negative) Ur Leukocyte Esterase 2+ H (Negative) Urine WBC (Auto) >30 H (0-5) /hpf Urine RBC (Auto) 0-4 (0-4) /hpf U Hyaline Cast (Auto) 10-30 H (0-5) /lpf U Epithel Cells (Auto) >30 H (0-5) /lpf Urine Bacteria (Auto) Negative (Negative) Ur Renal Epithelial Cell Not Reportable SARS-CoV-2, RNA, NAAT NEGATIVE (NEGATIVE) 11/23/22 11/23/22 Range/Units 18:37 18:37 WBC 13.13 H (4.8-10.8) K/ul RBC 4.68 (4.20-5.40) M/uL Hgb 14.4 (12.0-16.0) g/dl Hct 41.4 (37.0-47.0) % MCV 88.5 (80.0-100.0) fL MCH 30.8 (25.0-34.0) pg MCHC 34.8 (32.0-36.0) g/dL RDW Std Deviation 47.9 H (36.4-46.3) fL RDW Coeff of Dedrick 15.1 H (11.5-14.5) % Plt Count 143 (130-400) K/uL MPV 12.8 H (9.4-12.4) fL Immature Gran % (Auto) 0.5 % Neut % (Auto) 84.3 % Lymph % (Auto) 4.6 % Clarke % (Auto) 10.3 % Eos % (Auto) 0.1 % Baso % (Auto) 0.2 % Neut # (Auto) 11.08 H (1.40-6.50) K/uL Lymph # (Auto) 0.60 L (1.2-3.4) K/uL Clarke # (Auto) 1.35 H (0.11-0.59) K/uL Eos # (Auto) 0.01 (0-0.50) K/uL Baso # (Auto) 0.03 (0-0.2) K/uL Immature Gran # (Auto) 0.06 (0.01-0.20) K/uL PT (9.0-12.0) Seconds INR (0.9-1.1) Sodium 132 L (136-145) mmol/L Potassium 3.9 (3.5-5.1) mmol/L Chloride 98 (98-107) mmol/L Carbon Dioxide 23 (21-32) mmol/L Anion Gap 11 (3-11) BUN 11 (6-23) mg/dl Creatinine 0.83 (0.6-1.2) mg/dl Est Cr Clr Drug Dosing 73.8 ml/min Est GFR ( Amer) 87.6 ml/min Est GFR (Non-Af Amer) 75.6 ml/min BUN/Creatinine Ratio 13.3 (10-20) Glucose 105 H (70-99(Fasting)) mg/dl Lactate (0.4-2.0) mmol/L Calcium 9.4 (8.6-10.3) mg/dl Magnesium (1.7-2.4) mg/dl Total Bilirubin 1.8 H D (0.2-1.0) mg/dl AST 33 (13-39) U/L ALT 35 (7-52) U/L Alkaline Phosphatase 112 H (34-104) U/L Total Protein 7.5 (6.0-8.3) gm/dl Albumin 4.0 (3.4-5.0) gm/dl Globulin 3.5 (2.5-4.0) gm/dl Albumin/Globulin Ratio 1.1 (0.9-2) Lipase 14 (11-82) U/L Urine Color Urine Appearance (Clear) Urine pH (4.5-7.5) Ur Specific [place] (1.000-1.030) Urine Protein (Negative) Urine Glucose (UA) (Negative) Urine Ketones (Negative) Urine Blood (Negative) Urine Nitrite (Negative) Urine Bilirubin (Negative) Urine Urobilinogen (Negative) Ur Leukocyte Esterase (Negative) Urine WBC (Auto) (0-5) /hpf Urine RBC (Auto) (0-4) /hpf U Hyaline Cast (Auto) (0-5) /lpf U Epithel Cells (Auto) (0-5) /lpf Urine Bacteria (Auto) (Negative) Ur Renal Epithelial Cell SARS-CoV-2, RNA, NAAT (NEGATIVE)
--- NOTE | 2022-11-24 12:32 | Electrocardiogram Report ---
Test Reason : Blood Pressure : / mmHG Vent. Rate : 095 BPM Atrial Rate : 095 BPM P-R Int : 142 ms QRS Dur : 080 ms QT Int : 318 ms P-R-T Axes : 059 045 019 degrees QTc Int : 399 ms Normal sinus rhythm Nonspecific ST and T wave abnormality Abnormal ECG When compared with ECG of 21-NOV-2022 23:11, Nonspecific T wave abnormality, worse in Inferior leads Nonspecific T wave abnormality now evident in Anterolateral leads Confirmed by Benson Jernigan ([id number]) on 11/24/2022 12:32:10 PM Referred By: REFERRED SELF Confirmed By:Mark Jernigan
--- NOTE | 2022-11-24 15:59 | Discharge Summary ---
Date of Service November 24, 2022 Admission HPI Per Admitting Provider Priyanka is a 61 year old female with a PMH significant for previous choledocholithiasis causing gallstone pancreatitis S/P ERCP and cholecystectomy in 2021, hypothyroidism, broken heart syndrome, and recent diagnosis of herpes zoster ophthalmicus who presented to the [facility] ED on 11/23/22 for ongoing abd pain, nausea, and poor oral intake. Per chart review, the patient was seen in the [facility] ED on 11/21 for the same complaints. LFT's were stable at that time and CT of the abd/pelvis w/IV con was obtained and read as "1. There is distention of the common hepatic duct and intrahepatic biliary system with abrupt narrowing at the level of the pancreatic head and sphincter of Oddi with mild enhancement of the wall, cannot exclude inflammatory process versus stricture versus mass. Recommend follow-up with MRCP or ERCP if clinically indicated. Nonspecific associated pneumobilia with status post cholecystectomy. 2. Left upper renal pole simple cysts with no further imaging recommended for follow-up. 3. Mild hiatal hernia. 4. Diverticulosis with no signs of diverticulitis. No acute appendicitis. 5. Decompressed transverse and descending colon, difficult to exclude colitis in the appropriate clinical context. Clinical correlation recommended.". The patient was given IV fluids and antiemetics and was discharged home. Today, the patient was noted to be tachycardic with HR in the low 100's but otherwise vitals were stable. Labs were significant for a leukocytosis of 13 with left shift of 11, sodium of 132, total bili of 1.8 (up from 0.6 as of 11/21), alk phos of 112, and lipase of 11. The ED staff spoke with GI who does not have anyone on for the next 48 hours who could perform an ERCP so transfer was recommended. The ED staff called [facility] who accepted the patient for transfer. Unfortunately the patient will not have a bed for approximately 24 hours, we were asked to admit the patient for medical management until she can be transferred. Prior to admission the patient was given 6 mg IV morphine, 1L NSS, 4 mg IV Zofran and a dose of Zosyn. At the time of the exam the patient was lying in bed in no acute distress. She confirms symptoms started on Tuesday and have continued with RUQ abd pain, exacerbated with eating, nausea, and non-bloody emesis. She has not been able to eat or drink consistently since her symptoms started. She denies recent fever, chills, changes in vision, hearing, taste, and smell, chest pain, SOB, cough, coffee ground emesis, dysuria, hematuria, melena, diarrhea, LE swelling and recent trauma. Her symptoms are currently controlled after morphine and zofran. She explains that she has been on a Valacyclovir and Prednisolone eye drop taper for right eye infection. It was diagnosed outpatient and initially treated as pink eye. Since starting treatment for Herpes Zoster Ophthalmicus her symptoms have significantly improved. She confirms that the opacity on her right cornea if from a previous injury and is not new. She understands that she is being admitted here until [place] [facility] [place] and is in agreement with the plan. She is a full code. Please refer to Dr. Nash's attestation for any changes to the treatment plan Admission Exam Per Admitting Provider Physical Exam: Physical Exam: General:In no acute distress, stated age, well-nourished, non-toxic appearing HEENT:Normocephalic, atraumatic, no scleral icterus, pupils around round, symmetrical, and reactive to light, corneal opacity of the right eye, moist mucus membranes, trachea midline, no thyromegaly Chest/Pulm:No respiratory distress, symmetrical chest expansion, clear breath sounds throughout Cardiac:RRR, no murmurs noted Abdomen:Negative for ascites and bruising, normoactive bowel sounds, soft, tender to palpation in the RUQ with + Lieberman's sign Musculoskeletal:Symmetrical and without signs of acute trauma, upper and lower extremities with full ROM, no atrophy, spasticity, or flaccidity Extremities:Radial, dorsalis pedis, and posterior tibial pulses are intact and symmetrical, no edema noted in the BL LE's Skin:Warm, dry, no rashes , lesions, or scars noted Neuro:Alert and oriented to person, place, month, year, and president, no focal defects, CN II-XII tested and intact, no tremors noted Psych:No acute distress, calm and cooperative during the exam Principal Diagnosis Elevated LFTs, abdominal pain, need for ERCP/MRCP Discharge Exam General: WN/WD obese female sitting up in bed, NAD HEENT: head normocephalic, atraumatic, mmm, trachea midline, corneal opacity RIGHT eye Resp: CTA, no w/c/r, on room air CV: RRR, no significant m/r/g, no pitting edema/calf tenderness, pulses palpable GI: +BS, tenderness to palpation RUQ/R flank, soft, no guarding/rigidity : no renteria MSK/Neuro: no focal deficits, no slurred speech Psych: AOx3, cooperative with examination Discharge Data Allergies Allergy/AdvReac Type Severity Reaction Status Date / Time methimazole Allergy Mild RASH Verified 11/23/22 18:29 metronidazole Allergy Mild FACIAL Verified 11/23/22 18:29 BURNING nickel Allergy Mild CHEAP Verified 11/23/22 18:29 JEWELRY, RASH/HIVES Consultations 11/23/22 20:28 ED Decision to Admit Stat 11/23/22 20:55 Consult Gastroenterology Routine Ordered Studies CTAP FROM 11/21/22 from ER visit prior to current admission Exam(s): CT ABDOMEN + PELVIS With Contrast IV Amt: 89 ML OPTIRAY 320 EXAM: CT Abdomen and Pelvis With Intravenous Contrast CLINICAL HISTORY: Reason for exam: ruq abd pain. TECHNIQUE: Axial computed tomography images of the abdomen and pelvis with intravenous contrast. Automated exposure control was utilized for the study. A dose lowering technique was utilized adhering to the principles of ALARA. CONTRAST: Patient received 89 ML OPTIRAY 320 of IV contrast COMPARISON: 05/01/2017. FINDINGS: Lung bases: Mild bilateral lower lobe atelectasis. Heart: Unremarkable. No significant pericardial effusion. Normal cardiac size. Mediastinum: Minimal hiatal hernia. ABDOMEN: Liver: Unremarkable. No mass. Gallbladder and bile ducts: The common hepatic duct measures approximately 1.7 cm near the hilum. There is unusual thickening of the wall of the distal common bile duct near the sphincter of Oddi, cannot exclude inflammatory process or stricture versus mass. Status post cholecystectomy with mild biliary distention, more so along the left hepatic lobe along with pneumobilia. Pancreas: Unremarkable. No mass. No ductal dilation. Spleen: Unremarkable. No splenomegaly. Adrenals: Unremarkable. No mass. Kidneys and ureters: Left lower renal pole simple cyst measuring 2 cm. Otherwise normal left kidney. Normal right kidney. No hydronephrosis. Stomach and bowel: The transverse and descending colon are decompressed and therefore difficult to assess. Cannot exclude mild colitis. Diverticulosis throughout the colon with no signs of diverticulitis. No obstruction. PELVIS: Appendix: Normal appendix. Bladder: Unremarkable. No mass. Reproductive: Nonvisualized uterus suggestive of previous hysterectomy. ABDOMEN and PELVIS: Intraperitoneal space: Unremarkable. No free air. No significant fluid collection. Bones/joints: Multilevel degenerative disease of the spine. Minimal retrolisthesis of L4 in relation to L5 in length 3 otherwise no pars defect. No acute fracture. No dislocation. Soft tissues: Unremarkable. Vasculature: Atherosclerotic disease of aorta with no dissection or aneurysm. Lymph nodes: Unremarkable. No enlarged lymph nodes. IMPRESSION: 1. There is distention of the common hepatic duct and intrahepatic biliary system with abrupt narrowing at the level of the pancreatic head and sphincter of Oddi with mild enhancement of the wall, cannot exclude inflammatory process versus stricture versus mass. Recommend follow-up with MRCP or ERCP if clinically indicated. Nonspecific associated pneumobilia with status post cholecystectomy. 2. Left upper renal pole simple cysts with no further imaging recommended for follow-up. 3. Mild hiatal hernia. 4. Diverticulosis with no signs of diverticulitis. No acute appendicitis. 5. Decompressed transverse and descending colon, difficult to exclude colitis in the appropriate clinical context. Clinical correlation recommended. Electronically signed by: Brii Solorio MD 11/22/22 02:06 AM Dictated:11/22/22205 Transcribed: 11/22/22205 Gallbladder Ultrasound 11/23/22 18:47 Exam(s): US GALLBLADDER EXAM: US Abdomen Limited, Gallbladder CLINICAL HISTORY: Reason for exam: epigastric abd pain. TECHNIQUE: Real-time ultrasound of the right upper quadrant with image documentation. COMPARISON: No relevant prior studies available. FINDINGS: Liver: Hepatic steatosis. Gallbladder: Cholecystectomy. Common bile duct: Dilated common bile duct measures 1 cm. Pneumobilia. No stones. Pancreas: Unremarkable as visualized. IMPRESSION: 1. Hepatic steatosis. 2. Cholecystectomy. 3. Pneumobilia. Electronically signed by: Kadeem Khan MD 11/23/22 21:10 PM Hospital Course (1) Abdominal pain, acute, right upper quadrant: Presented to ER 11/21 w/ abdominal pain and nausea CTAP at that time w/ distention of the common hepatic duct and intrahepatic biliary system with abrupt narrowing at the level of the pancreatic head and sphincter of Oddi with mild enhancement of the wall, cannot exclude inflammatory process versus stricture versus mass. In a patient w/ prior choledocholithiasis/stenting in the past, most recent stent removal last fall Given normal LFTs/symptoms improved with IV fluids and antiemetic and discharged home. 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 Noting dilated CBD to 1cm. GI on consult -- rec transfer for intervention WBC elevation to 14k. LFTs on admission w/ elevated TB to 1.8 from 0.6 and discussed w/ [facility] who accepted in transfer for MRCP/ERCP given no providers inpatient to perform, Dr Araujo. Updated Dr Potter this morning on status/labs/imaging and fever to 39.4C UA not appearing infected, lung exam stable. Suspect from above Remains on Zosyn, NPO (except sips/chips) Continue IVF maintenance as well. IV mag for mag 1.6 Pain control/antiemetics prn Obtained bed at [facility] this afternoon. Room GP 311 Transportation being arranged for this evening when available for ongoing management/MRCP/ERCP and treatment (2) Hyponatremia: 132 on admission, likely from poor PO intake since Tuesday reported IVF as above Repeat improved to 134 and remains on IVF Monitor on repeat if inpatient/no bed, checking TSH if remains low given prior stones/stricture (3) Herpes zoster ophthalmicus of right eye: Diagnosed approximately 2 weeks ago Has been on a tapering dose of PO Valtrex and Prednisolone eye drops in the r ight eye Last day for TID Valtrex and QID Prednisolone eye drops --> decreased valtrex to BID for today and remains on prednisolone drops to right eye (4) Hypothyroidism: Continue levothyroxine when taking PO -- will resume for AM 88mcg daily will repeat TSH w/ AM labs/adjustment as needed (5) Broken heart syndrome: -Previous diagnosis -Underwent TTE and heart cath prior to diagnosis per patient -Continue to monitor on tele Total Time Total Time Spent Total Time Spent (In Minutes): 50 Discharge Plan Discharge Items Patient Disposition: Transfer Acute Care Hospital Reason For Visit: ABD PAIN AND NAUSEA Discharge Diagnosis: Biliary Disease, ABdominal pain, Stricture vs Mass, need for ERCP/MRCP Goals: You have been hospitalized for an acute medical problem. During your stay at [facility], we have made an effort to correct the problem that brought you to the hospital while keeping you as comfortable as possible. Medications were used to bring your condition under control and your discharge instructions will include directions for any medications you should take after leaving the hospital. Please make sure you see your Primary Care Provider as part of your follow up plan. Activity: As commented below Non-emergency contact: Primary Care Provider, [employer] Call non-emergency contact if: you have any medication questions Follow-up/Referrals: Catherine Ortiz CRNP [Primary Care Provider] - Diet: Nothing by Mouth Addtl Attending Provider Instructions: You have been hospitalized for abdominal pain and elevated liver enzymes requiring evaluation and possible stenting/removal of stone vs a stricture in the area of common bile duct. Unfortunately we do not have any providers at present who are able to perform such. You have been treated in the meantime with supportive care in the form of IV antibiotics, IV fluids, and pain/nausea medications and arrangements have been made for transfer to [facility] for evaluation by GI and ERCP/MRCP for further evaluation. Please follow up with primary care at discharge from [facility] to ensure close follow up/monitoring of your status after discharge. It has been a pleasure being a part of the medical team providing for you while you have been in the hospital. Take care! Pending Studies at Discharge: Yes Studies:: Blood cultures Stand-Alone Forms: My [facility] Skilled Items Patient informed of condition?: Yes DNR: No Discharge Level of Care: Other Communicable Disease: No Discharge Prognosis: Stable Lines: Peripheral IV Urinary Catheter: No Medications and DC Order Prescriptions: Continued metoprolol succinate 25 mg tablet extended release 24 hr 12.5 mg PO DAILY PRN (Reason: pvc) sumatriptan succinate 50 mg tablet See Rx Instructions PO .COMPLEX PRN (Reason: Migraine Headache) Rx Instructions: take 1 tab at onset of headache; if no relief may repeat 1 tab after at least 2 hrs; max = 4 tabs/24 hr PO levothyroxine 88 mcg Capsule 88 mcg PO QAM Mounjaro 2.5 mg/0.5 mL pen injector 2.5 mg SUBCUT .EVERY 7 DAYS valacyclovir 1 gram tablet 1,000 mg PO TID prednisolone acetate 1 % drops,suspension 1 drp ophthalmic (eye) QID Discharge Orders: Discharge Order (Routine); Ordered 11/24/22 Ordered By: Christie Miller Admission Data Admit Date/Time: 11/23/22 20:44 Attending Provider: Carlos Hicks Admit Provider: Marilyn Nash Primary Care Provider: Catherine Ortiz Other Providers: Marilyn Nash ; Prateek Castro Other Interventions: Discharge Summary Assessment (RN) Last Done: 11/24/22 17:20 Supervising Physician Co-Signing Physician Notes The patient was not seen by me. The chart was reviewed. Case discussed with EFRAIN Sewell. Agree with assessment and plan. She was subsequently transferred to [facility] for further care. Coding Level of Care Code 03751 INP/OBS DISCH >30 MIN Diagnoses Abdominal pain, acute, right upper quadrant R10.11 Hyponatremia E87.1 Herpes zoster ophthalmicus of right eye B02.30 Hypothyroidism E03.9 Broken heart syndrome I51.81
[2022-11-25] MEDS ORDERED: LEVOTHYROXINE SODIUM 88 MCG TABLET PO SCH (06:30)
== END 2022-11-24 18:20 | disposition short-term general hospital (02) | DRG 445 ==
LOC: ED 17:58 → 4W 20:44 → SUATTDRO 20:44 → 4W 22:20

== ENCOUNTER 2023-01-30 15:29 | Inpatient (IN) ==
[2023-01-30] MEDS ORDERED: SODIUM CHLORIDE 0.9% 1000ML 1,000 ML IV ONE (16:18)
[2023-01-30] MEDS ORDERED: ONDANSETRON INJ 2 MG/ML 2 ML VIAL IV STA (16:18)
[2023-01-30] MEDS ORDERED: MoRPHine SULFATE 4 MG/ML 1 ML CARP\\VIAL IV STA (16:18)
--- NOTE | 2023-01-30 16:22 | Emergency Department Note ---
Impression & Plan Abdominal pain ADMIT ED Provider Note HPI: The patient is a 62-year-old female who presents emergency department chief complaint of epigastric abdominal pain. Patient states that the symptoms feel similar to symptoms she had previously with choledocholithiasis. Patient states that she developed acute onset epigastric pain at 11 PM last evening. Patient states that she has had nausea, she has had several episodes of vomiting. On arrival here to the ED the patient is hemodynamically stable, she is in mild distress secondary to abdominal pain on my initial assessment. Patient is saturating well on room air on arrival. ROS: - Per HPI Differential Diagnosis: Acute gastritis, acute pancreatitis, peptic ulcer disease, choledocholithiasis, perforated viscus, small bowel obstruction, amongst other potential pathologies. *Outpatient medications and allergy history reviewed. *Pertinent external medical records reviewed. PE: General: Alert HEENT: Normocephalic, trachea midline Eyes: Extraocular eye movement is intact, no scleral erythema Pulmonary: Clear to auscultation bilaterally, no wheezing Cardio: Regular rate and rhythm GI: Abdomen is soft to palpation, there is tenderness over the epigastric area and right upper quadrant to palpation without guarding or rigidity : No suprapubic tenderness MSK: No evidence of trauma or malformation of the extremities, no edema Skin: No evidence of rash Neuro: Alert, no focal deficits Psychiatric: Cooperative shelter monitor: (As interpreted by myself): - An order was placed for continuous cardiac monitoring - Patient was noted to be in sinus rhythm with rate of 100 Interventions provided in ED: -IV morphine, IV Zofran, IV fluid bolus Medical Decision Making: Shortly after patient arrived IV was established and lab work sent, patient was maintained on alarm security or surveillance monitor, patient was given IV morphine IV Zofran for symptoms. Lab work shows a leukocytosis of 12.68, hemoglobin is normal, platelet count is normal, CMP shows a mild hypokalemia at 3.1, bilirubin is slightly elevated at 1.3, there is no transaminitis, lipase is normal. Ultrasound imaging of the right upper quadrant was obtained and is nonspecific, there is biliary ductal dilation, and also pneumobilia which appears to be postsurgical in nature. Patient did have an ERCP performed in late November at [facility]. CT imaging of the abdomen pelvis was then ordered that shows similar changes, there is stricture noted in the common bile duct. On my reassessment, patient states she is still having some pain although it is improved from previous. Given her history of choledocholithiasis with similar pain ongoing I do have concern that she may have a nonvisualized stone. I discussed these findings with on-call gastroenterology, Dr. Haynes, who is in agreement for consultation and states that the patient's keg varnisher, Dr. Gonzales, will be here in the hospital tomorrow and could potentially perform an ERCP. Patient is in agreement to this plan, hospitalist service was consulted and case was discussed with Dr. Bentley. Patient was placed for admission in stable condition. Consultants: -Gastroenterology, Dr. Hayens -Hospitalist service, Dr. Bentley Disposition discussion held by myself with: Patient Diagnosis: 1. Abdominal pain, acute, epigastric 2. Biliary ductal stricture, common bile duct, nonspecific 3. Elevated bilirubin level 4. 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 Styles > no current issues Melanoma right leg > with removal NSTEMI (non-ST elevated myocardial infarction) 2016 >"broken heart syndrome" not actual nstemi per pt > echo/cath, no further issues Osteoarthritis Pancreatitis 2017 PVCs (premature ventricular contractions) metoprolol for this > follows with PCP Status post gamma knife treatment 2016 > Meningioma > Opdivo treatment>LAST DOSE NOVEMBER 2021 > follows Dr. Styles in [place] Surgical History History of cardiac cath 2017 > no stents History of section x2 History of cholecystectomy History of ERCP MULTIPLE History of hysterectomy History of tonsillectomy and adenoidectomy History of tooth extraction Nausea and vomiting after administration of anesthetic agent Family History Mother Hypertension Aortic aneurysm Hyperlipidemia Father Heart disease Myocardial infarction Grandmother (Paternal) Leukemia Brother Cancer Social History (Reviewed 06/13/23 @ 21:29 by ALYSSIA Preston Smoking Status: Former smoker Second Hand Exposure: Yes; Do You Dip or Chew Tobacco: No; Hx Alcohol Use: Yes Alcohol Intake Frequency Comment: Rare Hx Substance Use: No Preferred Language: Citizen Of [place] Communication Ability: Effective Slate Worker Required: No Beliefs That Will Affect Care: None Current Living Situation: Alone Feels Safe at Home: Yes Assistive Devices: None Allergies Allergies Allergy/AdvReac Type Severity Reaction Status Date / Time methimazole Allergy Intermediate RASH Verified 01/30/23 18:22 nickel Allergy Intermediate CHEAP Verified 01/30/23 18:22 JEWELRY, RASH/HIVES metronidazole Allergy Mild FACIAL Verified 01/30/23 18:22 BURNING sumatriptan AdvReac Unknown CONTRAINDICATED Verified 01/30/23 18:24 WITH PT'S MEDS. Home Meds Home Medications Medication Instructions Recorded Confirmed metoprolol succinate 25 mg 12.5 mg PO DAILY PRN pvc 10/29/20 01/30/23 tablet,extended release 24 hr levothyroxine 88 mcg capsule 88 mcg PO QAM 05/24/22 01/30/23 tirzepatide 5 mg/0.5 mL 5 mg subcut WK 01/30/23 01/30/23 subcutaneous pen injector (Jose) ursodiol 300 mg capsule 300 mg PO BID 01/30/23 01/30/23 Results & Data (ED) Vital Signs Vital Signs - 24 hr 01/30/23 15:43 01/30/23 18:19 01/30/23 16:36 Temperature 36.9 C Temperature Source Temporal Artery Scan Pulse Rate 104 H Pulse Rate [Apical] 97 H 97 H Pulse Rhythm [Apical] Regular Regular Respiratory Rate 20 18 18 Respiratory Effort / Characteristics Non-Labored Spontaneous Non-Labored Spontaneous Respiratory Depth Normal Shallow Respiratory Pattern Regular Blood Pressure 118/65 Blood Pressure [Right Arm] 119/67 157/72 H Blood Pressure Mean 82 Blood Pressure Mean [Right Arm] 84 100 Blood Pressure Position [Right Arm] Lying Lying Pulse Oximetry 100 96 85 L Oxygen Delivery Method Room Air Nasal Cannula Room Air Oxygen Flow Rate 2 Sepsis Recent Fever Within 48 Hours No Sepsis New/Unexplained Change in Mental Status N/A Sepsis Action Taken by Nursing No Action Required Oxygen Flow Rate - Titration Pulse Oximetry Post Tiitration 01/30/23 16:39 08/20/23 21:00 Temperature Temperature Source Pulse Rate Pulse Rate [Apical] 103 H Pulse Rhythm [Apical] Regular Respiratory Rate 18 Respiratory Effort / Characteristics Non-Labored Spontaneous Respiratory Depth Normal Respiratory Pattern Regular Blood Pressure Blood Pressure [Right Arm] 121/72 Blood Pressure Mean Blood Pressure Mean [Right Arm] 88 Blood Pressure Position [Right Arm] Lying Pulse Oximetry 85 L 97 Oxygen Delivery Method Nasal Cannula Nasal Cannula Oxygen Flow Rate 0 2 Sepsis Recent Fever Within 48 Hours Sepsis New/Unexplained Change in Mental Status Sepsis Action Taken by Nursing Oxygen Flow Rate - Titration 2 Pulse Oximetry Post Tiitration 93 Laboratory Data 01/30/23 15:50 01/30/23 15:50 Lab Results 01/30/23 01/30/23 Range/Units 15:50 15:50 WBC 12.68 H (4.8-10.8) K/ul RBC 4.41 (4.20-5.40) M/uL Hgb 13.4 (12.0-16.0) g/dl Hct 39.2 (37.0-47.0) % MCV 88.9 (80.0-100.0) fL MCH 30.4 (25.0-34.0) pg MCHC 34.2 (32.0-36.0) g/dL RDW Std Deviation 47.9 H (36.4-46.3) fL RDW Coeff of Dedrick 14.6 H (11.5-14.5) % Plt Count 139 (130-400) K/uL MPV 14.0 H (9.4-12.4) fL Immature Gran % (Auto) 0.6 % Neut % (Auto) 95.2 % Lymph % (Auto) 2.7 % [place] % (Auto) 1.4 % Eos % (Auto) 0.0 % Baso % (Auto) 0.1 % Neut # (Auto) 12.08 H (1.40-6.50) K/uL Lymph # (Auto) 0.34 L (1.2-3.4) K/uL [place] # (Auto) 0.18 (0.11-0.59) K/uL Eos # (Auto) 0.00 (0-0.50) K/uL Baso # (Auto) 0.01 (0-0.2) K/uL Immature Gran # (Auto) 0.07 (0.01-0.20) K/uL Sodium 138 (136-145) mmol/L Potassium 3.1 L (3.5-5.1) mmol/L Chloride 102 (98-107) mmol/L Carbon Dioxide 27 (21-32) mmol/L Anion Gap 9 (3-11) BUN 10 (6-23) mg/dl Creatinine 0.88 (0.6-1.2) mg/dl Est Cr Clr Drug Dosing 64.0 ml/min Est GFR ( Amer) 81.0 ml/min Est GFR (Non-Af Amer) 69.9 ml/min BUN/Creatinine Ratio 11.4 (10-20) Glucose 184 H (70-99(Fasting)) mg/dl Calcium 9.4 (8.6-10.3) mg/dl Total Bilirubin 1.3 H (0.2-1.0) mg/dl AST 35 (13-39) U/L ALT 27 (7-52) U/L Alkaline Phosphatase 87 (34-104) U/L Total Protein 7.0 (6.0-8.3) gm/dl Albumin 4.1 (3.4-5.0) gm/dl Globulin 2.9 (2.5-4.0) gm/dl Albumin/Globulin Ratio 1.4 (0.9-2) Lipase 16 (11-82) U/L Administered Medications Discontinued Medications Sodium Chloride (Nss 1000ml) 1,000 mls @ 999 mls/hr IV .Q1H1M ONE Stop: 01/30/23 17:18 Last Infusion: 01/30/23 20:11 Dose: 0 mls/hr Documented By: Admin: 01/30/23 16:29 Dose: 999 mls/hr Documented By: MOSES Ioversol (Optiray 320 100ml) 89 ml IV ONCE ONE Stop: 01/30/23 19:06 Last Admin: 01/30/23 19:05 Dose: 89 ml Documented By: JANNETTE Morphine Sulfate (Morphine Sulfate 4 Mg/Ml 1 Ml Carp\\Vial) 4 mg IV NOW STA Stop: 01/30/23 16:19 Last Admin: 01/30/23 16:28 Dose: 4 mg Documented By: MOSES Ondansetron HCl (Ondansetron Inj 2 Mg/Ml 2 Ml Vial) 4 mg IV NOW STA Stop: 01/30/23 16:19 Last Admin: 01/30/23 16:28 Dose: 4 mg Documented By: MOSES Imaging Data Radiologist's Impression: Liver Ultrasound 01/30/23 16:17 ABDOMINAL ULTRASOUND, RIGHT UPPER QUADRANT HISTORY: History of choledocholithiasis, abdominal pain. COMPARISON: 11/23/2022 FINDINGS: Pancreas: The pancreas is mostly obscured by bowel gas. Liver: Increased echogenicity of the liver with mild biliary ductal dilation pneumobilia again noted. Mild intrahepatic biliary ductal dilation. No hepatic mass is seen. Gallbladder: Surgically absent CBD: 1.2 cm. Right kidney: No hydronephrosis. IMPRESSION: Cholecystectomy with biliary ductal dilation and pneumobilia redemonstrated which is likely on a postsurgical basis. ACT 112: Negative or not required by law. Electronically signed by: Hai Curry M.D. 01/30/2023 5:38 PM Abdomen/Pelvis CT 01/30/23 17:[address] WITH IV CONTRAST CT DOSE: 1342.40 mGy.cm HISTORY: Acute epigastric abdominal pain epigastric pain, hx of choledocolithiasis TECHNIQUE: Multiaxial CT images of the abdomen and pelvis were performed following the IV administration of 89 cc of Optiray, A dose lowering technique was utilized adhering to the principles of ALARA. COMPARISON STUDY: 11/22/2022, 05/28/2022 FINDINGS: Subsegmental dependent bibasilar opacities favor atelectasis. No free air. Unremarkable spleen, pancreas and adrenal glands. Cholecystectomy with pneumobilia and persistent intrahepatic and extrahepatic biliary ductal dilation. The common bile duct measures 1.7 cm which is unchanged. Focal narrowing at the level of the mid to distal common bile duct with increased attenuation on image 134 is also unchanged. No hepatic mass identified. Mild hepatomegaly. Patent portal vein. 2.4 cm cyst of the interpolar left kidney. No hydronephrosis. Urinary bladder wall thickening with partial distention. Hysterectomy. Atherosclerosis of the aorta with subcentimeter retroperitoneal lymph nodes. Surgical clips within the right inguinal tissues. There is no bowel obstruction or bowel wall thickening. Colonic diverticulosis. No ascites or mesenteric inflammation. Normal appendix. Unremarkable soft tissues. No acute fracture. IMPRESSION: 1. Cholecystectomy with pneumobilia and persistent intrahepatic and extrahepatic biliary ductal dilation. Focal narrowing within the mid to distal common bile duct is similar in appearance to the study from 11/22/2022. As previously suggested, correlation with ERCP is recommended. 2. No bowel obstruction or bowel wall thickening. 3. Colonic diverticulosis. 4. Additional findings as above. ACT 112: Negative or not required by law. The above report was generated using voice recognition software. It may contain grammatical, syntax or spelling errors. Electronically signed by: Hai Curry M.D. 01/30/2023 7:20 PM Discharge Plan Visit Data Chief Complaint: Abdominal Pain Stated Complaint: ABDOMINAL PAIN, VOMITING ED Provider: Brayan Patton Discharge Problem: Abdominal pain Forms Stand Alone Forms: [employer] Prescriptions Prescriptions: No Action metoprolol succinate 25 mg tablet extended release 24 hr 12.5 mg PO DAILY PRN (Reason: pvc) levothyroxine 88 mcg Capsule 88 mcg PO QAM ursodiol 300 mg capsule 300 mg PO BID Mounjaro 5 mg/0.5 mL pen injector 5 mg SUBCUT WK Rx Instructions: THURSDAYS Referrals Referrals: Catherine Ortiz CRNP [Primary Care Provider] -
[2023-01-30 16:34] LABS: Hematocrit (blood only) 39.2 % (37.0-47.0); Hemoglobin 13.4 g/dl (12.0-16.0); Mean Corpuscular Hemoglobin 30.4 pg (25.0-34.0); Mean Corpuscular Hgb Conc 34.2 g/dL (32.0-36.0); Mean Corpuscular Volume 88.9 fL (80.0-100.0); Platelet Count 139 K/uL (130-400); RDW Coefficient of Variation 14.6 % (11.5-14.5); RDW Standard Deviation 47.9 fL (36.4-46.3); Red Blood Count 4.41 M/uL (4.20-5.40); White Blood Count 12.68 K/ul (4.8-10.8)
[2023-01-30 16:49] LABS: Albumin Globulin Ratio 1.4 (0.9-2); Albumin Level 4.1 gm/dl (3.4-5.0); BUN Creatinine Ratio 11.4 (10-20); Bilirubin,Total 1.3 mg/dl (0.2-1.0); Calcium 9.4 mg/dl (8.6-10.3); Est GFR (Non-African American) 69.9 ml/min; Globulin 2.9 gm/dl (2.5-4.0); Potassium 3.1 mmol/L (3.5-5.1)
[2023-01-30 16:52] LABS: Basophils # (auto) 0.01 K/uL (0-0.2); Basophils % (auto) 0.1 %; Immature Granulocytes # (auto) 0.07 K/uL (0.01-0.20); Immature Granulocytes % (auto) 0.6 %; Lymphocytes # (auto) 0.34 K/uL (1.2-3.4); Lymphocytes % (auto) 2.7 %; Monocytes # (auto) 0.18 K/uL (0.11-0.59); Monocytes % (auto) 1.4 %; Neutrophils # (auto) 12.08 K/uL (1.40-6.50); Neutrophils % (auto) 95.2 %
--- NOTE | 2023-01-30 17:39 | Ultrasound Report ---
ABDOMINAL ULTRASOUND, RIGHT UPPER QUADRANT HISTORY: History of choledocholithiasis, abdominal pain. COMPARISON: 11/23/2022 FINDINGS: Pancreas: The pancreas is mostly obscured by bowel gas. Liver: Increased echogenicity of the liver with mild biliary ductal dilation pneumobilia again noted. Mild intrahepatic biliary ductal dilation. No hepatic mass is seen. Gallbladder: Surgically absent CBD: 1.2 cm. Right kidney: No hydronephrosis. IMPRESSION: Cholecystectomy with biliary ductal dilation and pneumobilia redemonstrated which is likely on a post surgical basis. ACT 112: Negative or not required by law. Electronically signed by: Hai Curry M.D. 01/30/2023 5:38 PM
[2023-01-30] MEDS ORDERED: OPTIRAY 320 100ml IV ONE (19:05)
--- NOTE | 2023-01-30 19:23 | CT Scan Report ---
ABDOMEN AND PELVIS CT WITH IV CONTRAST CT DOSE: 1342.40 mGy.cm HISTORY: Acute epigastric abdominal pain epigastric pain, hx of choledocolithiasis TECHNIQUE: Multiaxial CT images of the abdomen and pelvis were performed following the IV administrat ion of 89 cc of Optiray, A dose lowering technique was utilized adhering to the principles of ALARA. COMPARISON STUDY: 11/22/2022, 05/28/2022 FINDINGS: Subsegmental dependent bibasilar opacities favor atelectasis. No free air. Unremarkable spl een, pancreas and adrenal glands. Cholecystectomy with pneumobilia and persistent intrahepatic and ex trahepatic biliary ductal dilation. The common bile duct measures 1.7 cm which is unchanged. Focal na rrowing at the level of the mid to distal common bile duct with increased attenuation on image 134 is also unchanged. No hepatic mass identified. Mild hepatomegaly. Patent portal vein. 2.4 cm cyst of the interpolar left kidney. No hydronephrosis. Urinary bladder wall thickening with pa rtial distention. Hysterectomy. Atherosclerosis of the aorta with subcentimeter retroperitoneal lymph nodes. Surgical clips within the right inguinal tissues. There is no bowel obstruction or bowel wall thickening. Colonic diverticulosis. No ascites or mesente alisa inflammation. Normal appendix. Unremarkable soft tissues. No acute fracture. IMPRESSION: 1. Cholecystectomy with pneumobilia and persistent intrahepatic and extrahepatic biliary ductal dilat ion. Focal narrowing within the mid to distal common bile duct is similar in appearance to the study from 11/22/2022. As previously suggested, correlation with ERCP is recommended. 2. No bowel obstruction or bowel wall thickening. 3. Colonic diverticulosis. 4. Additional findings as above. ACT 112: Negative or not required by law. The above report was generated using voice recognition software. It may contain grammatical, syntax o r spelling errors. Electronically signed by: Hai Curry M.D. 01/30/2023 7:20 PM
--- NOTE | 2023-01-30 21:21 | History & Physical Report ---
Date of Service January 30, 2023 Assessment & Plan (1) Abdominal pain: Plan: 62 F with H choledocholithiasis and pancreatitis (s/p cholecystectomy-2021), hypothyroidism, and Takotsubo cardiomyopathy, who presents to the hospital with abdominal pain. Now admitted for further evaluation by GI, possible ERCP. Abdominal pain -Afebrile, epigastric and RUQ. RUQ E/S, CT A/P negative for acute findings. Mild (neutrophilic) leukocytosis. AST/ALT, alk phos, lipase all normal. Mild hyperbilirubinemia (1.3). -GI consulted for further evaluation, possible ERCP. * Admit to MedSurg telemetry. Made n.p.o. * ERCP ordered. * Pain controlscheduled IV Tylenol 1000 mg every 8 hours. As needed IV hydromorphone every 3 hours. * mIVFLR@125 mL/h * GI consulted. Appreciate recs. Hypokalemia -Mild. 3.1 on admission. -S/p repletion with 40 mEq of IV potassium chloride * Trend morning labs Hypothyroidism -Stable. On levothyroxine 88 mcg daily. * Holding all p.o. meds Takotsubo cardiomyopathy/NSTEMI -On metoprolol succinate 12.5 mg daily as needed for PVC Code: Full code Dispo: Med-Surg telemetry FEN/GI: NPO. LR @maintenance rate DVT Prophylaxis: Heparin 5000 u q12h PT/OT: No Consults: GI Case Management: No (2) Leukocytosis: (3) Elevated bilirubin: (4) Hypothyroidism: (5) Broken heart syndrome: (6) Hypokalemia: History of Present Illness Primary Care Provider: KAMLESH Clark Priyanka is a 62-year-old woman with a past medical history of choledocholithiasis + gallstone pancreatitis (s/p cholecystectomy in 2021), hypothyroidism, Takotsubo cardiomyopathy, who presented to the emergency room today with a complaint of epigastric abdominal pain. She reports the pain began suddenly at about 11 PM the night before and she tolerated it until 3 PM today when she decided to finally come in. Other than headache, she denies nausea, chest pain, shortness of breath, flank pain, or dysuria. In the ED, vitals were notable for a mild sinus tachycardia, and an O2 saturation in the mid 80s, which subsequently rebounded with 2 L O2 via NC. Labs were notable for WBC-12.68, and K-3.1. AST/ALT were both normal (35/27), as was alk phos-87 and lipase-16. T. bili was mildly elevated (1.3). CT A/P showed only post cholecystectomy findings and common bile duct dilatation that were unchanged from prior imaging. She received morphine, Zofran, and 1 L bolus of normal saline. GI was consulted for evaluation for possible ERCP subsequently, hospitalist service was consulted for admission. Allergies Allergy/AdvReac Type Severity Reaction Status Date / Time methimazole Allergy Intermediate RASH Verified 01/30/23 18:22 nickel Allergy Intermediate CHEAP Verified 01/30/23 18:22 JEWELRY, RASH/HIVES metronidazole Allergy Mild FACIAL Verified 01/30/23 18:22 BURNING sumatriptan AdvReac Unknown CONTRAINDICATED Verified 01/30/23 18:24 WITH PT'S MEDS. Home Medications Medication Instructions Recorded Confirmed Type metoprolol succinate 25 mg 12.5 mg PO DAILY PRN pvc 10/29/20 01/30/23 History tablet,extended release 24 hr levothyroxine 88 mcg capsule 88 mcg PO QAM 05/24/22 01/30/23 History tirzepatide 5 mg/0.5 mL 5 mg subcut WK 01/30/23 01/30/23 History subcutaneous pen injector (Mounjaro) ursodiol 300 mg capsule 300 mg PO BID 01/30/23 01/30/23 History Past Med/Surg History Medical History Breast fibroadenoma Left > 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 Styles in [place] Surgical History History of cardiac cath 2016 > no stents History of section x2 History of cholecystectomy History of ERCP MULTIPLE History of hysterectomy History of tonsillectomy and adenoidectomy History of tooth extraction Nausea and vomiting after administration of anesthetic agent Family History Mother Hypertension Aortic aneurysm Hyperlipidemia Father Heart disease Myocardial infarction Grandmother (Paternal) Leukemia Brother Cancer Social History Smoking Status: Former smoker Tobacco Type: Cigarettes Second Hand Exposure: No; Do You Dip or Chew Tobacco: No; Tobacco Cessation Education Requested by Patient: No Hx Alcohol Use: Yes Alcohol type: hard liquor Alcohol Intake Frequency Comment: Rare Hx Substance Use: No Preferred Language: Chadian Communication Ability: Effective [employer] Leak Tester Required: No Beliefs That Will Affect Care: None Current Living Situation: Alone Other Information That Helps Us Care for You: No Feels Safe at Home: Yes Safety Concerns: Feels Safe At This Time Assistive Devices: Glasses Review of Systems Review of Systems: All systems reviewed & are unremarkable except as noted in HPI & below Physical Exam Physical Exam: General: No acute distress HEENT: PERRLA. Normal conjunctiva, anicteric sclera. Oropharynx normal. Respiratory: Normal respiratory effort, CTABL. Cardiovascular: Tachycardia. Regular rhythm. No murmurs, gallops, or rubs. No pedal edema. GI: Soft abdomen with normal bowel sounds heard on auscultation. Tender to palpation at epigastrium and RUQ. No flank tenderness elicited bilaterally. Neuro: Alert and oriented x3. Results & Data Results & Data Vital Signs (Past 12 Hours) Vital Signs Temp Pulse Pulse Resp BP BP Pulse Ox 01/30/23 21:00 103 H 18 121/72 97 01/30/23 16:39 85 L 01/30/23 16:36 97 H 18 157/72 H 85 L 01/30/23 18:19 97 H 18 119/67 96 01/30/23 15:43 36.9 C 104 H 20 118/65 100 O2 Del Method O2 Flow Rate 01/30/23 21:00 Nasal Cannula 2 01/30/23 16:39 Nasal Cannula 0 01/30/23 16:36 Room Air 01/30/23 18:19 Nasal Cannula 2 01/30/23 15:43 Room Air Laboratory Results 01/30/23 01/30/23 15:50 15:50 WBC 12.68 H RBC 4.41 Hgb 13.4 Hct 39.2 MCV 88.9 MCH 30.4 MCHC 34.2 RDW Std Deviation 47.9 H RDW Coeff of Dedrick 14.6 H Plt Count 139 MPV 14.0 H Immature Gran % (Auto) 0.6 Neut % (Auto) 95.2 Lymph % (Auto) 2.7 Sterling % (Auto) 1.4 Eos % (Auto) 0.0 Baso % (Auto) 0.1 Neut # (Auto) 12.08 H Lymph # (Auto) 0.34 L Sterling # (Auto) 0.18 Eos # (Auto) 0.00 Baso # (Auto) 0.01 Immature Gran # (Auto) 0.07 Sodium 138 Potassium 3.1 L Chloride 102 Carbon Dioxide 27 Anion Gap 9 BUN 10 Creatinine 0.88 Est Cr Clr Drug Dosing 64.0 Est GFR ( Amer) 81.0 Est GFR (Non-Af Amer) 69.9 BUN/Creatinine Ratio 11.4 Glucose 184 H Calcium 9.4 Total Bilirubin 1.3 H AST 35 ALT 27 Alkaline Phosphatase 87 Total Protein 7.0 Albumin 4.1 Globulin 2.9 Albumin/Globulin Ratio 1.4 Lipase 16 Diagnostic Findings Liver Ultrasound 01/30/23 16:17 ABDOMINAL ULTRASOUND, RIGHT UPPER QUADRANT HISTORY: History of choledocholithiasis, abdominal pain. COMPARISON: 11/23/2022 FINDINGS: Pancreas: The pancreas is mostly obscured by bowel gas. Liver: Increased echogenicity of the liver with mild biliary ductal dilation pneumobilia again noted. Mild intrahepatic biliary ductal dilation. No hepatic mass is seen. Gallbladder: Surgically absent CBD: 1.2 cm. Right kidney: No hydronephrosis. IMPRESSION: Cholecystectomy with biliary ductal dilation and pneumobilia redemonstrated which is likely on a postsurgical basis. ACT 112: Negative or not required by law. Electronically signed by: Hai Curry M.D. 01/30/2023 5:38 PM Abdomen/Pelvis CT 01/30/23 17:[address] WITH IV CONTRAST CT DOSE: 1342.40 mGy.cm HISTORY: Acute epigastric abdominal pain epigastric pain, hx of choledocolithiasis TECHNIQUE: Multiaxial CT images of the abdomen and pelvis were performed following the IV administration of 89 cc of Optiray, A dose lowering technique was utilized adhering to the principles of ALARA. COMPARISON STUDY: 11/22/2022, 05/28/2022 FINDINGS: Subsegmental dependent bibasilar opacities favor atelectasis. No free air. Unremarkable spleen, pancreas and adrenal glands. Cholecystectomy with pneumobilia and persistent intrahepatic and extrahepatic biliary ductal dilation. The common bile duct measures 1.7 cm which is unchanged. Focal narrowing at the level of the mid to distal common bile duct with increased attenuation on image 134 is also unchanged. No hepatic mass identified. Mild hepatomegaly. Patent portal vein. 2.4 cm cyst of the interpolar left kidney. No hydronephrosis. Urinary bladder wall thickening with partial distention. Hysterectomy. Atherosclerosis of the aorta with subcentimeter retroperitoneal lymph nodes. Surgical clips within the right inguinal tissues. There is no bowel obstruction or bowel wall thickening. Colonic diverticulosis. No ascites or mesenteric inflammation. Normal appendix. Unremarkable soft tissues. No acute fracture. IMPRESSION: 1. Cholecystectomy with pneumobilia and persistent intrahepatic and extrahepatic biliary ductal dilation. Focal narrowing within the mid to distal common bile duct is similar in appearance to the study from 11/22/2022. As previously suggested, correlation with ERCP is recommended. 2. No bowel obstruction or bowel wall thickening. 3. Colonic diverticulosis. 4. Additional findings as above. ACT 112: Negative or not required by law. The above report was generated using voice recognition software. It may contain grammatical, syntax or spelling errors. Electronically signed by: Hai Curry M.D. 01/30/2023 7:20 PM Resident Activity Tracking Resident Involvement: Resident Care Provided Care Provided: Adult [facility] Medicine
[2023-01-30] MEDS ORDERED: ACETAMINOPHEN 1,000 MG/100 ML VIAL IV STA (21:55)
[2023-01-30] MEDS ORDERED: HYDROmorphone INJ 0.5 MG/0.5 ML SYR IV PRN ×2 (23:10)
[2023-01-30] MEDS: POTASSIUM CHLORIDE / WTR 10 MEQ/100 ML PLCT IV SCH (23:50)
[2023-01-30] MEDS: LACTATED RINGER'S 1,000 ML IV SCH (23:50)
[2023-01-31] MEDS: POTASSIUM CHLORIDE / WTR 10 MEQ/100 ML PLCT IV SCH ×3 (02:05→04:11)
[2023-01-31 04:27] LABS: Hematocrit (blood only) 35.8 % (37.0-47.0); Hemoglobin 11.9 g/dl (12.0-16.0); Mean Corpuscular Hemoglobin 30.7 pg (25.0-34.0); Mean Corpuscular Hgb Conc 33.2 g/dL (32.0-36.0); Mean Corpuscular Volume 92.5 fL (80.0-100.0); Mean Platelet Volume 14.4 fL (9.4-12.4); Platelet Count 111 K/uL (130-400); RDW Coefficient of Variation 15.1 % (11.5-14.5); RDW Standard Deviation 50.9 fL (36.4-46.3); Red Blood Count 3.87 M/uL (4.20-5.40); White Blood Count 17.33 K/ul (4.8-10.8)
[2023-01-31 04:38] LABS: Albumin Globulin Ratio 1.3 (0.9-2); Albumin Level 3.3 gm/dl (3.4-5.0); Bilirubin,Total 0.9 mg/dl (0.2-1.0); Calcium 8.5 mg/dl (8.6-10.3); Creatinine Clr Calc Pharmacy 65.5 ml/min; Est GFR (African American) 83.3 ml/min; Est GFR (Non-African American) 71.9 ml/min; Globulin 2.6 gm/dl (2.5-4.0); Magnesium 1.4 mg/dl (1.7-2.4); Phosphorus 3.7 mg/dl (2.5-4.9); Potassium 3.9 mmol/L (3.5-5.1); Total Protein 5.9 gm/dl (6.0-8.3)
[2023-01-31] MEDS: ACETAMINOPHEN 1,000 MG/100 ML VIAL IV SCH ×3 (05:51→21:32)
--- NOTE | 2023-01-31 06:56 | Hospitalist Progress Note ---
Date of Service January 31, 2023 Assessment & Plan (1) Abdominal pain: Plan: 62 F with PMH of recurrent choledocholithiasis and pancreatitis (s/p cholecystectomy-2021), hypothyroidism, and Takotsubo cardiomyopathy, who presents to the hospital with abdominal pain. Now admitted for further evaluation by GI, possible ERCP. Abdominal pain -Afebrile, epigastric and RUQ. RUQ E/S, CT A/P negative for acute findings. Mild (neutrophilic) leukocytosis. AST/ALT, alk phos, lipase all normal. Mild hyperbilirubinemia (1.3). -Liver ultrasound showed biliary duct dilatation abdominal/pelvis CT showed focal narrowing within the mid to distal common bile duct and recommend correlation with ERCP. -Admit Bilirubin of 1.3, resolved at this time. -GI consulted for ERCP. last ERCP done in November at [facility]. -With elevated Pro-Marco A and leukocytosis, will start on Zosyn. -Pain control with Tylenol and hydromorphone, will reassess after ERCP. -NPO. Continue LR at 125 mL/hr. Hypothyroidism -Stable. On levothyroxine 88 mcg daily. -We will hold until after ERCP Takotsubo cardiomyopathy/NSTEMI -On metoprolol succinate 12.5 mg daily as needed for PVC -Holding. To restart after ERCP Code: Full code Dispo: Med-Surg telemetry FEN/GI: NPO. LR @maintenance rate DVT Prophylaxis: Heparin 5000 u q12h PT/OT: No Consults: GI Case Management: No (2) Leukocytosis: (3) Elevated bilirubin: (4) Hypothyroidism: (5) Broken heart syndrome: (6) Hypokalemia: Admission and Anticipated Discharge Date Admission Date: January 30, 2023 Supervising Physician Co-Signing Physician Notes Resident Physician Supervision Note: I independently interviewed and examined the patient and verified the chase history and physical, reviewed labs and image studies and agree with resident findings and care plan. Subjective Patient was seen bedside this. Patient states that she is still having some abdominal pain. She is scheduled to have a ERCP this afternoon. She denies any other issues or complaints at this time Review of Systems Review of Systems: All systems reviewed & are unremarkable except as noted in Subjective Physical Exam Constitutional: WD/WN, vitals as above well groomed, cooperative and comfortable Eyes: PERRL, conjunctivae normal, anicteric sclerae ENMT: external ear and nose normal, oropharynx normal Respiratory: normal respiratory effort, lungs clear to auscultation Cardiovascular: RRR, no murmur, no edema Gastrointestinal (Abdomen): Inspection/Auscultation: + hypoactive bowel sounds; abdomen not distended Percussion/Palpation: + abdomen tender (Epigastric) and abdomen soft; no abdominal mass Skin: no rashes, warm and dry Psychiatric: A+Ox3, euthymic affect Lymphatic: no cervical or axillary lymphadenopathy Results & Data Results & Data Vital Signs (Past 12 Hours) Vital Signs Temp Pulse Pulse Resp BP Pulse Ox O2 Del Method 01/31/23 00:20 81 01/31/23 04:03 36.8 C 77 17 101/64 99 Nasal Cannula 01/30/23 23:25 87 17 101/63 97 Nasal Cannula 01/30/23 23:00 86 17 101/63 96 01/30/23 21:00 103 H 18 121/72 97 Nasal Cannula O2 Flow Rate 01/31/23 00:20 01/31/23 04:03 2 01/30/23 23:25 2 01/30/23 23:00 01/30/23 21:00 2 Resident Activity Tracking Resident Involvement: Resident Care Provided Care Provided: Adult Hospital Medicine
[2023-01-31] MEDS ORDERED: PIPERACILLIN/TAZOBACTAM 4.5 GM/120 ML BAG IV ONE (07:30)
[2023-01-31 07:39] LABS: Estimated Average Glucose 105 mg/dl; Hemoglobin A1C 5.3 % (4.5-5.6)
[2023-01-31] MEDS: MAGNESIUM SULFATE / D5W 1 GM/100 ML BAG IV SCH ×2 (08:38→11:09)
[2023-01-31] MEDS ORDERED: INDOMETHACIN 50 MG SUPP PR ONE (09:00)
[2023-01-31] MEDS ORDERED: INDOMETHACIN 50 MG SUPP PR SCH (09:00)
--- NOTE | 2023-01-31 10:04 | Gastrointestinal Consultation ---
Date of Consultation January 31, 2023 Assessment & Plan (1) Abdominal pain: Pt is a 62 yo female who presented w epigastric abd pain, n/v, subjective fever, chills and mild Tbili elevation. Hx of choledocholithiasis s/p cholecystectomy in 2021, recurrent biliary sludge needing ERCP intervention. CT abd/pelvis and liver us wo acute findings other than dilated CBD similar to previous studies - NPO - ERCP w Dr. Guy Gonzales in [place] today - Monitor LFTs - IVF support - Symptomatic management otherwise Supervising Physician Co-Signing Physician Notes Patient presents with a history of abdominal discomfort, her past history is not able for recurrent choledocholithiasis. She notes that she has had nausea and some subjective chills at home. We are planning to do a repeat ERCP today but also transient. I discussed the risks and benefits with the patient to include bleeding infection perforation pain and need for follow-up studies. History of Present Illness Reason for Consultation: Abd pain; hx of choledocholithiasis Requesting Physician: Dr. Jolie Forbes Attending Physician: Dr. Guy Gonzales History of Present Illness Pt is a 62 yo female w PMHx of hypothyroidism, Takotsubo cardiomyopathy, cho ledocholithiasis, gallstone pancreatitis, s/p cholecystectomy in 2021 who presented to ED last night w c/o epigastric abd pain, n/v symptoms. She recently went to the beach, and came back home Tuesday. Symptoms began Tuesday night. Had some chills and felt feverish, then nausea, vomiting started. Denies any changes in bowel habits. She was found to have sinus tach and O2 sat in mid 80s in ED. Labs notable for leukocytosis WBC of 12. LFTs normal w mild Tbili elevation of 1.[address] abd/pelvis & Liver us w CBD dilation (unchanged). Last ERCP done in [facility] 11/2022 w sludge removal and she was started on Jaycob 300mg BID. She denies any new meds, or supplements. While on vacation had 2 alcoholic drinks. Allergies Allergy/AdvReac Type Severity Reaction Status Date / Time methimazole Allergy Intermediate RASH Verified 01/30/23 18:22 nickel Allergy Intermediate CHEAP Verified 01/30/23 18:22 JEWELRY, RASH/HIVES metronidazole Allergy Mild FACIAL Verified 01/30/23 18:22 BURNING sumatriptan AdvReac Unknown CONTRAINDICATED Verified 01/30/23 18:24 WITH PT'S MEDS. Home Medications Medication Instructions Recorded Confirmed Type metoprolol succinate 25 mg 12.5 mg PO DAILY PRN pvc 10/29/20 01/30/23 History tablet,extended release 24 hr levothyroxine 88 mcg capsule 88 mcg PO QAM 05/24/22 01/30/23 History tirzepatide 5 mg/0.5 mL 5 mg subcut WK 01/30/23 01/30/23 History subcutaneous pen injector (Mounjaro) ursodiol 300 mg capsule 300 mg PO BID 01/30/23 01/30/23 History Patient History Medical History Breast fibroadenoma Left > 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 Styles > no current issues Melanoma right leg > with removal NSTEMI (non-ST elevated myocardial infarction) 2016 >"broken heart syndrome" not actual nstemi per pt > echo/cath, no further issues Osteoarthritis Pancreatitis 2017 PVCs (premature ventricular contractions) metoprolol for this > follows with PCP Status post gamma knife treatment 2016 > Meningioma > Opdivo treatment>LAST DOSE NOVEMBER 2021 > follows Dr. Styles in [place] Surgical History History of cardiac cath 2017 > no stents History of section x2 History of cholecystectomy History of ERCP MULTIPLE History of hysterectomy History of tonsillectomy and adenoidectomy History of tooth extraction Nausea and vomiting after administration of anesthetic agent Family History Mother Hypertension Aortic aneurysm Hyperlipidemia Father Heart disease Myocardial infarction Grandmother (Paternal) Leukemia Brother Cancer Social History Smoking Status: Former smoker Tobacco Type: Cigarettes Second Hand Exposure: No; Do You Dip or Chew Tobacco: No; Tobacco Cessation Education Requested by Patient: No Hx Alcohol Use: Yes Alcohol type: hard liquor Alcohol Intake Frequency Comment: Rare Hx Substance Use: No Preferred Language: Maltese Communication Ability: Effective Instructional Support Specialist Required: No Beliefs That Will Affect Care: None Current Living Situation: Alone Other Information That Helps Us Care for You: No Feels Safe at Home: Yes Safety Concerns: Feels Safe At This Time Assistive Devices: None Review of Systems Review of Systems: All systems reviewed & are unremarkable except as noted in HPI & below Physical Exam Constitutional: WD/WN, vitals as above well groomed, cooperative and comfortable Eyes: PERRL, conjunctivae normal, anicteric sclerae ENMT: external ear and nose normal, oropharynx normal Respiratory: normal respiratory effort, lungs clear to auscultation Cardiovascular: RRR, no murmur, no edema Gastrointestinal (Abdomen): TTP epigastric, soft, hypoactive BS Skin: no rashes, warm and dry no jaundice Psychiatric: A+Ox3, euthymic affect Lymphatic: no lymphedema Results & Data Vital Signs (Past 12 Hours) Vital Signs Temp Pulse Pulse Resp BP Pulse Ox O2 Del Method 01/31/23 09:41 36.7 C 68 119/76 99 Nasal Cannula 01/31/23 00:20 81 01/31/23 04:03 36.8 C 77 17 101/64 99 Nasal Cannula 01/30/23 23:25 87 17 101/63 97 Nasal Cannula 01/30/23 23:00 86 17 101/63 96 O2 Flow Rate 01/31/23 09:41 2 01/31/23 00:20 01/31/23 04:03 2 01/30/23 23:25 2 01/30/23 23:00
[2023-01-31] MEDS: LACTATED RINGER'S 1,000 ML IV SCH (10:08)
[2023-01-31] MEDS: HEPARIN SOD 5,000 UNIT/0.5 ML VIAL SQ SCH ×2 (10:21→21:33)
[2023-01-31 12:51] LABS: Appearance Urine Clear (Clear); Bacteria Urine Automated Negative (Negative); Blood Urine Negative (Negative); Color Urine Dark Yellow; Glucose Urine UA 1+ (Negative); Ketones Urine Trace (Negative); Leukocyte Esterase Urine Trace (Negative); Nitrite Urine Negative (Negative); Protein Urine Trace (Negative); RBC Urine Automated 0-4 /hpf (0-4); Urobilinogen Urine Negative (Negative); pH Urine 5.5 (4.5-7.5)
[2023-01-31] MEDS ORDERED: ONDANSETRON INJ 2 MG/ML 2 ML VIAL ONE (13:00)
[2023-01-31] MEDS ORDERED: DEXAMETHASONE SOD INJ 4 MG/ML VIAL ONE (13:00)
[2023-01-31] MEDS ORDERED: PROPOFOL IV EMULSION 10 MG/ML 20 ML VIAL IV ONE (13:00)
[2023-01-31] MEDS ORDERED: LIDOCAINE 2% 2 ML VIAL/AMP(20MG/ML) INFIL ONE (13:00)
[2023-01-31] MEDS ORDERED: MIDAZOLAM HCL 1 MG/ML 2ML VIAL ONE (13:01)
[2023-01-31] MEDS ORDERED: fentaNYL citrate PF 100 MCG/2 ML VIAL ONE ×2 (13:01→14:15)
[2023-01-31 13:02] LABS: Bilirubin Urine 1+ (Negative)
[2023-01-31] MEDS ORDERED: ROCURONIUM BROMIDE 10 MG/ML 5 ML VIAL IV ONE (13:04)
[2023-01-31] MEDS ORDERED: SUCCINYLCHOLINE CHLORIDE 20 MG/ML 10 ML VIAL IV ONE (13:04)
[2023-01-31] MEDS ORDERED: ONDANSETRON INJ 2 MG/ML 2 ML VIAL IV PRN (13:17)
[2023-01-31] MEDS ORDERED: ePHEDrine sulfate 50 MG/ML AMP IV PRN (13:17)
[2023-01-31] MEDS ORDERED: fentaNYL citrate PF 100 MCG/2 ML VIAL IV PRN (13:17)
[2023-01-31] MEDS ORDERED: ATROPINE SULFATE 0.1 MG/ML 10ML SYR IV PRN (13:17)
--- NOTE | 2023-01-31 13:36 | Anesthesiology Consultation ---
Date of Service January 31, 2023 Assessment & Plan Chart Review Chart Review: Acceptable Risk for Surgery and Patient NOT seen in Pre Admission Testing Consults Requested none History Surgery Operation Date: 01/31/23 09:20 Proposed Procedures p Endoscopic Retrograde Cholangiopancreato - Guy Gonzales DO Height/Weight Height: 5 ft 1 in Weight: 83.2 kg Allergies Allergy/AdvReac Type Severity Reaction Status Date / Time methimazole Allergy Intermediate RASH Verified 01/30/23 18:22 nickel Allergy Intermediate CHEAP Verified 01/30/23 18:22 JEWELRY, RASH/HIVES metronidazole Allergy Mild FACIAL Verified 01/30/23 18:22 BURNING sumatriptan AdvReac Unknown CONTRAINDICATED Verified 01/30/23 18:24 WITH PT'S MEDS. Medications Home Medications Medication Instructions Recorded Confirmed Last Taken metoprolol succinate 25 mg 12.5 mg PO DAILY PRN pvc 10/29/20 01/30/23 05/28/22 05:00 tablet,extended release 24 hr levothyroxine 88 mcg capsule 88 mcg PO QAM 05/24/22 01/30/23 01/29/23 tirzepatide 5 mg/0.5 mL 5 mg subcut WK 01/30/23 01/30/23 01/27/23 subcutaneous pen injector (Jose) ursodiol 300 mg capsule 300 mg PO BID 01/30/23 01/30/23 01/29/23 Active Medications Generic Name Dose Route Start Last Admin Trade Name Freq PRN Reason Stop Dose Admin Heparin Sodium (Porcine) 5,000 units 01/31/23 09:00 01/31/23 10:21 Heparin Sod 5,000 Unit/0.5 Ml Vial SQ 03/02/23 08:59 Not Given Q12 RAYNE Lactated Ringer's 1,000 mls @ 125 mls/hr 01/30/23 23:10 01/31/23 10:08 Lr IV 01/31/23 15:09 125 mls/hr .Q8H RAYNE Administration Acetaminophen 1,000 mg in 100 mls @ 400 mls/hr 01/31/23 06:00 01/31/23 06:08 Ofirmev IV 02/03/23 05:59 Infused Q8H RAYNE Infusion NPO Date Last Intake of Fluids: 01/30/23 Time Last Intake of Fluids: 21:30 Date Last Intake of Solids: 01/29/23 Time Last Intake of Solids: 20:00 Past Medical History Medical History (Updated 01/31/23 @ 13:48 by Attila Pickering MD) Breast fibroadenoma Left > removed > benign Encounter for pre-operative examination History of COVID-19 01/2022>RESOLVED History of radioactive iodine thyroid ablation Hx of Graves' disease Hx of idiopathic thrombocytopenic purpura 2001 > gets checked once a year with Dr. Styles > no current issues Melanoma right leg > with removal NSTEMI (non-ST elevated myocardial infarction) 2016 >"broken heart syndrome" not actual nstemi per pt > echo/cath, no further issues Osteoarthritis Pancreatitis 2017 PVCs (premature ventricular contractions) metoprolol for this > follows with PCP Status post gamma knife treatment 2016 > Meningioma > Opdivo treatment>LAST DOSE NOVEMBER 2021 > follows Dr. Styles in [place] Exercise / Class Metabolic Activity II 4-5 Yardwork/Stairs/Walk up hill Past Family History Family History Mother Hypertension Aortic aneurysm Hyperlipidemia Father Heart disease Myocardial infarction Grandmother (Paternal) Leukemia Brother Cancer Past Surgical History Surgical History History of cardiac cath 2016 > no stents History of section x2 History of cholecystectomy History of ERCP MULTIPLE History of hysterectomy History of tonsillectomy and adenoidectomy History of tooth extraction Nausea and vomiting after administration of anesthetic agent Past Anesthesia History No Hx of Anesthesia Complications and No Family Hx of Anesthesia Complications History of PONV No Hx of PONV and No Hx of Motion Sickness Social History Smoking Status: Former smoker tobacco type: cigarettes Do You Dip or Chew Tobacco: No Hx Alcohol Use: Yes Alcohol type: hard liquor alcohol intake frequency: holidays/special occasions only Hx Substance Use: No substance use type: does not use Physical Exam Vital Signs Last Vital Signs Temp 36.8 C 01/31/23 12:58 Pulse 83 01/31/23 12:58 Resp 20 01/31/23 12:58 BP 150/95 H 01/31/23 12:58 Pulse Ox 98 01/31/23 12:58 O2 Del Method Room Air 01/31/23 12:58 O2 Flow Rate 2 01/31/23 11:38 Testing Laboratory Results 01/31/23 03:54 01/31/23 03:54 Hemoglobin A1c 5.3 % (4.5-5.6) 01/31/23 03:54 Urine Color Dark Yellow 01/31/23 Unknown Urine Appearance Clear (Clear) 01/31/23 Unknown Urine pH 5.5 (4.5-7.5) 01/31/23 Unknown Ur Specific [place] 1.040 (1.000-1.030) H 01/31/23 Unknown Urine Protein Trace (Negative) H 01/31/23 Unknown Urine Glucose (UA) 1+ (Negative) H 01/31/23 Unknown Urine Ketones Trace (Negative) H 01/31/23 Unknown Urine Nitrite Negative (Negative) 01/31/23 Unknown Ur Leukocyte Esterase Trace (Negative) H 01/31/23 Unknown Urine WBC (Auto) 10-30 /hpf (0-5) H 01/31/23 Unknown Urine RBC (Auto) 0-4 /hpf (0-4) 01/31/23 Unknown U Hyaline Cast (Auto) 1-5 /lpf (0-5) 01/31/23 Unknown U Epithel Cells (Auto) 10-20 /lpf (0-5) H 01/31/23 Unknown Urine Bacteria (Auto) Negative (Negative) 01/31/23 Unknown Electrocardiogram ecg november 2022. nsr. nonspecific st changes
[2023-01-31] MEDS ORDERED: KETOROLAC 30 MG/ML VIAL ONE (14:17)
--- NOTE | 2023-01-31 14:38 | Communication Note ---
Date of Service: January 31, 2023 Patient underwent ERCP today for suspected choledocholithiasis. She was found to have evidence of multiple stones within the common bile duct, the bile duct was also significantly dilated to approximately 18 mm. Gallstones were extracted with use of an 18 mm and 20 mm balloon Recommendations Clear liquid diet tonight Advance diet as tolerated on 02/01 10-day course of antibiotics, would consider use of Augmentin Continue use of ursodiol as an outpatient Please call the GI service with any additional questions or concerns.
--- NOTE | 2023-01-31 14:38 | Post Operative Brief Note ---
Immediate Post Op Note v1 Date of Surgery January 31, 2023 Pre & Post Diagnosis Operation Date: 01/31/23 09:20 Pre-Op Diagnosis: Choledocholithiasis Post-Op Diagnosis: Choledocholithiasis I identified the patient and participated in the time-out.: Yes Procedure Operation Date: 01/31/23 09:20 Actual Procedures p Endoscopic Retrograde Cholangiopancreato balloon extraction with sludge removed. - Guy Gonzales DO Surgeon Guy Gonzales, DO Fruit I Farmworker none Estimated Blood Loss 0 Findings Consistent with Post-Op Diagnosis
--- NOTE | 2023-01-31 14:44 | GI REPORT ---
Patient Name: Priyanka Bowen Procedure Date: 01/31/2023 1:58 PM Date of : 1960 Admit Type: Inpatient Age: 62 Gender: Female Attending MD: Guy Gonzales DO, Procedure: ERCP Providers: Guy Gonzales DO Referring MD: Jolie Forbes Indications: Abdominal pain of suspected biliary origin, Suspected bile duct stone(s) Medicines: General Anesthesia Complications: No immediate complications. Estimated blood loss: Minimal. Estimated Blood Loss: Estimated blood loss was minimal. Procedure: Pre-Anesthesia Assessment: - Prior to the procedure, a History and Physical was performed, and patient medications, allergies and sensitivities were reviewed. The patient's tolerance of previous anesthesia was reviewed. - The risks and benefits of the procedure and the sedation options and risks were discussed with the patient. All questions were answered and informed consent was obtained. - Patient identification and proposed procedure were verified prior to the procedure by the physician, the nurse and the helpdesk administrator. The procedure was verified in the procedure room. - Pre-procedure physical examination revealed no contraindications to sedation. - ASA Grade Assessment: II - A patient with mild systemic disease. - After reviewing the risks and benefits, the patient was deemed in satisfactory condition to undergo the procedure. - The anesthesia plan was to use general anesthesia. - Immediately prior to administration of medications, the patient was re-assessed for adequacy to receive sedatives. - The heart rate, respiratory rate, oxygen saturations, blood pressure, adequacy of pulmonary ventilation, and response to care were monitored throughout the procedure. - The physical status of the patient was re-assessed after the procedure. After obtaining informed consent, the scope was passed under direct vision. Throughout the procedure, the patient's blood pressure, pulse, and oxygen saturations were monitored continuously. The Duodenoscope was introduced through the mouth, and advanced to the duodenum and used to inject contrast into the bile duct. The ERCP was accomplished without difficulty. The patient tolerated the procedure well. Findings: A plant floor automation manager film of the abdomen was obtained. Surgical clips, consistent with a previous cholecystectomy, were seen in the area of the right upper quadrant of the abdomen. The esophagus was successfully intubated under direct vision without detailed examination of the pharynx, larynx, and associated structures, and upper GI tract. The upper GI tract was grossly normal. A biliary sphincterotomy had been performed. The sphincterotomy appeared open. The bile duct was deeply cannulated with the 20 mm balloon and guidewire. Contrast was injected, interpretation of the cholangiogram is somewhat limited given the significant dilation of the patient's common bile duct. I personally interpreted the bile duct images. Contrast extended to the hepatic ducts. The main bile duct was moderately dilated. The largest diameter was 18 mm. To discover objects, the biliary tree was swept with an 18 mm balloon and 20 mm balloon starting at the bifurcation. Many stones were removed. No stones remained. The endoscope was withdrawn from the patient. Impression: - Prior biliary sphincterotomy appeared open. - The entire main bile duct was moderately dilated. - Choledocholithiasis was found. Complete removal was accomplished by balloon extraction. - The biliary tree was swept. Recommendation: - Clear liquid diet today. - Use broad spectrum antibiotics for 10 days. - Repeat ERCP PRN for retreatment. If patient develops recurrent stone material in the next 3 to 4 months we could consider a spyglass procedure to better evaluate the CBD Guy Gonzales D.O. Guy Gonzales DO 01/31/2023 2:43:41 PM This report has been signed electronically. Note Initiated On: 01/31/2023 1:58 PM Number of Addenda: 0 I attest to the content of the Intraoperative Record and orders documented therein, exceptions below {[id number]}
--- NOTE | 2023-01-31 14:55 | Fluoroscopy Report ---
FL ERCP biliary ductal CLINICAL HISTORY: for ercp TECHNIQUE: 2 views were obtained with the C-arm in the OR with the above procedure. Total fluoroscopy time was 19.9 seconds. Radiation dose was 4.37 mGy. Comparison: Comparison is made to CT abdomen pelvis 01/30/2023 FINDINGS/IMPRESSION: Intraoperative images were obtained of ERCP. Please correlate with intraoperative fluoroscopy and operative report. ACT 112: Negative or not required by law. Electronically signed by: Cruzito Barnes M.D. 01/31/2023 2:53 PM
--- NOTE | 2023-01-31 15:41 | Anesthesiology Progress Note ---
Date of Service January 31, 2023 Anesthesia Post Procedure Vital Signs Vital Signs: Temp Pulse Pulse Resp BP BP Pulse Ox 01/31/23 15:21 36.9 C 83 101/66 92 01/31/23 14:55 36.7 C 83 16 117/60 92 01/31/23 14:45 89 16 116/69 92 01/31/23 14:35 36.5 C 98 H 15 124/82 98 01/31/23 12:58 36.8 C 83 20 150/95 H 98 01/31/23 12:04 76 01/31/23 11:38 36.7 C 71 20 121/76 98 01/31/23 10:05 01/31/23 09:41 36.7 C 68 119/76 99 01/31/23 00:20 81 01/31/23 04:03 36.8 C 77 17 101/64 99 01/30/23 23:25 87 17 101/63 97 01/30/23 23:00 86 17 101/63 96 01/30/23 21:00 103 H 18 121/72 97 01/30/23 16:39 85 L 01/30/23 16:36 97 H 18 157/72 H 85 L 01/30/23 18:19 97 H 18 119/67 96 01/30/23 15:43 36.9 C 104 H 20 118/65 100 O2 Del Method O2 Flow Rate 01/31/23 15:21 Room Air 01/31/23 14:55 Room Air 01/31/23 14:45 Room Air 01/31/23 14:35 Oxymask 5 01/31/23 12:58 Room Air 01/31/23 12:04 01/31/23 11:38 Nasal Cannula 2 01/31/23 10:05 Nasal Cannula 2 01/31/23 09:41 Nasal Cannula 2 01/31/23 00:20 01/31/23 04:03 Nasal Cannula 2 01/30/23 23:25 Nasal Cannula 2 01/30/23 23:00 01/30/23 21:00 Nasal Cannula 2 01/30/23 16:39 Nasal Cannula 0 01/30/23 16:36 Room Air 01/30/23 18:19 Nasal Cannula 2 01/30/23 15:43 Room Air Pain Intensity Right Upper Abdomen: Pain Intensity: 3 Transfer of Care Handoff Completed per policy Notes Mental Status: alert / awake / arousable and participated in evaluation Patient Amnestic to Procedure: Yes Nausea / Vomiting: adequately controlled Pain: adequately controlled Airway Patency, RR, SpO2: stable & adequate BP & HR: stable & adequate Hydration State: stable & adequate Anesthetic Complications: no major complications apparent and Pt Satisfied with anesthetic care
[2023-01-31] MEDS: PIPERACILLIN/TAZOBACTAM 4.5 GM in DEXTROSE 5% 100 ML IV SCH ×2 (16:31→21:32)
[2023-02-01] MEDS: ACETAMINOPHEN 1,000 MG/100 ML VIAL IV SCH (05:44)
[2023-02-01] MEDS: PIPERACILLIN/TAZOBACTAM 4.5 GM in DEXTROSE 5% 100 ML IV SCH (05:45)
--- NOTE | 2023-02-01 06:43 | Hospitalist Progress Note ---
Date of Service February 01, 2023 Assessment & Plan (1) Abdominal pain: (2) Leukocytosis: (3) Elevated bilirubin: (4) Hypothyroidism: (5) Broken heart syndrome: (6) Hypokalemia: Plan 62 F with PMH choledocholithiasis and pancreatitis (s/p cholecystectomy-2021), hypothyroidism, and Takotsubo cardiomyopathy, who presents to the hospital with abdominal pain. Now admitted for further evaluation by GI, possible ERCP. Abdominal pain -Afebrile, epigastric and RUQ. RUQ E/S, CT A/P negative for acute findings. Mild (neutrophilic) leukocytosis. AST/ALT, alk phos, lipase all normal. Mild hyperbilirubinemia (1.3). -GI consulted for further evaluation, possible ERCP. last ERCP done in November at [facility]. -Liver ultrasound showed biliary duct dilatation abdominal/pelvis CT showed focal narrowing within the mid to distal common bile duct and recommend correlation with ERCP. -GI consult, plan for ERCP on 01/31. -Elevated Pro-Marco A and leukocytosis, will start on Zosyn. -Bilirubin of 1.3 at time of admission, resolved at this time. -Pain control with Tylenol and hydromorphone, will reassess after ERCP. -Started on fluids LR at 125 mL/hr. -UA showed trace proteins ketones and leukocyte Estrace, 1+ glucose, 1+ bilirubin, 10-30 white blood cells, 10-20 epithelial cells. Hypokalemia-resolved -Mild. 3.1 on admission. -S/p repletion with 40 mEq of IV potassium chloride. 3.9 on 01/31. Hypothyroidism -Stable. On levothyroxine 88 mcg daily. -We will hold until after ERCP Takotsubo cardiomyopathy/NSTEMI -On metoprolol succinate 12.5 mg daily as needed for PVC -We will hold and restart after ERCP Code: Full code Dispo: Med-Surg telemetry FEN/GI: NPO. LR @maintenance rate DVT Prophylaxis: Heparin 5000 u q12h PT/OT: No Consults: GI Case Management: No Admission and Anticipated Discharge Date Admission Date: January 30, 2023 Results & Data Results & Data Vital Signs (Past 12 Hours) Vital Signs Temp Pulse Pulse Pulse Resp BP BP 02/01/23 02:36 36.4 C L 59 L 20 117/70 01/31/23 22:00 74 02/01/23 00:00 36.5 C 66 18 113/73 01/31/23 19:00 36.7 C 74 18 118/70 Pulse Ox O2 Del Method 02/01/23 02:36 96 Room Air 01/31/23 22:00 02/01/23 00:00 95 Room Air 01/31/23 19:00 95 Room Air
[2023-02-01 07:17] LABS: Hematocrit (blood only) 33.9 % (37.0-47.0); Hemoglobin 11.4 g/dl (12.0-16.0); Mean Corpuscular Hemoglobin 30.2 pg (25.0-34.0); Mean Corpuscular Hgb Conc 33.6 g/dL (32.0-36.0); Mean Corpuscular Volume 89.9 fL (80.0-100.0); Platelet Count 103 K/uL (130-400); RDW Coefficient of Variation 14.7 % (11.5-14.5); RDW Standard Deviation 48.6 fL (36.4-46.3); Red Blood Count 3.77 M/uL (4.20-5.40)
--- NOTE | 2023-02-01 07:17 | Discharge Summary ---
Date of Service February 01, 2023 Admission HPI Per Admitting Provider Priyanka is a 62-year-old woman with a past medical history of choledocholithiasis + gallstone pancreatitis (s/p cholecystectomy in 2021), hypothyroidism, Takotsubo cardiomyopathy, who presented to the emergency room today with a complaint of epigastric abdominal pain. She reports the pain began suddenly at about 11 PM the night before and she tolerated it until 3 PM today when she decided to finally come in. Other than headache, she denies nausea, chest pain, shortness of breath, flank pain, or dysuria. In the ED, vitals were notable for a mild sinus tachycardia, and an O2 saturation in the mid 80s, which subsequently rebounded with 2 L O2 via NC. Labs were notable for WBC-12.68, and K-3.1. AST/ALT were both normal (35/27), as was alk phos-87 and lipase-16. T. bili was mildly elevated (1.3). CT A/P showed only post cholecystectomy findings and common bile duct dilatation that were unchanged from prior imaging. She received morphine, Zofran, and 1 L bolus of normal saline. GI was consulted for evaluation for possible ERCP subsequently, hospitalist service was consulted for admission. Admission Exam Per Admitting Provider General: No acute distress HEENT: PERRLA. Normal conjunctiva, anicteric sclera. Oropharynx normal. Respiratory: Normal respiratory effort, CTABL. Cardiovascular: Tachycardia. Regular rhythm. No murmurs, gallops, or rubs. No pedal edema. GI: Soft abdomen with normal bowel sounds heard on auscultation. Tender to palpation at epigastrium and RUQ. No flank tenderness elicited bilaterally. Neuro: Alert and oriented x3. Principal Diagnosis Choledocholithiasis Discharge Exam Constitutional: well-appearing, no acute distress HEENT: NCAT, no conjunctival injection CV: regular rhythm, no murmur appreciated, extremities well-perfused, no LE edema Resp: CTABL, no wheezes/rales/rhonchi appreciated, no increased work of breathing GI: soft, nondistended, nontender, BS normoactive MSK: no gross deformities appreciated Skin: warm, dry, no rash appreciated Neuro: alert, oriented, no focal neurologic deficit appreciated Discharge Data Allergies Allergy/AdvReac Type Severity Reaction Status Date / Time methimazole Allergy Intermediate RASH Verified 01/30/23 18:22 nickel Allergy Intermediate CHEAP Verified 01/30/23 18:22 JEWELRY, RASH/HIVES metronidazole Allergy Mild FACIAL Verified 01/30/23 18:22 BURNING sumatriptan AdvReac Unknown CONTRAINDICATED Verified 01/30/23 18:24 WITH PT'S MEDS. Consultations 01/30/23 20:05 Consult Gastroenterology Routine 01/30/23 20:07 ED Decision to Admit Stat Procedures Performed Operation Date: 01/31/23 09:20 Actual Procedures p Endoscopic Retrograde Cholangiopancreato balloon extraction with sludge removed. - Guy Gonzales, Ordered Studies Liver Ultrasound 01/30/23 16:17 ABDOMINAL ULTRASOUND, RIGHT UPPER QUADRANT HISTORY: History of choledocholithiasis, abdominal pain. COMPARISON: 11/23/2022 FINDINGS: Pancreas: The pancreas is mostly obscured by bowel gas. Liver: Increased echogenicity of the liver with mild biliary ductal dilation pneumobilia again noted. Mild intrahepatic biliary ductal dilation. No hepatic mass is seen. Gallbladder: Surgically absent CBD: 1.2 cm. Right kidney: No hydronephrosis. IMPRESSION: Cholecystectomy with biliary ductal dilation and pneumobilia redemonstrated which is likely on a postsurgical basis. ACT 112: Negative or not required by law. Electronically signed by: Hai Curry M.D. 01/30/2023 5:38 PM Abdomen/Pelvis CT 01/30/23 17:[address] WITH IV CONTRAST CT DOSE: 1342.40 mGy.cm HISTORY: Acute epigastric abdominal pain epigastric pain, hx of choledocolithiasis TECHNIQUE: Multiaxial CT images of the abdomen and pelvis were performed following the IV administration of 89 cc of Optiray, A dose lowering technique was utilized adhering to the principles of ALARA. COMPARISON STUDY: 11/22/2022, 05/28/2022 FINDINGS: Subsegmental dependent bibasilar opacities favor atelectasis. No free air. Unremarkable spleen, pancreas and adrenal glands. Cholecystectomy with pneumobilia and persistent intrahepatic and extrahepatic biliary ductal dilation. The common bile duct measures 1.7 cm which is unchanged. Focal narrowing at the level of the mid to distal common bile duct with increased attenuation on image 134 is also unchanged. No hepatic mass identified. Mild hepatomegaly. Patent portal vein. 2.4 cm cyst of the interpolar left kidney. No hydronephrosis. Urinary bladder wall thickening with partial distention. Hysterectomy. Atherosclerosis of the aorta with subcentimeter retroperitoneal lymph nodes. Surgical clips within the right inguinal tissues. There is no bowel obstruction or bowel wall thickening. Colonic diverticulosis. No ascites or mesenteric inflammation. Normal appendix. Unremarkable soft tissues. No acute fracture. IMPRESSION: 1. Cholecystectomy with pneumobilia and persistent intrahepatic and extrahepatic biliary ductal dilation. Focal narrowing within the mid to distal common bile duct is similar in appearance to the study from 11/22/2022. As previously suggested, correlation with ERCP is recommended. 2. No bowel obstruction or bowel wall thickening. 3. Colonic diverticulosis. 4. Additional findings as above. ACT 112: Negative or not required by law. The above report was generated using voice recognition software. It may contain grammatical, syntax or spelling errors. Electronically signed by: Hai Curry M.D. 01/30/2023 7:20 PM Endo Retro Cholangiopancreatogram 01/31/23 08:36 FL ERCP biliary ductal CLINICAL HISTORY: for ercp TECHNIQUE: 2 views were obtained with the C-arm in the OR with the above pro cedure. Total fluoroscopy time was 19.9 seconds. Radiation dose was 4.37 mGy. Comparison: Comparison is made to CT abdomen pelvis 01/30/2023 FINDINGS/IMPRESSION: Intraoperative images were obtained of ERCP. Please correlate with intraoperative fluoroscopy and operative report. ACT 112: Negative or not required by law. Electronically signed by: Cruzito Barnes M.D. 01/31/2023 2:53 PM 01/30/23 16:17 US RUQ [US liver] Stat 01/30/23 17:55 CT Abd and Pelvis [CT abd pelvis IV con only] Stat 01/31/23 08:36 FL ERCP biliary ductal Routine Hospital Course (1) Abdominal pain: (2) Hypothyroidism: (3) NSTEMI (non-ST elevated myocardial infarction): (4) Broken heart syndrome: Plan 62 F with PMH of recurrent choledocholithiasis and pancreatitis (s/p cholecystectomy-2021), hypothyroidism, and Takotsubo cardiomyopathy, who presents to the hospital with abdominal pain. Now admitted for further evaluation by GI, possible ERCP. Abdominal pain -Pain in Epigastric and RUQ. -Liver ultrasound showed biliary duct dilatation. Abdominal/pelvis CT - focal narrowing within the mid to distal common bile duct and recommend correlation with ERCP. -Kept on IVF and NPO. -ERCP done - removed multiple stones from the common bile duct. -Able to advance diet by time of discharge. -Augmentin 875/125 twice daily for 10 days was sent into the pharmacy for the patient. -Should follow-up with PCP in 1 week, should have CBC and CMP at that time. -Has a follow-up appointment with GI on 03/02. Hypothyroidism -Stable. On levothyroxine 88 mcg daily. Takotsubo cardiomyopathy/NSTEMI -On metoprolol succinate 12.5 mg daily as needed for PVC Total Time Total Time Spent Total Time Spent (In Minutes): Please refer to attendings attestation Discharge Plan Discharge Items Patient Disposition: Home - Self-Care Reason For Visit: ABDOMINAL PAIN Discharge Diagnosis: Choledocholithiasis Activity: Resume your previous activity Non-emergency contact: Primary Care Provider and [employer] Call non-emergency contact if: you have any medication questions, your pain is unusual for you and your temperature is above 101.5 Follow-up/Referrals: Catherine Ortiz CRNP [Primary Care Provider] - 02/10/23 9:45 am () Nasima Owen CRNP [Nurse Practitioner] - (Appointment on 03/02) Diet: Regular Addtl Attending Provider Instructions: You were admitted to the hospital for choledocholithiasis. You had a ERCP which revealed multiple stones within the common bile duct. You should continue a 10- day course of antibiotics which we will call into the pharmacy as below. You should continue Ursodiol. A discharge summary will be sent to your primary care physician to ensure continuity of care. Please bring this discharge summary with you to your next office appointment so that your provider can review it at that time. Follow-up appointments: * Make a follow-up appointment with your PCP within the next week. It is very important that you follow up with them shortly after discharge from the hospital. * You have a follow-up appointment with gastroenterologyNasima on 03/02. If you are unable to make this appointment. Please call their office at [phone]. * Keep all your follow-up appointments as already scheduled. If you cannot make an appointment, notify your provider. Medications: Your medication list has been reviewed and reconciled upon discharge to ensure accuracy and continuity of care. An updated list of all your medications is included with your hospital discharge paperwork. Please review this list closely, and make note of any changes. * We sent a new medication called Augmentin to your pharmacy. Take Augmentin 875/125 twice a day for 10 days. * If you have any issues filling these prescriptions, please call [phone] and ask to leave a message for Dr. Manzanares. * Take your medications as instructed; do not skip a dose of your medicines. Make sure all of your doctors know every medicine you are taking (including lscr-csk-gpbbomd medicines, vitamins, and supplements). Call your primary care provider before taking any new medicines (including over- the-counter medicines, vitamins, and supplements), because some of these may interact with your current medications, or may make your symptoms worse. Tell your primary care provider if you cannot afford your medications. CONTACT YOUR PRIMARY CARE PROVIDER if you experience any of the following: * Worsening of symptoms * Fever, chills, or fatigue * Difficulty following your treatment plan, or difficulty taking medications CALL 911 OR GO TO THE EMERGENCY DEPARTMENT if you experience any of the following: * Sudden, severe abdominal pain or nausea/vomiting * Severe chest pain, or chest pain that radiates (moves) to your jaw or arm * Sudden, severe shortness of breath or difficulty breathing Thank you for allowing us to participate in your care. Pending Studies at Discharge: No Stand-Alone Forms: My [facility] [employer], Smoking Cessation Medications and DC Order Prescriptions: New amoxicillin-pot clavulanate 875-125 mg tablet 1 tab PO BID 10 Days Qty: 20 0RF Continued metoprolol succinate 25 mg tablet extended release 24 hr 12.5 mg PO DAILY PRN (Reason: pvc) levothyroxine 88 mcg Capsule 88 mcg PO QAM ursodiol 300 mg capsule 300 mg PO BID Mounjaro 5 mg/0.5 mL pen injector 5 mg SUBCUT WK Rx Instructions: THURSDAYS Discharge Orders: Discharge Order (Routine); Ordered 02/01/23 Ordered By: Rufino Manzanares Admission Data Admit Date/Time: 01/30/23 20:40 Attending Provider: Jolie Forbes Admit Provider: Alexis Park Primary Care Provider: Catherine Ortiz Other Providers: Guy Gonzales ; Carlton Bentley Other Interventions: Discharge Summary Assessment (RN) Last Done: 02/01/23 12:16 Supervising Physician Co-Signing Physician Notes Resident Physician Supervision Note: I independently interviewed and examined the patient and verified the chase history and physical, reviewed labs and image studies and agree with resident findings and care plan. Resident Activity Tracking Resident Involvement: Resident Care Provided Care Provided: Adult Hospital Medicine
[2023-02-01 07:31] LABS: Albumin Globulin Ratio 1.2 (0.9-2); Albumin Level 3.1 gm/dl (3.4-5.0); BUN Creatinine Ratio 14.3 (10-20); Bilirubin,Total 0.5 mg/dl (0.2-1.0); Calcium 8.5 mg/dl (8.6-10.3); Creatinine Clr Calc Pharmacy 75.9 ml/min; Est GFR (African American) 95.2 ml/min; Est GFR (Non-African American) 82.2 ml/min; Globulin 2.6 gm/dl (2.5-4.0); Potassium 3.9 mmol/L (3.5-5.1); Total Protein 5.7 gm/dl (6.0-8.3)
[2023-02-01] MEDS: HEPARIN SOD 5,000 UNIT/0.5 ML VIAL SQ SCH (08:46)
--- NOTE | 2023-02-01 10:16 | Gastroenterology Progress Note ---
Date of Service February 01, 2023 Assessment & Plan (1) Choledocholithiasis: Plan: Pt is a 62 yo female who presented w epigastric abd pain, n/v, subjective fever, chills and mild Tbili elevation. Hx of choledocholithiasis s/p cholecystectomy in 2021, recurrent biliary sludge needing ERCP intervention. CT abd/pelvis and liver us wo acute findings other than dilated CBD similar to previous studies Patient underwent ERCP 01/31/2023, found to have multiple CBD stones that's extracted via balloon. Clinically doing well today, LFTs normalized. - Diet as tolerated - 10 days coverage with antibiotics - Ursodiol 300mg BID - No contraindication for DC home today from GI standpoint. Pls recall GI prn. Admission and Anticipated Discharge Date Admission Date: January 30, 2023 Subjective Pt denies fever, chills, abd pain, n/v. LFTs normalized. Review of Systems Review of Systems: All systems reviewed & are unremarkable except as noted in HPI & below Physical Exam Constitutional: WD/WN, vitals as above well groomed, cooperative and comfortable Eyes: PERRL, conjunctivae normal, anicteric sclerae ENMT: external ear and nose normal, oropharynx normal Respiratory: normal respiratory effort, lungs clear to auscultation Cardiovascular: RRR, no murmur, no edema Gastrointestinal (Abdomen): normal bowel sounds, soft, nontender, no hepatosplenomegaly Skin: no rashes, warm and dry no jaundice Psychiatric: A+Ox3, euthymic affect Lymphatic: no lymphedema Results & Data Vital Signs (Past 12 Hours) Vital Signs Temp Pulse Pulse Pulse Resp BP BP 02/01/23 07:29 36.5 C 62 16 122/75 02/01/23 07:08 58 L 02/01/23 02:36 36.4 C L 59 L 20 117/70 02/01/23 00:00 36.5 C 66 18 113/73 Pulse Ox O2 Del Method 02/01/23 07:29 96 Room Air 02/01/23 07:08 02/01/23 02:36 96 Room Air 02/01/23 00:00 95 Room Air
== END 2023-02-01 16:14 | disposition home or self-care (01) | DRG 445 ==
LOC: ED 15:29 → EDINP 20:40 → SUATTDRO 20:40 → 2N 01-31 08:26